=== PATIENT | male | born 1960 | race Caucasian/White ===

== ENCOUNTER 2019-12-28 15:50 | Observation (INO) | payer BC, SELFPAY ==
[2019-12-28] VITALS (17 sets, daily range): BP systolic 155–208; BP diastolic 93–132; PULSE 82–98; RESP 16–22; TEMP 36.7–37; O2SAT 92–95; BMI 47.5
--- NOTE | 2019-12-28 15:54 | ED_ITS ---
Entered by Chris Medina, acting as scribe for Earl Lima DO Documented by User: Earl Lima DO 12/28/19 18:06 HPI - General Adult General: Chief complaint: Abdominal Pain Stated complaint: BACK, ABD PAIN Time Seen by Provider: 12/28/19 16:09 History of Present Illness: HPI narrative: 59 yo male presents with abd and back pain. Pt states that he feels like he may have a kidney stone or something. Pt states that this all started about 2 hours ago. He has had stones remotely. He has pain radiating down from the right flank into the groin he is not noticed any hematuria denies fever sweats chills MD complaint: abd and back pain. Onset (ago): hour(s) (2) Location: back and abdomen Radiation: back Severity: severe Severity scale (1-10): >10 Quality: sharp Pain Consistency: constant Relieving factors: none Exacerbating factors: movement Associated symptoms: Reports nausea and vomiting; Deny chest pain, dyspnea, malaise or rash Treatments prior to arrival: none Review of Systems Const: Denies: fever, chills, body aches, change in appetite, fatigue or malaise ENMT: Denies: throat pain, ear pain, nasal discharge or nasal congestion Card: Denies: chest pain, edema, shortness of breath on exertion or shortness of breath when lying down Resp: Denies: shortness of breath, productive cough or non-productive cough GI: Reports: abdominal pain, nausea and vomiting : Reports: flank pain; Denies: painful urination, urinary frequency or urinary urgency Skin/Breast: Denies: rash or itching PFSH ED PFSH: Medical History Acute post-thoracotomy pain Essential (primary) hypertension Hernia Sacroiliitis Thoracic neuralgia 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 Physical Exam Const: COMMON NORMALS: no apparent distress GENERAL APPEARANCE: cooperative, in distress and diaphoretic ORIENTATION/CONSCIOUSNESS: Yes awake, Yes oriented to person, Yes oriented to place and Yes oriented to time HENMT: COMMON NORMALS: normocephalic, head/scalp atraumatic, hearing grossly normal bilaterally, external ears normal, EAC's normal, TM's normal bilaterally, nasal mucous membranes and turbinates normal, moist oral mucous membranes and oropharynx normal HEAD & SCALP: normocephalic and atraumatic NOSE: nasal mucous membranes and turbinates normal EXTERNAL EAR: Yes external ears normal EXTERNAL AUDITORY CANAL: EAC's normal TYMPANIC MEMBRANE: TM's normal bilaterally Eye: COMMON NORMALS: PERRL, EOMs intact bilaterally, conjunctivae normal and no scleral icterus CONJUNCTIVA: Yes conjunctivae normal PUPIL: Yes PERRL Neck/C-Spine: COMMON NORMALS: full ROM, no lymphadenopathy, supple and no JVD Lymph: LYMPHATIC: no lymphadenopathy noted and no lymphedema noted Resp: COMMON NORMALS: normal respiratory effort, no retractions, no use of accessory muscles and clear to auscultation bilaterally AUSCULTATION: clear to auscultation bilaterally Cardio: COMMON NORMALS: no JVD, regular rate, regular rhythm and no murmurs RATE: regular rate RHYTHM: regular rhythm GI: COMMON NORMALS: soft to palpation AUSCULTATION: Yes normoactive bowel sounds PALPATION: Yes soft and Yes tender : BLADDER/KIDNEY EXAM: Yes CVA tenderness Back/Pelvis: GENERAL BACK: Yes CVA tenderness Extremity: COMMON NORMALS: normal to inspection, normal capillary refill, no clubbing, cyanosis or edema, no calf tenderness and no pedal edema Neuro: SENSORIUM/ORIENTATION: Yes oriented to person, Yes oriented to place and Yes oriented to time Skin: COMMON NORMALS: no rashes or lesions noted GENERAL SKIN EXAM: no rashes or lesions noted Course Vital Signs: Vital signs: Vital Signs Temperature 98.1 F 12/28/19 15:55 Pulse Rate 85 12/28/19 18:00 Respiratory Rate 18 12/28/19 18:08 Blood Pressure 208/126 12/28/19 18:00 Pulse Oximetry 95 12/28/19 18:00 MDM - General Adult MDM Narrative: Medical decision making narrative: Despite large doses of pain medications he still having some difficulty with pain. Working to try to still get him to be discharged if possible. Patient CARE handed off to Dr. Ferraro reviewed the case with him. He is still getting fluids continue to attempt to titrate medications if that is not successful we will have to come in to the hospital. Dr. Garcia has agreed to take him on admission if we are unable to adequately control his pain. Lab Data: Labs: Lab Results 12/28/19 12/28/19 12/28/19 Range/Units 16:02 16:02 16:24 WBC 12.4 H (4.0-10.0) 10^3/ uL RBC 5.44 H (4.1-5.3) 10^6/u L Hgb 16.1 (11.7-16.6) g/dL Hct 50.8 (42.0-52.0) % MCV 93.4 (80-94) fL MCH 29.6 (28.0-34.0) pg MCHC 31.7 (30.0-36.0) g/dL RDW 13.8 (12.1-15.1) % Plt Count 287 (130-400) 10^3/c mm MPV 11.0 H (7.4-10.4) fL Neut % (Auto) 80.3 % Lymph % (Auto) 12.4 % [place] % (Auto) 5.5 % Eos % (Auto) 1.2 % Baso % (Auto) 0.2 % Neut # (Auto) 9.9 H (1.8-7.7) 10^3/u L Lymph # (Auto) 1.5 (0.8-4.8) 10^3/u L [place] # (Auto) 0.7 (0.2-0.9) 10^3/u L Eos # (Auto) 0.2 (0.0-0.8) 10^3/u L Baso # (Auto) 0.0 (0.0-0.1) 10^3/u L Nucleated RBC % (a uto) 0 % Nucleated RBCs # 0.0 /100WBC Sodium 136 (136-145) mmol/L Potassium 4.7 (3.5-5.1) mmol/L Chloride 98 (98-107) mmol/L Carbon Dioxide 20 L (22-29) mmol/L Anion Gap 22.7 H (5-19) BUN 25 H (8-23) mg/dL Creatinine 1.4 H (0.7-1.2) mg/dL GFR Calculation 51.7 L (90-130) mL/min Glucose 174 H (65-115) mg/dL Calculated Osmolal ity 283 L (285-295) mOsm/k g Calcium 10.7 H (8.5-10.5) mg/dL Urine Color Yellow (Yellow) Urine Appearance Hazy A (CLEAR) Urine pH 5 (5-7) Ur Specific Gravit y 1.020 (1.005-1.030) Urine Protein 1+ H (Negative) Urine Glucose (UA) Norm (Normal) Urine Ketones 1+ H (Negative) Urine Blood 3+ H (Negative) Urine Nitrate Negative (Negative) Urine Bilirubin Neg (NEGATIVE) Urine Urobilinogen Norm (Negative) mg/dL Ur Leukocyte Merline ase Negative (Negative) Urine RBC 50-80 H (0-2) /hpf Urine WBC 5-10 H (0-5) /hpf Ur Squamous Epith Cells 0-4 H (0-5) Urine Bacteria 1+ H (NONE) Discharge Plan Discharge Prescriptions: No Action albuterol sulfate [ProAir HFA] 90 mcg/actuation HFA aerosol inhaler 2 puff INHALATION Q6H PRNRF: 0 amlodipine 10 mg tablet 10 mg PO ONCE Qty: 90 RF: 3 spironolactone 50 mg tablet 50 mg PO QAM Qty: 90 RF: 3 benzonatate [Tessalon Perles] 100 mg capsule 100 mg PO TID PRN (Reason: cough) Qty: 90 RF: 1 prednisone 10 mg tablets,dose pack See Rx Instructions PO PER PKG DIR Qty: 21 RF: 0 azithromycin 250 mg tablet See Rx Instructions PO .COMPLEX Qty: 6 RF: 0 Coding Level of Care Code ED Senior Program Planner for Chg Fwd Exam Comprehensive Documented by User: Lawson Ferraro DO 12/28/19 19:06 HPI - General Adult General: Chief complaint: Abdominal Pain Stated complaint: BACK, ABD PAIN Time Seen by Provider: 12/28/19 16:09 PFSH ED PFSH: Medical History Acute post-thoracotomy pain Essential (primary) hypertension Hernia Sacroiliitis Thoracic neuralgia Surgical History History of esophagogastroduodenoscopy (EGD) 02/22/2013- NORMAL S/P carpal tunnel release S/P colonoscopy 06/13/2012- POLYPS S/P thoracotomy Family History Other Cancer Heart disease Social History Smoking and tobacco status: never smoked Alcohol intake: current Alcohol intake frequency: holidays/special occasions only Lives independently: Yes Housing: House Current occupational status: disabled Current occupation: [employer] Vital Signs: Vital signs: Vital Signs Temperature 98.1 F 12/28/19 15:55 Pulse Rate 85 12/28/19 18:00 Respiratory Rate 18 12/28/19 18:08 Blood Pressure 208/126 12/28/19 18:00 Pulse Oximetry 95 12/28/19 18:00 MDM - General Adult MDM Narrative: Medical decision making narrative: 59-year-old male checked out to me by Dr. Abdul. He presents with a ureterolithiasis that is quite large. His pain is been difficult to control. He is also hypertensive. He has had enough pain medication, he is requiring a bit of oxygen now. Because of this, h e will be admitted. Dr. Fontenotay aware. Lab Data: Labs: Lab Results 12/28/19 12/28/19 12/28/19 Range/Units 16:02 16:02 16:24 WBC 12.4 H (4.0-10.0) 10^3/ uL RBC 5.44 H (4.1-5.3) 10^6/u L Hgb 16.1 (11.7-16.6) g/dL Hct 50.8 (42.0-52.0) % MCV 93.4 (80-94) fL MCH 29.6 (28.0-34.0) pg MCHC 31.7 (30.0-36.0) g/dL RDW 13.8 (12.1-15.1) % Plt Count 287 (130-400) 10^3/c mm MPV 11.0 H (7.4-10.4) fL Neut % (Auto) 80.3 % Lymph % (Auto) 12.4 % [place] % (Auto) 5.5 % Eos % (Auto) 1.2 % Baso % (Auto) 0.2 % Neut # (Auto) 9.9 H (1.8-7.7) 10^3/u L Lymph # (Auto) 1.5 (0.8-4.8) 10^3/u L [place] # (Auto) 0.7 (0.2-0.9) 10^3/u L Eos # (Auto) 0.2 (0.0-0.8) 10^3/u L Baso # (Auto) 0.0 (0.0-0.1) 10^3/u L Nucleated RBC % (a uto) 0 % Nucleated RBCs # 0.0 /100WBC Sodium 136 (136-145) mmol/L Potassium 4.7 (3.5-5.1) mmol/L Chloride 98 (98-107) mmol/L Carbon Dioxide 20 L (22-29) mmol/L Anion Gap 22.7 H (5-19) BUN 25 H (8-23) mg/dL Creatinine 1.4 H (0.7-1.2) mg/dL GFR Calculation 51.7 L (90-130) mL/min Glucose 174 H (65-115) mg/dL Calculated Osmolal ity 283 L (285-295) mOsm/k g Calcium 10.7 H (8.5-10.5) mg/dL Urine Color Yellow (Yellow) Urine Appearance Hazy A (CLEAR) Urine pH 5 (5-7) Ur Specific Gravit y 1.020 (1.005-1.030) Urine Protein 1+ H (Negative) Urine Glucose (UA) Norm (Normal) Urine Ketones 1+ H (Negative) Urine Blood 3+ H (Negative) Urine Nitrate Negative (Negative) Urine Bilirubin Neg (NEGATIVE) Urine Urobilinogen Norm (Negative) mg/dL Ur Leukocyte Merline ase Negative (Negative) Urine RBC 50-80 H (0-2) /hpf Urine WBC 5-10 H (0-5) /hpf Ur Squamous Epith Cells 0-4 H (0-5) Urine Bacteria 1+ H (NONE) Discharge Plan Discharge Prescriptions: No Action albuterol sulfate [ProAir HFA] 90 mcg/actuation HFA aerosol inhaler 2 puff INHALATION Q6H PRNRF: 0 amlodipine 10 mg tablet 10 mg PO ONCE Qty: 90 RF: 3 spironolactone 50 mg tablet 50 mg PO QAM Qty: 90 RF: 3 benzonatate [Tessalon Perles] 100 mg capsule 100 mg PO TID PRN (Reason: cough) Qty: 90 RF: 1 prednisone 10 mg tablets,dose pack See Rx Instructions PO PER PKG DIR Qty: 21 RF: 0 azithromycin 250 mg tablet See Rx Instructions PO .COMPLEX Qty: 6 RF: 0 Coding Level of Care Code ED Senior Program Planner for Chg Fwd Exam Comprehensive The documentation recorded by the Adam arthur Kialy, accurately reflects the service I personally performed and the decisions made by Janie mendoza Curtis L, DO Dec 28, 2019 15:50
--- NOTE | 2019-12-28 16:12 | CTR_ITS ---
PROCEDURE INFORMATION: Exam: CT Abdomen And Pelvis Without Contrast Exam date and time: 12/28/2019 4:13 PM Age: 59 years old Clinical indication: Abdominal pain; Right; Prior surgery; Surgery date: 6+ months; Surgery type: Thoracotomy, hernia; Patient HX: C/O R flank pain w n/v, HX of stones; Additional info: Nephrolithisis TECHNIQUE: Imaging protocol: Computed tomography of the abdomen and pelvis without contrast. Total DLP: 2118.62 mGy-cm Radiation optimization: All CT scans at this facility use at least one of these dose optimization techniques: automated exposure control; mA and/or kV adjustment per patient size (includes targeted exams where dose is matched to clinical indication); or iterative reconstruction. COMPARISON: No relevant prior studies available. FINDINGS: Liver: Normal. No mass. Gallbladder and bile ducts: Cholelithiasis. The bile ducts are normal. Pancreas: Normal. No ductal dilation. Spleen: Normal. No splenomegaly. Adrenals: Normal. No mass. Kidneys and ureters: 7 mm calculus in the proximal right ureter with mild right hydronephrosis. 1.8 cm The left kidney is normal. Stomach and bowel: Diverticulosis of the distal colon. The stomach and small bowel are unremarkable. Appendix: The appendix is normal. Intraperitoneal space: Unremarkable. No free air. No significant fluid collection. Vasculature: Unremarkable. No abdominal aortic aneurysm. Lymph nodes: Unremarkable. No enlarged lymph nodes. Bladder: Unremarkable as visualized. Reproductive: Unremarkable as visualized. Bones/joints: Left thoracotomy changes with multiple wires in the left ribs. Lungs: Left lower lobe atelectasis or scarring. Soft tissues: Bilateral fat containing inguinal hernias. 5.9 cm fat containing periumbilical hernia. CT/CT kidney stone [id number] IMPRESSION: 1. 7 mm calculus in the proximal right ureter with mild right hydronephrosis. 2. Cholelithiasis. 3. Benign fluid density right renal cyst. No follow-up imaging is recommended. Radiation Dose CTDIVOL = (mGy): DLP = 2118.62 (mGy-cm)
[2019-12-28] MEDS: ondansetron 2 mg/ML SDV 2 mL 4 MG IVP ×3 (16:20→21:11)
[2019-12-28] MEDS: morphine 4 mg/mL SDV 1 mL 8 MG IVP (16:20)
[2019-12-28 16:32] LABS: Basophils % 0.2 %; Eosinophils # 0.2 10^3/uL (0.0-0.8); Eosinophils % 1.2 %; Hematocrit 50.8 % (42.0-52.0); Hemoglobin 16.1 g/dL (11.7-16.6); Lymphocytes # 1.5 10^3/uL (0.8-4.8); Lymphocytes % 12.4 %; Mean Corpuscular HGB Conc 31.7 g/dL (30.0-36.0); Mean Corpuscular Hemoglobin 29.6 pg (28.0-34.0); Mean Corpuscular Volume 93.4 fL (80-94); Monocytes # 0.7 10^3/uL (0.2-0.9); Monocytes % 5.5 %; Neutrophils # 9.9 10^3/uL (1.8-7.7); Neutrophils % 80.3 %; Nucleated Red Blood Cells % 0 %; Platelet Count 287 10^3/cmm (130-400); Red Blood Count 5.44 10^6/uL (4.1-5.3); Red Cell Distribution Width 13.8 % (12.1-15.1); White Blood Count 12.4 10^3/uL (4.0-10.0)
[2019-12-28 16:36] LABS: Anion Gap 22.7 (5-19); Blood Urea Nitrogen 25 mg/dL (8-23); Calcium 10.7 mg/dL (8.5-10.5); Carbon Dioxide 20 mmol/L (22-29); Chloride 98 mmol/L (98-107); Glomerular Filtration Rate 51.7 mL/min (90-130); Glucose 174 mg/dL (65-115); Osmolality Calculated 283 mOsm/kg (285-295); Potassium 4.7 mmol/L (3.5-5.1); Sodium 136 mmol/L (136-145)
[2019-12-28] MEDS: HYDROmorphone 1 mg/mL INJ 1 mL IVP ×6 (16:48→22:31)
[2019-12-28 17:05] LABS: Add Urine Microscopic? YES; Bilirubin Urine Neg (NEGATIVE); Blood Urine 3+ (Negative); Glucose Urine UA Norm (Normal); Ketones Urine 1+ (Negative); Leukocyte Esterase Urine Negative (Negative); Nitrate Urine Negative (Negative); Protein Urine 1+ (Negative); Urine Appearance Hazy (CLEAR); Urine Color Yellow (Yellow); Urobilinogen Urine Norm (Negative); pH Urine 5 (5-7)
[2019-12-28] MEDS: sodium chloride 0.9% 1,000 ML 999 ML IV ×2 (17:21→18:33)
[2019-12-28 17:22] LABS: Add Urine Culture? Yes; Bacteria Urine 1+; RBC Urine 50-80 /hpf (0-2); Squamous Epithelial Cell Urine 0-4 (0-5)
--- NOTE | 2019-12-28 17:29 | PC.NURSE ---
Pt's o2 dropped down to 88% on room air after second dose of dilaudid. 2L NC applied to pt. Pt's o2 at 94%
[2019-12-28] MEDS: tamsulosin 0.4 mg Capsule PO ×2 (17:45→21:09)
[2019-12-28] MEDS: amlodipine 10 mg Tablet PO (19:16)
[2019-12-28] MEDS: hyDRALAzine 20 mg/mL INJ 1 mL IVP (19:16)
--- NOTE | 2019-12-28 19:24 | PC.NURSE ---
report received from BUTCH Payne and care transferred to BUTCH Whittaker
--- NOTE | 2019-12-28 20:33 | PM.HP ---
Documented by User: Boaz Garcia MD 12/29/19 07:24 Providers/Chief Complaint Admitting Physician: Boaz Garcia MD Primary Care Provider: Jono Arrington MD Chief Complaint: BACK, ABD PAIN History of Present Illness Yuriy Moncada is a 59 year old male admitted from the ED for evaluation and treatment of severe, abrupt RIGHT renal colic related to a 7mm RIGHT proximal ureteral stone with obtruction but no infection. Pain began tonight and similar to remote episodes of renal colic associated with stone.. Aggressive management of pain in ED was unsuccessful in control adequate for outpatient management. Patient has a history of previous stones with spontaneous passage probably 9 years ago. He is also to a woman that experienced prior obstructive pyelonephritis with sepsis requiring emergency intervention. Additional medical issues: Hypertension, morbid obesity, chronic left thoracic chest pain due to prior rib fractures, chronic bronchitis followed by Dr. Arrington Plan: Admit, focus on pain control, review options Review of Systems Const: Reports: chills; Denies: fever, malaise or night sweats Eyes: Denies: change in vision ENMT: Reports: nasal congestion; Denies: throat pain or change in hearing Card: Reports: chest pain (Chronic thoracic pain from fractured ribs remotely); Denies: leg pain with exertion or bluish discoloration of hands/feet Resp: Reports: shortness of breath (Chronic), non-productive cough and chest congestion GI: Reports: abdominal pain, nausea and vomiting; Denies: difficulty swallowing : Reports: flank pain; Denies: difficulty urinating, urinary frequency, blood in urine or testicular pain Musc: Denies: neck pain or decrease in muscle mass Skin/Breast: Denies: rash or itching Neuro: Denies: headache, lack of coordination or difficulty walking Psych: Denies: anxiety or depression Endo: Denies: excessive urination or excessive thirst [place]/Lymph: Denies: easy bruising or easy bleeding All/Imm: Denies: hives or throat swelling Medications/Allergies Allergies Allergy/AdvReac Type Severity Reaction Status Date / Time No Known Allergies Allergy Verified 10/30/19 14:37 Additional Medication Information Additional Medication Information: Albuterol sulfate 90 mcg per actuation HFA aerosol inhaler: 2 puffs every 6 hours as needed AMLODIPINE 10 mg tablet daily Spironolactone 50 mg tablet every morning Tessalon Perles 100 mg capsule 3 times a day as needed Prednisone 10 mg tablets Azithromycin 250 mg PFSH Acute PFSH: Medical History Acute post-thoracotomy pain Essential (primary) hypertension Hernia Intervertebral disc disorders with radiculopathy, lumbosacral region Morbid obesity Renal colic on right side Sacroiliitis Thoracic neuralgia Ureteral stone with hydronephrosis 7+ millimeters right proximal ureteral stone with high-grade obstruction and severe refractory renal colic. Required inpatient admission December 2019 and treated with endoscopy with laser lithotripsy and stent. 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 Vitals/I&O/Wt Last Vital Signs Temp 98.1 F 12/28/19 15:55 Pulse 98 12/28/19 20:22 Resp 16 12/28/19 20:22 BP 155/109 12/28/19 20:22 Pulse Ox 92 12/28/19 20:22 12/28/19 12/28/19 12/28/19 06:59 14:59 22:59 Intake Total 1000 / 1000 Balance 1000 / 1000 Weight last 48 hrs Weight 380 lb Physical Exam Const: COMMON NORMALS: alert and well nourished GENERAL APPEARANCE: in distress ORIENTATION/CONSCIOUSNESS: not confused HENMT: HEAD & SCALP: normocephalic and atraumatic Eye: COMMON NORMALS: conjunctivae normal and no scleral icterus CONJUNCTIVA: Yes conjunctivae normal Neck/C-Spine: COMMON NORMALS: full ROM GENERAL: Yes normal visual inspection Chest: OTHER: Tender left chest Chronic musculoskeletal tenderness following remote rib fractures Resp: COMMON NORMALS: normal respiratory effort EFFORT & INSPECTION: No labored and No actively coughing OTHER: Coarse breath sounds throughout. Cardio: COMMON NORMALS: regular rate and regular rhythm GI: COMMON NORMALS: normal to inspection, nondistended, normoactive bowel sounds OTHER: Right CVA tenderness and right upper quadrant tenderness Back/Pelvis: GENERAL BACK: Yes CVA tenderness CVA tenderness: right Extremity: COMMON NORMALS: no clubbing, cyanosis or edema Neuro: COMMON NORMALS: no focal motor deficits SENSORIUM/ORIENTATION: Yes alert Psych: COMMON NORMALS: mental status grossly normal APPEARANCE: Yes grossly normal and Yes well kempt ATTITUDE: Yes calm and Yes engaged Skin: COMMON NORMALS: no rashes or lesions noted GENERAL SKIN EXAM: no rashes or lesions noted Data : 12/29/19 05:00 12/30/19 04:55 CT Abd/Pel: I personally reviewed and interpreted this imaging study as follows: My impression: Agree with findings of obstructing 7mm right proximal ureteral stone. A&P Assessment and plan (1) Ureteral stone with hydronephrosis: 7mm RIGHT proximal ureteral stone with refractory pain Admitted for symptomatic control and consideration of therapeutic options. Status: Acute Code(s): N13.2 - Hydronephrosis with renal and ureteral calculous obstruction (2) Essential (primary) hypertension: Status: Acute Code(s): I10 - Essential (primary) hypertension (3) Renal colic on right side: Status: Acute Code(s): N23 - Unspecified renal colic (4) Morbid obesity: Status: Acute Code(s): E66.01 - Morbid (severe) obesity due to excess calories (5) Bronchitis with acute wheezing: Status: Acute Code(s): J40 - Bronchitis, not specified as acute or chronic Attestations Medical Necessity Statement*: Refractory pain, large stone, could not be managed as an outpatient due to failure of pain control with aggressive IV narcotics in the emergency department. Coding Level of Care Code Acute Integrated Pest Management Technician for [facility] Fwd Exam Comprehensive Diagnoses Ureteral stone with hydronephrosis N13.2 Essential (primary) hypertension I10 Renal colic on right side N23 Morbid obesity E66.01 Bronchitis with acute wheezing J40 Documented by User: Fouzia Reynolds MD 12/31/19 10:56 Providers/Chief Complaint Chief Complaint: BACK, ABD PAIN Medications/Allergies Allergies Allergy/AdvReac Type Severity Reaction Status Date / Time No Known Allergies Allergy Verified 10/30/19 14:37 PFSH Acute PFSH: Medical History Acute post-thoracotomy pain Essential (primary) hypertension Hernia Intervertebral disc disorders with radiculopathy, lumbosacral region Morbid obesity Renal colic on right side Sacroiliitis Thoracic neuralgia Ureteral stone with hydronephrosis 7+ millimeters right proximal ureteral stone with high-grade obstruction and severe refractory renal colic. Required inpatient admission December 2019 and treated with endoscopy with laser lithotripsy and stent. Surgical History History of esophagogastroduodenoscopy (EGD) 02/22/2013- NORMAL S/P carpal tunnel release S/P colonoscopy 06/13/2012- POLYPS S/P thoracotomy Family History Other Cancer Heart disease Social History Smoking and tobacco status: never smoked Alcohol intake: current Alcohol intake frequency: holidays/special occasions only Lives independently: Yes Housing: House Current occupational status: disabled Current occupation: [employer] Data : 12/29/19 05:00 12/30/19 04:55 Attestations Other Attestations: i was inadvertently added as a signer of this note during review of chart after patient called me for orders. Determined Dr Garcia the attending and instructed nurse to contact him. I did not participate in care of this patient otherwise Coding Level of Care Code Acute Integrated Pest Management Technician for [facility] Fwd Exam Comprehensive Diagnoses Ureteral stone with hydronephrosis N13.2 Essential (primary) hypertension I10 Renal colic on right side N23 Morbid obesity E66.01 Bronchitis with acute wheezing J40
[2019-12-28] MEDS: sodium chloride 0.9% 1,000 ML 100 ML IV (21:10)
[2019-12-29] VITALS (29 sets, daily range): BP systolic 138–199; BP diastolic 68–116; PULSE 78–96; RESP 14–30; TEMP 36.2–37.3; O2SAT 91–98
[2019-12-29] MEDS: HYDROmorphone 1 mg/mL INJ 1 mL IVP ×4 (00:54→08:12)
[2019-12-29] MEDS: ondansetron 2 mg/ML SDV 2 mL 4 MG IVP ×2 (04:02→08:12)
[2019-12-29 05:40] LABS: Basophils % 0.1 %; Hematocrit 49.3 % (42.0-52.0); Lymphocytes % 6.8 %; Mean Corpuscular HGB Conc 30.4 g/dL (30.0-36.0); Mean Corpuscular Hemoglobin 29.5 pg (28.0-34.0); Mean Platelet Volume 10.7 fL (7.4-10.4); Monocytes # 0.8 10^3/uL (0.2-0.9); Monocytes % 5.7 %; Neutrophils # 12.5 10^3/uL (1.8-7.7); Neutrophils % 86.8 %; Nucleated Red Blood Cells % 0 %; Platelet Count 248 10^3/cmm (130-400); Red Blood Count 5.08 10^6/uL (4.1-5.3); Red Cell Distribution Width 14.2 % (12.1-15.1); White Blood Count 14.4 10^3/uL (4.0-10.0)
[2019-12-29 05:58] LABS: Alanine Aminotransferase 87 U/L (0-41); Albumin Level 4.1 g/dL (3.5-5.2); Alkaline Phosphatase 68 IU/L (40-130); Anion Gap 18.9 (5-19); Aspartate Amino Transferase 53 U/L (0-40); Blood Urea Nitrogen 25 mg/dL (8-23); Calcium 9.8 mg/dL (8.5-10.5); Carbon Dioxide 23 mmol/L (22-29); Chloride 98 mmol/L (98-107); Globulin 3.6 g/dL (1.3-4.6); Glomerular Filtration Rate 36.3 mL/min (90-130); Glucose 163 mg/dL (65-115); Osmolality Calculated 280 mOsm/kg (285-295); Potassium 4.9 mmol/L (3.5-5.1); Sodium 135 mmol/L (136-145); Total Bilirubin 0.4 mg/dL (0.15-1.2); Total Protein 7.7 g/dL (6.6-8.7)
--- NOTE | 2019-12-29 06:00 | XRR_ITS ---
PROCEDURE INFORMATION: Exam: XR Abdomen, 1 View Exam date and time: 12/28/2019 11:59 PM Age: 59 years old Clinical indication: Condition or disease; Kidney or ureter condition; Calculus (stone) in ureter; Additional info: F/u right proximal ureteral stone TECHNIQUE: Imaging protocol: XR of the abdomen. Views: Frontal supine view of the abdomen. 1 View. COMPARISON: CT kidney stone [id number] 12/28/2019 4:43 PM FINDINGS: Gastrointestinal tract: No interval bowel dilatation. Organs: Cluster of faint gallstones still present positioned to the right of T12 on the right upper quadrant image. Approximately 9 x 8 mm calcification to the right of L3 on the left lower quadrant image conceivably corresponding to the smaller stone in the proximal right ureter when allowing for significant magnification related to the patient's large body habitus. Still no hepatosplenomegaly. Bones/joints: Old right rib fractures again evident. Metallic sutures in the area of old left rib fractures still present. Continued spurring at multiple disc levels. XR/XR KUB [id number] IMPRESSION: 1. Small calcification to the right of L3 suspected to represent the proximal right ureteral stone seen on the recent CT scan. 2. Cholelithiasis again evident. Other findings detailed above.
--- NOTE | 2019-12-29 07:24 | P.PN_ITS ---
Subjective Subjective: Interval history: Difficult night with poor control of pain despite aggressive use of opioids. No cardiac type chest pain. Does have his baseline chronic shortness of breath. Also has a chronic cough that he has had for months related to his chronic bronchitis. No fever or chills. No difficulty voiding but describes decreased urine output. I expect that he is dry Vitals/I&O/Wt Last Vital Signs Temp 98.8 F 12/29/19 07:13 Pulse 79 12/29/19 07:13 Resp 20 H 12/29/19 07:13 BP 148/78 12/29/19 07:13 Pulse Ox 91 12/29/19 07:13 12/28/19 12/29/19 12/29/19 22:59 06:59 14:59 Intake Total 1000 / 1000 Output Total 150 / 150 550 / 700 Balance 850 / 850 -550 / 300 Weight last 48 hrs Weight 380 lb Physical Exam Const: COMMON NORMALS: no apparent distress, alert and well nourished GENERAL APPEARANCE: well kempt and well developed ORIENTATION/CONSCIOUSNESS: not confused HENMT: COMMON NORMALS: normocephalic and head/scalp atraumatic HEAD & SCALP: normocephalic and atraumatic Eye: COMMON NORMALS: conjunctivae normal and no scleral icterus CONJUNCTIVA: Yes conjunctivae normal Neck/C-Spine: COMMON NORMALS: full ROM GENERAL: Yes normal visual inspection Resp: COMMON NORMALS: normal respiratory effort EFFORT & INSPECTION: No labored and No actively coughing : COMMON NORMALS: No no CVA tenderness BLADDER/KIDNEY EXAM: No no CVA tenderness OTHER: No bladder distention Back/Pelvis: COMMON NORMALS: negative for no CVA tenderness Extremity: COMMON NORMALS: no clubbing, cyanosis or edema Neuro: COMMON NORMALS: no focal motor deficits SENSORIUM/ORIENTATION: Yes alert Psych: COMMON NORMALS: mental status grossly normal APPEARANCE: Yes grossly normal and Yes well kempt ATTITUDE: Yes calm and Yes engaged Skin: COMMON NORMALS: no rashes or lesions noted and no jaundice GENERAL SKIN EXAM: no rashes or lesions noted Data : 12/29/19 05:00 12/29/19 05:00 A&P Assessment and plan (1) Ureteral stone with hydronephrosis: 7mm RIGHT proximal ureteral stone with refractory pain Admitted for symptomatic control and consideration of therapeutic options. Refractory pain all night even with significant dosing of narcotics. Stone unlikely to pass. Have reviewed his options for intervention and he chose to proceed today when time available for ureteroscopic treatment of RIGHT ureteral stone Status: Acute Code(s): N13.2 - Hydronephrosis with renal and ureteral calculous obstruction (2) Essential (primary) hypertension: Status: Acute Code(s): I10 - Essential (primary) hypertension (3) Renal colic on right side: Status: Acute Code(s): N23 - Unspecified renal colic (4) Morbid obesity: Status: Acute Code(s): E66.01 - Morbid (severe) obesity due to excess calories (5) Bronchitis with acute wheezing: Status: Acute Code(s): J40 - Bronchitis, not specified as acute or chronic (6) JESUS (acute kidney injury): Status: Acute Code(s): N17.9 - Acute kidney failure, unspecified Attestations Medical Necessity Statement*: Uncontrolled pain. Increasing creatinine. Stone unlikely to pass based on its size and location. All of these make this patient an urgent surgical candidate. 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
--- NOTE | 2019-12-29 07:27 | XRR_ITS ---
PROCEDURE INFORMATION: Exam: XR Chest, 2 Views Exam date and time: 12/29/2019 7:31 AM Age: 59 years old Clinical indication: Shortness of breath; Prior surgery; Surgery date: 6+ months; Additional info: Preop ureteroscopy, has chronic cough and SOB TECHNIQUE: Imaging protocol: XR of the chest Views: 2 views. COMPARISON: CR Chest 2 views* [id number] 01/13/2017 10:49 AM FINDINGS: Lungs: No pneumonia or pulmonary edema. Pleural space: Left pleural thickening. No pleural effusion or pneumothorax. Heart/Mediastinum: The cardiac silhouette is not enlarged. The mediastinal contours are normal. Bones/joints: Prior bilateral rib fractures. Cerclage wires in the lower lateral left rib cage. One of the wires is fractured, present before. There is diffuse idiopathic skeletal hyperostosis. Soft tissues: There are bilateral epicardial fat pads. Calcification in the superficial soft tissue of the lower lateral left chest, likely dystrophic, present before. XR/XR chest 2V* [id number] IMPRESSION: No acute abnormality.
[2019-12-29] MEDS: sodium chloride 0.9% 1,000 ML 100 ML IV (08:11)
--- NOTE | 2019-12-29 08:48 | SC_ITS ---
WS: [id number] INTRAOPERATIVE TECHNIQUE: 3 Spot fluoroscopic images for intraoperative purposes. FLUOROSCOPY TIME: 102.6 seconds CLINICAL INFORMATION: STENT COMPARISON: None. FINDINGS: Partially visualized deployment of ureteral stent. Images obtained for intraoperative purposes. SC/C-arm FL for Urology IMPRESSION: Images obtained for intraoperative purposes.
--- NOTE | 2019-12-29 09:25 | ANES.PREANE2 ---
Pre-Anesthetic Assessment Pre-Anesthetic Assessment: Height/Weight: Height 1.91 m Weight 172.365 kg Temp Pulse Resp BP Pulse Ox 98.8 F 79 16 148/78 91 12/29/19 07:13 12/29/19 07:13 12/29/19 08:12 12/29/19 07:13 12/29/19 07:13 Preop Diagnosis: Kidney stone Proposed Procedure: Operation Date: 12/29/19 13:00 Proposed Procedures p Cystoscopy(Not Applicable) - Boaz Garcia MD s Retrograde Pyelogram(Not Applicable) - Boaz Garcia MD s Ureteral Stent Placement(Not Applicable) - Boaz Garcia MD s Laser Lithotripsy(Not Applicable) - Boaz Garcia MD Familial anesthetic complications: I had to be bagged afterwards, because i had trouble breathing Was Beta Carley taken within 24 hours: N/A Social: Social History: No alcohol and No tobacco Exam: Pre-Anes Outpt Exam: alert, oriented x 3, clear to auscultation bilaterally and regular rate & rhythm Additional Exam Findings (including area of procedure): coarse breath sounds b/l Airway: Cervical ROM: WNL MP: 4 Dentition: Full Additional comments: large neck Pulmonary: Pulmonary: Cough and Sleep apnea (Does not wear CPAP) Comments: ligia has been coughing a lot recently, diagnsoed with bronchitis, states he's unable to cough anything up, states he was satting 89% on room air. Placed on nasasl canula CV/HEM: CV/HEM: HTN : : None reported Hepatic: Hepatic: None reported GI: GI: None reported Metabolic: Metabolic: Morbid obesity Musc/skel: Musc/skel: OA/DJD Neuropsych: Neuropsych: None reported Anesthetic Plan: ASA status: 3 Anesthesia: General Risk of > 500 ml blood loss (7ml/kg in children): No Meds/Allergies Current Medications: Current Medications Generic Name Dose Route Start Last Admin Trade Name Freq PRN Reason Stop Dose Admin Hydromorphone HCl 4 mg 12/28/19 21:52 12/29/19 04:02 Dilaudid Tab PO 4 mg Q6H PRN Administration PAIN Hydromorphone HCl 1 mg 12/28/19 21:55 12/29/19 08:12 Dilaudid Inj IVP 1 mg Q2H PRN Administration PAIN Sodium Chloride 1,000 mls @ 150 m ls/hr 12/28/19 20:39 12/29/19 08:11 Sodium Chloride 0.9% IV 100 mls/hr .Q6H40M CUCA Administration Ondansetron HCl 4 mg 12/28/19 20:39 12/29/19 08:12 Zofran IVP 4 mg Q6H PRN Administration NAUSEA AND VOMITI NG Tamsulosin HCl 0.4 mg 12/28/19 20:39 12/28/19 21:09 Flomax PO 0.4 mg Q24H CUCA Administration Additional Medication Information: Albuterol sulfate 90 mcg per actuation HFA aerosol inhaler: 2 puffs every 6 hours as needed AMLODIPINE 10 mg tablet daily Spironolactone 50 mg tablet every morning Tessalon Perles 100 mg capsule 3 times a day as needed Prednisone 10 mg tablets Azithromycin 250 mg PFSH Anesthesia PFSH: Medical History Acute post-thoracotomy pain Essential (primary) hypertension Hernia Intervertebral disc disorders with radiculopathy, lumbosacral region Morbid obesity Renal colic on right side Sacroiliitis Thoracic neuralgia Ureteral stone with hydronephrosis Surgical History History of esophagogastroduodenoscopy (EGD) 02/22/2013- NORMAL S/P carpal tunnel release S/P colonoscopy 06/13/2012- POLYPS S/P thoracotomy Family History Other Cancer Heart disease Social History Smoking and tobacco status: never smoked Alcohol intake: current Alcohol intake frequency: holidays/special occasions only Lives independently: Yes Housing: House Current occupational status: disabled Current occupation: [employer] Data Anesthesia CBC & Chem 7: 12/29/19 05:00 12/29/19 05:00 Other Labs: Laboratory Results - last 48 hr 12/28/19 12/28/19 12/28/19 16:02 16:02 16:24 WBC 12.4 H RBC 5.44 H Hgb 16.1 Hct 50.8 MCV 93.4 MCH 29.6 MCHC 31.7 RDW 13.8 Plt Count 287 MPV 11.0 H Neut % (Auto) 80.3 Lymph % (Auto) 12.4 Levy % (Auto) 5.5 Eos % (Auto) 1.2 Baso % (Auto) 0.2 Neut # (Auto) 9.9 H Lymph # (Auto) 1.5 Levy # (Auto) 0.7 Eos # (Auto) 0.2 Baso # (Auto) 0.0 Nucleated RBC % (auto) 0 Nucleated RBCs # 0.0 Sodium 136 Potassium 4.7 Chloride 98 Carbon Dioxide 20 L Anion Gap 22.7 H BUN 25 H Creatinine 1.4 H GFR Calculation 51.7 L Glucose 174 H Calculated Osmolality 283 L Calcium 10.7 H Total Bilirubin AST ALT Alkaline Phosphatase Total Protein Albumin Globulin Urine Color Yellow Urine Appearance Hazy A Urine pH 5 Ur Specific [place] 1.020 Urine Protein 1+ H Urine Glucose (UA) Norm Urine Ketones 1+ H Urine Blood 3+ H Urine Nitrate Negative Urine Bilirubin Neg Urine Urobilinogen Norm Ur Leukocyte Esterase Negative Urine RBC 50-80 H Urine WBC 5-10 H Ur Squamous Epith Cells 0-4 H Urine Bacteria 1+ H 12/29/19 12/29/19 05:00 05:00 WBC 14.4 H RBC 5.08 Hgb 15.0 Hct 49.3 MCV 97.0 H MCH 29.5 MCHC 30.4 RDW 14.2 Plt Count 248 MPV 10.7 H Neut % (Auto) 86.8 Lymph % (Auto) 6.8 Levy % (Auto) 5.7 Eos % (Auto) 0.0 Baso % (Auto) 0.1 Neut # (Auto) 12.5 H Lymph # (Auto) 1.0 Levy # (Auto) 0.8 Eos # (Auto) 0.0 Baso # (Auto) 0.0 Nucleated RBC % (auto) 0 Nucleated RBCs # 0.0 Sodium 135 L Potassium 4.9 Chloride 98 Carbon Dioxide 23 Anion Gap 18.9 BUN 25 H Creatinine 1.9 H GFR Calculation 36.3 L Glucose 163 H Calculated Osmolality 280 L Calcium 9.8 Total Bilirubin 0.4 AST 53 H ALT 87 H Alkaline Phosphatase 68 Total Protein 7.7 Albumin 4.1 Globulin 3.6 Urine Color Urine Appearance Urine pH Ur Specific [place] Urine Protein Urine Glucose (UA) Urine Ketones Urine Blood Urine Nitrate Urine Bilirubin Urine Urobilinogen Ur Leukocyte Esterase Urine RBC Urine WBC Ur Squamous Epith Cells Urine Bacteria Cardiac Studies: No Data to Display
--- NOTE | 2019-12-29 11:47 | SUR.PREOP ---
1144 PATIENT TO OPS AT THIS TIME FROM OR. RR EVEN AND UNLABORED. NO DISTRESS.
--- NOTE | 2019-12-29 12:09 | PC.CHAP ---
Pastoral Care Encounter/Spiritual Assessment Type of Contact [] Declined litigation secretary visit [] Patient/Family/Request visit [] Outpatient visit [] Follow-up visit [] Physician referral [] Code/Alert [X] Routine visit [] Staff referral [] Actively dying [] Patient sleeping [] Family support [] [] Out of room [] Palliative care [] [] Receiving care in room [] Pre-surgical visit [] Trauma [] Long length of stay [] ICU visit [] Other: Relational/Emotional Strength [] Patient feels connected with others/family/visitors/staff [] Distress [] Loneliness/isolation [] Abandonment Spirituality of Patient [] Person of Saranya [] Attends Gnosticist of their Saranya [] Believes in Prayer [] Reads Bible or Taoism materials [] There are Spiritual issues to be addressed Machine Engineer Interventions [] Prayer [] Active listening [] Non-anxious presence [] Spiritual/emotional support [] Crisis/trauma care [] Spiritual counseling [] Bereavement support [] Provided bereavement packet [] Provided Bible/devotional materials [] Provided toy/stuffed animal, coloring book to patient or family member [] Provided Communion [] Anointing/[place] [] Salvation [] Completed spiritual assessment [] Other: Impact on Illness or Injury [] Angry [] Fearful [] Anxious [] Often cries [] Exhaustion [] Unable to work [] Unable to attend gnosticist [] Unable to walk/stand [] Unable to read [] Unable to drive [] Unable to eat/drink [] Unable to sleep [] Unable to be with family [] Patient intubated [] Other: Summary GOING TO LITHOTRIPSY Time spent with patient
--- NOTE | 2019-12-29 12:39 | PM.OP ---
Operative Report Date of procedure: December 29, 2019 Pre-op Diagnosis: Right proximal ureteral stone Post-op diagnosis: same Procedure Done: Cystoscopy right, ureteroscopy, laser, stent (7 [place] by 30 cm without string) Right retrograde ureteropyelogram Surgeon: Radha Anesthesia: General (MANISH Toney) Estimated blood loss: Minimal Urine output: Not measured Complications: none Findings: Stone in expected position Condition: stable Disposition: PACU Brief History: Refractory right renal colic secondary to 7mm obstructing stone. No uti but increasing creatinine. Pain poorly controlled with aggressive parenteral narcotic use. Ultimately chose to proceed with surgical intervention due to the inability to adequately control symptoms. Procedure: After urgent evaluation examination and obtaining of informed consent he was taken to the operating suite on 12/29/2019 where general anesthesia was administered without difficulty after appropriate timeout was performed, SCDs confirmed to be functioning, preoperative antibiotics administered, beta-radhika protocol confirmed. Prepped and draped in usual sterile fashion in dorsolithotomy position pain careful attention to avoiding pressure points. 21 [place] cystoscope with 30 degree lens was introduced into the urethral meatus and advanced to the bladder under videoscopy. Bladder was systematically examined and found to be within normal limits. No stone. Fluoroscopy revealed the stone to be in the expected position. An 8 [place] cone-tipped catheter was intubated into the right ureteral orifice for right retrograde ureteropyelogram demonstrating the followin. Normal course and caliber of the ureter distal to the stone 2. Stone in the expected position with ureter proximal to that point demonstrating dilation as expected based on prior CT scan. No other filling defects identified. Flexible tip guidewire was advanced up the right ureter bypassing the stone. The distal ureter was then dilated with a 15 [place] 4 cm balloon and a second guidewire was passed up into the right kidney as well. A 38 cm ureteral access sheath was advanced over the working wire and the other wire was secured to the drapes as a safety wire. The ureteral access sheath not easily advanced up the ureter and was backed down onto the hub of the scope. The flexible ureteroscope was advanced to the proximal ureter where the stone was encountered in its expected position. A 365 ?m holmium laser fiber was then utilized to fragment the stone. This pushed the stone into the renal pelvis and the stone fragments were manipulated into a upper pole calyx which allowed fixation into a position and then good fragmentation. On final inspection there was no identifiable fragments on endoscopic or radiographic imaging. Upon withdrawal of the scope the ureter was carefully inspected and there were no stone fragments remaining. The ureter did show some dilation trauma but not severe. It was decided to leave the stent indwelling. A 7 [place] by 30 cm double-pigtail stent was then advanced over the guidewire through the cystoscope into appropriate position as confirmed via fluoroscopy and cystoscopy. The bladder was drained and the procedure completed. He tolerated the procedure well without complications and was awakened in the operating room and returned to the recovery in stable condition. PLANS: 1. Recover on the floor 2. Discharge later today to home and follow-up in roughly 1 week with a KUB and likely stent removal. 3. Can convert to inpatient status if his pain is not well controlled and therefore unable to be managed at home with oral narcotics.
[2019-12-29] MEDS: iohexol 300 mg/mL 50 mL Btl (OR ONLY) XX (13:30)
--- NOTE | 2019-12-29 14:26 | SUR.PHASEI ---
1422 PATIENT TO PACU AT THIS TIME FROM OR. PATIENT NOTED TO BE COUGHING, RED TINGED SPUTUM NOTED. PATIENT NOTED TO BE RESTING WITH EYES CLOSED, NO DISTRESS, PROTECTING AIRWAY.
--- NOTE | 2019-12-29 14:27 | PM.DCS ---
Discharge Providers Date of Admission: 12/28/19 19:02 Date of Discharge: December 29, 2019 Attending Provider at Admission: Boaz Garcia MD Attending Provider at Discharge: Boaz Garcia MD Primary Care Provider: Jono Arrington MD Diagnoses at Discharge Discharge Diagnosis (1) Ureteral stone with hydronephrosis: Status: Acute Problem details: 7+ millimeters right proximal ureteral stone with high-grade obstruction and severe refractory renal colic. Required inpatient admission December 2019 and treated with endoscopy with laser lithotripsy and stent. (2) Essential (primary) hypertension: Status: Acute (3) Renal colic on right side: Status: Acute (4) Morbid obesity: Status: Acute (5) Bronchitis with acute wheezing: Status: Acute (6) JESUS (acute kidney injury): Status: Acute Reason for Visit Reason for Visit: Reason For Visit: BACK, ABD PAIN Hospital Course Hospital Course: Admitted through the emergency department for refractory pain not well controlled in the emergency department with aggressive opioid use. Was not a candidate for discharge home. On follow-up KUB the next morning stone was still in the same position. He was still having severe pain. Creatinine was increasing. Because of the low chance of spontaneous passage, refractory symptoms not allowing him to be discharged, and increasing creatinine it was decided to proceed with intervention via endoscopy. Taken to the operating suite on 12/29/2019 for ureteroscopic laser lithotripsy and stent placement. The stone was well fragmented. 7 x 30 cm double-pigtail stent without string was left indwelling. Physical Exam Const: COMMON NORMALS: no apparent distress, alert and well nourished GENERAL APPEARANCE: well kempt and well developed ORIENTATION/CONSCIOUSNESS: not confused Resp: COMMON NORMALS: normal respiratory effort EFFORT & INSPECTION: No labored and No actively coughing Neuro: SENSORIUM/ORIENTATION: Yes alert Psych: COMMON NORMALS: mental status grossly normal APPEARANCE: Yes grossly normal and Yes well kempt ATTITUDE: Yes calm and Yes engaged Discharge Data Data Completed and Pending: Completed Studies During Hospitalization Category Date Time Status CT kidney stone 7 4176 Stat Cat Scan 12/28/19 16:12 Completed XR KUB 16653 Rout ine Exams 12/29/19 06:00 Completed XR chest 2V* [id number] 6 Urgent Exams 12/29/19 07:27 Completed Pending at discharge Category Date Time Status C-arm FL for Urol ogy Routine Exams 12/29/19 08:48 Taken Urine Culture Sta t Lab 12/28/19 16:24 Received Labs from last 24 hours 12/29/19 12/29/19 12/28/19 05:00 05:00 16:24 WBC 14.4 H RBC 5.08 Hgb 15.0 Hct 49.3 MCV 97.0 H MCH 29.5 MCHC 30.4 RDW 14.2 Plt Count 248 MPV 10.7 H Neut % (Auto) 86.8 Lymph % (Auto) 6.8 [place] % (Auto) 5.7 Eos % (Auto) 0.0 Baso % (Auto) 0.1 Neut # (Auto) 12.5 H Lymph # (Auto) 1.0 [place] # (Auto) 0.8 Eos # (Auto) 0.0 Baso # (Auto) 0.0 Nucleated RBC % (a uto) 0 Nucleated RBCs # 0.0 Sodium 135 L Potassium 4.9 Chloride 98 Carbon Dioxide 23 Anion Gap 18.9 BUN 25 H Creatinine 1.9 H GFR Calculation 36.3 L Glucose 163 H Calculated Osmolal ity 280 L Calcium 9.8 Total Bilirubin 0.4 AST 53 H ALT 87 H Alkaline Phosphata se 68 Total Protein 7.7 Albumin 4.1 Globulin 3.6 Urine Color Yellow Urine Appearance Hazy A Urine pH 5 Ur Specific [place] y 1.020 Urine Protein 1+ H Urine Glucose (UA) Norm Urine Ketones 1+ H Urine Blood 3+ H Urine Nitrate Negative Urine Bilirubin Neg Urine Urobilinogen Norm Ur Leukocyte [place] ase Negative Urine RBC 50-80 H Urine WBC 5-10 H Ur Squamous Epith Cells 0-4 H Urine Bacteria 1+ H 12/28/19 12/28/19 16:02 16:02 WBC 12.4 H RBC 5.44 H Hgb 16.1 Hct 50.8 MCV 93.4 MCH 29.6 MCHC 31.7 RDW 13.8 Plt Count 287 MPV 11.0 H Neut % (Auto) 80.3 Lymph % (Auto) 12.4 [place] % (Auto) 5.5 Eos % (Auto) 1.2 Baso % (Auto) 0.2 Neut # (Auto) 9.9 H Lymph # (Auto) 1.5 [place] # (Auto) 0.7 Eos # (Auto) 0.2 Baso # (Auto) 0.0 Nucleated RBC % (a uto) 0 Nucleated RBCs # 0.0 Sodium 136 Potassium 4.7 Chloride 98 Carbon Dioxide 20 L Anion Gap 22.7 H BUN 25 H Creatinine 1.4 H GFR Calculation 51.7 L Glucose 174 H Calculated Osmolal ity 283 L Calcium 10.7 H Total Bilirubin AST ALT Alkaline Phosphata se Total Protein Albumin Globulin Urine Color Urine Appearance Urine pH Ur Specific Gravit y Urine Protein Urine Glucose (UA) Urine Ketones Urine Blood Urine Nitrate Urine Bilirubin Urine Urobilinogen Ur Leukocyte [place] ase Urine RBC Urine WBC Ur Squamous Epith Cells Urine Bacteria Vitals: Last Vital Signs Temp 97.7 F 12/29/19 11:47 Pulse 82 12/29/19 12:37 Resp 24 H 12/29/19 12:37 BP 151/90 12/29/19 12:37 Pulse Ox 94 12/29/19 12:37 Discharge Plan Discharge Patient Disposition: Home, Self-Care Condition: Stable Prescriptions: New Pyridium 200 mg tablet 200 mg PO Q8H PRN (Reason: pain) Qty: 30 RF: 1 Percocet 7.5-325 mg tablet 1 tab PO Q8H PRN (Reason: pain) Qty: 10 RF: 0 Continued albuterol sulfate [ProAir HFA] 90 mcg/actuation HFA aerosol inhaler 2 puff INHALATION Q6H PRNRF: 0 amlodipine 10 mg tablet 10 mg PO ONCE Qty: 90 RF: 3 spironolactone 50 mg tablet 50 mg PO QAM Qty: 90 RF: 3 benzonatate [Tessalon Perles] 100 mg capsule 100 mg PO TID PRN (Reason: cough) Qty: 90 RF: 1 prednisone 10 mg tablets,dose pack See Rx Instructions PO PER PKG DIR Qty: 21 RF: 0 azithromycin 250 mg tablet See Rx Instructions PO .COMPLEX Qty: 6 RF: 0 Discharge Orders: Discharge Order (Routine); Ordered 12/29/19 Ordered By: Boaz Garcia Discharge Diet: Usual diet Discharge Activity: Resume usual activity Activity Restrictions/Additional Instructions: 1. The procedure went well. Stone was fragmented with laser. A ureteral stent was left indwelling. 2. The stent will cause typical symptoms of urgency, frequency, blood in the urine, right flank pain with urination. These are all normal and not to be concerned about. 3. The stent absolutely needs to be removed. We will schedule a follow-up late next week for a plain x-ray first and then follow-up in my office for stent removal with cystoscopy. 4. You can obtain [id number] Azo-Standard if you have much urinary burning. 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
--- NOTE | 2019-12-29 15:03 | SUR.PHASEI ---
1502 DR. ZHOU AWARE OF PATIENTS BLOOD PRESSURE. 199/116. PATIENT COUGHING. NO NEW ORDERS RECEIVED.
--- NOTE | 2019-12-29 15:19 | SUR.PHASEI ---
1503 PATIENT TO MED SURG AT THIS TIME. NO DISTRESS. RR EVEN AND UNLABORED. COUGH NOTED. PATIENT DENIES PAIN. AMBULATORY FROM GURNEY TO BED, GAIT STEADY.
--- NOTE | 2019-12-29 15:29 | PM.CONSULT ---
Providers/Reason For Consult Consulting Physican/Specialty*: Cyndy Woo MD, Hospitalist Reason for Consult*: Change in respiratory status post-op Requesting Physcian: Dr. Ana Goncalves Attending Physician: Boaz Garcia MD Primary Care Provider: Jono Arrington MD History of Present Illness History of Present Illness Yuriy Moncada is a 59 year old male with PMHx of Morbid obesity, HTN, CKD stage 2, Severe LASHONDA; initially presented on 12/27 with complaints of severe right flank pain had analgesic requirement and was found to have mild right hydronephrosis with 7 mm calculus in the proximal right ureter. Patient was admitted by Dr. Garcia and taken to the OR earlier this afternoon for a right cystoscopy, right ureteroscopy and stent placement. Procedure was relatively uneventful but patient was noted to be short of breath, have productive cough and hypoxic with requirement for supplemental oxygen immediately post-op. Patient continued to have a persistent cough, initially productive with some blood-tinged sputum likely secondary to intubation process and due to this hospitalist consult was requested. I evaluated patient in the recovery room, he was requiring about 2 to 3 L nasal cannula, able to speak in complete sentences but having bouts of non-productive cough and intermittently short of breath. Patient attributes his symptoms to having laid on his back for several hours as he is typically quite short of breath and coughs quite a bit on awakening or whenever he spends prolonged periods of time in a supine position. At baseline he is not able to lay completely recumbent to shortness of breath likely secondary to LASHONDA. He does not use CPAP as he had a staph infection which she correlates with using the machine. Review of medical record shows that he has had upper respiratory symptoms since late October and has been treated with multiple rounds of antibiotics and steroids with persistent cough. He denies any correlation of the cough with food intake and does not have a known history of reflux. 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 He is on Aldactone 50 mg once daily per his medication list. While evaluated in the recovery room he seems comfortable from a pain standpoint. I would recommend continued monitoring of his respiratory status given the aforementioned events so patient will be changed to inpatient status at this time. I have discussed this findings with Dr. Garcia. Review of Systems Const: Denies: fever or chills Eyes: Denies: change in vision ENMT: Reports: dry mouth (post-op); Denies: painful swallowing Card: Reports: swelling of feet/ankles; Denies: chest pain or lightheadedness Resp: Reports: shortness of breath and productive cough (green sputum) GI: Denies: abdominal pain, nausea, vomiting, vomiting blood or blood in stool Musc: Denies: back pain Skin/Breast: Denies: rash Psych: Denies: anxiety Meds/Allergies Home Medications and Allergies Home Medications Medication Instructions Recorded Confirmed Type albuterol sulfate 90 mcg/actuation 2 puff INHALATION Q6H PRN 09/28/19 10/30/19 History aerosol inhaler amlodipine 10 mg tablet 10 mg PO ONCE #90 tab 10/30/19 10/30/19 Rx spironolactone 50 mg tablet 50 mg PO QAM #90 tab 10/30/19 10/30/19 Rx azithromycin 250 mg tablet See Rx Instructions PO .COMPLEX #6 12/19/19 12/19/19 Rx tab benzonatate 100 mg capsule 100 mg PO TID PRN #90 cap 12/19/19 12/19/19 Rx prednisone 10 mg tablets in a dose See Rx Instructions PO PER PKG DIR 12/19/19 12/19/19 Rx pack #21 each oxycodone-acetaminophen [Percocet] 1 tab PO Q8H PRN #10 tab 12/29/19 Rx phenazopyridine [Pyridium] 200 mg PO Q8H PRN #30 tab 12/29/19 Rx Allergies Allergy/AdvReac Type Severity Reaction Status Date / Time No Known Allergies Allergy Verified 10/30/19 14:37 Current Medications Current Medications Generic Name Dose Route Start Last Admin Trade Name Freq PRN Reason Stop Dose Admin Hydromorphone HCl 4 mg 12/28/19 21:52 12/29/19 10:10 Dilaudid Tab PO 4 mg Q6H PRN Administration PAIN Hydromorphone HCl 1 mg 12/28/19 21:55 12/29/19 08:12 Dilaudid Inj IVP 1 mg Q2H PRN Administration PAIN Sodium Chloride 1,000 mls @ 150 mls/hr 12/28/19 20:39 12/29/19 08:11 Sodium Chloride 0.9% IV 100 mls/hr .Q6H40M CUCA Administration Ondansetron HCl 4 mg 12/28/19 20:39 12/29/19 08:12 Zofran IVP 4 mg Q6H PRN Administration NAUSEA AND VOMITING Tamsulosin HCl 0.4 mg 12/28/19 20:39 12/28/19 21:09 Flomax PO 0.4 mg Q24H CUCA Administration PFSH Acute PFSH: Medical History Acute post-thoracotomy pain Essential (primary) hypertension Hernia Intervertebral disc disorders with radiculopathy, lumbosacral region Morbid obesity Renal colic on right side Sacroiliitis Thoracic neuralgia Ureteral stone with hydronephrosis 7+ millimeters right proximal ureteral stone with high-grade obstruction and severe refractory renal colic. Required inpatient admission December 2019 and treated with endoscopy with laser lithotripsy and stent. 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 Vitals/I&O/Wt Last Vital Signs Temp 97.1 F L 12/29/19 14:22 Pulse 81 12/29/19 15:00 Resp 14 12/29/19 15:00 BP 199/116 12/29/19 15:00 Pulse Ox 97 12/29/19 15:00 12/29/19 12/29/19 12/29/19 06:59 14:59 22:59 Intake Total 1050 / 1050 Output Total 550 / 700 225 / 225 Balance -550 / 300 825 / 825 Weight last 48 hrs Weight 172.365 kg Physical Exam Const: COMMON NORMALS: no apparent distress and oriented x3 GENERAL APPEARANCE: cooperative and comfortable NUTRITIONAL APPEARANCE: obese morbidly obese ORIENTATION/CONSCIOUSNESS: Yes awake OTHER: -patient seen in PACU HENMT: COMMON NORMALS: normocephalic, head/scalp atraumatic and hearing grossly normal bilaterally HEAD & SCALP: normocephalic and atraumatic Eye: COMMON NORMALS: PERRL, EOMs intact bilaterally and conjunctivae normal CONJUNCTIVA: Yes conjunctivae normal PUPIL: Yes PERRL Neck/C-Spine: COMMON NORMALS: full ROM GENERAL: Yes normal visual inspection and Yes trachea midline Resp: COMMON NORMALS: normal respiratory effort, no retractions and no use of accessory muscles EFFORT & INSPECTION: Yes able to speak in complete sentences, Yes symmetric chest movement, No tachypneic and Yes actively coughing non-productive OTHER: -on 3 L NC Cardio: COMMON NORMALS: regular rate, regular rhythm, S1 normal heart sound, S2 normal heart sound and no murmurs RATE: regular rate RHYTHM: regular rhythm HEART SOUNDS: S1 normal and S2 normal GI: COMMON NORMALS: normal to inspection, nondistended, normoactive bowel sounds, soft to palpation and non-tender INSPECTION: Yes central obesity and Yes visible herniation (umbilical) PALPATION: Yes soft : BLADDER/KIDNEY EXAM: No catheter in place Extremity: COMMON NORMALS: normal to inspection and full ROM OTHER: -noted bilateral pedal edema Neuro: COMMON NORMALS: oriented x3, moves all extremities, no focal motor deficits and no sensory deficits noted Psych: COMMON NORMALS: mental status grossly normal, thought process normal, cooperative, affect normal and speech normal SPEECH: Yes normal speech THOUGHT PROCESS: normal thought process Skin: COMMON NORMALS: no rashes or lesions noted, no jaundice, no petechiae and no mottling GENERAL SKIN EXAM: no rashes or lesions noted A&P Assessment and plan (1) Cough: -Has had ongoing cough since October and been treated for bronchitis with several rounds of antibiotics and steroids with persistent cough; suspicious for viral process -noted to have sats of 88-90% post op as well as productive persistent cough. Per anesthesia, noted to have quite a bit of mucus during intubation process -initial CXR unremarkable, will repeat in light of change in respiratory status post-op -currently requiring supplemental oxygen, not oxygen dependent at baseline -closely monitor respiratory status -continuous pulse oximetry, incentive spirometry -would avoid further antibiotics or steroids at this time -Neb treatments as needed -has known severe LASHONDA (does not use CPAP), likely OHS, -has had GI workup in the past including EGD (2013) and colonoscopy (2014) both of which were unremarkable and denies relation of cough with food intake. Cannot rule out component of reflux given multiple prior rounds of antibiotics so will add PPI -has had Echo (2010) with reported normal EF though is on Aldactone per med rec Status: Acute Code(s): R05 - Cough (2) Renal colic on right side: -patient presented with R flank pain, with high analgesic requirement -now s/p cystoscopy, ureteroscopy laser and R stent placement by Dr. Garcia -monitor urine output -pain control as needed Status: Acute Code(s): N23 - Unspecified renal colic (3) JESUS (acute kidney injury): -noted to have JESUS on CKD stage 2 -baseline Cr wnl -gentle IVF hydration -repeat labs in AM -will give dose of Bumex x 1 due to noted LE edema -otherwise hold diuretics, avoid nephrotoxins Status: Acute Code(s): N17.9 - Acute kidney failure, unspecified (4) Morbid obesity: -BMI-48 kg/m2 Status: Acute Code(s): E66.01 - Morbid (severe) obesity due to excess calories Additional A&P Information -known severe LASHONDA, does not use CPAP -HTN; hypertensive urgency post-op; hydralazine PRN, resume Amlodipine 10 mg daily, continue to monitor vital signs -low salt diet as tolerated -GI ppx with PPI -DVT ppx with heparin -Dispo: home -Code status: FULL code -inpatient status due to need for close monitoring of respiratory status post-op. Consult Attestations Medical Necessity Statement: Patient requires hospitalization for continued monitoring of respiratory status given need for supplemental oxygen and persistent cough post-op. Time Spent in Patient Care: Greater than 35 minutes (>than 50% of time spent in counselling and/or direct pt care on unit). 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
--- NOTE | 2019-12-29 15:37 | XRR_ITS ---
PROCEDURE INFORMATION: Exam: XR Chest, 1 View Exam date and time: 12/29/2019 3:59 PM Age: 59 years old Clinical indication: Cough; Prior surgery; Surgery date: 6+ months; Surgery type: Lung; Additional info: Hypoxia, cough, post-op TECHNIQUE: Imaging protocol: XR of the chest Views: 1 view. COMPARISON: CR (CHEST, ) 12/29/2019 7:46 AM FINDINGS: Lungs: Unremarkable. No consolidation. Pleural space: Chronic blunting left lateral costophrenic angle. Heart/Mediastinum: Unremarkable. No cardiomegaly. Bones/joints: Lower left lateral rib sutures in place. XR/XR chest 1V portable [id number] IMPRESSION: No acute findings.
[2019-12-29] MEDS: bumetanide 0.25 mg/mL SDV 10 mL 1 MG IV (16:50)
[2019-12-29] MEDS: sodium chloride 0.9% 1,000 ML 50 ML IV (16:51)
[2019-12-29] MEDS: amlodipine 10 mg Tablet PO (16:55)
[2019-12-29] MEDS: heparin 5,000 unit/mL INJ 1 mL 5000 UNIT SUBCUT (16:56)
[2019-12-29] MEDS: guaiFENesin 600 mg Tablet PO (17:03)
[2019-12-29] MEDS: pantoprazole DR 40 mg Tablet PO (17:03)
[2019-12-29] MEDS: tamsulosin 0.4 mg Capsule PO (19:31)
[2019-12-30] VITALS (8 sets, daily range): BP systolic 144–167; BP diastolic 76–93; PULSE 65–86; RESP 18–20; TEMP 36.7; O2SAT 86–95
[2019-12-30] MEDS: heparin 5,000 unit/mL INJ 1 mL 5000 UNIT SUBCUT ×2 (00:01→08:37)
[2019-12-30 05:54] LABS: Anion Gap 14.9 (5-19); Blood Urea Nitrogen 22 mg/dL (8-23); Calcium 9.7 mg/dL (8.5-10.5); Carbon Dioxide 25 mmol/L (22-29); Chloride 101 mmol/L (98-107); Glomerular Filtration Rate 56.3 mL/min (90-130); Glucose 164 mg/dL (65-115); Osmolality Calculated 282 mOsm/kg (285-295); Potassium 4.9 mmol/L (3.5-5.1); Sodium 136 mmol/L (136-145)
--- NOTE | 2019-12-30 07:59 | PM.PN ---
Subjective Subjective: Interval history: AM labs noted, improved renal function with gentle IVF hydration, had 2000 mL urine overnight, got dose of Bumex 1 mg IV. On RA, BP better controlled. POD # 1 s/p cystoscopy and R ureteral stent placement. Pain controlled. Cough persists with no expectoration, weaning off supplemental oxygen. LE edema much improved. Urine with bloody-tinge to it. Medications: Reviewed: Yes Medication Review Details: Active Medications Generic Name Dose Route Start Last Admin Trade Name Freq PRN Reason Stop Dose Admin Albuterol/Ipratrop ium 3 ml 12/29/19 15:41 Duoneb INHALATION Q4H PRN SHORTNESS OF ALONDRA TH Amlodipine Besylat e 10 mg 12/29/19 16:05 12/29/19 16:55 Norvasc PO 10 mg DAILY CUCA Administration Benzonatate 100 mg 12/29/19 16:08 Tessalon Pearls PO TID PRN COUGH Guaifenesin 600 mg 12/29/19 18:00 12/29/19 17:03 Mucinex PO 600 mg BID UCCA Administration Heparin Sodium (Be ef Lung) 5,000 unit 12/29/19 16:15 12/30/19 00:01 Heparin SUBCUT 5,000 unit Q8H CUCA Administration Hydralazine HCl 10 mg 12/28/19 20:39 Apresoline IVP Q2H PRN SBP>180 Hydromorphone HCl 4 mg 12/28/19 21:52 12/30/19 07:38 Dilaudid Tab PO 4 mg Q6H PRN Administration PAIN Hydromorphone HCl 1 mg 12/28/19 21:55 12/29/19 08:12 Dilaudid Inj IVP 1 mg Q2H PRN Administration PAIN Sodium Chloride 1,000 mls @ 50 ml s/hr 12/28/19 20:39 12/29/19 16:51 Sodium Chloride 0.9% IV 50 mls/hr .Q20H CUCA Administration Ondansetron HCl 4 mg 12/28/19 20:39 12/29/19 08:12 Zofran IVP 4 mg Q6H PRN Administration NAUSEA AND VOMITI NG Pantoprazole Sodiu m 40 mg 12/29/19 18:00 12/29/19 17:03 Protonix PO 40 mg BID CUCA Administration Tamsulosin HCl 0.4 mg 12/28/19 20:39 12/29/19 19:31 Flomax PO 0.4 mg Q24H CUCA Administration No Known Allergies Allergy (Verified 10/30/19 14:37) Vitals/I&O/Wt Last Vital Signs Temp 98.1 F 12/30/19 07:28 Pulse 65 12/30/19 07:28 Resp 18 12/30/19 07:38 BP 144/76 12/30/19 07:28 Pulse Ox 94 12/30/19 07:28 12/29/19 12/30/19 12/30/19 22:59 06:59 14:59 Intake Total 1186.667 / 2236.667 0 / 2236.667 Output Total 1700 / 1925 0 / 1925 900 / 900 Balance -513.333 / 311.667 0 / 311.667 -900 / -900 Weight last 48 hrs Weight 172.365 kg Physical Exam Const: COMMON NORMALS: no apparent distress and oriented x3 GENERAL APPEARANCE: cooperative and comfortable NUTRITIONAL APPEARANCE: obese morbidly obese ORIENTATION/CONSCIOUSNESS: Yes awake HENMT: COMMON NORMALS: normocephalic, head/scalp atraumatic and hearing grossly normal bilaterally HEAD & SCALP: normocephalic and atraumatic Eye: COMMON NORMALS: PERRL, EOMs intact bilaterally and conjunctivae normal CONJUNCTIVA: Yes conjunctivae normal PUPIL: Yes PERRL Neck/C-Spine: COMMON NORMALS: full ROM GENERAL: Yes normal visual inspection and Yes trachea midline Resp: COMMON NORMALS: normal respiratory effort, no retractions and no use of accessory muscles EFFORT & INSPECTION: Yes able to speak in complete sentences, Yes symmetric chest movement, No tachypneic and Yes actively coughing non-productive AUSCULTATION: wheezes expiratory wheezes OTHER: -on 1 L NC, saturation at 96% -coarse upper airway breath sounds Cardio: COMMON NORMALS: regular rate, regular rhythm, S1 normal heart sound, S2 normal heart sound and no murmurs RATE: regular rate RHYTHM: regular rhythm HEART SOUNDS: S1 normal and S2 normal GI: COMMON NORMALS: normal to inspection, nondistended, normoactive bowel sounds, soft to palpation and non-tender INSPECTION: Yes central obesity and Yes visible herniation (umbilical) PALPATION: Yes soft : BLADDER/KIDNEY EXAM: No catheter in place Extremity: COMMON NORMALS: normal to inspection and full ROM OTHER: -noted bilateral pedal edema (resolving) Neuro: COMMON NORMALS: oriented x3, moves all extremities, no focal motor deficits and no sensory deficits noted Psych: COMMON NORMALS: mental status grossly normal, thought process normal, cooperative, affect normal and speech normal SPEECH: Yes normal speech THOUGHT PROCESS: normal thought process Skin: COMMON NORMALS: no rashes or lesions noted, no jaundice, no petechiae and no mottling GENERAL SKIN EXAM: no rashes or lesions noted Data : 12/29/19 05:00 12/30/19 04:55 A&P Assessment and plan (1) Cough: -Has had ongoing cough since October and been treated for bronchitis with several rounds of antibiotics and steroids with persistent cough; suspicious for viral process -noted to have sats of 88-90% post op as well as productive persistent cough. Per anesthesia, noted to have quite a bit of mucus during intubation process -initial CXR unremarkable, repeat also unremarkable -weaned off supplemental oxygen, not oxygen dependent at baseline -closely monitor respiratory status; stable today -continuous pulse oximetry, incentive spirometry -would avoid further antibiotics or steroids at this time -Neb treatments as needed -has known severe LASHONDA (does not use CPAP), likely OHS, -has had GI workup in the past including EGD (2013) and colonoscopy (2014) both of which were unremarkable and denies relation of cough with food intake. Cannot rule out component of reflux given multiple prior rounds of antibiotics so will add PPI -has had Echo (2010) with reported normal EF though is on Aldactone per med rec Status: Acute Code(s): R05 - Cough (2) Renal colic on right side: -patient presented with R flank pain, with high analgesic requirement -now s/p cystoscopy, ureteroscopy, laser and R stent placement by Dr. Garcia: POD # 1 -has had good urine output -pain control as needed Status: Acute Code(s): N23 - Unspecified renal colic (3) JESUS (acute kidney injury): -noted to have JESUS on CKD stage 2 -baseline Cr wnl -kianna d/c gentle IVF hydration as renal function improved -given dose of Bumex x 1 due to noted LE edema -otherwise hold diuretics, avoid nephrotoxins Status: Acute Code(s): N17.9 - Acute kidney failure, unspecified (4) Morbid obesity: -BMI-48 kg/m2 Status: Acute Code(s): E66.01 - Morbid (severe) obesity due to excess calories Additional A&P Information -known severe LASHONDA, does not use CPAP -HTN; hypertensive urgency post-op; hydralazine PRN, resumed Amlodipine 10 mg daily and BP better controlled today, continue to monitor vital signs -low salt diet as tolerated -GI ppx with PPI -DVT ppx with heparin -Dispo: home -Code status: FULL code Attestations Medical Necessity Statement*: Discharge home today. Time Spent in Patient Care: 16 - 35 minutes (>than 50% of time spent in counselling and/or direct pt care on unit). 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
[2019-12-30] MEDS: amlodipine 10 mg Tablet PO (08:37)
[2019-12-30] MEDS: pantoprazole DR 40 mg Tablet PO (08:37)
[2019-12-30] MEDS: guaiFENesin 600 mg Tablet PO (08:37)
[2019-12-30] MEDS: ipratropium-albuterol 3 mL Neb INHALATION (08:49)
[2019-12-30] MEDS: bumetanide 0.25 mg/mL SDV 10 mL 1 MG IV (10:44)
== END 2019-12-30 13:51 | disposition home or self-care (01) ==
LOC: ER 19:08 → MEDSURG 12-29 08:01
PROVIDERS: Family Medicine; Admitting Provider Urology; Emergency Provider Emergency Medicine; Family Provider Internal Medicine; PCP Internal Medicine; Visit Provider Urology
PROC: 0TJB8ZZ Inspection of Bladder, Via Natural or Artificial Opening Endoscopic (ICD-10-PCS; CPT 52000; principal; 2019-12-29 12:40)
PROC: (CPT 74420; 2019-12-29 12:40)
PROC: (CPT 50605; 2019-12-29 12:40)
PROC: (CPT 52356; 2019-12-29 12:40)
DX: N13.2 Hydronephrosis with renal and ureteral calculous obstruction (principal); E66.01 Morbid (severe) obesity due to excess calories; Z68.42 Body mass index [BMI] 45.0-49.9, adult; J40 Bronchitis, not specified as acute or chronic; N23 Unspecified renal colic; Z82.49 Family history of ischemic heart disease and other diseases of the circulatory system; G47.33 Obstructive sleep apnea (adult) (pediatric); I12.9 Hypertensive chronic kidney disease with stage 1 through stage 4 chronic kidney disease, or unspecified chronic kidney disease; N18.2 Chronic kidney disease, stage 2 (mild); Z79.52 Long term (current) use of systemic steroids; Z79.891 Long term (current) use of opiate analgesic; M19.90 Unspecified osteoarthritis, unspecified site
CPT/HCPCS: 52356; 12345; 36415; 71045; 71046; 74018; 74176; 76000; 80048; 80053; 81001; 85025; 87086; 94640; 94762; 96360; 96361; 96372; 96374; 96375; 96376; 99283; 99285; C1725; C2625; G0378; J0330; J0360; J0690; J1100; J1170; J1644; J2001; J2270; J2405; J2704; J2710; J3010; J3490; J7030

== ENCOUNTER 2020-01-07 08:29 | Outpatient (CLI) | payer BC, SELFPAY ==
--- NOTE | 2020-01-07 08:15 | XR_ITS ---
WS: [id number] ABDOMEN 1 VIEW(S) HISTORY: URETERAL STONE COMPARISON: 12/29/2019 Normal bowel gas pattern. RIGHT ureteral stent remains in good position. No calcification along the course of the stent. Large clawlike osteophytes throughout the lower thoracic and lumbar spine. Enthesopathy of the iliac crest. Cholelithiasis. XR/XR KUB [id number] IMPRESSION: 1. RIGHT ureteral stent in good position with no calcifications identified. 2. Cholelithiasis.
== END 2020-01-07 08:30 | disposition home or self-care (01) ==
LOC: RADWPI 08:32
PROVIDERS: Family Provider Internal Medicine; PCP Internal Medicine; Visit Provider Urology
DX: N13.2 Hydronephrosis with renal and ureteral calculous obstruction (principal); Z96.0 Presence of urogenital implants; K80.20 Calculus of gallbladder without cholecystitis without obstruction
CPT/HCPCS: 74018; 81001

== ENCOUNTER 2020-09-05 13:29 | Inpatient (IN) | payer BC, SELFPAY ==
[2020-09-05] VITALS (11 sets, daily range): BP systolic 96–204; BP diastolic 60–112; PULSE 60–84; RESP 11–26; TEMP 36.7–36.8; O2SAT 90–97; BMI 42.5
--- NOTE | 2020-09-05 13:45 | XR_ITS ---
WS: [id number] Portable AP upright chest, 09/05/2020 Clinical Data: dyspnea/cough Comparison: Portable chest, 12/29/2019. Findings: No nodules, masses or effusions are seen. The heart is normal. The pulmonary vascularity is not increased. No pneumonia or pneumothorax is seen. The patient has had repair of left lower latera l rib fractures. Monitor leads are on the chest wall. XR/XR chest 1V portable [id number] Impression: Negative chest.
--- NOTE | 2020-09-05 13:45 | ECG_ITS ---
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 Measurements Intervals [place] Rate: 73 P: 34 MT: 193 QRS: -68 QRSD: 114 T: 76 QT: 403 QTc: 446 Interpretive Statements SINUS RHYTHM LEFT ANTERIOR FASCICULAR BLOCK [QRS AXIS <= -45, QR IN I, RS IN II] Compared to ECG 05/01/2016 19:07:27 Left anterior fascicular block now present Electronically Signed On 09-05-2020 19:15:34 [employer] by Betty Turner M.D. [email or web address]/store/[id number]
[2020-09-05 14:12] LABS: Basophils % 0.5 %; Eosinophils # 0.2 10^3/uL (0.0-0.8); Eosinophils % 2.2 %; Hematocrit 47.9 % (42.0-52.0); Hemoglobin 15.4 g/dL (11.7-16.6); Lymphocytes # 1.8 10^3/uL (0.8-4.8); Lymphocytes % 21.3 %; Mean Corpuscular HGB Conc 32.2 g/dL (30.0-36.0); Mean Corpuscular Hemoglobin 29.8 pg (28.0-34.0); Mean Corpuscular Volume 92.6 fL (80-94); Mean Platelet Volume 10.6 fL (7.4-10.4); Monocytes # 0.5 10^3/uL (0.2-0.9); Monocytes % 6.1 %; Neutrophils # 5.75 10^3/uL (1.8-7.7); Neutrophils % 69.5 %; Nucleated Red Blood Cells % 0 %; Platelet Count 241 10^3/cmm (130-400); Red Blood Count 5.17 10^6/uL (4.1-5.3); Red Cell Distribution Width 13.7 % (12.1-15.1); White Blood Count 8.3 10^3/uL (4.0-10.0)
[2020-09-05 14:13] LABS: ABG PCO2 41.5 mmHg (35-45); ABG PH Result 7.41 (7.35-7.45); Arterial Blood Gas Hematocrit 48.7 % (42-52); Base Excess ABG 1.3 mmol/L (-2.0-2.0); Blood Gas Allen Test Pos; Blood Gas Operator Identificat CAK; Blood Gas Sample Site Radial, left; Blood Gas Sample Type Arterial; HCO3 ABG 26.2 mmol/L (22-26); HGB O2 Sat 92.4 % (95-100); Ionized Calcium Level - ABG 1.2 mmol/L (1.1-1.4); Methemoglobin 0.7 % (0.4-1.5); Oxygen Device NC; Oxygen Saturation ABG 93.1; PO2 ABG 67.9 mmHg (80.0-100.0); Potassium Level - ABG 4.6 mmol/L (3.5-5.0); Total Hemoglobin 15.9 g/dL (14-18)
[2020-09-05 14:29] LABS: Alanine Aminotransferase 97 U/L (0-41); Albumin Level 4.5 g/dL (3.5-5.2); Alkaline Phosphatase 68 IU/L (40-130); Anion Gap 15.7 (5-19); Aspartate Amino Transferase 63 U/L (0-40); Blood Urea Nitrogen 16 mg/dL (8-23); Calcium 9.9 mg/dL (8.5-10.5); Carbon Dioxide 25 mmol/L (22-29); Chloride 102 mmol/L (98-107); Globulin 2.8 g/dL (1.3-4.6); Glomerular Filtration Rate 68.3 mL/min (90-130); Glucose 121 mg/dL (65-115); Osmolality Calculated 288 mOsm/kg (285-295); Potassium 4.7 mmol/L (3.5-5.1); Sodium 138 mmol/L (136-145); Total Bilirubin 0.5 mg/dL (0.15-1.2); Total Protein 7.3 g/dL (6.6-8.7)
[2020-09-05 14:30] LABS: Troponin(5th) Baseline 16 ng/L (0-15)
--- NOTE | 2020-09-05 14:51 | W.ED.SOB ---
HPI - SOB/Dyspnea General: Chief Complaint: Shortness of Breath/Dyspnea Stated Complaint: SOB Time Seen by Provider: 09/05/20 13:37 History of Present Illness: HPI Narrative: 59-year-old male comes in complaining of cough. Last couple days has been worse he really he has COPD and the cough is always been present for months but his got markedly worse in the last couple of days additionally he had one loose stool this morning his has an oxygen sat monitor at home he notes his sats dropping into the 80s with any kind of exertion at all even just walking around the house it recovers with rest he denies any chest pain. He is not had any hemoptysis. He has had a lot of myalgias particular in his back and proximal extremities. MD elicited complaint: shortness of breath and cough Pertinent past history: COPD Onset (ago): day(s) (2) Context: occurred during exertion Timing: intermittent Severity: moderate Exacerbating factors: exertion, movement and coughing Relieving factors: oxygen and rest Associated symptoms: Reports chest congestion, cough and nausea; Deny abdominal pain, chest pain, diaphoresis, dizziness, extremity pain, fever(s), hemoptysis, lightheadedness, myalgias, orthopnea, palpitations, paresthesias, polydipsia, polyuria, rash, sense of impending doom, syncope or vomiting Treatment prior to arrival: none Review of Systems Const: Denies: fever(s) or diaphoresis ENMT: Denies: throat pain, ear or mastoid pain, nasal discharge or nasal congestion Card: Denies: chest pain, palpitations, lightheadedness, syncope or orthopnea Resp: Reports: chest congestion; Denies: hemoptysis GI: Reports: nausea; Denies: abdominal pain or vomiting : Denies: flank pain, dysuria, urinary frequency or urinary urgency Musc: Denies: extremity pain Skin/Breast: Denies: rash or pruritus Neuro: Denies: dizziness Endo: Denies: polyuria or polydipsia PFS ED PFSH: Medical History (Updated 09/06/20 @ 09:07 by Earl Lima DO) Acute post-thoracotomy pain Essential (primary) hypertension Hernia Intervertebral disc disorders with radiculopathy, lumbosacral region Morbid obesity Renal colic on right side Retained ureteral stent Sacroiliitis Thoracic neuralgia Ureteral stone with hydronephrosis 7+ millimeters right proximal ureteral stone with high-grade obstruction and severe refractory renal colic. Required inpatient admission December 2019 and treated with endoscopy with laser lithotripsy and stent. 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 History of recent travel: No Current gender identity: Male Physical Exam Const: COMMON NORMALS: no acute distress GENERAL APPEARANCE: cooperative and comfortable HENMT: COMMON NORMALS: normocephalic, atraumatic and hearing grossly normal bilaterally HEAD & SCALP: normocephalic and atraumatic Neck/C-Spine: COMMON NORMALS: no JVD Resp: COMMON NORMALS: normal respiratory effort, No retractions, No use of accessory muscles and clear to auscultation bilaterally AUSCULTATION: clear to auscultation bilaterally Cardio: COMMON NORMALS: no JVD, regular rate, regular rhythm and No murmurs present (Cardio) RATE: regular rate RHYTHM: regular rhythm GI: COMMON NORMALS: Soft to palpation and No hepatosplenomegaly present AUSCULTATION: Yes normoactive bowel sounds PALPATION: Yes Soft to palpation, No Tenderness to palpation present (GI), No Guarding due to palpation present (GI) and Yes No hepatosplenomegaly present Extremity: COMMON NORMALS: normal to inspection, capillary refill normal, no clubbing, cyanosis or edema, no calf tenderness and no pedal edema Skin: COMMON NORMALS: no rashes or lesions noted GENERAL SKIN EXAM: no rashes or lesions noted Course Vital Signs: Vital signs: Vital Signs Temperature 98.6 F 09/06/20 08:00 Pulse Rate 79 09/06/20 08:00 Respiratory Rate 20 H 09/06/20 08:00 Blood Pressure 157/91 09/06/20 08:00 Pulse Oximetry 91 09/06/20 08:00 MDM - SOB/Dyspnea MDM Narrative: Medical decision making narrative: Labs reviewed patient appears to have exacerbation of COPD with pneumonia. His rapid is negative for Covid.PTC for Covid has been sent. Will admit maintain personal investigation status with isolation precautions start IV antibiotics Dr. Quan will see the patient. Lab Data: Labs: Lab Results 09/05/20 09/05/20 09/05/20 Range/Units 14:00 14:00 14:00 WBC 8.3 (4.0-10.0) 10^3/ uL RBC 5.17 (4.1-5.3) 10^6/u L Hgb 15.4 (11.7-16.6) g/dL Hct 47.9 (42.0-52.0) % MCV 92.6 (80-94) fL MCH 29.8 (28.0-34.0) pg MCHC 32.2 (30.0-36.0) g/dL RDW 13.7 (12.1-15.1) % Plt Count 241 (130-400) 10^3/c mm MPV 10.6 H (7.4-10.4) fL Neut % (Auto) 69.5 % Lymph % (Auto) 21.3 % Karnes % (Auto) 6.1 % Eos % (Auto) 2.2 % Baso % (Auto) 0.5 % Neut # (Auto) 5.75 (1.8-7.7) 10^3/u L Lymph # (Auto) 1.8 (0.8-4.8) 10^3/u L Karnes # (Auto) 0.5 (0.2-0.9) 10^3/u L Eos # (Auto) 0.2 (0.0-0.8) 10^3/u L Baso # (Auto) 0.0 (0.0-0.1) 10^3/u L Nucleated RBC % (a uto) 0 % Nucleated RBCs # 0.0 /100WBC Specimen Type Sample Site ABG pH (7.35-7.45) ABG pCO2 (35-45) mmHg ABG pO2 (80.0-100.0) mmH g ABG HCO3 (22-26) mmol/L ABG O2 Saturation ABG Base Excess (-2.0-2.0) mmol/ L Ron Test A-a O2 Gradient (5-10) mmHg Hematocrit (42-52) % Hgb O2 Saturation (95-100) % Carboxyhemoglobin (0.4-20.1) %THgb Methemoglobin (0.4-1.5) % Total Hemoglobin (14-18) g/dL Ionized Calcium (1.1-1.4) mmol/L O2 Delivery Device O2 Liters/Min % Building Insulation Installer ID Sodium 138 (136-145) mmol/L Potassium 4.7 (3.5-5.1) mmol/L Chloride 102 (98-107) mmol/L Carbon Dioxide 25 (22-29) mmol/L Anion Gap 15.7 (5-19) BUN 16 (8-23) mg/dL Creatinine 1.1 (0.7-1.2) mg/dL GFR Calculation 68.3 L (90-130) mL/min Glucose 121 H (65-115) mg/dL Calculated Osmolal ity 288 (285-295) mOsm/k g Calcium 9.9 (8.5-10.5) mg/dL Total Bilirubin 0.5 (0.15-1.2) mg/dL AST 63 H (0-40) U/L ALT 97 H (0-41) U/L Alkaline Phosphata se 68 (40-130) IU/L Troponin T Baselin e 16 H (0-15) ng/L Troponin T 120 Min lito Delta Troponin T Total Protein 7.3 (6.6-8.7) g/dL Albumin 4.5 (3.5-5.2) g/dL Globulin 2.8 (1.3-4.6) g/dL Urine Color (Yellow) Urine Appearance (CLEAR) Urine pH (5-7) Ur Specific Gravit y (1.005-1.030) Urine Protein (Negative) Urine Glucose (UA) (Normal) Urine Ketones (Negative) Urine Blood (Negative) Urine Nitrate (Negative) Urine Bilirubin (Negative) Urine Urobilinogen (Negative) mg/dL Ur Leukocyte Merline ase (Negative) SARS-CoV-2 Ag (Rap id) (Negative) 12/04/20 12/04/20 12/04/20 Range/Units 14:02 14:25 16:30 WBC (4.0-10.0) 10^3/ uL RBC (4.1-5.3) 10^6/u L Hgb (11.7-16.6) g/dL Hct (42.0-52.0) % MCV (80-94) fL MCH (28.0-34.0) pg MCHC (30.0-36.0) g/dL RDW (12.1-15.1) % Plt Count (130-400) 10^3/c mm MPV (7.4-10.4) fL Neut % (Auto) % Lymph % (Auto) % Karnes % (Auto) % Eos % (Auto) % Baso % (Auto) % Neut # (Auto) (1.8-7.7) 10^3/u L Lymph # (Auto) (0.8-4.8) 10^3/u L Karnes # (Auto) (0.2-0.9) 10^3/u L Eos # (Auto) (0.0-0.8) 10^3/u L Baso # (Auto) (0.0-0.1) 10^3/u L Nucleated RBC % (a uto) % Nucleated RBCs # /100WBC Specimen Type Arterial Sample Site Radial, left ABG pH 7.41 (7.35-7.45) ABG pCO2 41.5 (35-45) mmHg ABG pO2 67.9 L (80.0-100.0) mmH g ABG HCO3 26.2 H (22-26) mmol/L ABG O2 Saturation 93.1 ABG Base Excess 1.3 (-2.0-2.0) mmol/ L Ron Test Pos A-a O2 Gradient 4.0 L (5-10) mmHg Hematocrit 48.7 (42-52) % Hgb O2 Saturation 92.4 L (95-100) % Carboxyhemoglobin 0.0 L (0.4-20.1) %THgb Methemoglobin 0.7 (0.4-1.5) % Total Hemoglobin 15.9 (14-18) g/dL Ionized Calcium 1.2 (1.1-1.4) mmol/L O2 Delivery Device Nc O2 Liters/Min 5.0 % Building Insulation Installer ID Cak Sodium 139.0 (136-145) mmol/L Potassium 4.6 (3.5-5.1) mmol/L Chloride (98-107) mmol/L Carbon Dioxide (22-29) mmol/L Anion Gap (5-19) BUN (8-23) mg/dL Creatinine (0.7-1.2) mg/dL GFR Calculation (90-130) mL/min Glucose 114.0 (65-115) mg/dL Calculated Osmolal ity (285-295) mOsm/k g Calcium (8.5-10.5) mg/dL Total Bilirubin (0.15-1.2) mg/dL AST (0-40) U/L ALT (0-41) U/L Alkaline Phosphata se (40-130) IU/L Troponin T Baselin e (0-15) ng/L Troponin T 120 Min lito Cancelled Delta Troponin T Cancelled Total Protein (6.6-8.7) g/dL Albumin (3.5-5.2) g/dL Globulin (1.3-4.6) g/dL Urine Color (Yellow) Urine Appearance (CLEAR) Urine pH (5-7) Ur Specific Gravit y (1.005-1.030) Urine Protein (Negative) Urine Glucose (UA) (Normal) Urine Ketones (Negative) Urine Blood (Negative) Urine Nitrate (Negative) Urine Bilirubin (Negative) Urine Urobilinogen (Negative) mg/dL Ur Leukocyte Mer[place] ase (Negative) SARS-CoV-2 Ag (Rap id) Negative (Negative) 09/05/20 09/05/20 Range/Units 17:20 17:50 WBC (4.0-10.0) 10^3/ uL RBC (4.1-5.3) 10^6/u L Hgb (11.7-16.6) g/dL Hct (42.0-52.0) % MCV (80-94) fL MCH (28.0-34.0) pg MCHC (30.0-36.0) g/dL RDW (12.1-15.1) % Plt Count (130-400) 10^3/c mm MPV (7.4-10.4) fL Neut % (Auto) % Lymph % (Auto) % Karnes % (Auto) % Eos % (Auto) % Baso % (Auto) % Neut # (Auto) (1.8-7.7) 10^3/u L Lymph # (Auto) (0.8-4.8) 10^3/u L Karnes # (Auto) (0.2-0.9) 10^3/u L Eos # (Auto) (0.0-0.8) 10^3/u L Baso # (Auto) (0.0-0.1) 10^3/u L Nucleated RBC % (a uto) % Nucleated RBCs # /100WBC Specimen Type Sample Site ABG pH (7.35-7.45) ABG pCO2 (35-45) mmHg ABG pO2 (80.0-100.0) mmH g ABG HCO3 (22-26) mmol/L ABG O2 Saturation ABG Base Excess (-2.0-2.0) mmol/ L Ron Test A-a O2 Gradient (5-10) mmHg Hematocrit (42-52) % Hgb O2 Saturation (95-100) % Carboxyhemoglobin (0.4-20.1) %THgb Methemoglobin (0.4-1.5) % Total Hemoglobin (14-18) g/dL Ionized Calcium (1.1-1.4) mmol/L O2 Delivery Device O2 Liters/Min % Building Insulation Installer ID Sodium (136-145) mmol/L Potassium (3.5-5.1) mmol/L Chloride (98-107) mmol/L Carbon Dioxide (22-29) mmol/L Anion Gap (5-19) BUN (8-23) mg/dL Creatinine (0.7-1.2) mg/dL GFR Calculation (90-130) mL/min Glucose (65-115) mg/dL Calculated Osmolal ity (285-295) mOsm/k g Calcium (8.5-10.5) mg/dL Total Bilirubin (0.15-1.2) mg/dL AST (0-40) U/L ALT (0-41) U/L Alkaline Phosphata se (40-130) IU/L Troponin T Baselin e (0-15) ng/L Troponin T 120 Min lito 13.96 Delta Troponin T -2.04 L Total Protein (6.6-8.7) g/dL Albumin (3.5-5.2) g/dL Globulin (1.3-4.6) g/dL Urine Color Yellow (Yellow) Urine Appearance Clear (CLEAR) Urine pH 6 (5-7) Ur Specific Gravit y 1.010 (1.005-1.030) Urine Protein Neg (Negative) Urine Glucose (UA) Norm (Normal) Urine Ketones Negative (Negative) Urine Blood Neg (Negative) Urine Nitrate Negative (Negative) Urine Bilirubin Neg (Negative) Urine Urobilinogen Norm (Negative) mg/dL Ur Leukocyte Merline ase Negative (Negative) SARS-CoV-2 Ag (Rap id) (Negative) Discharge Plan Discharge Patient Disposition: Admitted As Inpatient Admit Provider: Sudhir Quan Clinical Impression: Community acquired pneumonia, Essential (primary) hypertension, Morbid obesity, Back pain, Transaminitis, Acute exacerbation of chronic obstructive airways disease Condition: Stable Coding Level of Care Code ED Entertainment Manager for Chg Fwd Exam Comprehensive
--- NOTE | 2020-09-05 14:58 | CTR_ITS ---
PROCEDURE INFORMATION: Exam: CT Angiography Chest With Contrast Exam date and time: 09/05/2020 3:04 PM Age: 59 years old Clinical indication: Cough and shortness of breath; Prior surgery; Surgery date: 6+ months; Surgery type: L chest wall hernia; Patient HX: SOB w cough; Additional info: Dyspnea TECHNIQUE: Imaging protocol: Computed tomographic angiography of the chest with intravenous contrast. 3D rendering (Not supervised by radiologist): MIP and/or 3D reconstructed images were created by the technologist. Radiation optimization: All CT scans at this facility use at least one of these dose optimization techniques: automated exposure control; mA and/or kV adjustment per patient size (includes targeted exams where dose is matched to clinical indication); or iterative reconstruction. Contrast material: OMNI 350; Contrast volume: 78 ml; Contrast route: INTRAVENOUS (IV); COMPARISON: CR XR chest 1V portable [id number] 09/05/2020 2:03 PM RADIATION DOSE METRICS: Total DLP (mGy-cm): 587.97 FINDINGS: Pulmonary arteries: Pulmonary arteries are well opacified. Pulmonary arteries are normal in caliber. No filling defects are demonstrated. No evidence of pulmonary embolism. Aorta: Minimal atherosclerosis of the thoracic aorta. No aortic dissection or aneurysm. Lungs: Right lower lobe airspace disease. Right upper lobe is clear. Minimal fibrosis right middle lobe. Fibrosis and volume loss throughout the left lung. No consolidative infiltrates, left lung. Pleural space: No pleural effusion or pneumothorax noted. Heart: No cardiomegaly. No pericardial effusion. Lymph nodes: Unremarkable. No enlarged lymph nodes. Gallbladder and bile ducts: Calcified gallstones in the gallbladder. Bones/joints: Degenerative spine changes are noted. No acute osseous abnormality. Postop changes of the left lateral ribs. Soft tissues: Bilateral gynecomastia. No acute soft tissue abnormality. CT/CT angio chest PE protcl [id number] IMPRESSION: 1. No evidence of pulmonary embolism. 2. No evidence of aortic dissection. 3. Right lower lobe airspace disease. This is concerning for right lower lobe pneumonia. This infiltrate is not well demonstrated on the accompanying chest radiograph of 09/05/2020. 4. Postop changes of the left lateral ribs. Mild volume loss and fibrosis in the left lung. Radiation Dose CTDIVOL = (mGy): DLP = 587.97 (mGy-cm)
--- NOTE | 2020-09-05 15:45 | ECG_ITS ---
[facility] Test Date: 2020-09-05 Pat Name: Yuriy Moncada Department: Room: Gender: Male Pull Up Hand: : 1960 Requested By: Earl Mcclure Order Number: [id number] Dago MD: Betty Turner M.D. Measurements Intervals [place] Rate: 70 P: 24 OH: 196 QRS: -67 QRSD: 109 T: 69 QT: 406 QTc: 441 Interpretive Statements SINUS RHYTHM PATTERN CONSISTENT WITH PULMONARY DISEASE LEFT ANTERIOR FASCICULAR BLOCK [QRS AXIS <= -45, QR IN I, RS IN II] Compared to ECG 09/05/2020 13:41:45 No significant changes Electronically Signed On 09-05-2020 19:24:02 TRAFFIC SIGN SUPERVISOR by Betty Turner M.D. [id number]
[2020-09-05] MEDS: iohexol 350 mg/mL 100 mL Btl IV (15:49)
[2020-09-05 16:01] LABS: SARS Covid-2 Antigen Negative (Negative)
[2020-09-05 17:50] LABS: Troponin 5 2HR 13.96 ng/L (0-15)
[2020-09-05 18:01] LABS: Troponin 5 2HR Delta -2.04 ABS# (0-10)
[2020-09-05 18:33] LABS: Add Urine Microscopic? NO
--- NOTE | 2020-09-05 18:37 | P.HP_ITS ---
Providers/Chief Complaint Primary Care Provider: Jono Arrington MD Chief Complaint: SOB History of Present Illness Yuriy Moncada is a 59 year old male with a past medical history of hypertension, morbid obesity, sleep apnea who presents to [facility] due to complaints of cough, shortness of breath, wheezing. Patient tells me that his tested positive for Covid over 4 months ago, she is doing well, he thought he might of had Covid but never got tested. He has been doing well, but over the last month he has been feeling a bit more short of breath, more short of breath than usual, short of breath with exertion, no orthopnea, no paroxysmal nocturnal dyspnea, no chest pain, no history of smoking, no history of COPD, no history of CHF, no history of CAD. Patient tells me that over the last week his shortness of breath has significantly worsened, such that he gets short of breath less than a few feet, has been having a productive cough, no fevers, chills, no malaise, but is actively wheezing which is unusual for him. No known travel, no known exposure to COVID-19, he is also complaining of back pain,, esha n is a mid part of his back, no dysuria, no hematuria, no flank pain, he has a history of nephrolithiasis in the past. Patient also tells me that he thinks he is having a gouty attack, his left ankle is hurting him feels warm, swollen Review of Systems Const: Denies: fever(s), chills, fatigue or malaise Eyes: Denies: change in vision or blurry vision ENMT: Denies: nasal congestion Card: Denies: chest pain or palpitations Resp: Reports: dyspnea and non-productive cough; Denies: productive cough or wheezing GI: Denies: abdominal pain, nausea, vomiting, hematemesis, diarrhea, constipation, hematochezia or melena : Denies: flank pain, difficulty urinating, dysuria or urinary frequency Musc: Reports: back pain; Denies: neck pain Skin/Breast: Denies: rash Neuro: Denies: headache(s), dizziness or vertigo Psych: Denies: anxiety or depression Endo: Denies: polyuria or polydipsia Medications/Allergies Home Medications Medication Instructions Recorded Confirmed Last Taken Type albuterol sulfate 90 mcg/actuation 2 puff INHALATION Q4H PRN 09/28/19 09/05/20 Unknown History aerosol inhaler ropinirole 0.5 mg tablet 0.5 mg PO DAILY #90 tab 05/21/20 09/05/20 09/05/20 Rx Celebrex 400 mg PO DAILY@14 09/05/20 09/05/20 09/04/20 History acetaminophen [Tylenol Extra 1,000 mg PO PRN 09/05/20 09/05/20 09/05/20 07:30 History Strength] amlodipine 10 mg PO DAILY@07 09/05/20 09/05/20 09/05/20 History spironolactone 50 mg PO DAILY@09/05/20 09/05/20 09/05/20 History Allergies Allergy/AdvReac Type Severity Reaction Status Date / Time No Known Allergies Allergy Verified 09/05/20 14:33 PFSH Acute PFSH: Medical History (Updated 09/05/20 @ 18:40 by Sudhir Quan MD) Acute post-thoracotomy pain Essential (primary) hypertension Hernia Intervertebral disc disorders with radiculopathy, lumbosacral region Morbid obesity Renal colic on right side Retained ureteral stent Sacroiliitis Thoracic neuralgia Ureteral stone with hydronephrosis 7+ millimeters right proximal ureteral stone with high-grade obstruction and severe refractory renal colic. Required inpatient admission December 2019 and treated with endoscopy with laser lithotripsy and stent. Surgical History History of esophagogastroduodenoscopy (EGD) 02/22/2013- NORMAL S/P carpal tunnel release S/P colonoscopy 06/13/2012- POLYPS S/P thoracotomy Family History Other Cancer Heart disease Social History Smoking and tobacco status: never smoked Alcohol intake: current Alcohol intake frequency: holidays/special occasions only Adopted: No Caregiver/support person: No Lives independently: No Household members: spouse Housing: House Marital status: Current occupational status: employed Current occupation: [employer] History of recent travel: No Current gender identity: Male Vitals/I&O/Wt Last Vital Signs Temp 98.2 F 09/05/20 13:31 Pulse 77 09/05/20 17:25 Resp 23 H 09/05/20 17:25 BP 191/107 09/05/20 17:25 Pulse Ox 96 09/05/20 18:23 Weight last 48 hrs Weight 154.221 kg Physical Exam Const: COMMON NORMALS: no acute distress and patient oriented x3 GENERAL APPEARANCE: cooperative and comfortable HENMT: COMMON NORMALS: normocephalic HEAD & SCALP: normocephalic Eye: COMMON NORMALS: Equal, round and reactive pupils present and EOMs intact bilaterally GENERAL EYE: appearance normal, both eyes and all related structu res PUPIL: Yes Equal, round and reactive pupils present Neck/C-Spine: COMMON NORMALS: full ROM, no lymphadenopathy, no JVD and Thyroid normal THYROID: Thyroid normal Lymph: LYMPHATIC: no lymphadenopathy noted Resp: COMMON NORMALS: normal respiratory effort, No retractions, No use of accessory muscles and clear to auscultation bilaterally AUSCULTATION: rhonchi and wheezes Cardio: COMMON NORMALS: no JVD, regular rate, regular rhythm, S1 normal heart sound present, S2 normal heart sound present, No gallops present (Cardio), No clicks present (Cardio) and No murmurs present (Cardio) RATE: regular rate RHYTHM: regular rhythm HEART SOUNDS: S1 normal heart sound present and S2 normal heart sound present GI: COMMON NORMALS: Normal to inspection, nondistended, normoactive bowel sounds present, Soft to palpation, non-tender and No hepatosplenomegaly present PALPATION: Yes Soft to palpation and Yes No hepatosplenomegaly present Extremity: COMMON NORMALS: normal to inspection, full ROM and no pedal edema Neuro: COMMON NORMALS: patient oriented x3, CN's II-XII intact bilaterally, moves all extremities and no focal motor deficits Psych: COMMON NORMALS: mental status grossly normal, Normal thought process present and cooperative THOUGHT PROCESS: Normal thought process present Data : 09/05/20 14:00 09/05/20 14:00 A&P Assessment and plan (1) Community acquired pneumonia: -Rocephin azithromycin -Incentive spirometer Solu-Medrol -Some component of COPD exacerbation, continue steroids -Sputum cultures, blood cultures, urine bacterial antigens Covid PCR, isolation precautions, until Covid comes back negative, rapid so far negative Status: Acute (2) Back pain: [place] for pain Status: Acute (3) Gout attack: Solu-Medrol as above Status: Acute (4) Hypertensive urgency: Thalitone, continue home meds, labetalol as needed Status: Acute (5) Transaminitis: Status: Acute (6) Essential (primary) hypertension: Status: Acute Attestations Medical Necessity Statement*: Patient cards hospitalization, inpatient, greater than 2 minutes, for community-acquired pneumonia, hypertensive urgency Coding Level of Care Code Acute Supervisor Electronics Testing for [facility] Fwd Exam Comprehensive Diagnoses Community acquired pneumonia J18.9 Back pain M54.9 Gout attack M10.9 Hypertensive urgency I16.0 Transaminitis R74.01 Essential (primary) hypertension I10
[2020-09-05 18:39] LABS: Bilirubin Urine Neg (Negative); Blood Urine Neg (Negative); Glucose Urine UA Norm (Normal); Ketones Urine Negative (Negative); Leukocyte Esterase Urine Negative (Negative); Nitrate Urine Negative (Negative); Protein Urine Neg (Negative); Urine Appearance Clear (CLEAR); Urine Color Yellow (Yellow); Urobilinogen Urine Norm (Negative); pH Urine 6 (5-7)
[2020-09-05] MEDS: labetalol 5 mg/mL SDV 20mL 20 MG IVP (18:51)
--- NOTE | 2020-09-05 19:45 | ECG_ITS ---
[facility] Test Date: 2020-09-05 Pat Name: Yuriy Moncada Department: Room: 273 Gender: Male Remediation Technician: : 1960 Requested By: Earl Mcclure Order Number: [id number] Reading MD: SHARLENE FONTAINE Measurements Intervals [place] Rate: 68 P: 21 NM: 176 QRS: -66 QRSD: 109 T: 62 QT: 432 QTc: 461 Interpretive Statements SINUS RHYTHM PATTERN CONSISTENT WITH PULMONARY DISEASE LEFT ANTERIOR FASCICULAR BLOCK [QRS AXIS <= -45, QR IN I, RS IN II] Compared to ECG 09/05/2020 17:28:52 No significant changes Electronically Signed On 09-06-2020 17:28:19 RADAR TESTER by SHARLENE FONTAINE [id number]
[2020-09-05] MEDS: chlorthalidone 25 mg Tablet PO (21:38)
[2020-09-05] MEDS: HYDROcodone-acetaminophen 5-325 mg Tablet 1 TAB PO (21:38)
[2020-09-05] MEDS: enoxaparin 40 mg/0.4 mL Syringe SUBCUT (21:39)
[2020-09-05 22:31] LABS: Influenza A by IFA Negative (Negative); Influenza B by IFA Negative (Negative)
[2020-09-05] MEDS: cefTRIAXone 1,000 MG in sodium chloride 0.9% (plus) 50 ML 100 MG IV (23:05)
[2020-09-05 23:21] LABS: Troponin 5 6HR 13.21 ng/L (0-15)
[2020-09-05] MEDS: azithromycin 500 MG in sodium chloride 0.9% 250 ML 250 MG IV (23:39)
[2020-09-06] VITALS (10 sets, daily range): BP systolic 130–179; BP diastolic 75–91; PULSE 68–88; RESP 16–22; TEMP 36.6–37.1; O2SAT 90–96
[2020-09-06 01:05] LABS: Troponin 5 6HR Delta -2.79 ng/L (0-12)
[2020-09-06] MEDS: HYDROcodone-acetaminophen 5-325 mg Tablet 1 TAB PO ×5 (01:31→21:00)
[2020-09-06 05:41] LABS: Eosinophils % 0.1 %; Hemoglobin 14.7 g/dL (11.7-16.6); Lymphocytes # 0.8 10^3/uL (0.8-4.8); Lymphocytes % 10.9 %; Mean Corpuscular Hemoglobin 29.9 pg (28.0-34.0); Mean Corpuscular Volume 93.5 fL (80-94); Mean Platelet Volume 11.2 fL (7.4-10.4); Monocytes # 0.1 10^3/uL (0.2-0.9); Monocytes % 0.7 %; Neutrophils % 87.8 %; Nucleated Red Blood Cells % 0 %; Platelet Count 226 10^3/cmm (130-400); Red Blood Count 4.92 10^6/uL (4.1-5.3); Red Cell Distribution Width 13.7 % (12.1-15.1); White Blood Count 7.4 10^3/uL (4.0-10.0)
[2020-09-06] MEDS: amlodipine 10 mg Tablet PO (06:25)
[2020-09-06] MEDS: spironolactone 25 mg Tablet 50 MG PO (06:25)
[2020-09-06 06:47] LABS: NT Pro B Type Natriuretic Pept 170 pg/mL (0-125); Procalcitonin 0.14 ng/mL (0-0.5)
[2020-09-06 06:49] LABS: Alanine Aminotransferase 91 U/L (0-41); Albumin Level 3.9 g/dL (3.5-5.2); Alkaline Phosphatase 62 IU/L (40-130); Anion Gap 16.5 (5-19); Aspartate Amino Transferase 48 U/L (0-40); Blood Urea Nitrogen 16 mg/dL (8-23); C Reactive Protein 3.1 mg/L (0.0-4.9); Calcium 9.7 mg/dL (8.5-10.5); Carbon Dioxide 23 mmol/L (22-29); Chloride 100 mmol/L (98-107); Globulin 3.4 g/dL (1.3-4.6); Glomerular Filtration Rate 68.3 mL/min (90-130); Glucose 197 mg/dL (65-115); Magnesium 2.1 mg/dL (1.7-2.3); Osmolality Calculated 287 mOsm/kg (285-295); Potassium 4.5 mmol/L (3.5-5.1); Sodium 135 mmol/L (136-145); Total Bilirubin 0.4 mg/dL (0.15-1.2); Total Protein 7.3 g/dL (6.6-8.7)
[2020-09-06 07:37] LABS: Chol HDL Ratio 4.51 mg/dL (1.0-5.00); Cholesterol 212 mg/dL (0-200); HDL Cholesterol 47 mg/dL (60-100); LDL Cholesterol Calculated 147 mg/dL (50-129); LDL HDL Ratio 3.13 RATIO (0.00-3.22); Triglycerides 90 mg/dL (0-150)
[2020-09-06] MEDS: chlorthalidone 25 mg Tablet PO (08:16)
[2020-09-06] MEDS: pantoprazole DR 40 mg Tablet PO (08:16)
[2020-09-06] MEDS: ropinirole 0.25 mg Tablet 0.5 MG PO (08:16)
[2020-09-06 08:45] LABS: Estmated Average Glucose 126
[2020-09-06] MEDS: albuterol 8 gm MDI 2 PUFF INHALATION ×2 (09:45→20:28)
[2020-09-06] MEDS: FUROsemide 10 mg/mL SDV 4mL 40 MG IVP (10:12)
[2020-09-06 10:51] LABS: Glucose Point of Care 163 mg/dL (70-110)
--- NOTE | 2020-09-06 10:59 | USCV_ITS ---
Yuriy Moncada Age: 59 Gender: M : 1960 Exam Date: 09/06/2020 11:14 Ordering Phys: Sudhir Quan MD Technologist: Kavita Bey Exam Location: [facility] [place] Indication: SOB BP: 157 / 91 HR: 79 Rhythm: Sinus Technical Quality: Very technically difficult study MEASUREMENTS (Male / Female) Normal Values 2D ECHO LV Diastolic Diameter PLAX 5.5 cm 4.2 - 5.9 / 3.9 - 5.3 cm LV Systolic Diameter PLAX 3.3 cm LV Chamber Size 5.4 cm IVS Diastolic Thickness 2.1 cm 0.6 - 1.0 / 0.6 - 0.9 cm IVS Systolic Thickness 2.9 cm LVPW Diastolic Thickness 1.5 cm 0.6 - 1.0 / 0.6 - 0.9 cm LVPW Systolic Thickness 2.2 cm RV Chamber Size 3.4 cm LVOT Diameter 2.4 cm LV Ejection Fraction 2D Teich 70.5 % LA Diameter 2.9 cm LA Width 5.2 cm LA Height 4.8 cm RA Width 3.9 cm RA Height 5.0 cm Aorta at Sinotubular Diameter 3.4 cm M-MODE Aortic Annulus Diameter 3.9 cm LA Ao Ratio MM 0.9 MV E Point Septal Separation 0.9 cm DOPPLER AV Peak Velocity 106.3 cm/s LVOT Peak Velocity 86.0 cm/s AV Area Cont Eq vti 5.4 cm squared AV Area Cont Eq pk 3.5 cm squared MV Area PHT 4.3 cm squared Mitral E to A Ratio 0.8 MV E' Velocity 37.0 cm/s Mitral E to MV E' Ratio 5.9 Mitral E to LV E' Lateral Ratio 7.4 Mitral E to LV E' Septal Ratio 4.9 TV Peak E Velocity 78.0 cm/s Right Atrial Pressure 3.0 mmHg PV Peak Velocity 101.0 cm/s RV Acceleration Time 0.1 s RV Ejection Time 0.3 s RV AcT/ET 0.4 FINDINGS Left Ventricle Normal left ventricular cavity size. Normal left ventricular systolic function. No regional wall motion abnormalities. Left ventricular ejection fraction is estimated at 60 %. Right Ventricle The right ventricle is normal in size and function. Right Atrium The right atrium is normal in size. Left Atrium The left atrium is normal in size. Mitral Valve Moderately thickened mitral valve. Moderate mitral annular calcification. No mitral valve stenosis. Mild mitral valve regurgitation. Aortic Valve Moderate aortic valve calcification. No aortic valve stenosis. Trace aortic valve regurgitation. Tricuspid Valve Trace tricuspid valve regurgitation. Pulmonic Valve Trace pulmonary valve regurgitation. Pericardium Normal pericardium without effusion. Aorta Normal ascending aorta dimension. CONCLUSIONS 1-Normal left ventricular cavity size. Normal left ventricular systolic function. No regional wall motion abnormalities. Left ventricular ejection fraction is estimated at 60 %. 2-No significant valve abnormalities. 3-There is no pericardial effusion. 4-Pulmonary artery systolic pressure is within normal limits. 5-Right atrial pressure is around 5 mm of mercury. 6-There are no prior echocardiogram studies to compare. Sixto Blum MD (Electronically Signed) Final Date: 06 September 2020 14:14 S
--- NOTE | 2020-09-06 11:00 | PM.PN ---
Subjective Subjective: Interval history: This morning patient was examined, he is on 4 L, states that he still feels short of breath with exertion, no fevers, chills, no chest pain Vitals/I&O/Wt Last Vital Signs Temp 98.6 F 09/06/20 08:00 Pulse 72 09/06/20 09:45 Resp 20 H 09/06/20 09:45 BP 157/91 09/06/20 08:00 Pulse Ox 92 09/06/20 09:45 09/05/20 09/06/20 09/06/20 22:59 06:59 14:59 Intake Total 120 / 120 300 / 420 240 / 240 Output Total 200 / 200 580 / 780 Balance -80 / -80 -280 / -360 240 / 240 Weight last 48 hrs Weight 154.221 kg Physical Exam Const: COMMON NORMALS: no acute distress and patient oriented x3 HENMT: COMMON NORMALS: normocephalic HEAD & SCALP: normocephalic Neck/C-Spine: COMMON NORMALS: no JVD Resp: COMMON NORMALS: normal respiratory effort, No retractions and No use of accessory muscles AUSCULTATION: wheezes Cardio: COMMON NORMALS: no JVD, regular rate, regular rhythm, S1 normal heart sound present and S2 normal heart sound present RATE: regular rate RHYTHM: regular rhythm HEART SOUNDS: S1 normal heart sound present and S2 normal heart sound present GI: COMMON NORMALS: Normal to inspection, nondistended, normoactive bowel sounds present, Soft to palpation, non-tender, No hepatosplenomegaly present, no masses and no bruits PALPATION: Yes Soft to palpation and Yes No hepatosplenomegaly present Extremity: COMMON NORMALS: capillary refill normal, no clubbing, cyanosis or edema, no calf tenderness and no pedal edema Neuro: COMMON NORMALS: patient oriented x3 Psych: COMMON NORMALS: mental status grossly normal Data : 09/06/20 05:20 09/06/20 05:20 Micro: Microbiology 09/06/20 08:20 Gram Stain - Final Sputum - Expectorated Sputum 09/05/20 21:00 Bacterial Antigens - Final Urine,Clean Catch 09/05/20 22:49 Blood Culture - Preliminary Blood SPECIMEN COLLECTED 09/05/20 22:43 Blood Culture - Preliminary Blood SPECIMEN COLLECTED A&P Assessment and plan (1) Community acquired pneumonia: -Continue Rocephin and azithromycin -Incentive spirometer, flutter valve -Continue Solu-Medrol -Sputum cultures, blood cultures, urine bacterial antigens -Lasix 40 mg IV push once, order echocardiogram Covid PCR, isolation precautions, until Covid comes back negative, rapid so far negative Status: Acute (2) Back pain: [place] for pain Status: Acute (3) Gout attack: Solu-Medrol as above Status: Acute (4) Hypertensive urgency: Thalitone, continue home meds, labetalol as needed Status: Acute (5) Transaminitis: Status: Acute (6) Essential (primary) hypertension: Status: Acute (7) Prediabetes: -Hemoglobin A1c 6, morbidly obese -Monitor blood sugars 3 times daily, if blood sugar greater than 250 will start insulin Status: Acute Attestations Medical Necessity Statement*: Patient requires hospitalization for right lower lobe pneumonia, acute respiratory failure Coding Level of Care Code 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
[2020-09-06 16:47] LABS: Glucose Point of Care 142 mg/dL (70-110)
[2020-09-06 19:54] LABS: Glucose Point of Care 158 mg/dL (70-110)
[2020-09-06] MEDS: enoxaparin 40 mg/0.4 mL Syringe SUBCUT (21:00)
[2020-09-06] MEDS: cefTRIAXone 1,000 MG in sodium chloride 0.9% (plus) 50 ML 100 MG IV (22:34)
[2020-09-06] MEDS: azithromycin 500 MG in sodium chloride 0.9% 250 ML 250 MG IV (23:11)
[2020-09-07] VITALS (11 sets, daily range): BP systolic 147–184; BP diastolic 68–91; PULSE 57–96; RESP 18–20; TEMP 36.6–37.1; O2SAT 92–97
[2020-09-07] MEDS: HYDROcodone-acetaminophen 5-325 mg Tablet 1 TAB PO ×4 (01:01→22:38)
[2020-09-07 05:40] LABS: Basophils % 0.1 %; Hemoglobin 14.6 g/dL (11.7-16.6); Lymphocytes # 0.9 10^3/uL (0.8-4.8); Lymphocytes % 7.7 %; Mean Corpuscular HGB Conc 31.7 g/dL (30.0-36.0); Mean Corpuscular Hemoglobin 29.8 pg (28.0-34.0); Mean Corpuscular Volume 93.9 fL (80-94); Monocytes # 0.5 10^3/uL (0.2-0.9); Monocytes % 3.8 %; Neutrophils # 10.72 10^3/uL (1.8-7.7); Neutrophils % 87.7 %; Nucleated Red Blood Cells % 0 %; Platelet Count 244 10^3/cmm (130-400); Red Cell Distribution Width 13.7 % (12.1-15.1); White Blood Count 12.2 10^3/uL (4.0-10.0)
[2020-09-07] MEDS: amlodipine 10 mg Tablet PO (06:00)
[2020-09-07] MEDS: spironolactone 25 mg Tablet 50 MG PO ×2 (06:00→17:02)
[2020-09-07 06:49] LABS: Glucose Point of Care 142 mg/dL (70-110)
[2020-09-07 06:49] LABS: Alanine Aminotransferase 71 U/L (0-41); Albumin Level 3.9 g/dL (3.5-5.2); Alkaline Phosphatase 66 IU/L (40-130); Aspartate Amino Transferase 37 U/L (0-40); Blood Urea Nitrogen 22 mg/dL (8-23); Calcium 9.5 mg/dL (8.5-10.5); Carbon Dioxide 25 mmol/L (22-29); Chloride 97 mmol/L (98-107); Globulin 3.7 g/dL (1.3-4.6); Glomerular Filtration Rate 61.8 mL/min (90-130); Glucose 185 mg/dL (65-115); Osmolality Calculated 282 mOsm/kg (285-295); Sodium 132 mmol/L (136-145); Total Bilirubin 0.4 mg/dL (0.15-1.2); Total Protein 7.6 g/dL (6.6-8.7)
[2020-09-07 06:58] LABS: NT Pro B Type Natriuretic Pept 184 pg/mL (0-125); Procalcitonin 0.09 ng/mL (0-0.5)
[2020-09-07 07:46] LABS: C Reactive Protein 1.6 mg/L (0.0-4.9); Magnesium 2.3 mg/dL (1.7-2.3); Phosphorus 3.6 mg/dL (2.5-4.5)
[2020-09-07] MEDS: chlorthalidone 25 mg Tablet PO (08:17)
[2020-09-07] MEDS: pantoprazole DR 40 mg Tablet PO (08:17)
[2020-09-07] MEDS: ropinirole 0.25 mg Tablet 0.5 MG PO (08:17)
[2020-09-07] MEDS: albuterol 8 gm MDI 2 PUFF INHALATION ×2 (09:05→20:30)
[2020-09-07] MEDS: cloNIDine 0.1 mg Tablet PO ×2 (09:34→22:38)
[2020-09-07] MEDS: guaiFENesin 600 mg Tablet 1200 MG PO ×2 (10:01→17:01)
--- NOTE | 2020-09-07 10:36 | P.PN_ITS ---
Subjective Subjective: Interval history: This morning patient was examined, he tells me that he is doing much better, is down to 2 L, still feeling short of breath with exertion, he did pee a lot yesterday with Lasix, no fevers overnight Vitals/I&O/Wt Last Vital Signs Temp 98.0 F 09/07/20 08:00 Pulse 82 09/07/20 09:27 Resp 18 09/07/20 09:25 BP 147/85 09/07/20 09:34 Pulse Ox 95 09/07/20 09:25 09/06/20 09/07/20 09/07/20 22:59 06:59 14:59 Intake Total 1360 / 2080 300 / 2380 400 / 400 Output Total 1700 / 2800 300 / 3100 600 / 600 Balance -340 / -720 0 / -720 -200 / -200 Weight last 48 hrs Weight 154.221 kg Physical Exam Const: COMMON NORMALS: no acute distress and patient oriented x3 HENMT: COMMON NORMALS: normocephalic HEAD & SCALP: normocephalic Neck/C-Spine: COMMON NORMALS: no JVD Resp: COMMON NORMALS: normal respiratory effort, No retractions and No use of accessory muscles AUSCULTATION: wheezes Cardio: COMMON NORMALS: no JVD, regular rate, regular rhythm, S1 normal heart sound present and S2 normal heart sound present RATE: regular rate RHYTHM: regular rhythm HEART SOUNDS: S1 normal heart sound present and S2 normal heart sound present GI: COMMON NORMALS: Normal to inspection, nondistended, normoactive bowel sounds present, Soft to palpation, non-tender, No hepatosplenomegaly present, no masses and no bruits PALPATION: Yes Soft to palpation and Yes No hepatosplen omegaly present Extremity: COMMON NORMALS: capillary refill normal, no clubbing, cyanosis or edema, no calf tenderness and no pedal edema Neuro: COMMON NORMALS: patient oriented x3 Psych: COMMON NORMALS: mental status grossly normal Data : 09/07/20 05:00 09/07/20 05:00 Micro: Microbiology 09/06/20 08:20 Gram Stain - Final Sputum - Expectorated Sputum Sputum Culture - Preliminary 09/05/20 22:49 Blood Culture - Preliminary Blood NEGATIVE TO DATE 09/05/20 22:43 Blood Culture - Preliminary Blood NEGATIVE TO DATE 09/05/20 21:00 MRSA Culture - Final Nose 09/05/20 21:00 Bacterial Antigens - Final Urine,Clean Catch A&P Assessment and plan (1) Community acquired pneumonia: -Continue Rocephin and azithromycin -Incentive spirometer, flutter valve -Mucinex -Continue Solu-Medrol -Sputum cultures, blood cultures, urine bacterial antigens -Echocardiogram showed EF of 60%, no regional wall motion abnormalities -Covid PCR, isolation precautions, until Covid comes back negative, rapid so far negative Status: Acute (2) Back pain: [place] for pain Status: Acute (3) Gout attack: Solu-Medrol as above Status: Acute (4) Hypertensive urgency: Spironolactone 50 twice daily Chlorthalidone 25 mg daily Clonidine 0.1 mg daily Monitor creatinine closely Status: Acute (5) Transaminitis: Improving Status: Acute (6) Essential (primary) hypertension: Status: Acute (7) Prediabetes: -Hemoglobin A1c 6, morbidly obese -Monitor blood sugars 3 times daily, if blood sugar greater than 250 will start insulin -Will require Metformin discharge Status: Acute Additional A&P Information Plan for today, get up out of bed, aggressive pulmonary toilet, Mucinex therapy, continue antibiotics, monitor blood sugars Attestations Medical Necessity Statement*: Patient cards hospitalization, for pneumonia, hypertensive urgency Time Spent in Patient Care: Greater than 35 minutes (>than 50% of time spent in counselling and/or direct pt care on unit) . 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 Diagnoses Community acquired pneumonia J18.9 Back pain M54.9 Gout attack M10.9 Hypertensive urgency I16.0 Transaminitis R74.01 Essential (primary) hypertension I10 Prediabetes R73.03
[2020-09-07 11:30] LABS: Glucose Point of Care 125 mg/dL (70-110)
[2020-09-07 17:18] LABS: Glucose Point of Care 155 mg/dL (70-110)
[2020-09-07 20:22] LABS: Glucose Point of Care 165 mg/dL (70-110)
[2020-09-07] MEDS: enoxaparin 40 mg/0.4 mL Syringe SUBCUT (22:38)
[2020-09-07] MEDS: cefTRIAXone 1,000 MG in sodium chloride 0.9% (plus) 50 ML 100 MG IV (22:39)
[2020-09-08] VITALS (11 sets, daily range): BP systolic 147–194; BP diastolic 63–95; PULSE 55–71; RESP 16–20; TEMP 36.5–37.3; O2SAT 94–96
[2020-09-08] MEDS: azithromycin 500 MG in sodium chloride 0.9% 250 ML 250 MG IV (00:14)
[2020-09-08 05:49] LABS: Basophils % 0.1 %; Hematocrit 46.1 % (42.0-52.0); Hemoglobin 14.8 g/dL (11.7-16.6); Lymphocytes % 8.8 %; Mean Corpuscular HGB Conc 32.1 g/dL (30.0-36.0); Mean Corpuscular Hemoglobin 29.8 pg (28.0-34.0); Mean Corpuscular Volume 92.8 fL (80-94); Mean Platelet Volume 12.6 fL (7.4-10.4); Monocytes # 0.3 10^3/uL (0.2-0.9); Monocytes % 2.8 %; Neutrophils # 9.72 10^3/uL (1.8-7.7); Neutrophils % 87.8 %; Nucleated Red Blood Cells % 0 %; Platelet Count 209 10^3/cmm (130-400); Red Blood Count 4.97 10^6/uL (4.1-5.3); Red Cell Distribution Width 13.6 % (12.1-15.1); White Blood Count 11.1 10^3/uL (4.0-10.0)
[2020-09-08] MEDS: spironolactone 25 mg Tablet 50 MG PO ×2 (06:30→17:22)
[2020-09-08] MEDS: amlodipine 10 mg Tablet PO (06:30)
[2020-09-08 06:34] LABS: Glucose Point of Care 147 mg/dL (70-110)
--- NOTE | 2020-09-08 07:00 | XR_ITS ---
WS: [id number] XR chest 1V portable [id number] REASON FOR EXAM: sob FINDINGS: The chest is unchanged compared to 09/05/2020. Extensive pleural scarring with elevation laterally of the left hemidiaphragm. This is associated wit h multiple screws and rib abnormality. No acute pulmonary parenchymal or pleural abnormality. Moderate degenerative changes in the mid and lower thoracic spine. XR/XR chest 1V portable [id number] IMPRESSION: Stable abnormal chest.
[2020-09-08 07:02] LABS: Alanine Aminotransferase 64 U/L (0-41); Albumin Level 3.9 g/dL (3.5-5.2); Alkaline Phosphatase 61 IU/L (40-130); Anion Gap 17.9 (5-19); Aspartate Amino Transferase 37 U/L (0-40); Blood Urea Nitrogen 25 mg/dL (8-23); Calcium 9.5 mg/dL (8.5-10.5); Carbon Dioxide 24 mmol/L (22-29); Chloride 98 mmol/L (98-107); Globulin 3.3 g/dL (1.3-4.6); Glomerular Filtration Rate 61.8 mL/min (90-130); Glucose 146 mg/dL (65-115); Osmolality Calculated 287 mOsm/kg (285-295); Potassium 4.9 mmol/L (3.5-5.1); Sodium 135 mmol/L (136-145); Total Bilirubin 0.4 mg/dL (0.15-1.2); Total Protein 7.2 g/dL (6.6-8.7)
[2020-09-08 07:04] LABS: C Reactive Protein 0.7 mg/L (0.0-4.9); Magnesium 2.6 mg/dL (1.7-2.3); Phosphorus 4.3 mg/dL (2.5-4.5)
[2020-09-08 07:05] LABS: NT Pro B Type Natriuretic Pept 228 pg/mL (0-125)
[2020-09-08] MEDS: albuterol 8 gm MDI 2 PUFF INHALATION ×2 (07:50→20:52)
[2020-09-08 08:02] LABS: Procalcitonin 0.08 ng/mL (0-0.5)
[2020-09-08] MEDS: chlorthalidone 25 mg Tablet PO (08:27)
[2020-09-08] MEDS: ropinirole 0.25 mg Tablet 0.5 MG PO (08:27)
[2020-09-08] MEDS: guaiFENesin 600 mg Tablet 1200 MG PO ×2 (08:28→17:22)
[2020-09-08] MEDS: pantoprazole DR 40 mg Tablet PO (08:28)
[2020-09-08] MEDS: cloNIDine 0.1 mg Tablet PO ×2 (08:28→20:58)
--- NOTE | 2020-09-08 09:00 | PC.RESP ---
Pulmonary Rehab information sent to patient.
[2020-09-08 11:18] LABS: Glucose Point of Care 134 mg/dL (70-110)
[2020-09-08] MEDS: HYDROcodone-acetaminophen 5-325 mg Tablet 1 TAB PO (16:17)
[2020-09-08] MEDS: labetalol 5 mg/mL SDV 20mL 10 MG IVP (16:17)
[2020-09-08 16:52] LABS: Glucose Point of Care 173 mg/dL (70-110)
--- NOTE | 2020-09-08 17:19 | P.PN_ITS ---
Subjective Subjective: Interval history: tmax 99.2, c/o not feeling well , dyspnea better but feels as if he is congeste din the middle of his chest. No chest pain . Covid PCR remains pending Medications: Reviewed: Yes Vitals/I&O/Wt Last Vital Signs Temp 99.2 F 09/08/20 15:59 Pulse 71 09/08/20 15:59 Resp 17 09/08/20 15:59 BP 165/80 09/08/20 16:39 Pulse Ox 95 09/08/20 15:59 09/08/20 09/08/20 09/08/20 06:59 14:59 22:59 Intake Total 300 / 2550 960 / 960 Output Total 1850 / 5450 1100 / 1100 900 / 2000 Balance -1550 / -2900 -140 / -140 -900 / -1040 Physical Exam Narrative: EXAM NARRATIVE: GEN: Awake, alert and oriented, no acute distress CVS: S1S2 N RS: CTA B/L except crackles over RUL Abd: Soft, nt/nd , bs+ FISH HATCHERY SUPERINTENDENT: no focal neuro deficits Data : 09/08/20 04:00 09/08/20 04:00 Micro: Microbiology 09/06/20 08:20 Gram Stain - Final Sputum - Expectorated Sputum Sputum Culture - Final A&P Assessment and plan (1) Community acquired pneumonia: -Continue Rocephin and azithromycin -Incentive spirometer, flutter valve -reports bothersome dry cough today- start codeine -Continue Solu-Medrol -Check urine legionella Ag -Sputum cultures, blood cultures, urine bacterial antigens negative -Echocardiogram showed EF of 60%, no regional wall motion abnormalities -Covid PCR, isolation precautions, until Covid comes back negative, rapid so far negative Status: Acute (2) Back pain: [place] for pain Status: Acute (3) Gout attack: Solu-Medrol as above Status: Acute (4) Hypertensive urgency: Spironolactone 50 twice daily Chlorthalidone 25 mg daily Clonidine 0.1 mg daily Monitor creatinine closely Status: Acute (5) Transaminitis: Improving Status: Acute (6) Essential (primary) hypertension: Status: Acute (7) Prediabetes: -Hemoglobin A1c 6, morbidly obese -Monitor blood sugars 3 times daily, if blood sugar greater than 250 will start insulin -Will require Metformin discharge Status: Acute Additional A&P Information Plan for today, get up out of bed, aggressive pulmonary toilet, Mucinex therapy, continue antibiotics, monitor blood sugars Attestations Medical Necessity Statement*: scattered wheezing on exam, reports increased cough today, need for iv abx, monitor resp status closely while pending covid PCR Coding Level of Care Code Acute 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
[2020-09-08 20:44] LABS: Glucose Point of Care 153 mg/dL (70-110)
[2020-09-08] MEDS: enoxaparin 40 mg/0.4 mL Syringe SUBCUT (21:00)
[2020-09-08] MEDS: guaiFENesin-codeine UDC 10 mL 5 ML PO (23:32)
[2020-09-08] MEDS: cefTRIAXone 1,000 MG in sodium chloride 0.9% (plus) 50 ML 100 MG IV (23:32)
[2020-09-09] VITALS (7 sets, daily range): BP systolic 135–165; BP diastolic 76–86; PULSE 54–63; RESP 16–20; TEMP 36.4–37; O2SAT 93–96
[2020-09-09] MEDS: azithromycin 500 MG in sodium chloride 0.9% 250 ML 250 MG IV (00:08)
--- NOTE | 2020-09-09 04:00 | XR_ITS ---
WS: [id number] PORTABLE CHEST HISTORY: follow up on consolidation COMPARISON: 09/08/2020 Moderate pulmonary hyperexpansion. RIGHT lung is clear. Pleural thickening throughout the LEFT thorax . Pleural thickening and obscuration of the LEFT costophrenic angle is new since 09/05/2020 therefore likely a small pleural effusion. No pneumothorax. Cardiac size: Moderately enlarged cardiac silhouette. Mediastinum/Aorta: Mild atherosclerosis aorta. No osseous abnormality seen. XR/XR chest 1V portable [id number] IMPRESSION: 1. New small LEFT pleural effusion. 2. Emphysema with no pneumonia.
[2020-09-09] MEDS: amlodipine 10 mg Tablet PO (06:38)
[2020-09-09] MEDS: spironolactone 25 mg Tablet 50 MG PO (06:38)
[2020-09-09 06:53] LABS: Glucose Point of Care 123 mg/dL (70-110)
[2020-09-09] MEDS: chlorthalidone 25 mg Tablet PO (08:17)
[2020-09-09] MEDS: ropinirole 0.25 mg Tablet 0.5 MG PO (08:17)
[2020-09-09] MEDS: cloNIDine 0.1 mg Tablet PO (08:17)
[2020-09-09] MEDS: pantoprazole DR 40 mg Tablet PO (08:18)
[2020-09-09] MEDS: HYDROcodone-acetaminophen 5-325 mg Tablet 1 TAB PO (08:30)
[2020-09-09] MEDS: albuterol 8 gm MDI 2 PUFF INHALATION (08:38)
[2020-09-09 09:45] LABS: Coronavirus Lab Test PTC Inconclusive
[2020-09-09 09:53] LABS: Alanine Aminotransferase 79 U/L (0-41); Albumin Level 4.3 g/dL (3.5-5.2); Alkaline Phosphatase 64 IU/L (40-130); Aspartate Amino Transferase 42 U/L (0-40); Blood Urea Nitrogen 30 mg/dL (8-23); Calcium 9.6 mg/dL (8.5-10.5); Carbon Dioxide 23 mmol/L (22-29); Chloride 96 mmol/L (98-107); Globulin 2.8 g/dL (1.3-4.6); Glomerular Filtration Rate 56.3 mL/min (90-130); Glucose 199 mg/dL (65-115); Osmolality Calculated 288 mOsm/kg (285-295); Sodium 133 mmol/L (136-145); Total Bilirubin 0.4 mg/dL (0.15-1.2); Total Protein 7.1 g/dL (6.6-8.7)
[2020-09-09 09:55] LABS: C Reactive Protein 0.6 mg/L (0.0-4.9)
[2020-09-09 10:02] LABS: NT Pro B Type Natriuretic Pept 124 pg/mL (0-125)
[2020-09-09] MEDS: levoFLOXacin 750 mg Tablet PO (10:18)
[2020-09-09 10:41] LABS: SARS Covid-2 Antigen Negative (Negative)
[2020-09-09 11:00] LABS: Glucose Point of Care 157 mg/dL (70-110)
--- NOTE | 2020-09-09 13:07 | PM.DCS ---
Discharge Providers Date of Admission: 09/05/20 18:14 Date of Discharge: September 09, 2020 Attending Provider at Admission: Sudhir Quan MD Attending Provider at Discharge: Elif Babin MD Primary Care Provider: Jono Arrington MD Diagnoses at Discharge Discharge Diagnosis (1) Community acquired pneumonia: Status: Acute (2) Back pain: Status: Acute (3) Gout attack: Status: Acute (4) Hypertensive urgency: Status: Acute (5) Transaminitis: Status: Acute (6) Essential (primary) hypertension: Status: Acute (7) Prediabetes: Status: Acute Reason for Visit Reason for Visit: SOB Hospital Course Hospital Course Yuriy Moncada is a 59 year old male with a past medical history of hypertension, morbid obesity, sleep apnea who presents to [facility] due to complaints of cough, shortness of breath, wheezing. He uses 2lpm at night time at a baseline. He stated getting short of breath less than a few feet, has been having a productive cough, no fevers, chills, no malaise. CTA of the chest was negative for PE but showed RLL pneumonia for which he received inpatient treatmenet with iv Ceftriaxone/azithromycin, transitioned to levaquin on discharge. Bactreial antigens were negative. Rapid COVID ag on 09/05 and then again on 09/09 were negative, as was influenza Ag. Covid 19 PCR from 09/05 returned negative additionally for unclear reasons and repeat test has been sent out today, remains pending at discharge. Other w/up included echocardiogram which showed EF 60%, no RWMA, troponin series negative for acute AL, no acute ST-T wave changes. He felt improved at time of discharge, saturating well on RA. On day of discharge CXR noted to have left costophrenic angle blunting in a region of past surgery and pleueral scarring per patient history and recent CTA, which may be a result of atelcatasis vs small pleural effusion. Since patient is otherwise clinically improving, now on RA, afebrile,ambulating in dion room without difficulty, he is being discharged with recommendations to continue antibiotics over the next 5 days and follow up with PCP in the next week. His HTN medications were also adjusted, now to include chlorthalidone and clonidine. A CMP has been ordered in 3 days to monitor electrolytes and kidney function Physical Exam Narrative: EXAM NARRATIVE: GEN: Awake, alert and oriented, no acute distress CVS: S1S2 N RS: CTA B/L Abd: Soft, nt/nd , bs+ OBGYN HOSPITALIST PHYSICIAN: no focal neuro deficits Discharge Data Data Completed and Pending: Completed Studies During Hospitalization Category Date Time Status CT angio chest PE protcl [id number] Stat Cat Scan 09/05/20 14:58 Completed XR chest 1V pierre ble [id number] AM LABS Exams 09/09/20 04:00 Completed XR chest 1V pierre ble [id number] Routine Exams 09/08/20 07:00 Completed XR chest 1V pierre ble [id number] Stat Exams 09/05/20 13:45 Completed CV echo complete* [id number] Routine Ultrasound 09/06/20 10:59 Completed Pending at discharge Category Date Time Status Blood Culture Sta t Lab 09/05/20 22:49 Results Coronavirus Lab T est PTC Routine Lab 09/09/20 10:05 Received Labs from last 24 hours 09/09/20 09/09/20 09/09/20 10:57 10:05 10:05 WBC Corrected WBC RBC Hgb Hct MCV MCH MCHC RDW Plt Count MPV Gran % Neut % (Auto) Lymph % (Auto) [place] % (Auto) Eos % (Auto) Baso % (Auto) Neut # (Auto) Lymph # (Auto) [place] # (Auto) Eos # (Auto) Baso # (Auto) Absolute Gran (aut o) Nucleated RBC % (a uto) Nucleated RBCs # Sodium Potassium Chloride Carbon Dioxide Anion Gap BUN Creatinine GFR Calculation Glucose POC Glucose 157 Calculated Osmolal ity Calcium Total Bilirubin AST ALT Alkaline Phosphata se C-Reactive Protein NT-Pro-B Natriuret Pep Total Protein Albumin Globulin Nasal/Oral COVID-1 9 PCR Pending SARS-CoV-2 Ag (Rap id) Negative 09/09/20 09/09/20 09/09/20 09:22 09:22 09:22 WBC Cancelled Corrected WBC Cancelled RBC Cancelled Hgb Cancelled Hct Cancelled MCV Cancelled MCH Cancelled MCHC Cancelled RDW Cancelled Plt Count Cancelled MPV Cancelled Gran % Cancelled Neut % (Auto) Cancelled Lymph % (Auto) Cancelled [place] % (Auto) Cancelled Eos % (Auto) Cancelled Baso % (Auto) Cancelled Neut # (Auto) Cancelled Lymph # (Auto) Cancelled [place] # (Auto) Cancelled Eos # (Auto) Cancelled Baso # (Auto) Cancelled Absolute Gran (aut o) Cancelled Nucleated RBC % (a uto) Cancelled Nucleated RBCs # Cancelled Sodium 133 L Potassium 5.0 Chloride 96 L Carbon Dioxide 23 Anion Gap 19.0 BUN 30 H Creatinine 1.3 H GFR Calculation 56.3 L Glucose 199 H POC Glucose Calculated Osmolal ity 288 Calcium 9.6 Total Bilirubin 0.4 AST 42 H ALT 79 H Alkaline Phosphata se 64 C-Reactive Protein NT-Pro-B Natriuret Pep 124 Total Protein 7.1 Albumin 4.3 Globulin 2.8 Nasal/Oral COVID-1 9 PCR SARS-CoV-2 Ag (Rap id) 09/09/20 09/09/20 09/08/20 09:22 06:16 19:50 WBC Corrected WBC RBC Hgb Hct MCV MCH MCHC RDW Plt Count MPV Gran % Neut % (Auto) Lymph % (Auto) [place] % (Auto) Eos % (Auto) Baso % (Auto) Neut # (Auto) Lymph # (Auto) [place] # (Auto) Eos # (Auto) Baso # (Auto) Absolute Gran (aut o) Nucleated RBC % (a uto) Nucleated RBCs # Sodium Potassium Chloride Carbon Dioxide Anion Gap BUN Creatinine GFR Calculation Glucose POC Glucose 123 153 Calculated Osmolal ity Calcium Total Bilirubin AST ALT Alkaline Phosphata se C-Reactive Protein 0.6 NT-Pro-B Natriuret Pep Total Protein Albumin Globulin Nasal/Oral COVID-1 9 PCR SARS-CoV-2 Ag (Rap id) 09/08/20 09/05/20 16:50 21:00 WBC Corrected WBC RBC Hgb Hct MCV MCH MCHC RDW Plt Count MPV Gran % Neut % (Auto) Lymph % (Auto) [place] % (Auto) Eos % (Auto) Baso % (Auto) Neut # (Auto) Lymph # (Auto) [place] # (Auto) Eos # (Auto) Baso # (Auto) Absolute Gran (aut o) Nucleated RBC % (a uto) Nucleated RBCs # Sodium Potassium Chloride Carbon Dioxide Anion Gap BUN Creatinine GFR Calculation Glucose POC Glucose 173 Calculated Osmolal ity Calcium Total Bilirubin AST ALT Alkaline Phosphata se C-Reactive Protein NT-Pro-B Natriuret Pep Total Protein Albumin Globulin Nasal/Oral COVID-1 9 PCR Inconclusive SARS-CoV-2 Ag (Rap id) Vitals: Last Vital Signs Temp 97.6 F 09/09/20 12:00 Pulse 60 09/09/20 12:00 Resp 16 09/09/20 12:00 BP 135/81 09/09/20 12:00 Pulse Ox 93 09/09/20 12:00 Discharge Plan Discharge Patient Disposition: Home Condition: Stable Prescriptions: New acetaminophen 325 mg Tablet 650 mg PO Q6H PRN (Reason: Mild/Mod Pain Or Temp >/= 101) Qty: 0 RF: 0 Advair Diskus 250-50 mcg/dose Blister With Device 1 puff inhalation BID.RESPIRATORY 15 Days Qty: 1 RF: 0 clonidine HCl 0.1 mg Tablet 0.1 mg PO Q12H 15 Days Qty: 30 RF: 0 chlorthalidone 25 mg Tablet 25 mg PO DAILY 15 Days Qty: 15 RF: 0 codeine-guaifenesin 10-100 mg/5 mL Liquid 5 ml PO Q6H PRN (Reason: Cough) 15 Days Qty: 1 RF: 0 levofloxacin 750 mg Tablet 750 mg PO DAILY@0600 5 Days Qty: 5 RF: 0 prednisone 10 mg tablets,dose pack See Rx Instructions .ROUTE .COMPLEX Qty: 21 RF: 0 pantoprazole 40 mg Tablet,Delayed Release (Dr/Ec) 40 mg PO DAILY 15 Days RF: 0 Continued ropinirole 0.5 mg tablet 0.5 mg PO DAILY Qty: 90 RF: 3 amlodipine 10 mg tablet 10 mg PO DAILY@07 RF: 0 spironolactone 50 mg tablet 50 mg PO DAILY@07 RF: 0 Discontinued albuterol sulfate [ProAir HFA] 90 mcg/actuation HFA aerosol inhaler 2 puff INHALATION Q4H PRN (Reason: Shortness Of Breath) RF: 0 acetaminophen [Tylenol Extra Strength] 500 mg Tablet 1,000 mg PO PRN RF: 0 celecoxib [Celebrex] 400 mg capsule 400 mg PO DAILY@14 RF: 0 Discharge Orders: Discharge Order (Routine); Ordered 09/09/20 Ordered By: Elif Babin Other Ambulatory Orders: Comprehensive Metabolic Panel (Routine) Timeframe: 3 Days Facility: [facility] - Location: Lab - Main Lab Ordered By: Elif Babin Referrals: Jono Arrington MD [Primary Care Provider] - 09/15/20 2:00 pm Discharge Diet: Usual diet Discharge Activity: Resume usual activity Patient Instructions: Diabetes and Diet, Clonidine (By mouth), Levofloxacin (By mouth), Prednisolone (By mouth), Pantoprazole (By mouth), Chronic Obstructive Pulmonary Disease (DC), COPD Stoplight Discharge Attestations Time Spent in Discharge Care*: greater than 30 min Quality Metrics Clinical Quality Measures During this hospital stay, did patient experience: None Coding Level of Care Code 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
--- NOTE | 2020-09-09 13:21 | PC.NURSE ---
Book Editor called [facility] pharmacy to cancel scripts. Scripts faxed to [facility] [place] pharmacy for Meds to Beds.
[2020-09-11 07:35] LABS: Coronavirus Lab Test PTC Negative
== END 2020-09-09 16:00 | disposition home or self-care (01) | DRG 193 ==
LOC: ER 14:49 → MEDSURG 18:40
PROVIDERS: Internal Medicine; Admitting Provider Family Medicine; Emergency Provider Family Medicine; PCP Internal Medicine; Visit Provider Student in an Organized Health Care Education/Training Program
DX: J18.9 Pneumonia, unspecified organism (principal); J96.01 Acute respiratory failure with hypoxia; J44.1 Chronic obstructive pulmonary disease with (acute) exacerbation; J44.0 Chronic obstructive pulmonary disease with (acute) lower respiratory infection; Z68.41 Body mass index [BMI] 40.0-44.9, adult; I10 Essential (primary) hypertension; R73.03 Prediabetes; E66.01 Morbid (severe) obesity due to excess calories; G47.33 Obstructive sleep apnea (adult) (pediatric); Z20.828 Contact with and (suspected) exposure to other viral communicable diseases; I16.0 Hypertensive urgency; M10.9 Gout, unspecified
CPT/HCPCS: 12345; 36415; 36416; 36600; 71045; 71275; 80051; 80053; 80061; 81003; 82330; 82805; 82962; 83036; 83605; 83735; 83880; 84100; 84145; 84443; 84484; 85025; 86140; 86403; 87040; 87070; 87205; 87426; 87449; 87635; 87641; 87804; 93005; 93306; 94640; 96372; 96375; 99283; J0456; J0696; J1650; J1940; J2920; J2930; J3490; J3535; J7050; Q9967

== ENCOUNTER 2021-10-19 08:53 | Emergency (ER) | payer OTHER, SELFPAY ==
[2021-10-19] VITALS (7 sets, daily range): BP systolic 177–214; BP diastolic 93–116; PULSE 72–91; RESP 14–20; TEMP 36.9; O2SAT 87–95; BMI 39.9
--- NOTE | 2021-10-19 09:08 | XR_ITS ---
WS: [id number] Exam: XR chest 1V portable [id number] Date/Time of Exam: 10/19/2021 9:22 AM Reason For Exam: dyspnea/cough Comparison 09/09/2020. The lungs are fully expanded. No infiltrates. Bilateral pleural thickening unchanged. Mild cardiac en largement unchanged. The mediastinum is not widened. Old bilateral rib fractures. Wire sutures in the lower left rib cage. XR/XR chest 1V portable [id number] IMPRESSION: 1. Chronic bilateral pleural thickening and mild cardiac enlargement. 2. No acute process noted.
--- NOTE | 2021-10-19 09:08 | ECG_ITS ---
[facility] Test Date: 2021-10-19 Pat Name: Yuriy Moncada Department: Room: Gender: Male Goring Cutter: : 1960 Requested By: Earl Mcclure Order Number: [id number] Reading MD: SHARLENE FONTAINE Measurements Intervals [place] Rate: 78 P: 7 MA: 183 QRS: -58 QRSD: 119 T: -10 QT: 410 QTc: 468 Interpretive Statements SINUS RHYTHM PATTERN CONSISTENT WITH PULMONARY DISEASE LEFT ANTERIOR FASCICULAR BLOCK [QRS AXIS <= -45, QR IN I, RS IN II] Compared to ECG 09/05/2020 19:34:53 No significant changes Electronically Signed On 10-19-2021 20:53:40 GLASS CUT OFF SUPERVISOR by SHARLENE FONTAINE [email or web address]
--- NOTE | 2021-10-19 09:08 | W.ED.COVID ---
HPI - COVID General: Chief Complaint: Shortness of Breath/Dyspnea Stated Complaint: Difficulty Breathing, SOB Time Seen by Provider: 10/19/21 09:07 Triage information: Has fever, cough or shortness of breath. Exposure to COVID + person last 14 days History of Present Illness: HPI Narrative: 60-year-old male presents emergency room with complaints of shortness of breath and cough. He has not been feeling well for the last few days increasing shortness of breath. His has a pulse oximeter at home and has been measuring his oxygen sat remained in the low 90s with rest but when he gets up and ambulates even minimally he drops his sats into the upper 80s. He gets extremely short of breath and is not able to continue with activity. He has had some loose stools as well and a low-grade subjective fever. He has tried nebulizers Tylenol and ibuprofen with only moderate relief of symptoms he does have some myalgias as well and some nausea. Patient denies being diabetic he has no known history of coronary artery disease he is hypertensive. He is morbidly obese as well. He has been vaccinated for COVID he has not previously been known to have COVID. Patient was seen this morning by telehealth visit reporting exposure to COVID and was to be tested came in because his oxygen sats were reading low at home. COVID 19 common symptoms: positive fever(s), chills, cough, non-productive cough, dyspnea, fatigue, body aches, nasal congestion and diarrhea COVID 19 other sytmptoms: negative chest pain or requiring oxygen Onset (ago): day(s) (3) Severity: mild Pertinent comorbid conditions: obesity Treatment prior to arrival: breathing treatments COVID Results: SARS-CoV-2 Antigen (Rapid) Negative (Negative) 09/09/20 10:05 09/09/20 SARS-CoV-2 RNA (RT-PCR) Not detected (NOT DETECTED) 10/19/21 09:31 10/19/21 Nasal/Oral Coronavirus 2019 PCR Negative 09/09/20 10:05 09/09/20 SARS-CoV-2 (PCR) Not detected (NOT DETECT) 10/20/21 03:45 10/20/21 Coronavirus Type 229E (PCR) Not detected (NOT DETECT) 10/20/21 03:45 10/20/21 Review of Systems Const: Reports: fever(s), chills, body aches and fatigue ENMT: Reports: nasal congestion Card: Denies: chest pain, edema, dyspnea on exertion or orthopnea Resp: Reports: dyspnea and non-productive cough GI: Reports: diarrhea : Denies: flank pain, dysuria, urinary frequency or urinary urgency Skin/Breast: Denies: rash or pruritus PFSH ED PFSH: Medical History (Updated 10/27/21 @ 17:01 by Earl Lima DO) Acute post-thoracotomy pain Essential (primary) hypertension Hernia Intervertebral disc disorders with radiculopathy, lumbosacral region Morbid obesity Renal colic on right side Retained ureteral stent Sacroiliitis Thoracic neuralgia Ureteral stone with hydronephrosis 7+ millimeters right proximal ureteral stone with high-grade obstruction and severe refractory renal colic. Required inpatient admission December 2019 and treated with endoscopy with laser lithotripsy and stent. 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 History of recent travel: No Current gender identity: Male Physical Exam Const: GENERAL APPEARANCE: cooperative and comfortable ORIENTATION/CONSCIOUSNESS: Yes awake, Yes oriented to person, Yes oriented to place and Yes oriented to time HENMT: COMMON NORMALS: normocephalic, atraumatic and hearing grossly normal bilaterally HEAD & SCALP: normocephalic and atraumatic Resp: COMMON NORMALS: No use of accessory muscles AUSCULTATION: crackles and wheezes (mild) Cardio: COMMON NORMALS: regular rate, regular rhythm and No murmurs present (Cardio) RATE: regular rate RHYTHM: regular rhythm GI: COMMON NORMALS: Soft to palpation and No hepatosplenomegaly present AUSCULTATION: Yes normoactive bowel sounds PALPATION: Yes Soft to palpation, No Tenderness to palpation present (GI), No Guarding due to palpation present (GI) and Yes No hepatosplenomegaly present Extremity: COMMON NORMALS: normal to inspection, capillary refill normal, no clubbing, cyanosis or edema, no calf tenderness and no pedal edema Neuro: SENSORIUM/ORIENTATION: Yes oriented to person, Yes oriented to place and Yes oriented to time Skin: COMMON NORMALS: no rashes or lesions noted GENERAL SKIN EXAM: no rashes or lesions noted Course Vital Signs: Vital signs: Vital Signs Temperature 98.5 F 10/19/21 08:59 Pulse Rate 87 10/19/21 19:09 Respiratory Rate 16 10/19/21 11:27 Blood Pressure 177/112 10/19/21 19:09 Pulse Oximetry 95 10/19/21 19:09 MDM - COVID MDM Narrative Medical decision making narrative: Mild hypoxia with Covid pneumonia. Discussed with hospitalist orders written will admit Medical Records Attestation: I reviewed the patient's medical records. Lab Data Attestation: I reviewed the patient's lab results. Result diagrams: 10/19/21 09:31 10/19/21 09:31 Labs: Lab Results 10/19/21 10/19/21 10/19/21 09:22 09:31 09:31 WBC 6.9 10^3/uL 10^3/uL (4.0-10.0) RBC 5.28 10^6/uL 10^6/uL (4.1-5.3) Hgb 16.0 g/dL g/dL (11.7-16.6) Hct 49.9 % % (42.0-52.0) MCV 94.5 fl H fl (80-94) MCH 30.3 pg pg (28.0-34.0) MCHC 32.1 g/dL g/dL (30.0-36.0) RDW 13.2 % % (12.1-15.1) Plt Count 235 10^3/cmm 10^3/cmm (130-400) MPV 10.8 fL H fL (7.4-10.4) Neut % (Auto) 60.9 % % Lymph % (Auto) 24.2 % % [place] % (Auto) 6.9 % % Eos % (Auto) 6.8 % % Baso % (Auto) 0.9 % % Neut # (Auto) 4.22 10^3/uL 10^3/uL (1.8-7.7) Lymph # (Auto) 1.7 10^3/uL 10^3/uL (0.8-4.8) [place] # (Auto) 0.5 10^3/uL 10^3/uL (0.2-0.9) Eos # (Auto) 0.5 10^3/uL 10^3/uL (0.0-0.8) Baso # (Auto) 0.1 10^3/uL 10^3/uL (0.0-0.1) Nucleated RBC % (auto) 0 % % Nucleated RBCs # 0.0 /100WBC /100WBC Specimen Type Arterial Sample Site Radial, right ABG pH 7.44 (7.35-7.45) ABG pCO2 38.0 mmHg mmHg (35-45) ABG pO2 58.7 mmHg L mmHg (80.0-100.0) ABG HCO3 25.8 mmol/L mmol/L (22-26) ABG O2 Saturation 90.1 ABG Base Excess 1.8 mmol/L mmol/L (-2.0-2.0) Ron Test Pos A-a O2 Gradient 5.7 mmHg mmHg (5-10) Hematocrit 50.3 % % (42-52) Hgb O2 Saturation 89.6 % L % (95-100) Carboxyhemoglobin < 0.0 %THgb L %THgb (0.4-20.1) Methemoglobin 0.8 % % (0.4-1.5) Total Hemoglobin 16.4 g/dL g/dL (14-18) Sodium 139.0 mmol/L mmol/L 137 mmol/L mmol/L (131-143) (136-145) Potassium 3.7 mmol/L mmol/L 3.9 mmol/L mmol/L (3.5-5.0) (3.5-5.1) Glucose 132.0 mg/dL H mg/dL 123 mg/dL H mg/dL (70-115) (65-115) Ionized Calcium 1.2 mmol/L mmol/L (1.1-1.4) O2 Delivery Device Room air FiO2 21.0 % % Licensed Nursing Assistant ID Ed Chloride 98 mmol/L mmol/L (98-107) Carbon Dioxide 23 mmol/L mmol/L (22-29) Anion Gap 19.9 H (5-19) BUN 17 mg/dL mg/dL (8-23) Creatinine 1.3 mg/dL H mg/dL (0.7-1.2) GFR Calculation 56.1 mL/min L mL/min (90-130) Calculated Osmolality 287 mOsm/kg mOsm/kg (285-295) Calcium 9.4 mg/dL mg/dL (8.5-10.5) Total Bilirubin 0.5 mg/dL mg/dL (0.15-1.2) AST 60 U/L H U/L (0-40) ALT 72 U/L H U/L (0-41) Alkaline Phosphatase 73 IU/L IU/L (40-130) Creatine Kinase 384 U/L H* U/L (39-308) Total Protein 7.6 g/dL g/dL (6.6-8.7) Albumin 4.2 g/dL g/dL (3.5-5.2) Globulin 3.4 g/dL g/dL (1.3-4.6) SARS-CoV-2 RNA (RT-PCR) 10/19/21 09:31 WBC RBC Hgb Hct MCV MCH MCHC RDW Plt Count MPV Neut % (Auto) Lymph % (Auto) [place] % (Auto) Eos % (Auto) Baso % (Auto) Neut # (Auto) Lymph # (Auto) [place] # (Auto) Eos # (Auto) Baso # (Auto) Nucleated RBC % (auto) Nucleated RBCs # Specimen Type Sample Site ABG pH ABG pCO2 ABG pO2 ABG HCO3 ABG O2 Saturation ABG Base Excess Ron Test A-a O2 Gradient Hematocrit Hgb O2 Saturation Carboxyhemoglobin Methemoglobin Total Hemoglobin Sodium Potassium Glucose Ionized Calcium O2 Delivery Device FiO2 Licensed Nursing Assistant ID Chloride Carbon Dioxide Anion Gap BUN Creatinine GFR Calculation Calculated Osmolality Calcium Total Bilirubin AST ALT Alkaline Phosphatase Creatine Kinase Total Protein Albumin Globulin SARS-CoV-2 RNA (RT-PCR) Not detected (NOT DETECTED) COVID Results: SARS-CoV-2 Antigen (Rapid) Negative (Negative) 09/09/20 10:05 09/09/20 SARS-CoV-2 RNA (RT-PCR) Not detected (NOT DETECTED) 10/19/21 09:31 10/19/21 Nasal/Oral Coronavirus 2019 PCR Negative 09/09/20 10:05 09/09/20 SARS-CoV-2 (PCR) Not detected (NOT DETECT) 10/20/21 03:45 10/20/21 Coronavirus Type 229E (PCR) Not detected (NOT DETECT) 10/20/21 03:45 10/20/21 Discharge Plan Discharge Patient Disposition: Admitted As Inpatient Clinical Impression: COVID-19, Hypoxia, Morbid obesity Condition: Stable Discharge Diet: Usual diet Discharge Activity: Limit activity as instructed Coding Level of Care Code ED Blackjack Dealer for Chg Fwd Exam Detailed
[2021-10-19 09:32] LABS: ABG PH Result 7.44 (7.35-7.45); Alveolar-Arterial Oxygen Gradi 5.7 mmHg (5-10); Arterial Blood Gas Hematocrit 50.3 % (42-52); Base Excess ABG 1.8 mmol/L (-2.0-2.0); Blood Gas Allen Test Pos; Blood Gas Sample Type Arterial; Carboxyhemoglobin < 0.0 %THgb (0.4-20.1); HCO3 ABG 25.8 mmol/L (22-26); HGB O2 Sat 89.6 % (95-100); Ionized Calcium Level - ABG 1.2 mmol/L (1.1-1.4); Methemoglobin 0.8 % (0.4-1.5); Oxygen Saturation ABG 90.1; PO2 ABG 58.7 mmHg (80.0-100.0); Potassium Level - ABG 3.7 mmol/L (3.5-5.0); Total Hemoglobin 16.4 g/dL (14-18)
[2021-10-19 09:33] LABS: Blood Gas Operator Identificat ED; Blood Gas Sample Site Radial, right; Oxygen Device ROOM AIR
[2021-10-19 09:59] LABS: Basophils # 0.1 10^3/uL (0.0-0.1); Basophils % 0.9 %; Eosinophils # 0.5 10^3/uL (0.0-0.8); Eosinophils % 6.8 %; Hematocrit 49.9 % (42.0-52.0); Lymphocytes # 1.7 10^3/uL (0.8-4.8); Lymphocytes % 24.2 %; Mean Corpuscular HGB Conc 32.1 g/dL (30.0-36.0); Mean Corpuscular Hemoglobin 30.3 pg (28.0-34.0); Mean Corpuscular Volume 94.5 fl (80-94); Mean Platelet Volume 10.8 fL (7.4-10.4); Monocytes # 0.5 10^3/uL (0.2-0.9); Monocytes % 6.9 %; Neutrophils # 4.22 10^3/uL (1.8-7.7); Neutrophils % 60.9 %; Nucleated Red Blood Cells % 0 %; Platelet Count 235 10^3/cmm (130-400); Red Blood Count 5.28 10^6/uL (4.1-5.3); Red Cell Distribution Width 13.2 % (12.1-15.1); White Blood Count 6.9 10^3/uL (4.0-10.0)
[2021-10-19 10:20] LABS: Alanine Aminotransferase 72 U/L (0-41); Albumin Level 4.2 g/dL (3.5-5.2); Alkaline Phosphatase 73 IU/L (40-130); Anion Gap 19.9 (5-19); Aspartate Amino Transferase 60 U/L (0-40); Blood Urea Nitrogen 17 mg/dL (8-23); Calcium 9.4 mg/dL (8.5-10.5); Carbon Dioxide 23 mmol/L (22-29); Chloride 98 mmol/L (98-107); Globulin 3.4 g/dL (1.3-4.6); Glomerular Filtration Rate 56.1 mL/min (90-130); Glucose 123 mg/dL (65-115); Osmolality Calculated 287 mOsm/kg (285-295); Potassium 3.9 mmol/L (3.5-5.1); Sodium 137 mmol/L (136-145); Total Bilirubin 0.5 mg/dL (0.15-1.2); Total Protein 7.6 g/dL (6.6-8.7)
[2021-10-19 10:32] LABS: Creatine Phosphokinase 384 U/L (39-308)
--- NOTE | 2021-10-19 10:56 | CT_ITS ---
WS: [id number] CT CHEST ANGIOGRAPHY WITH REFORMATS HISTORY: hypoxia TECHNIQUE: Contiguous axial images are obtained through the chest during arterial injection of intrav enous contrast. Images are reconstructed to evaluate the pulmonary arteries. MIP imaging also reviewe d. All CT scans at [facility] use at least one of these dose optimization techniques: automat ed exposure control; mA and/or kV adjustment per patient size (includes targeted exams where dose is matched to clinical indication); or iterative reconstruction. CONTRAST: Omnipaque 350; 69 mL IV. DLP: 676.36 mGy.cm COMPARISON: 09/05/2020 Suboptimal opacification of the pulmonary artery. Centrally there is no pulmonary embolism. Beyond th e lobar branches the opacification is limited. This is predominantly due to patient's body habitus. P ulmonary artery size is normal. Thoracic aorta is normal. Mild volume loss in the LEFT thorax. There is shift of the mediastinal structures to the LEFT. Mild p leural thickening bilaterally. There are a few areas of groundglass attenuation periphery of both randa gs. This may be due to motion or pneumonitis. No adenopathy appreciated. Mild thickening of the LEFT adrenal limbs. Similar to the prior study. Gallbladder is present and contains several small stones. Thoracic spondylosis. No destructive bone lesions. Cerclage wires in the RIGHT inferolateral chest wa ll probably from rib fractures and stabilization. Cerclage wires are present, 3 wires are present wit h the superior most wire being fractured. CT/CT angio chest PE protcl [id number] IMPRESSION: 1. Very limited evaluation of pulmonary arteries. Centrally no pulmonary embol ism. Distal to the lobar branches the opacification is limited and emboli not e xcluded. 2. Volume loss and postsurgical changes in the LEFT thorax. 3. Very mild groundglass attenuation bilaterally but greatest at the lung base s. Early pneumonitis likely. 4. Cholelithiasis without acute cholecystitis.
[2021-10-19] MEDS: iohexol 350 mg/mL 100 mL Btl IV (11:21)
[2021-10-19] MEDS: hyDRALAzine 20 mg/mL INJ 1 mL IVP (11:43)
[2021-10-19] MEDS: metoprolol tartrate 25 mg Tablet PO (11:44)
[2021-10-21 03:22] LABS: Quest SARS-CoV-2 RNA NOT DETECTED (NOT DETECTED)
== END 2021-10-19 14:40 | disposition admitted as inpatient to this hospital (09) ==
PROVIDERS: Emergency Provider Family Medicine; PCP Internal Medicine
DX: U07.1 COVID-19 (principal); R09.02 Hypoxemia; E66.01 Morbid (severe) obesity due to excess calories; Z68.41 Body mass index [BMI] 40.0-44.9, adult; I10 Essential (primary) hypertension
CPT/HCPCS: 36600; 71045; 71275; 80051; 80053; 82330; 82550; 82805; 85025; 87635; 93005; 96374; 99284; J0360; Q9967

== ENCOUNTER 2021-10-20 03:08 | Inpatient (IN) | payer MEDICARE, SELFPAY ==
[2021-10-20] VITALS (17 sets, daily range): BP systolic 123–188; BP diastolic 69–95; PULSE 63–105; RESP 16–24; TEMP 36.4–36.7; O2SAT 89–98; BMI 39.9
--- NOTE | 2021-10-20 03:15 | XRR_ITS ---
PROCEDURE INFORMATION: Exam: XR Chest Exam date and time: 10/20/2021 3:15 AM Age: 61 years old Clinical indication: Dyspnea; Prior surgery; Surgery date: 6+ months; Surgery type: Thorocotomy; Additional info: Cp TECHNIQUE: Imaging protocol: XR of the chest. Views: 1 view. COMPARISON: CR XR chest 1V portable [id number] 10/19/2021 9:19 AM FINDINGS: Tubes, catheters and devices: Cerclage wires overlie the lower left chest wall with disruption of the upper wire. Lungs: Accentuated epicardial fat pads versus summation of atelectasis or scarring lower lungs. Pleural spaces: Pleural thickening lower left chest laterally. Heart/Mediastinum: Stable cardiomediastinal silhouette. Bones/joints: Degenerative change of thoracic spine. Chronic posttraumatic distortion of right lateral lower ribs of similar contour. XR/XR chest 1V portable [id number] IMPRESSION: 1. Opacities at the lower cardiac margin and lower lungs bilaterally probably on the basis partial external soft tissue density and or underlying pleural thickening or pleuroparenchymal scarring and epicardial fat pads. 2. Stable cardiomediastinal silhouette.
--- NOTE | 2021-10-20 03:15 | ECG_ITS ---
[facility] Test Date: 2021-10-20 Pat Name: Yuriy Moncada Department: Room: Gender: Male Precision Assembly Inspector: : 1960 Requested By: Sara Gabriel Order Number: [id number] Dago MD: Betty Turner M.D. Measurements Intervals [place] Rate: 84 P: 44 DE: 190 QRS: -62 QRSD: 117 T: 60 QT: 390 QTc: 464 Interpretive Statements SINUS RHYTHM PATTERN CONSISTENT WITH PULMONARY DISEASE LEFT ANTERIOR FASCICULAR BLOCK [QRS AXIS <= -45, QR IN I, RS IN II] Compared to ECG 10/19/2021 09:39:04 No significant changes Electronically Signed On 10-21-2021 13:54:17 VISUAL COMMUNICATIONS INSTRUCTOR by Betty Turner M.D. [id number]
--- NOTE | 2021-10-20 03:17 | ED_ITS ---
HPI - SOB/Dyspnea General: Chief Complaint: COVID symptoms Stated Complaint: o2 Levels Low Time Seen by Provider: 10/20/21 03:11 Source: patient Mode of arrival: ambulatory Limitations: no limitations History of Present Illness: HPI Narrative: 61-year-old male states that over the last 3 to 4 days has been having increasing shortness of breath cough congestion he seen here earlier today concerned about a possible COVID he was hypoxic earlier today as well. Patient sent home on 2 L of oxygen. Patient had a send out COVID that is still pending he had a CT angio that was normal. Patient states that since being home on his home oxygen he has had to turn it up to 5 L and still has desaturations into the 80s here on 4 L he is 88%. He states that he has felt more short of breath tonight as well. Associated symptoms: Deny abdominal pain, chest pain, nausea or vomiting Review of Systems Const: Reports: chills Eyes: Denies: blurry vision or eye discomfort ENMT: Denies: throat pain or dental pain Card: Denies: chest pain Resp: Reports: dyspnea and non-productive cough GI: Denies: abdominal pain, nausea, vomiting or diarrhea : Denies: dysuria Musc: Denies: neck pain or back pain Skin/Breast: Denies: rash Neuro: Denies: headache(s) Psych: Denies: depression [place]/Lymph: Denies: easy bruising All/Imm: Denies: urticaria PFS ED PFSH: Medical History (Updated 10/20/21 @ 05:11 by Sara Gabriel MD) Acute post-thoracotomy pain Essential (primary) hypertension Hernia Intervertebral disc disorders with radiculopathy, lumbosacral region Morbid obesity Renal colic on right side Retained ureteral stent Sacroiliitis Thoracic neuralgia Ureteral stone with hydronephrosis 7+ millimeters right proximal ureteral stone with high-grade obstruction and severe refractory renal colic. Required inpatient admission December 2019 and treated with endoscopy with laser lithotripsy and stent. 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 History of recent travel: No Current gender identity: Male Physical Exam Const: COMMON NORMALS: patient oriented x3 GENERAL APPEARANCE: in distress HENMT: COMMON NORMALS: normocephalic and atraumatic HEAD & SCALP: normocephalic and atraumatic Eye: COMMON NORMALS: Equal, round and reactive pupils present and EOMs intact bilaterally PUPIL: Yes Equal, round and reactive pupils present Neck/C-Spine: COMMON NORMALS: full ROM and supple Chest: COMMONS NORMALS: normal inspection of the chest and normal palpation of entire chest wall Resp: COMMON NORMALS: No use of accessory muscles EFFORT & INSPECTION: Yes tachypneic and Yes labored AUSCULTATION: rales Cardio: COMMON NORMALS: regular rate, regular rhythm and No murmurs present (Cardio) RATE: regular rate RHYTHM: regular rhythm GI: COMMON NORMALS: Normal to inspection, nondistended, normoactive bowel sounds present, Soft to palpation, non-tender and no masses PALPATION: Yes Soft to palpation Extremity: COMMON NORMALS: normal to inspection and full ROM Neuro: COMMON NORMALS: patient oriented x3, moves all extremities and no focal motor deficits Psych: COMMON NORMALS: mental status grossly normal, Normal thought process present and cooperative THOUGHT PROCESS: Normal thought process present Skin: COMMON NORMALS: no rashes or lesions noted and no wounds GENERAL SKIN EXAM: no rashes or lesions noted Course Vital Signs: Vital signs: Vital Signs Temperature 98.1 F 10/20/21 03:13 Pulse Rate 88 10/20/21 03:59 Respiratory Rate 16 10/20/21 03:59 Blood Pressure 136/95 10/20/21 03:21 Pulse Oximetry 98 10/20/21 03:59 MDM - SOB/Dyspnea MDM Narrative: Medical decision making narrative: Patient presents here with increasing shortness of breath cough patient seen here earlier today was on 2 L discharged on the 2 L at home he is now requiring 5 L. Patient has a pending COVID PCR patient given breathing treatment here along with steroid and antibiotics and spoke to hospitalist and will admit at this time Lab Data: Labs: Lab Results 10/20/21 10/20/21 10/20/21 03:30 03:30 03:40 WBC 7.9 10^3/uL 10^3/ uL (4.0-10.0) RBC 5.24 10^6/uL 10^6 /uL (4.1-5.3) Hgb 16.0 g/dL g/dL (11.7-16.6) Hct 49.9 % % (42.0-52.0) MCV 95.2 fl H fl (80-94) MCH 30.5 pg pg (28.0-34.0) MCHC 32.1 g/dL g/dL (30.0-36.0) RDW 13.3 % % (12.1-15.1) Plt Count 235 10^3/cmm 10^3 /cmm (130-400) MPV 10.5 fL H fL (7.4-10.4) Neut % (Auto) 87.0 % % Lymph % (Auto) 10.9 % % [place] % (Auto) 1.3 % % Eos % (Auto) 0.1 % % Baso % (Auto) 0.3 % % Neut # (Auto) 6.85 10^3/uL 10^3 /uL (1.8-7.7) Lymph # (Auto) 0.9 10^3/uL 10^3/ uL (0.8-4.8) [place] # (Auto) 0.1 10^3/uL L 10^ 3/uL (0.2-0.9) Eos # (Auto) 0.0 10^3/uL 10^3/ uL (0.0-0.8) Baso # (Auto) 0.0 10^3/uL 10^3/ uL (0.0-0.1) Nucleated RBC % (a uto) 0 % % Nucleated RBCs # 0.0 /100WBC /100W BC Specimen Type Arterial Sample Site Radial, left ABG pH 7.43 (7.35-7.45) ABG pCO2 35.8 mmHg mmHg (35-45) ABG pO2 90.0 mmHg mmHg (80.0-100.0) ABG HCO3 23.5 mmol/L mmol/ L (22-26) ABG Base Excess -0.4 mmol/L mmol/ L (-2.0-2.0) Ron Test Pos Hematocrit 51.4 % % (42-52) O2 Delivery Device Nc O2 Liters/Min 4.0 % % Associate Director Regulatory Affairs ID Buttr Sodium Potassium Chloride Carbon Dioxide Anion Gap BUN Creatinine GFR Calculation Glucose Calculated Osmolal ity Lactic Acid 1.9 mmol/L mmol/L (0.5-2.2) Calcium Total Bilirubin AST ALT Alkaline Phosphata se C-Reactive Protein NT-Pro-B Natriuret Pep Total Protein Albumin Globulin Procalcitonin 10/20/21 04:00 WBC RBC Hgb Hct MCV MCH MCHC RDW Plt Count MPV Neut % (Auto) Lymph % (Auto) [place] % (Auto) Eos % (Auto) Baso % (Auto) Neut # (Auto) Lymph # (Auto) [place] # (Auto) Eos # (Auto) Baso # (Auto) Nucleated RBC % (a uto) Nucleated RBCs # Specimen Type Sample Site ABG pH ABG pCO2 ABG pO2 ABG HCO3 ABG Base Excess Ron Test Hematocrit O2 Delivery Device O2 Liters/Min Associate Director Regulatory Affairs ID Sodium 134 mmol/L L mmol /L (136-145) Potassium 4.5 mmol/L mmol/L (3.5-5.1) Chloride 97 mmol/L L mmol/ L (98-107) Carbon Dioxide 21 mmol/L L mmol/ L (22-29) Anion Gap 20.5 H (5-19) BUN 18 mg/dL mg/dL (8-23) Creatinine 1.2 mg/dL mg/dL (0.7-1.2) GFR Calculation 61.3 mL/min L mL/ min (90-130) Glucose 161 mg/dL H mg/dL (65-115) Calculated Osmolal ity 283 mOsm/kg L mOs m/kg (285-295) Lactic Acid Calcium 9.7 mg/dL mg/dL (8.5-10.5) Total Bilirubin 0.6 mg/dL mg/dL (0.15-1.2) AST 58 U/L H U/L (0-40) ALT 76 U/L H U/L (0-41) Alkaline Phosphata se 67 IU/L IU/L (40-130) C-Reactive Protein 3.9 mg/L mg/L (0.0-4.9) NT-Pro-B Natriuret Pep 103 pg/mL pg/mL (0-125) Total Protein 7.6 g/dL g/dL (6.6-8.7) Albumin 4.1 g/dL g/dL (3.5-5.2) Globulin 3.5 g/dL g/dL (1.3-4.6) Procalcitonin 0.15 ng/mL ng/mL (0-0.5) Imaging Data^: CXR: Attestation: I personally reviewed and interpreted this imaging study as follows: Radiologist's impression: 1. Opacities at the lower cardiac margin and lower lungs bilaterally probably on the basis partial external soft tissue density and or underlying pleural thickening or pleuroparenchymal scarring and epicardial fat pads. 2. Stable cardiomediastinal silhouette. EKG Data^: EKG 1: Attestation: I personally reviewed and interpreted this EKG as follows: EKG Interpretation Date: 10/20/21 EKG interpretation time: 03:22 Interpretation: nsr hr [address] or t wave abnormalities qrs 117 qtc 432 Discharge Plan Discharge Patient Disposition: Admitted As Inpatient Clinical Impression: Suspected severe acute respiratory syndrome coronavirus 2 (SARS-CoV-2) infection, Acute respiratory failure with hypoxia Condition: Stable Coding Level of Care Code ED Jack Strip Assembler for Chg Fwd Exam Comprehensive
[2021-10-20] MEDS: dexamethasone 4 mg/mL INJ 6 MG IVP (03:50)
[2021-10-20 03:52] LABS: ABG PCO2 35.8 mmHg (35-45); ABG PH Result 7.43 (7.35-7.45); Arterial Blood Gas Hematocrit 51.4 % (42-52); Base Excess ABG -0.4 mmol/L (-2.0-2.0); Blood Gas Allen Test Pos; Blood Gas Sample Site Radial, left; Blood Gas Sample Type Arterial; HCO3 ABG 23.5 mmol/L (22-26); Oxygen Device NC
[2021-10-20] MEDS: ipratropium-albuterol 3 mL Neb INHALATION ×3 (03:59→22:17)
[2021-10-20 04:07] LABS: Lactic Sepsis W/Reflex 1.9 mmol/L (0.5-2.2)
[2021-10-20 04:15] LABS: Basophils % 0.3 %; Eosinophils % 0.1 %; Hematocrit 49.9 % (42.0-52.0); Lymphocytes # 0.9 10^3/uL (0.8-4.8); Lymphocytes % 10.9 %; Mean Corpuscular HGB Conc 32.1 g/dL (30.0-36.0); Mean Corpuscular Hemoglobin 30.5 pg (28.0-34.0); Mean Corpuscular Volume 95.2 fl (80-94); Mean Platelet Volume 10.5 fL (7.4-10.4); Monocytes # 0.1 10^3/uL (0.2-0.9); Monocytes % 1.3 %; Neutrophils # 6.85 10^3/uL (1.8-7.7); Nucleated Red Blood Cells % 0 %; Platelet Count 235 10^3/cmm (130-400); Red Blood Count 5.24 10^6/uL (4.1-5.3); Red Cell Distribution Width 13.3 % (12.1-15.1); White Blood Count 7.9 10^3/uL (4.0-10.0)
[2021-10-20 04:39] LABS: NT Pro B Type Natriuretic Pept 103 pg/mL (0-125); Procalcitonin 0.15 ng/mL (0-0.5)
[2021-10-20 04:50] LABS: Alanine Aminotransferase 76 U/L (0-41); Albumin Level 4.1 g/dL (3.5-5.2); Alkaline Phosphatase 67 IU/L (40-130); Aspartate Amino Transferase 58 U/L (0-40); Blood Urea Nitrogen 18 mg/dL (8-23); C Reactive Protein 3.9 mg/L (0.0-4.9); Calcium 9.7 mg/dL (8.5-10.5); Carbon Dioxide 21 mmol/L (22-29); Chloride 97 mmol/L (98-107); Globulin 3.5 g/dL (1.3-4.6); Glomerular Filtration Rate 61.3 mL/min (90-130); Glucose 161 mg/dL (65-115); Osmolality Calculated 283 mOsm/kg (285-295); Sodium 134 mmol/L (136-145); Total Bilirubin 0.6 mg/dL (0.15-1.2); Total Protein 7.6 g/dL (6.6-8.7)
[2021-10-20 04:51] LABS: Anion Gap 20.5 (5-19); Potassium 4.5 mmol/L (3.5-5.1)
[2021-10-20] MEDS: cefTRIAXone 1,000 MG in sodium chloride 0.9% (plus) 50 ML 100 MG IV (05:15)
[2021-10-20] MEDS: azithromycin 500 MG in sodium chloride 0.9% 250 ML 250 MG IV (05:15)
[2021-10-20 05:31] LABS: Adenovirus Not Detected (NOT DETECT); Chlamydia Pneumoniae Not Detected (NOT DETECT); Coronavirus 229E,HKU1,NL63,OC4 Not Detected (NOT DETECT); Human Metapneumovirus Not Detected (NOT DETECT); Human Rhinovirus/Enterovirus Detected (NOT DETECT); Influenza A Not Detected (NOT DETECT); Influenza A H1 Not Detected (NOT DETECT); Influenza A H1-2009 Not Detected (NOT DETECT); Influenza A H3 Not Detected (NOT DETECT); Influenza B Not Detected (NOT DETECT); Mycoplasma Pneumoniae Not Detected (NOT DETECT); Parainfluenza Virus Type 1 Not Detected (NOT DETECT); Parainfluenza Virus Type 2 Not Detected (NOT DETECT); Parainfluenza Virus Type 3 Not Detected (NOT DETECT); Parainfluenza Virus Type 4 Not Detected (NOT DETECT); Respiratory Syncytial Virus A Not Detected (NOT DETECT); Respiratory Syncytial Virus B Not Detected (NOT DETECT); SARS-COV-2 Not Detected (NOT DETECT)
[2021-10-20 05:46] LABS: Human Metapneumovirus Not Detected (NOT DETECT); Human Rhinovirus/Enterovirus Detected (NOT DETECT); Results from Genmark
--- NOTE | 2021-10-20 05:47 | P.HP_ITS ---
Providers/Chief Complaint Primary Care Provider: Jono Arrington MD Chief Complaint: o2 Levels Low History of Present Illness Yuriy Moncada is a 61 year old male past medical history of hypertension, sleep apnea, morbid obesity, Came in with chief complaint of worsening shortness of breath , and nonproductive cough chills runny nose going on for the last 4 days.He is complaining of SOB with minimal exertion,deny any chest pain, pal pitation,nausea,vomiting. He was discharged from the ER yesterday when he presented with similar com plaint, at that time, he was discharged on 2 LS home oxygen, patient states that after going home his shortness of breath has continued to worsen, and he was requiring close to 5 Ls oxygen.He is not on home oxygen. Initial earlier work-up done yesterday in the ER, included CTA chest: No PE, Very mild groundglass attenuation bilaterally but greatest at the lung bases. Suggestive of early pneumonitis. Rapid and COVID PCR: Negative ABG: pH: 7.43, PCO2 35 PO2 90, on 4 L oxygen Pertinent labs: WBC 7.9 H&H 16/ 49 PLT : 235 , serum sodium: 134 serum potassium 4.5, BUN and serum creatinine:18/1.2 , Procalcitonin 0.15 Review of Systems Const: Denies: fever(s), change in appetite or diaphoresis Card: Denies: palpitations, edema, swelling of feet/ankles, orthopnea or leg pain with exertion Resp: Denies: pain on inspiration GI: Denies: abdominal pain, nausea, vomiting, diarrhea or constipation : Denies: flank pain or difficulty urinating Musc: Denies: back pain, extremity pain or extremity swelling Neuro: Denies: headache(s), difficulty walking or confusion Medications/Allergies Home Medications Medication Instructions Recorded Confirmed Last Taken Type ropinirole 0.5 mg tablet 0.5 mg PO DAILY #90 tab 05/21/20 10/19/21 09/05/20 Rx acetaminophen 650 mg PO Q6H PRN #0 tab 09/09/20 10/19/21 Unknown Rx albuterol sulfate 90 mcg/actuation 1 inh INHALATION QID PRN #18 g 09/17/20 10/19/21 Unknown Rx aerosol inhaler pantoprazole 40 mg tablet,delayed 40 mg PO DAILY 90 Days #90 tab 09/17/20 10/19/21 Unknown Rx release amlodipine 10 mg tablet See Rx Instructions .ROUTE 10/20/20 10/19/21 Unknown Rx .COMPLEX #90 tablet chlorthalidone 25 mg tablet 25 mg PO DAILY 90 Days #90 tab 12/11/20 10/19/21 Unknown Rx sulfamethoxazole 800 1 tab PO BID 10 Days #20 tab 01/27/21 10/19/21 Unknown Rx mg-trimethoprim 160 mg tablet spironolactone 50 mg tablet See Rx Instructions .ROUTE 06/17/21 10/19/21 Unknown Rx .COMPLEX #90 tab celecoxib 400 mg capsule 400 mg PO DAILY #90 cap 08/31/21 10/19/21 Unknown Rx hydrochlorothiazide 50 mg tablet 50 mg PO DAILY #30 tab 09/28/21 10/19/21 Unknown Rx albuterol sulfate 2 inh INHALATION Q4H PRN #18 gm 10/19/21 Unknown Rx dexamethasone 6 mg PO DAILY #7 tab 10/19/21 Unknown Rx Allergies Allergy/AdvReac Type Severity Reaction Status Date / Time No Known Allergies Allergy Verified 10/20/21 03:22 PFSH Acute PFSH: Medical History (Updated 10/20/21 @ 05:51 by Hussein Brito MD) Acute post-thoracotomy pain Essential (primary) hypertension Hernia Intervertebral disc disorders with radiculopathy, lumbosacral region Morbid obesity Renal colic on right side Retained ureteral stent Sacroiliitis Thoracic neuralgia Ureteral stone with hydronephrosis 7+ millimeters right proximal ureteral stone with high-grade obstruction and severe refractory renal colic. Required inpatient admission December 2019 and treated with endoscopy with laser lithotripsy and stent. Surgical History History of esophagogastroduodenoscopy (EGD) 02/22/2013- NORMAL S/P carpal tunnel release S/P colonoscopy 06/13/2012- POLYPS S/P thoracotomy Family History Other Cancer Heart disease Social History Smoking and tobacco status: never smoked Alcohol intake: current Alcohol intake frequency: holidays/special occasions only Adopted: No Caregiver/support person: No Lives independently: No Household members: spouse Housing: House Marital status: Current occupational status: employed Current occupation: [employer] History of recent travel: No Current gender identity: Male Vitals/I&O/Wt Last Vital Signs Temp 98.1 F 10/20/21 03:13 Pulse 88 10/20/21 03:59 Resp 24 H 10/20/21 05:28 BP 170/69 10/20/21 05:28 Pulse Ox 95 10/20/21 05:28 Weight last 48 hrs Weight 145.15 kg Physical Exam Const: COMMON NORMALS: patient oriented x3 HENMT: COMMON NORMALS: normocephalic and atraumatic HEAD & SCALP: no rmocephalic and atraumatic Resp: OTHER: Dimisshed air entry B/L Cardio: COMMON NORMALS: regular rate, regular rhythm, S1 normal heart sound present, S2 normal heart sound present, No gallops present (Cardio), No murmurs present (Cardio), No rub (Cardio) and Peripheral pulses 2+ throughout RATE: regular rate RHYTHM: regular rhythm HEART SOUNDS: S1 normal heart sound present and S2 normal heart sound present PERIPHERAL PULSES: Peripheral pulses 2+ throughout GI: COMMON NORMALS: Normal to inspection, nondistended, normoactive bowel sounds present, Soft to palpation, non-tender, No hepatosplenomegaly present and no masses AUSCULTATION: Yes normoactive bowel sounds PALPATION: Yes Soft to palpation and Yes No hepatosplenomegaly present RECTAL EXAM: Yes deferred Extremity: COMMON NORMALS: no clubbing, cyanosis or edema and no pedal edema Neuro: COMMON NORMALS: patient oriented x3 Data : 10/20/21 03:30 10/20/21 04:00 Micro: Microbiology 10/20/21 03:30 Blood Culture - Preliminary Blood SPECIMEN COLLECTED 10/20/21 03:30 Blood Culture - Preliminary Blood SPECIMEN COLLECTED A&P Assessment and plan (1) Hypoxia: Status: Acute (2) Pneumonia: Status: Acute (3) Hypertension: Status: Acute (4) Morbid obesity: Status: Acute (5) Sleep apnea: Status: Acute Additional A&P Information 61 year old male past medical history of hypertension, sleep apnea, morbid obesity, Came in with chief complaint of worsening shortness of breath , and nonproductive cough. #Acute hypoxia secondary to pneumonia: Patient came in with worsening shortness of breath, cough, increasing supplemental oxygen requirement, not on home oxygen. Follow blood cultures, sputum culture, urine Legionella antigen, bacterial antigen panel Continue ceftriaxone and azithromycin DuoNebs Supplemental oxygen as needed #Hypertension: Continue home medications Code Status :Full code DVT PPX : Lovenox Attestations Medical Necessity Statement*: Patient needs to be in hospital for management of acute hypoxia and pneumonia. Coding Level of Care Code Acute Certified Real Estate Appraiser for [facility] Fwd Exam Detailed Diagnoses Hypoxia R09.02 Pneumonia J18.9 Hypertension I10 Morbid obesity E66.01 Sleep apnea G47.30
[2021-10-20] MEDS: enoxaparin 40 mg/0.4 mL Syringe SUBCUT (06:00)
[2021-10-20] MEDS: benzonatate 100 mg Capsule PO ×2 (06:05→20:15)
[2021-10-20] MEDS: pantoprazole DR 40 mg Tablet PO (08:40)
[2021-10-20] MEDS: amlodipine 10 mg Tablet PO (08:40)
[2021-10-20] MEDS: hydroCHLOROthiazide 25 mg Tablet 50 MG PO (08:40)
--- NOTE | 2021-10-20 11:18 | PC.NURSE ---
Patient on continuous bedside cardiac, BP and O2 monitor
--- NOTE | 2021-10-20 20:08 | PC.NURSE ---
Shift report received from Ly RAE. Patient in bed/ awake/watching TV. Rates chest pain from coughing at a 8/10. O2 4L NC. IV patent/SL. Requests pain /sleep medication. Will check PRNs available.
[2021-10-20] MEDS: acetaminophen 325 mg Tablet 650 MG PO (20:15)
[2021-10-21] VITALS (12 sets, daily range): BP systolic 136–189; BP diastolic 64–100; PULSE 68–92; RESP 16–18; TEMP 36.3–36.9; O2SAT 91–97
[2021-10-21] MEDS: zolpidem 5 mg Tablet PO ×2 (00:37→22:11)
--- NOTE | 2021-10-21 03:09 | PC.NURSE ---
per tele monitor pulse rate at 154 / patient has continuos pulse ox on/ pulse 76 when entering room. Patient stated that he was brushing his teeth just prior to this nurse entering. No needs voiced at this time.
[2021-10-21] MEDS: enoxaparin 40 mg/0.4 mL Syringe SUBCUT (05:38)
[2021-10-21] MEDS: cefTRIAXone 1,000 MG in sodium chloride 0.9% (plus) 50 ML 100 MG IV (05:38)
[2021-10-21] MEDS: azithromycin 500 MG in sodium chloride 0.9% 250 ML 250 MG IV (06:15)
[2021-10-21 06:19] LABS: Basophils % 0.2 %; Hematocrit 47.1 % (42.0-52.0); Lymphocytes # 1.4 10^3/uL (0.8-4.8); Lymphocytes % 11.6 %; Mean Corpuscular HGB Conc 31.8 g/dL (30.0-36.0); Mean Corpuscular Hemoglobin 30.5 pg (28.0-34.0); Mean Corpuscular Volume 95.9 fl (80-94); Monocytes # 0.8 10^3/uL (0.2-0.9); Monocytes % 6.9 %; Neutrophils # 9.37 10^3/uL (1.8-7.7); Neutrophils % 80.8 %; Nucleated Red Blood Cells % 0 %; Platelet Count 247 10^3/cmm (130-400); Red Blood Count 4.91 10^6/uL (4.1-5.3); Red Cell Distribution Width 13.4 % (12.1-15.1); White Blood Count 11.6 10^3/uL (4.0-10.0)
[2021-10-21 06:36] LABS: Blood Urea Nitrogen 21 mg/dL (8-23); Calcium 9.2 mg/dL (8.5-10.5); Carbon Dioxide 20 mmol/L (22-29); Chloride 97 mmol/L (98-107); Glomerular Filtration Rate 67.8 mL/min (90-130); Glucose 118 mg/dL (65-115); Osmolality Calculated 280 mOsm/kg (285-295); Sodium 133 mmol/L (136-145)
[2021-10-21 06:41] LABS: Anion Gap 20.3 (5-19); Potassium 4.3 mmol/L (3.5-5.1)
[2021-10-21] MEDS: amlodipine 10 mg Tablet PO (08:01)
[2021-10-21] MEDS: hydroCHLOROthiazide 25 mg Tablet 50 MG PO (08:01)
[2021-10-21] MEDS: pantoprazole DR 40 mg Tablet PO (08:02)
[2021-10-21] MEDS: acetaminophen-codeine 300-30mg Tablet 1 TAB PO ×3 (08:26→22:11)
[2021-10-21] MEDS: lidocaine 5% Patch 1 PATCH TOPICAL ×2 (08:27→22:01)
--- NOTE | 2021-10-21 08:36 | P.PN_ITS ---
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 This morning I have started aggressive antitussive regimen, will give him Tylenol 3, Mucomyst, Leukocytosis trending down, afebrile COVID PCR negative Requested sputum culture Added IV steroids Vitals/I&O/Wt Last Vital Signs Temp 97.8 F 10/21/21 08:00 Pulse 84 10/21/21 08:00 Resp 18 10/21/21 08:00 BP 167/100 10/21/21 08:00 Pulse Ox 94 10/21/21 08:00 10/20/21 10/21/21 10/21/21 22:59 06:59 14:59 Intake Total 480 / 480 530 / 1010 250 / 250 Output Total 300 / 300 1300 / 1600 Balance 180 / 180 -770 / -590 250 / 250 Weight last 48 hrs Weight 180.212 kg Weight 145.15 kg Physical Exam Narrative: EXAM NARRATIVE: Patient is experiencing multiple bouts of cough, he is not able to bring up sputum Chest is congested Poor airflow bilaterally No active wheezing Distended abdomen, chest wall hernia on left side Trace edema of legs EOMI, PERRLA Nonfocal neuro exam Data : 10/21/21 05:35 10/21/21 05:35 Micro: Microbiology 10/21/21 03:50 Legionella Urinary Antigen - Final Urine,Clean Catch 10/20/21 03:30 Blood Culture - Preliminary Blood NEGATIVE TO DATE 10/20/21 03:30 Blood Culture - Preliminary Blood NEGATIVE TO DATE A&P Assessment and plan (1) Pneumonia: Status: Acute (2) Sleep apnea: Status: Acute (3) Morbid obesity: Status: Acute (4) Hypoxia: Status: Acute Additional A&P Information Acute hypoxia related to community-acquired pneumonia Will request urine culture, Add IV steroids Cultures negative date Leukocytosi noted today Afebrile CTA rule out PE Added Mucomyst along DuoNeb 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
[2021-10-21] MEDS: ipratropium-albuterol 3 mL Neb INHALATION ×3 (08:38→21:14)
[2021-10-21] MEDS: budesonide 0.5 mg/2 mL Neb INHALATION ×2 (08:38→21:14)
--- NOTE | 2021-10-21 08:43 | CT_ITS ---
WS: [id number] CT CHEST WITHOUT INTRAVENOUS CONTRAST HISTORY: HYPOXIA TECHNIQUE: Contiguous 5 mm axial imaging performed on the thorax. Coronal and sagittal reformats are submitted. All CT scans at [facility] use at least one of these dose optimization techniques: automated exposure control; mA and/or kV adjustment per patient size (includes targeted exams where dose is matched to clinical indication); or iterative reconstruction. CONTRAST: None DLP: 1209.18 mGy.cm COMPARISON: 10/19/2021 Lungs and central airway: Mild volume loss in the LEFT thorax with shift of the mediastinal structure s to the LEFT. There is diffuse mild pleural thickening throughout the LEFT thorax. The pleural thick ening is predominantly due to fat replacement. Overall there is improved aeration since the prior exa mination with only minimal areas of groundglass attenuation at the lung bases. No pleural effusion. Pleura: Normal. No pleural effusion. Heart and pericardium: Mildly enlarged heart. Mediastinum and marga: No mediastinal adenopathy. No hilar adenopathy. Vessels: Pulmonary artery is slightly enlarged. Mild atherosclerosis aorta. There are a few scattered coronary artery calcifications. Chest wall and lower neck: Mild gynecomastia. Postsurgical changes with cerclage wires in the LEFT la teral thorax. Upper abdomen: Hepatic steatosis. Cholelithiasis without acute cholecystitis. Very slight nodularity LEFT adrenal gland is stable. Osseous structures: Mild thoracic spondylosis. Prior bilateral healed rib fractures. CT/CT chest wo con [id number] IMPRESSION: 1. Overall improvement in aeration of both lungs with minimal residual groundg lass attenuation at the lung bases. 2. Mild volume loss in the LEFT thorax is stable. 3. Cholelithiasis without acute cholecystitis. 4. Hepatic steatosis.
--- NOTE | 2021-10-21 10:13 | PC.CHAP ---
Pastoral Care Encounter/Spiritual Assessment Type of Contact [] Declined manager sales and marketing visit [] Patient/Family/Request visit [] Outpatient visit [] Follow-up visit [] Physician referral [] Code/Alert [x] Routine visit [] Staff referral [] Actively dying [] Patient sleeping [] Family support [] [] Out of room [] Palliative care [] [] Receiving care in room [] Pre-surgical visit [] Trauma [] Long length of stay [] ICU visit [] Other: Relational/Emotional Strength [x] Patient feels connected with others/family/visitors/staff [] Distress [] Loneliness/isolation [] Abandonment Spirituality of Patient [x] Person of Saranya [] Attends Mu-Ism of their Saranya [x] Believes in Prayer [] Reads Bible or Muslim materials [] There are Spiritual issues to be addressed Carton Making Machinist Interventions [x] Prayer [x] Active listening [x ] Non-anxious presence [x] Spiritual/emotional support [] Crisis/trauma care [] Spiritual counseling [] Bereavement support [] Provided bereavement packet [] Provided Bible/devotional materials [] Provided toy/stuffed animal, coloring book to patient or family member [] Provided Communion [] Anointing/Eleva [] Salvation [x] Completed spiritual assessment [] Other: Impact on Illness or Injury [] Angry [] Fearful [] Anxious [] Often cries [] Exhaustion [] Unable to work [] Unable to attend congregation [] Unable to walk/stand [] Unable to read [] Unable to drive [] Unable to eat/drink [] Unable to sleep [] Unable to be with family [] Patient intubated [] Other: Summary Time spent with patient
[2021-10-21] MEDS: acetylcysteine 200 mg/mL SDV 4 mL INHALATION ×2 (14:44→21:14)
--- NOTE | 2021-10-21 20:09 | PC.NURSE ---
Shift report received from Kelsea RAE. Patient in bed/awake. IV patent/SL. O2 4L NC. Denies pain. Snack provided per request. No other needs voiced at this time.
[2021-10-22] VITALS (12 sets, daily range): BP systolic 135–169; BP diastolic 56–91; PULSE 67–87; RESP 18–20; TEMP 36.4–36.9; O2SAT 92–95
[2021-10-22 05:07] LABS: Eosinophils % 0.1 %; Hematocrit 45.8 % (42.0-52.0); Hemoglobin 14.7 g/dL (11.7-16.6); Lymphocytes # 0.6 10^3/uL (0.8-4.8); Lymphocytes % 6.7 %; Mean Corpuscular HGB Conc 32.1 g/dL (30.0-36.0); Mean Corpuscular Hemoglobin 30.1 pg (28.0-34.0); Mean Corpuscular Volume 93.9 fl (80-94); Monocytes # 0.1 10^3/uL (0.2-0.9); Monocytes % 1.1 %; Neutrophils # 8.19 10^3/uL (1.8-7.7); Neutrophils % 91.4 %; Nucleated Red Blood Cells % 0 %; Platelet Count 231 10^3/cmm (130-400); Red Blood Count 4.88 10^6/uL (4.1-5.3); Red Cell Distribution Width 13.2 % (12.1-15.1)
[2021-10-22 05:31] LABS: Blood Urea Nitrogen 21 mg/dL (8-23); Calcium 9.1 mg/dL (8.5-10.5); Carbon Dioxide 22 mmol/L (22-29); Chloride 97 mmol/L (98-107); Glomerular Filtration Rate 75.7 mL/min (90-130); Glucose 152 mg/dL (65-115); Osmolality Calculated 284 mOsm/kg (285-295); Sodium 134 mmol/L (136-145)
[2021-10-22 05:32] LABS: Anion Gap 19.5 (5-19); Potassium 4.5 mmol/L (3.5-5.1)
[2021-10-22] MEDS: cefTRIAXone 1,000 MG in sodium chloride 0.9% (plus) 50 ML 100 MG IV (05:44)
[2021-10-22] MEDS: enoxaparin 40 mg/0.4 mL Syringe SUBCUT (05:44)
[2021-10-22] MEDS: acetaminophen-codeine 300-30mg Tablet 1 TAB PO ×3 (05:48→21:13)
[2021-10-22] MEDS: pantoprazole DR 40 mg Tablet PO (08:16)
[2021-10-22] MEDS: hydroCHLOROthiazide 25 mg Tablet 50 MG PO (08:17)
[2021-10-22] MEDS: amlodipine 10 mg Tablet PO (08:17)
[2021-10-22] MEDS: lidocaine 5% Patch 1 PATCH TOPICAL ×2 (08:17→21:13)
[2021-10-22] MEDS: azithromycin 500 MG in sodium chloride 0.9% 250 ML 250 MG IV (08:17)
--- NOTE | 2021-10-22 08:36 | P.PN_ITS ---
Subjective Subjective: Interval history: Patient today is is endorsing feeling better, requiring 3 L nasal cannula Still experiencing multiple bouts of cough however intensity has decreased Chest wall hernia not hurting anymore He is noticing provement in his energy today Patient stating that he thinks he will be able to return home by tomorrow Vitals/I&O/Wt Last Vital Signs Temp 98.5 F 10/22/21 08:00 Pulse 74 10/22/21 08:00 Resp 18 10/22/21 08:00 BP 166/89 10/22/21 08:00 Pulse Ox 94 10/22/21 08:00 10/21/21 10/22/21 10/22/21 22:59 06:59 14:59 Intake Total 580 / 1670 490 / 490 Output Total 500 / 500 525 / 1025 Balance 80 / 1170 -525 / 645 490 / 490 Weight last 48 hrs Weight 180.212 kg Physical Exam Narrative: EXAM NARRATIVE: Patient left lateral position 2 L nasal cannula Mild rhonchi at the base of the lungs Still experiencing dry cough Distended abdomen with obesity No signs of edema S1, S2 Awake and alert nonfocal neuro exam Data : 10/22/21 04:36 10/22/21 04:36 Micro: Microbiology 10/21/21 03:50 Bacterial Antigens - Final Urine,Clean Catch 10/21/21 03:50 Legionella Urinary Antigen - Final Urine,Clean Catch 10/20/21 03:30 Blood Culture - Preliminary Blood NEGATIVE TO DATE 10/20/21 03:30 Blood Culture - Preliminary Blood NEGATIVE TO DATE A&P Assessment and plan (1) Pneumonia: Status: Acute (2) Sleep apnea: Status: Acute (3) Morbid obesity: Status: Acute (4) Hypertension: Status: Acute (5) Hypoxia: Status: Acute Additional A&P Information Acute hypoxia Related to current acquired pneumonia Continue IV ceftriaxone and change IV azithromycin to p.o. regimen Continue IV steroids Cough getting better COVID-[address] chest did show overall improvement in radiation of both lungs Plan to discharge him tomorrow Low-sodium diet DVT prophylaxis Lovenox Hypertension: Add lisinopril Attestations Medical Necessity Statement*: Plan to discharge him tomorrow Time Spent in Patient Care: less than 15 minutes Coding Level of Care Code Acute Performance Test Architect for [facility] Diagnoses Pneumonia J18.9 Sleep apnea G47.30 Morbid obesity E66.01 Hypertension I10 Hypoxia R09.02
[2021-10-22] MEDS: budesonide 0.5 mg/2 mL Neb INHALATION ×2 (09:42→21:22)
[2021-10-22] MEDS: ipratropium-albuterol 3 mL Neb INHALATION ×3 (09:42→21:22)
[2021-10-22] MEDS: lisinopril 10 mg Tablet PO (10:01)
--- NOTE | 2021-10-22 20:32 | PC.NURSE ---
Shift report received from Kelsea RAE. Patient in bed /watching TV. Rates pain at a 8/10. PRN will be administered. Patient c/o of hoarseness. O2 2L NC. Snack requested and provided. No other needs voiced at this time.
[2021-10-22] MEDS: zolpidem 5 mg Tablet PO (21:12)
[2021-10-22] MEDS: acetylcysteine 200 mg/mL SDV 4 mL INHALATION (21:22)
[2021-10-22 22:00] LABS: Glucose Point of Care 155 mg/dL (70-110)
[2021-10-23] VITALS (10 sets, daily range): BP systolic 107–167; BP diastolic 68–84; PULSE 61–79; RESP 18–20; TEMP 36.5–36.9; O2SAT 91–96
[2021-10-23] MEDS: acetaminophen-codeine 300-30mg Tablet 1 TAB PO ×4 (04:43→21:59)
[2021-10-23] MEDS: enoxaparin 40 mg/0.4 mL Syringe SUBCUT (05:40)
[2021-10-23] MEDS: cefTRIAXone 1,000 MG in sodium chloride 0.9% (plus) 50 ML 100 MG IV (05:41)
[2021-10-23 06:48] LABS: Glucose Point of Care 149 mg/dL (70-110)
[2021-10-23 07:03] LABS: Basophils % 0.1 %; Eosinophils % 0.1 %; Hematocrit 46.7 % (42.0-52.0); Hemoglobin 14.9 g/dL (11.7-16.6); Lymphocytes # 0.6 10^3/uL (0.8-4.8); Lymphocytes % 6.1 %; Mean Corpuscular HGB Conc 31.9 g/dL (30.0-36.0); Mean Corpuscular Hemoglobin 30.7 pg (28.0-34.0); Mean Corpuscular Volume 96.3 fl (80-94); Monocytes # 0.4 10^3/uL (0.2-0.9); Monocytes % 3.7 %; Neutrophils # 9.31 10^3/uL (1.8-7.7); Neutrophils % 89.3 %; Nucleated Red Blood Cells % 0 %; Platelet Count 244 10^3/cmm (130-400); Red Blood Count 4.85 10^6/uL (4.1-5.3); Red Cell Distribution Width 13.2 % (12.1-15.1); White Blood Count 10.4 10^3/uL (4.0-10.0)
[2021-10-23] MEDS: budesonide 0.5 mg/2 mL Neb INHALATION ×2 (07:45→20:22)
[2021-10-23] MEDS: ipratropium-albuterol 3 mL Neb INHALATION ×4 (07:45→20:22)
[2021-10-23] MEDS: amlodipine 10 mg Tablet PO (07:56)
[2021-10-23] MEDS: lisinopril 10 mg Tablet PO ×2 (07:56→10:22)
[2021-10-23] MEDS: hydroCHLOROthiazide 25 mg Tablet 50 MG PO (07:58)
[2021-10-23] MEDS: azithromycin 250 mg Tablet 500 MG PO (07:58)
[2021-10-23] MEDS: pantoprazole DR 40 mg Tablet PO (07:58)
[2021-10-23] MEDS: lidocaine 5% Patch 1 PATCH TOPICAL (08:00)
[2021-10-23 08:23] LABS: Blood Urea Nitrogen 25 mg/dL (8-23); Calcium 8.7 mg/dL (8.5-10.5); Carbon Dioxide 23 mmol/L (22-29); Chloride 93 mmol/L (98-107); Glomerular Filtration Rate 67.8 mL/min (90-130); Glucose 139 mg/dL (65-115); Osmolality Calculated 275 mOsm/kg (285-295); Sodium 129 mmol/L (136-145)
[2021-10-23 08:27] LABS: Anion Gap 17.5 (5-19); C Reactive Protein < 0.3 mg/L (0.0-4.9); Potassium 4.5 mmol/L (3.5-5.1)
--- NOTE | 2021-10-23 08:57 | P.PN_ITS ---
Subjective Subjective: Interval history: Currently patient is on 2 L nasal cannula saturating 96%, asked RT to wean him off to room air This morning patient is stating that he became very dizzy, lightheaded when she was try to go to the bathroom, he did not fall or hit his head, he is attributing his weakness to bad knees nonfocal neuro exam I requested nurse to do orthostatics this morning His cough has improved however still present Vitals/I&O/Wt Last Vital Signs Temp 98.4 F 10/23/21 07:55 Pulse 74 10/23/21 07:55 Resp 18 10/23/21 07:55 BP 158/80 10/23/21 07:55 Pulse Ox 96 10/23/21 07:55 10/22/21 10/23/21 10/23/21 22:59 06:59 14:59 Intake Total 480 / 1460 930 / 2390 Output Total 300 / 800 825 / 1625 Balance 180 / 660 105 / 765 Weight last 48 hrs Weight 178.988 kg Physical Exam Narrative: EXAM NARRATIVE: Patient was getting breathing treatment when I entered the room 2 L nasal cannula saturating 96% Distended abdomen No active wheezing No signs of new neurological focal deficit EOMI, PERRLA S1, S2 Left chest wall hernia without acute exacerbation Data : 10/23/21 05:44 10/23/21 07:52 A&P Assessment and plan (1) Pneumonia: Status: Acute (2) Sleep apnea: Status: Acute (3) Morbid obesity: Status: Acute (4) Hypertension: Status: Acute (5) COVID-19: Status: Acute (6) Hypoxia: Status: Acute Additional A&P Information Currently current pneumonia Acute hypoxia Wean him off to room air Cough is getting better Continue ceftriaxone and azithromycin For coughs multiple antitussive has been recommended Cough improving COVID-negative CTA ruled out PE, repeat CT chest showing improvement Patient experienced lightheadedness this morning, he thinks he is not ready to go home, no new focal deficit, he has good strength of his extremities Home O2 eval before discharge Hyponatremia on the lab could be an error, will repeat labs Orthostatic vitals this morning Plan to discharge him tomorrow Urine cultures negative Hypertension: He is on hydrochlorothiazide, lisinopril, I will escalate the dose of lisinopril to 20 mg, continue amlodipine 10 mg Attestations Medical Necessity Statement*: Anticipating discharge tomorrow Time Spent in Patient Care: 16 - 35 minutes Coding Level of Care Code Acute Environmental Studies Program Director for g Fwd Diagnoses Pneumonia J18.9 Sleep apnea G47.30 Morbid obesity E66.01 Hypertension I10 COVID-19 U07.1 Hypoxia R09.02
--- NOTE | 2021-10-23 14:47 | PC.CHAP ---
Pastoral Care Encounter/Spiritual Assessment Type of Contact [] Declined fixed wing aircraft flight engineer visit [] Patient/Family/Request visit [] Outpatient visit [] Follow-up visit [] Physician referral [] Code/Alert [] Routine visit [] Staff referral [] Actively dying [] Patient sleeping [] Family support [] [] Out of room [] Palliative care [] [] Receiving care in room [] Pre-surgical visit [] Trauma [] Long length of stay [] ICU visit [xx] Other: Now isolated Relational/Emotional Strength [] Patient feels connected with others/family/visitors/staff [] Distress [] Loneliness/isolation [] Abandonment Spirituality of Patient [] Person of Saranya [] Attends Protestant of their Saranya [] Believes in Prayer [] Reads Bible or Bahai materials [] There are Spiritual issues to be addressed News Technical Director Interventions [] Prayer [] Active listening [] Non-anxious presence [] Spiritual/emotional support [] Crisis/trauma care [] Spiritual counseling [] Bereavement support [] Provided bereavement packet [] Provided Bible/devotional materials [] Provided toy/stuffed animal, coloring book to patient or family member [] Provided Communion [] Anointing/Cadet [] Salvation [] Completed spiritual assessment [] Other: Impact on Illness or Injury [] Angry [] Fearful [] Anxious [] Often cries [] Exhaustion [] Unable to work [] Unable to attend taoist [] Unable to walk/stand [] Unable to read [] Unable to drive [] Unable to eat/drink [] Unable to sleep [] Unable to be with family [] Patient intubated [] Other: Summary Time spent with patient
[2021-10-23] MEDS: acetylcysteine 200 mg/mL SDV 4 mL INHALATION (20:22)
[2021-10-23] MEDS: zolpidem 5 mg Tablet PO (23:36)
[2021-10-24] VITALS (9 sets, daily range): BP systolic 128–161; BP diastolic 73–92; PULSE 64–77; RESP 16–17; TEMP 36.4–36.7; O2SAT 16–94
[2021-10-24] MEDS: enoxaparin 40 mg/0.4 mL Syringe SUBCUT (05:36)
[2021-10-24] MEDS: benzonatate 100 mg Capsule PO (05:36)
[2021-10-24] MEDS: acetaminophen-codeine 300-30mg Tablet 1 TAB PO (05:36)
[2021-10-24 05:39] LABS: Basophils % 0.1 %; Hematocrit 49.5 % (42.0-52.0); Hemoglobin 15.8 g/dL (11.7-16.6); Lymphocytes # 0.8 10^3/uL (0.8-4.8); Lymphocytes % 6.4 %; Mean Corpuscular HGB Conc 31.9 g/dL (30.0-36.0); Mean Corpuscular Hemoglobin 30.1 pg (28.0-34.0); Mean Corpuscular Volume 94.3 fl (80-94); Mean Platelet Volume 10.8 fL (7.4-10.4); Monocytes # 0.4 10^3/uL (0.2-0.9); Monocytes % 3.4 %; Neutrophils # 10.47 10^3/uL (1.8-7.7); Neutrophils % 89.5 %; Nucleated Red Blood Cells % 0 %; Platelet Count 270 10^3/cmm (130-400); Red Blood Count 5.25 10^6/uL (4.1-5.3); White Blood Count 11.7 10^3/uL (4.0-10.0)
[2021-10-24 05:50] LABS: Procalcitonin 0.11 ng/mL (0-0.5)
[2021-10-24 06:03] LABS: Anion Gap 21.5 (5-19); Blood Urea Nitrogen 30 mg/dL (8-23); Calcium 9.7 mg/dL (8.5-10.5); Carbon Dioxide 19 mmol/L (22-29); Chloride 93 mmol/L (98-107); Glomerular Filtration Rate 67.8 mL/min (90-130); Glucose 157 mg/dL (65-115); Osmolality Calculated 277 mOsm/kg (285-295); Potassium 4.5 mmol/L (3.5-5.1); Sodium 129 mmol/L (136-145)
[2021-10-24] MEDS: cefTRIAXone 1,000 MG in sodium chloride 0.9% (plus) 50 ML 100 MG IV (06:20)
[2021-10-24] MEDS: ipratropium-albuterol 3 mL Neb INHALATION (08:42)
--- NOTE | 2021-10-24 09:42 | PM.DCS ---
Discharge Providers Date of Admission: 10/20/21 09:44 Date of Discharge: October 24, 2021 Attending Provider at Admission: Hussein Brito MD Attending Provider at Discharge: Sixto Bethea MD Primary Care Provider: Jono Arrington MD Diagnoses at Discharge Discharge Diagnosis (1) Pneumonia: Status: Acute (2) Sleep apnea: Status: Acute (3) Morbid obesity: Status: Acute (4) Hypertension: Status: Acute (5) COVID-19: Status: Acute (6) Hypoxia: Status: Acute Reason for Visit Reason for Visit: o2 Levels Low Hospital Course Hospital Course 61-year-old morbidly obese male who was admitted to the hospital for new onset of hypoxia related to community-acquired pneumonia, CTA rule out pulmonary embolism, COVID-negative. Patient has been experiencing multiple bouts of cough during his hospitalization for which he required inhaled budesonide, dextromethorphan, codeine, Tessalon Perles, it was making his chest wall hernia worse as well, he did not notice any nausea OR recurrent vomiting. After above-mentioned treatment his symptoms resolved. He was kept on ceftriaxone and azithromycin for community-acquired pneumonia. For his hypertension lisinopril 20 mg along with hydrochlorothiazide and amlodipine added to keep his blood pressure below 140/90 mmHg Considering his BMI and excessive snoring at home he will likely need sleep study outpatient He also needs pulmonary follow-up to rule out COPD I am discharging him on moxifloxacin 10-day regimen, cultures negative to date Physical Exam Narrative: EXAM NARRATIVE: Patient was getting breathing treatment when I entered the room 2 L nasal cannula saturating 96% Distended abdomen No active wheezing No signs of new neurological focal deficit EOMI, PERRLA S1, S2 Left chest wall hernia without acute exacerbation Discharge Data Data Completed and Pending: Completed Studies During Hospitalization Category Date Time Status CT chest wo con 7 1250 Routine Cat Scan 10/21/21 08:43 Completed XR chest 1V pierre ble [id number] Stat Exams 10/20/21 03:15 Completed Pending at discharge Category Date Time Status Blood Culture Sta t Lab 10/20/21 03:30 Results Labs from last 24 hours 10/24/21 10/24/21 05:05 05:05 WBC 11.7 H RBC 5.25 Hgb 15.8 Hct 49.5 MCV 94.3 H MCH 30.1 MCHC 31.9 RDW 13.0 Plt Count 270 MPV 10.8 H Neut % (Auto) 89.5 Lymph % (Auto) 6.4 [place] % (Auto) 3.4 Eos % (Auto) 0.0 Baso % (Auto) 0.1 Neut # (Auto) 10.47 H Lymph # (Auto) 0.8 [place] # (Auto) 0.4 Eos # (Auto) 0.0 Baso # (Auto) 0.0 Nucleated RBC % (a uto) 0 Nucleated RBCs # 0.0 Sodium 129 L Potassium 4.5 Chloride 93 L Carbon Dioxide 19 L Anion Gap 21.5 H BUN 30 H Creatinine 1.1 GFR Calculation 67.8 L Glucose 157 H Calculated Osmolal ity 277 L Calcium 9.7 Procalcitonin 0.11 Vitals: Last Vital Signs Temp 97.6 F 10/24/21 08:00 Pulse 77 10/24/21 08:47 Resp 16 10/24/21 08:47 BP 150/75 10/24/21 08:00 Pulse Ox 94 10/24/21 08:47 Discharge Plan Discharge Patient Disposition: Home Condition: Stable Prescriptions: New lisinopril 20 mg Tablet 20 mg PO DAILY Qty: 60 RF: 0 benzonatate 100 mg Capsule 100 mg PO TID PRN (Reason: cough) Qty: 60 RF: 0 omeprazole 20 mg capsule,delayed release(DR/EC) 20 mg PO DAILY Qty: 60 RF: 0 albuterol sulfate 90 mcg/actuation HFA aerosol inhaler 2 inh inhalation Q8H PRN (Reason: shortness of breath or wheezing) Qty: 8.5 RF: 2 dextromethorphan-guaifenesin 10-200 mg capsule 1 tab-cap PO Q8H PRN (Reason: cough) Qty: 20 RF: 0 moxifloxacin 400 mg tablet 400 mg PO DAILY Qty: 10 RF: 0 Continued albuterol sulfate 90 mcg/actuation HFA aerosol inhaler 2 inh INHALATION Q4H PRN (Reason: shortness of breath or wheezing) Qty: 18 RF: 0 pantoprazole 40 mg tablet,delayed release (DR/EC) 40 mg PO DAILY PRN (Reason: Acid Reflux) RF: 0 ropinirole 0.5 mg tablet 0.5 mg PO DAILY PRN (Reason: Restless Leg(S)) RF: 0 hydrochlorothiazide 50 mg tablet See Rx Instructions .ROUTE .COMPLEX Qty: 30 RF: 3 amlodipine 10 mg tablet 10 mg PO QAM Qty: 60 RF: 3 Discontinued dexamethasone 6 mg tablet 6 mg PO DAILY Qty: 7 RF: 0 chlorthalidone 25 mg tablet 25 mg PO QAM RF: 0 spironolactone 50 mg tablet 50 mg PO QAM RF: 0 celecoxib [Celebrex] 400 mg capsule 400 mg PO QPM RF: 0 Discharge Orders: Discharge Order (Routine); Ordered 10/24/21 Ordered By: Sixto Bethea Other Ambulatory Orders: Basic Metabolic Panel (Routine) Timeframe: 3 Days Facility: [facility] - Location: Lab - Main Lab Ordered By: Sixto Bethea XR chest 2V insp/exp [id number] (Routine) Timeframe: 6 Weeks Facility: [facility] - Location: Radiology [facility] Ordered By: Sixto Bethea Referrals: Jono Arrington MD [Primary Care Provider] - 2 weeks Datar,Ronald Albert MD [Physician] - 2 weeks Discharge Diet: Cardiac Discharge Activity: Increase activity as tolerated Patient Instructions: Benzonatate (By mouth), Lisinopril (By mouth), Albuterol (By breathing), Moxifloxacin (By mouth), Using Oxygen at Home (GEN), Hypoxia (GEN), Pneumonia (GEN), Opioid Safety Discharge Attestations Time Spent in Discharge Care*: less than 30 min Quality Metrics Clinical Quality Measures During this hospital stay, did patient experience: None Coding Level of Care Code Acute Chg FW DC note Diagnoses Pneumonia J18.9 Sleep apnea G47.30 Morbid obesity E66.01 Hypertension I10 COVID-19 U07.1 Hypoxia R09.02
[2021-10-24] MEDS: pantoprazole DR 40 mg Tablet PO (09:43)
[2021-10-24] MEDS: amlodipine 10 mg Tablet PO (09:44)
[2021-10-24] MEDS: hydroCHLOROthiazide 25 mg Tablet 50 MG PO (09:44)
[2021-10-24] MEDS: lisinopril 20 mg Tablet PO (09:44)
[2021-10-24] MEDS: azithromycin 250 mg Tablet 500 MG PO (09:54)
--- NOTE | 2021-10-24 13:56 | PC.NURSE ---
PT HAS DONE WELL FOR ME TODAY. PT WILL DISCHARGE. DISCHARGE PAPERWORK GONE OVER WITH PT. ALL QUESTIONS ANSWERED. IV REMOVED. CATHETER TIP INTACT. PT TOLERATED WELL. MEDICATIONS DELIVERED TO PTS BEDSIDE. PT SAFELY WHEELED OUT BY THIS NURSE.
== END 2021-10-24 13:59 | disposition home or self-care (01) | DRG 194 ==
LOC: ER 07:53 → MEDSURG 12:29
PROVIDERS: Admitting Provider Internal Medicine; Emergency Provider Emergency Medicine; PCP Internal Medicine; Visit Provider Internal Medicine
DX: J18.9 Pneumonia, unspecified organism (principal); Z68.42 Body mass index [BMI] 45.0-49.9, adult; I10 Essential (primary) hypertension; M54.17 Radiculopathy, lumbosacral region; E66.01 Morbid (severe) obesity due to excess calories; Z87.442 Personal history of urinary calculi; G47.30 Sleep apnea, unspecified
CPT/HCPCS: 36415; 36416; 36600; 71045; 71250; 80048; 80053; 82803; 82962; 83605; 83880; 84145; 85025; 86140; 86403; 87040; 87449; 87635; 87801; 93005; 94640; 94664; 96365; 96367; 96372; 96375; 99285; J0456; J0696; J1100; J1650; J2930; J7050; J7608; J7626; Q0144

== ENCOUNTER 2022-04-17 20:18 | Observation (INO) | payer OTHER, SELFPAY ==
[2022-04-17 20:23] VITALS: BP 178/91; PULSE 88; RESP 28; TEMP 37.1; O2SAT 87; BMI 45.0
--- NOTE | 2022-04-17 20:52 | ED_ITS ---
HPI - SOB/Dyspnea General: Chief Complaint: Shortness of Breath/Dyspnea Stated Complaint: sob, Low o2 Time Seen by Provider: 04/17/22 20:52 History of Present Illness: HPI Narrative: Mr. Moncada is a 61-year-old gentleman with hypertension, hyperlipidemia, h istory of COVID October requiring hospitalization who presents to the emergency department with respiratory symptoms. Onset of symptoms was approximately 4 days ago and gradual. He endorses cough associated now with generalized malaise and muscle aches including back pain. He has had progressive symptoms which are worse with exertion and are now moderate to severe. He does not have a baseline oxygen requirement but was hypoxemic on room air and now requiring oxygen. Additionally has noticed bilateral leg swelling which she has never had before. No other specific changes in health, exacerbating, or alleviating factors identified. Onset (ago): day(s) Timing: progressively worsening Severity: severe Exacerbating factors: exertion Review of Systems General: Reports: 10 or more systems reviewed and unremarkable except in HPI and below PFSH ED PFSH: Medical History COVID-19 Essential (primary) hypertension Gout Hernia Intervertebral disc disorders with radiculopathy, lumbosacral region Morbid obesity Retained ureteral stent RLS (restless legs syndrome) Sacroiliitis Sleep apnea Intolerant of noninvasive positive pressure ventilation Thoracic neuralgia Ureteral stone with hydronephrosis 7+ millimeters right proximal ureteral stone with high-grade obstruction and severe refractory renal colic. Required inpatient admission December 2019 and treated with endoscopy with laser lithotripsy and stent. 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 History of recent travel: No Current gender identity: Male Physical Exam Const: COMMON NORMALS: alert GENERAL APPEARANCE: cooperative and well developed HENMT: COMMON NORMALS: normocephalic and atraumatic HEAD & SCALP: normocephalic and atraumatic THROAT: posterior oropharynx normal Eye: COMMON NORMALS: conjunctivae normal CONJUNCTIVA: Yes conjunctivae normal SCLERA: sclerae normal Neck/C-Spine: COMMON NORMALS: supple GENERAL: Yes trachea midline Resp: EFFORT & INSPECTION: Yes able to speak in complete sentences AUSCULTATION: diminished lung sounds Cardio: COMMON NORMALS: regular rate and regular rhythm RATE: regular rate RHYTHM: regular rhythm GI: COMMON NORMALS: Soft to palpation PALPATION: Yes Soft to palpation and No Tenderness to palpation present (GI) Extremity: GENERAL: Yes normal exam except as noted and Yes edema Neuro: COMMON NORMALS: moves all extremities SENSORIUM/ORIENTATION: Yes alert and No Orientation impaired Psych: COMMON NORMALS: mental status grossly normal and Normal thought process present THOUGHT PROCESS: Normal thought process present Course ED course: - Patient was seen and evaluated by me at bedside - Patient placed on cardiac monitors, IV access obtained - Initial evaluation notable for exam as above - Labs and xrays personally interpreted by me. EKG with sinus rhythm, occasional PVCs. Nonspecific interventricular conduction delay. No STEMI. - RT treatment, fluids, analgesia, antibiotics ordered - Labs notable for mild leukocytosis, normal hemoglobin. ABG with hypoxemia. Metabolic panel with evidence of dehydration. Lactic elevated with repeat pending. Mild elevation in transaminases. RVP pending. - Imaging notable for no acute lobar consolidation or pneumothorax on chest x- ray. - Upon serial reexamination after treatment the patient was similar without significant improvement - Based on patient history, evaluation, and testing as interpreted the most likely cause of the patient's condition is clinically pneumonia. - The results of ED evaluation were discussed with the patient including plan for admission due to requirement for level of care not available if discharged to prevent significant worsening/deterioration. - Admitting service was contacted and Dr Babin with the hospitalist service agreed to admit the patient - Patient was admitted without further deterioration or significant events. Note: Click bubbles or prepopulated hoff in note writing are used for assistance with data collection and billing and are inherently more limited than narrative and other text portions of this note. Please use narrative for additional clinical history and defer to narrative/free test for any case of contradictory information. If information appears in only free text or click bubble it should be considered present or absent as reported. Please contact note technical document writer for clarifications of clinical information or contradictory information. MDM is a brief summary, contradictory or erroneous seeming information should be clarified and full note should be reviewed. Vital Signs: Vital signs: Vital Signs Temperature 97.7 F 04/20/22 12:00 Pulse Rate 73 04/20/22 12:00 Respiratory Rate 18 04/20/22 12:00 Blood Pressure 155/80 04/20/22 12:00 Pulse Oximetry 94 04/20/22 12:00 Oxygen Delivery Me thod 04/20/22 11:22 Oxygen Flow Rate 2 04/20/22 07:53 MDM - SOB/Dyspnea Medical Decision Making 61-year-old gentleman presenting with respiratory symptoms for 4 days and new oxygen requirement. Clinically patient has pneumonia and was noted to be hypoxemic in the 80s on room air with increased respiratory effort. Admitted for pneumonia and new oxygen requirement. Medical Records I reviewed the patient's medical records. Lab Data I reviewed the patient's lab results. : 04/20/22 04:42 04/20/22 04:42 Labs/Radiology: Radiology Impressions Chest X-Ray 04/17/22 20:56 IMPRESSION: No acute finding. Chest CT 04/19/22 12:37 IMPRESSION: 1. No acute pulmonary infiltrates. No focal pneumonia or pleural fluid 2. Slight bibasilar atelectasis. 3. No mediastinal or hilar lymphadenopathy. 4. Partially visualized cholelithiasis. 5. Coronary calcification. 6. Prior wire fixation LEFT rib fractures. Laboratory Results WBC 11.5 10^3/uL (4.0-10.0) H 04/17/22 21:15 RBC 5.13 10^6/uL (4.1-5.3) 04/17/22 21:15 Hgb 15.4 g/dL (11.7-16.6) 04/17/22 21:15 Hct 46.2 % (42.0-52.0) 04/17/22 21:15 MCV 90.1 fl (80-94) 04/17/22 21:15 MCH 30.0 pg (28.0-34.0) 04/17/22 21:15 MCHC 33.3 g/dL (30.0-36.0) 04/17/22 21:15 RDW 13.2 % (12.1-15.1) 04/17/22 21:15 Plt Count 234 10^3/cmm (130-400) 04/17/22 21:15 MPV 10.9 fL (7.4-10.4) H 04/17/22 21:15 Neut % (Auto) 67.4 % 04/17/22 21:15 Lymph % (Auto) 19.5 % 04/17/22 21:15 [place] % (Auto) 8.0 % 04/17/22 21:15 Eos % (Auto) 4.1 % 04/17/22 21:15 Baso % (Auto) 0.5 % 04/17/22 21:15 Neut # (Auto) 7.71 10^3/uL (1.8-7.7) H 04/17/22 21:15 Lymph # (Auto) 2.2 10^3/uL (0.8-4.8) 04/17/22 21:15 [place] # (Auto) 0.9 10^3/uL (0.2-0.9) 04/17/22 21:15 Eos # (Auto) 0.5 10^3/uL (0.0-0.8) 04/17/22 21:15 Baso # (Auto) 0.1 10^3/uL (0.0-0.1) 04/17/22 21:15 Nucleated RBC % (auto) 0 % 04/17/22 21:15 Nucleated RBCs # 0.0 /100WBC 04/17/22 21:15 D-Dimer 0.53 ug/mIFEU (0-0.59) 04/18/22 01:00 Specimen Type Arterial 04/17/22 21:00 Sample Site Radial, right 04/17/22 21:00 ABG pH 7.40 (7.35-7.45) 04/17/22 21:00 ABG pCO2 39.1 mmHg (35-45) 04/17/22 21:00 ABG pO2 67.3 mmHg (80.0-100.0) L 04/17/22 21:00 ABG HCO3 24.1 mmol/L (22-26) 04/17/22 21:00 ABG Base Excess -0.6 mmol/L (-2.0-2.0) 04/17/22 21:00 Ron Test Pos 04/17/22 21:00 Hematocrit 49.2 % (42-52) 04/17/22 21:00 O2 Delivery Device Nc 04/17/22 21:00 O2 Liters/Min 3.0 % 04/17/22 21:00 Escrow Assistant ID Everardo 04/17/22 21:00 Sodium 136 mmol/L (136-145) 04/17/22 21:15 Potassium 3.7 mmol/L (3.5-5.1) 04/17/22 21:15 Chloride 95 mmol/L (98-107) L 04/17/22 21:15 Carbon Dioxide 22 mmol/L (22-29) 04/17/22 21:15 Anion Gap 22.7 (5-19) H 04/17/22 21:15 BUN 26 mg/dL (8-23) H 04/17/22 21:15 Creatinine 1.3 mg/dL (0.7-1.2) H 04/17/22 21:15 GFR Calculation 55.9 mL/min (90-130) L 04/17/22 21:15 Glucose 133 mg/dL (65-115) H 04/17/22 21:15 Calculated Osmolality 289 mOsm/kg (285-295) 04/17/22 21:15 Lactate 2.9 mmol/L (0.5-2.2) H 04/17/22 21:15 Calcium 10.8 mg/dL (8.5-10.5) H 04/17/22 21:15 Total Bilirubin 0.3 mg/dL (0.15-1.2) 04/17/22 21:15 AST 52 U/L (0-40) H 04/17/22 21:15 ALT 72 U/L (0-41) H 04/17/22 21:15 Alkaline Phosphatase 84 IU/L (40-130) 04/17/22 21:15 Troponin T Baseline 22 ng/L (0-15) H 04/18/22 01:00 Troponin T 120 Minute 20.97 ng/L (0-15) H 04/18/22 01:49 Delta Troponin T -1.03 ABS# (0-10) L 04/18/22 01:49 C-Reactive Protein 8.7 mg/L (0.0-4.9) H 04/17/22 21:15 NT-Pro-B Natriuret Pep 55 pg/mL (0-125) 04/18/22 01:00 Total Protein 7.6 g/dL (6.6-8.7) 04/17/22 21:15 Albumin 4.5 g/dL (3.5-5.2) 04/17/22 21:15 Globulin 3.1 g/dL (1.3-4.6) 04/17/22 21:15 Procalcitonin 0.17 ng/mL (0-0.5) 04/17/22 21:15 Urine Color Yellow (Yellow) 04/17/22 21:40 Urine Appearance Clear (CLEAR) 04/17/22 21:40 Urine pH 5 (5-7) 04/17/22 21:40 Ur Specific [place] 1.020 (1.005-1.030) 04/17/22 21:40 Urine Protein Trace (Negative) 04/17/22 21:40 Urine Glucose (UA) Norm (Normal) 04/17/22 21:40 Urine Ketones 1+ (Negative) H 04/17/22 21:40 Urine Blood Neg (Negative) 04/17/22 21:40 Urine Nitrate Negative (Negative) 04/17/22 21:40 Urine Bilirubin Neg (Negative) 04/17/22 21:40 Urine Urobilinogen Norm mg/dL (Negative) 04/17/22 21:40 Ur Leukocyte Esterase Negative (Negative) 04/17/22 21:40 Urine RBC 0-4 /hpf (0-2) H 04/17/22 21:40 Urine WBC 0-4 /hpf (0-5) H 04/17/22 21:40 Ur Squamous Epith Cells 0-4 /hpf (0-5) H 04/17/22 21:40 Amorphous Sediment Trace /hpf 04/17/22 21:40 Urine Bacteria Trace /hpf (NONE) 04/17/22 21:40 Urine Mucus 1+ /hpf 04/17/22 21:40 Nasal Influ A H1 2008 PCR Not detected (NOT DETECT) 04/17/22 21:15 Adenovirus (PCR) Not detected (NOT DETECT) 04/17/22 21:15 C. pneumoniae DNA (PCR) Not detected (NOT DETECT) 04/17/22 21:15 Coronavirus 229E (PCR) Not detected (NOT DETECT) 04/17/22 21:15 Human Metapneumovir PCR Not detected (NOT DETECT) 04/17/22 21:15 Influenza A (H1) PCR Not detected (NOT DETECT) 04/17/22 21:15 Influenza A (H3) PCR Not detected (NOT DETECT) 04/17/22 21:15 Influenza Type A (PCR) Not detected (NOT DETECT) 04/17/22 21:15 Influenza Type B (PCR) Not detected (NOT DETECT) 04/17/22 21:15 M. pneumoniae (PCR) Not detected (NOT DETECT) 04/17/22 21:15 Parainfluenza 1 (PCR) Not detected (NOT DETECT) 04/17/22 21:15 Parainfluenza 2 (PCR) Not detected (NOT DETECT) 04/17/22 21:15 Parainfluenza 3 (PCR) Not detected (NOT DETECT) 04/17/22 21:15 Parainfluenza 4 (PCR) Not detected (NOT DETECT) 04/17/22 21:15 RSV Type A (PCR) Not detected (NOT DETECT) 04/17/22 21:15 RSV Type B (PCR) Not detected (NOT DETECT) 04/17/22 21:15 Entero/Rhino (PCR) Not detected (NOT DETECT) 04/17/22 21:15 SARS-CoV-2 (PCR) Not detected (NOT DETECT) 04/17/22 21:15 Discharge Plan Discharge Patient Disposition: Admitted As Inpatient Admit Provider: Elif Babin Clinical Impression: Pneumonia, Acute respiratory failure with hypoxia Condition: Stable Discharge Diet: Low Salt Discharge Activity: Increase activity as tolerated and Oxygen as instructed Coding Level of Care Code ED Avp for Delano Delarosa
--- NOTE | 2022-04-17 20:56 | XRR_ITS ---
PROCEDURE INFORMATION: Exam: XR Chest Exam date and time: 04/17/2022 9:04 PM Age: 61 years old Clinical indication: Shortness of breath; Additional info: SOB TECHNIQUE: Imaging protocol: Radiologic exam of the chest. Views: 1 view. COMPARISON: CT chest [facility] [id number] 10/21/2021 9:18 AM FINDINGS: Lungs: Left partial pneumonectomy changes. Mild atelectasis in the lung bases. Pleural spaces: Unremarkable. No pleural effusion. No pneumothorax. Heart/Mediastinum: Unremarkable. No cardiomegaly. Bones/joints: Left thoracotomy changes. XR/XR chest 1V portable [id number] IMPRESSION: No acute finding.
[2022-04-17 21:12] LABS: ABG PCO2 39.1 mmHg (35-45); Arterial Blood Gas Hematocrit 49.2 % (42-52); Base Excess ABG -0.6 mmol/L (-2.0-2.0); Blood Gas Allen Test Pos; Blood Gas Operator Identificat WALCI; Blood Gas Sample Site Radial, right; Blood Gas Sample Type Arterial; HCO3 ABG 24.1 mmol/L (22-26); Oxygen Device NC; PO2 ABG 67.3 mmHg (80.0-100.0)
[2022-04-17] MEDS: ipratropium-albuterol 3 mL Neb INHALATION (21:21)
[2022-04-17 21:22] VITALS: PULSE 80; RESP 18; O2SAT 94
[2022-04-17 21:25] VITALS: PULSE 79
[2022-04-17 21:25] LABS: Basophils # 0.1 10^3/uL (0.0-0.1); Basophils % 0.5 %; Eosinophils # 0.5 10^3/uL (0.0-0.8); Eosinophils % 4.1 %; Hematocrit 46.2 % (42.0-52.0); Hemoglobin 15.4 g/dL (11.7-16.6); Lymphocytes # 2.2 10^3/uL (0.8-4.8); Lymphocytes % 19.5 %; Mean Corpuscular HGB Conc 33.3 g/dL (30.0-36.0); Mean Corpuscular Volume 90.1 fl (80-94); Mean Platelet Volume 10.9 fL (7.4-10.4); Monocytes # 0.9 10^3/uL (0.2-0.9); Neutrophils # 7.71 10^3/uL (1.8-7.7); Neutrophils % 67.4 %; Nucleated Red Blood Cells % 0 %; Platelet Count 234 10^3/cmm (130-400); Red Blood Count 5.13 10^6/uL (4.1-5.3); Red Cell Distribution Width 13.2 % (12.1-15.1); White Blood Count 11.5 10^3/uL (4.0-10.0)
[2022-04-17 21:41] LABS: Lactate (Lactic Acid level) 2.9 mmol/L (0.5-2.2)
[2022-04-17 21:54] LABS: Urine Appearance Clear (CLEAR); Urine Color Yellow (Yellow)
[2022-04-17 21:55] LABS: Add Urine Culture? No; Add Urine Microscopic? YES; Amorphous Sediment Urine TRACE /hpf; Bacteria Urine TRACE /hpf; Bilirubin Urine Neg (Negative); Blood Urine Neg (Negative); Glucose Urine UA Norm (Normal); Ketones Urine 1+ (Negative); Leukocyte Esterase Urine Negative (Negative); Mucus Urine 1+ /hpf; Nitrate Urine Negative (Negative); Protein Urine Trace (Negative); RBC Urine 0-4 /hpf (0-2); Squamous Epithelial Cell Urine 0-4 /hpf (0-5); Urobilinogen Urine Norm (Negative); WBC Urine 0-4 /hpf (0-5); pH Urine 5 (5-7)
[2022-04-17 21:56] VITALS: BP 163/80; PULSE 80; RESP 17; O2SAT 92
[2022-04-17 21:58] LABS: NT Pro B Type Natriuretic Pept 60 pg/mL (0-125); Procalcitonin 0.17 ng/mL (0-0.5)
[2022-04-17 22:09] LABS: Alanine Aminotransferase 72 U/L (0-41); Albumin Level 4.5 g/dL (3.5-5.2); Alkaline Phosphatase 84 IU/L (40-130); Aspartate Amino Transferase 52 U/L (0-40); Blood Urea Nitrogen 26 mg/dL (8-23); C Reactive Protein 8.7 mg/L (0.0-4.9); Calcium 10.8 mg/dL (8.5-10.5); Carbon Dioxide 22 mmol/L (22-29); Chloride 95 mmol/L (98-107); Globulin 3.1 g/dL (1.3-4.6); Glomerular Filtration Rate 55.9 mL/min (90-130); Glucose 133 mg/dL (65-115); Osmolality Calculated 289 mOsm/kg (285-295); Sodium 136 mmol/L (136-145); Total Bilirubin 0.3 mg/dL (0.15-1.2); Total Protein 7.6 g/dL (6.6-8.7)
[2022-04-17 22:16] LABS: Anion Gap 22.7 (5-19); Potassium 3.7 mmol/L (3.5-5.1)
[2022-04-17] MEDS: sodium chloride 0.9% 1,000 ML 999 ML IV (23:00)
[2022-04-17 23:07] LABS: Adenovirus Not Detected (NOT DETECT); Chlamydia Pneumoniae Not Detected (NOT DETECT); Coronavirus 229E,HKU1,NL63,OC4 Not Detected (NOT DETECT); Human Metapneumovirus Not Detected (NOT DETECT); Human Rhinovirus/Enterovirus Not Detected (NOT DETECT); Influenza A Not Detected (NOT DETECT); Influenza A H1 Not Detected (NOT DETECT); Influenza A H1-2009 Not Detected (NOT DETECT); Influenza A H3 Not Detected (NOT DETECT); Influenza B Not Detected (NOT DETECT); Mycoplasma Pneumoniae Not Detected (NOT DETECT); Parainfluenza Virus Type 1 Not Detected (NOT DETECT); Parainfluenza Virus Type 2 Not Detected (NOT DETECT); Parainfluenza Virus Type 3 Not Detected (NOT DETECT); Parainfluenza Virus Type 4 Not Detected (NOT DETECT); Respiratory Syncytial Virus A Not Detected (NOT DETECT); Respiratory Syncytial Virus B Not Detected (NOT DETECT); SARS-COV-2 Not Detected (NOT DETECT)
--- NOTE | 2022-04-17 23:54 | ECG_ITS ---
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 Measurements Intervals [place] Rate: 69 P: 10 MS: 185 QRS: -57 QRSD: 137 T: 65 QT: 437 QTc: 470 Interpretive Statements SINUS RHYTHM WITH OCCASIONAL VENTRICULAR PREMATURE COMPLEXES INTRAVENTRICULAR CONDUCTION DELAY [130+ ms QRS DURATION] Compared to ECG 10/20/2021 03:22:03 Ventricular premature complex(es) now present Intraventricular conduction delay now present Left anterior fascicular block no longer present Electronically Signed On 04-19-2022 8:09:40 CDT by Jovanny Ozuna M.D. [id number]
[2022-04-18] VITALS (16 sets, daily range): BP systolic 108–172; BP diastolic 68–92; PULSE 62–91; RESP 16–21; TEMP 36.1–36.9; O2SAT 90–97; BMI 50.9
[2022-04-18] MEDS: cefTRIAXone 1,000 MG in sodium chloride 0.9% (plus) 50 ML 100 MG IV (00:25)
[2022-04-18] MEDS: morphine 4 mg/mL SDV 1 mL IVP (00:25)
[2022-04-18] MEDS: doxycycline 100 MG in sodium chloride 0.9% (plus) 100 ML IV (00:40)
[2022-04-18 01:23] LABS: D Dimer 0.53 ug/mIFEU (0-0.59)
[2022-04-18 01:31] LABS: Troponin(5th) Baseline 22 ng/L (0-15)
[2022-04-18 01:44] LABS: NT Pro B Type Natriuretic Pept 55 pg/mL (0-125)
--- NOTE | 2022-04-18 01:54 | ECG_ITS ---
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 Measurements Intervals [place] Rate: 61 P: 4 [place]: 185 QRS: -56 QRSD: 124 T: 64 QT: 453 QTc: 459 Interpretive Statements SINUS RHYTHM LEFT ANTERIOR FASCICULAR BLOCK [QRS AXIS <= -45, QR IN I, RS IN II] Compared to ECG 04/18/2022 00:06:14 Left anterior fascicular block now present Ventricular premature complex(es) no longer present Intraventricular conduction delay no longer present Electronically Signed On 04-19-2022 18:15:31 CDT by Jovanny Ozuna M.D. [id number]
[2022-04-18 02:24] LABS: Troponin 5 2HR 20.97 ng/L (0-15)
[2022-04-18 02:45] LABS: Troponin 5 2HR Delta -1.03 ABS# (0-10)
[2022-04-18] MEDS: ipratropium-albuterol 3 mL Neb INHALATION ×4 (03:42→19:45)
[2022-04-18] MEDS: acetaminophen 325 mg Tablet 650 MG PO ×2 (04:31→18:05)
[2022-04-18] MEDS: amlodipine 10 mg Tablet PO (05:32)
--- NOTE | 2022-04-18 05:54 | ECG_ITS ---
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 Measurements Intervals [place] Rate: 70 P: 78 [place]: 187 QRS: -46 QRSD: 117 T: 68 QT: 409 QTc: 444 Interpretive Statements SINUS RHYTHM WITH OCCASIONAL VENTRICULAR PREMATURE COMPLEXES LEFT ANTERIOR FASCICULAR BLOCK [QRS AXIS <= -45, QR IN I, RS IN II] NONSPECIFIC T-WAVE ABNORMALITY Compared to ECG 04/18/2022 01:48:18 Ventricular premature complex(es) now present T-wave abnormality now present Electronically Signed On 04-19-2022 18:15:25 CDT by Jovanny Ozuna M.D. [id number]
--- NOTE | 2022-04-18 07:23 | P.HP_ITS ---
Providers/Chief Complaint Admitting Physician: Elif Babin MD Primary Care Provider: Jono Arrington MD Chief Complaint: sob, Low o2 History of Present Illness Yuriy Moncada is a 61 year old male past medical history of hypertension, sleep apnea, morbid obesity, possible COPD presenting to the emergency room today with chief complaints of dyspnea. States that he has been having increased cough and dyspnea over the past 3 to 4 days to the point where he can hardly walk from bed to his bathroom without being short of breath. Normally his oxygen saturation runs at 95%, however he is noted this to be in the mid 80s ever since his symptoms started. He denies any chest pain. Denies any lower extremity edema. States that he felt similar when he last had a pneumonia in [facility] of this year, at that time he was diagnosed with community-acquired pneumonia, treated with antibiotics, RVP was positive for enterovirus. Concern was also for possibly undiagnosed COPD and he was recommended to follow-up with primary care provider for evaluation, however has not been able to complete the same. He has a new oxygen requirement of 3 L/min today. He has previously needed [facility] oxygen intermittently at 2 L/min. Review of Systems General: Reports: 10 or more systems reviewed and unremarkable except in HPI and below Const: Denies: fever(s), chills or body aches Eyes: Denies: change in vision, blurry vision or photophobia ENMT: Reports: hoarseness; Denies: throat pain, enlarged tonsils, odynophagia or nasal congestion Card: Denies: chest pain, palpitations, irregular heart rhythm, edema, swelling of feet/ankles, lightheadedness, pre-syncope, dyspnea on exertion or orthopnea Resp: Denies: dyspnea, productive cough, non-productive cough, wheezing, stridor, pain on inspiration, change in phlegm color, hemoptysis or chest congestion GI: Denies: abdominal pain, nausea, vomiting, hematemesis, coffee ground emesis, dysphagia, heartburn, diarrhea, constipation, GI cramping, change in stool character, hematochezia or melena : Denies: flank pain, dysuria, urinary frequency, urinary urgency, urinary hesitancy or hematuria Musc: Denies: neck pain, back pain, extremity pain, joint swelling, joint warmth or deformity Neuro: Denies: headache(s), numbness in extremities, weakness in extremities, sensory changes, difficulty walking, frequent falls, dizziness, vertigo, behavioral changes, Slurred speech present or seizure-like activity Psych: Denies: anxiety, depression, suicidal ideation or homicidal ideation Endo: Denies: polyuria, polydipsia, tired all the time, cold intolerance or hot flashes Jessee/Lymph: Denies: easy bruising or easy bleeding Medications/Allergies Home Medications Medication Instructions Recorded Confirmed Last Taken Type albuterol sulfate 90 mcg/actuation 2 inh INHALATION Q4H PRN #18 gm 10/19/21 10/28/21 10/19/21 Rx aerosol inhaler pantoprazole 40 mg tablet,delayed 40 mg PO DAILY PRN 10/20/21 10/28/21 Unknown History release albuterol sulfate 90 mcg/actuation 2 inh INHALATION Q8H PRN #8.5 g 10/24/21 10/28/21 Unknown Rx aerosol inhaler benzonatate 100 mg capsule 100 mg PO TID PRN #60 cap 10/24/21 10/28/21 Unknown Rx dextromethorphan-guaifenesin 10 1 tab-cap PO Q8H PRN #20 cap 10/24/21 10/28/21 Unknown Rx mg-200 mg capsule moxifloxacin 400 mg tablet 400 mg PO DAILY #10 tab 10/24/21 10/28/21 Unknown Rx omeprazole 20 mg capsule,delayed 20 mg PO DAILY #60 cap 10/24/21 10/28/21 Unknown Rx release codeine 10 mg-guaifenesin 100 mg/5 5 ml PO Q6H PRN #118 ml 10/28/21 10/28/21 Unk nown Rx mL oral liquid doxycycline hyclate 100 mg capsule 100 mg PO BID #10 cap 10/28/21 10/28/21 Unknown Rx prednisone 10 mg tablet See Rx Instructions .ROUTE 10/28/21 10/28/21 Unknown Rx .COMPLEX #1 tab chlorthalidone 25 mg tablet See Rx Instructions .ROUTE 11/26/21 Unknown Rx .COMPLEX #90 tab amlodipine 10 mg tablet 10 mg PO QAM #60 tab 11/30/21 Unknown Rx spironolactone 50 mg tablet See Rx Instructions .ROUTE 11/30/21 Unknown Rx .COMPLEX #90 tab ropinirole 0.5 mg tablet 0.5 mg PO DAILY PRN #30 tab 01/11/22 Unknown Rx lisinopril 20 mg tablet 20 mg PO DAILY #90 tab 01/26/22 Unknown Rx hydrochlorothiazide 50 mg tablet See Rx Instructions .ROUTE 03/02/22 Unknown Rx .COMPLEX #30 tablet Allergies Allergy/AdvReac Type Severity Reaction Status Date / Time No Known Allergies Allergy Verified 10/28/21 10:22 PFSH Acute PFSH: Medical History Acute post-thoracotomy pain Essential (primary) hypertension Hernia Intervertebral disc disorders with radiculopathy, lumbosacral region Morbid obesity Renal colic on right side Retained ureteral stent Sacroiliitis Thoracic neuralgia Ureteral stone with hydronephrosis 7+ millimeters right proximal ureteral stone with high-grade obstruction and severe refractory renal colic. Required inpatient admission December 2019 and treated with endoscopy with laser lithotripsy and stent. Surgical History History of esophagogastroduodenoscopy (EGD) 02/22/2013- NORMAL S/P carpal tunnel release S/P colonoscopy 06/13/2012- POLYPS S/P thoracotomy Family History Other Cancer Heart disease Social History Smoking and tobacco status: never smoked Alcohol intake: current Alcohol intake frequency: holidays/special occasions only Adopted: No Caregiver/support person: No Lives independently: No Household members: spouse Housing: House Marital status: Current occupational status: employed Current occupation: [employer] History of recent travel: No Current gender identity: Male Vitals/I&O/Wt Last Vital Signs Temp 98.5 F 04/18/22 04:00 Pulse 62 04/18/22 04:00 Resp 18 04/18/22 04:00 BP 108/68 04/18/22 04:00 Pulse Ox 96 04/18/22 04:00 04/17/22 04/18/22 04/18/22 22:59 06:59 14:59 Intake Total 1290 / 1290 Balance 1290 / 1290 Weight last 48 hrs Weight 184.754 kg Weight 163.293 kg Physical Exam Narrative: General: No acute distress, AO x3, coughing , no respiratory distress HEENT: PERRLA, pupils bilaterally equal and reactive, pallors not present Chest: Wheezing on auscultation B/L CVS: S1-S2 regular, no murmurs, no tachycardia, no gallops, no rubs Abdomen: Soft, obese, ventral hernia noted, no signs of incarceration Neuro: No focal deficits, no facial deformity, AO x3, power 5/5 in all limbs Extremities: Healthy surgical dressing present on the right hip, mild tendernes s, soft no erythema. Data : 04/17/22 21:15 04/17/22 21:15 Other Labs: Radiology Impressions Chest X-Ray 04/17/22 20:56 IMPRESSION: No acute finding. Laboratory Results WBC 11.5 10^3/uL (4.0-10.0) H 04/17/22 21:15 RBC 5.13 10^6/uL (4.1-5.3) 04/17/22 21:15 Hgb 15.4 g/dL (11.7-16.6) 04/17/22 21:15 Hct 46.2 % (42.0-52.0) 04/17/22 21:15 MCV 90.1 fl (80-94) 04/17/22 21:15 MCH 30.0 pg (28.0-34.0) 04/17/22 21:15 MCHC 33.3 g/dL (30.0-36.0) 04/17/22 21:15 RDW 13.2 % (12.1-15.1) 04/17/22 21:15 Plt Count 234 10^3/cmm (130-400) 04/17/22 21:15 MPV 10.9 fL (7.4-10.4) H 04/17/22 21:15 Neut % (Auto) 67.4 % 04/17/22 21:15 Lymph % (Auto) 19.5 % 04/17/22 21:15 Mccreary % (Auto) 8.0 % 04/17/22 21:15 Eos % (Auto) 4.1 % 04/17/22 21:15 Baso % (Auto) 0.5 % 04/17/22 21:15 Neut # (Auto) 7.71 10^3/uL (1.8-7.7) H 04/17/22 21:15 Lymph # (Auto) 2.2 10^3/uL (0.8-4.8) 04/17/22 21:15 Mccreary # (Auto) 0.9 10^3/uL (0.2-0.9) 04/17/22 21:15 Eos # (Auto) 0.5 10^3/uL (0.0-0.8) 04/17/22 21:15 Baso # (Auto) 0.1 10^3/uL (0.0-0.1) 04/17/22 21:15 Nucleated RBC % (auto) 0 % 04/17/22 21:15 Nucleated RBCs # 0.0 /100WBC 04/17/22 21:15 D-Dimer 0.53 ug/mIFEU (0-0.59) 04/18/22 01:00 Specimen Type Arterial 04/17/22 21:00 Sample Site Radial, right 04/17/22 21:00 ABG pH 7.40 (7.35-7.45) 04/17/22 21:00 ABG pCO2 39.1 mmHg (35-45) 04/17/22 21:00 ABG pO2 67.3 mmHg (80.0-100.0) L 04/17/22 21:00 ABG HCO3 24.1 mmol/L (22-26) 04/17/22 21:00 ABG Base Excess -0.6 mmol/L (-2.0-2.0) 04/17/22 21:00 Ron Test Pos 04/17/22 21:00 Hematocrit 49.2 % (42-52) 04/17/22 21:00 O2 Delivery Device Nc 04/17/22 21:00 O2 Liters/Min 3.0 % 04/17/22 21:00 Flight Manager ID Everardo 04/17/22 21:00 Sodium 136 mmol/L (136-145) 04/17/22 21:15 Potassium 3.7 mmol/L (3.5-5.1) 04/17/22 21:15 Chloride 95 mmol/L (98-107) L 04/17/22 21:15 Carbon Dioxide 22 mmol/L (22-29) 04/17/22 21:15 Anion Gap 22.7 (5-19) H 04/17/22 21:15 BUN 26 mg/dL (8-23) H 04/17/22 21:15 Creatinine 1.3 mg/dL (0.7-1.2) H 04/17/22 21:15 GFR Calculation 55.9 mL/min (90-130) L 04/17/22 21:15 Glucose 133 mg/dL (65-115) H 04/17/22 21:15 Calculated Osmolality 289 mOsm/kg (285-295) 04/17/22 21:15 Lactate 2.9 mmol/L (0.5-2.2) H 04/17/22 21:15 Calcium 10.8 mg/dL (8.5-10.5) H 04/17/22 21:15 Total Bilirubin 0.3 mg/dL (0.15-1.2) 04/17/22 21:15 AST 52 U/L (0-40) H 04/17/22 21:15 ALT 72 U/L (0-41) H 04/17/22 21:15 Alkaline Phosphatase 84 IU/L (40-130) 04/17/22 21:15 Troponin T Baseline 22 ng/L (0-15) H 04/18/22 01:00 Troponin T 120 Minute 20.97 ng/L (0-15) H 04/18/22 01:49 Delta Troponin T -1.03 ABS# (0-10) L 04/18/22 01:49 C-Reactive Protein 8.7 mg/L (0.0-4.9) H 04/17/22 21:15 NT-Pro-B Natriuret Pep 55 pg/mL (0-125) 04/18/22 01:00 Total Protein 7.6 g/dL (6.6-8.7) 04/17/22 21:15 Albumin 4.5 g/dL (3.5-5.2) 04/17/22 21:15 Globulin 3.1 g/dL (1.3-4.6) 04/17/22 21:15 Procalcitonin 0.17 ng/mL (0-0.5) 04/17/22 21:15 Urine Color Yellow (Yellow) 04/17/22 21:40 Urine Appearance Clear (CLEAR) 04/17/22 21:40 Urine pH 5 (5-7) 04/17/22 21:40 Ur Specific [place] 1.020 (1.005-1.030) 04/17/22 21:40 Urine Protein Trace (Negative) 04/17/22 21:40 Urine Glucose (UA) Norm (Normal) 04/17/22 21:40 Urine Ketones 1+ (Negative) H 04/17/22 21:40 Urine Blood Neg (Negative) 04/17/22 21:40 Urine Nitrate Negative (Negative) 04/17/22 21:40 Urine Bilirubin Neg (Negative) 04/17/22 21:40 Urine Urobilinogen Norm mg/dL (Negative) 04/17/22 21:40 Ur Leukocyte Esterase Negative (Negative) 04/17/22 21:40 Urine RBC 0-4 /hpf (0-2) H 04/17/22 21:40 Urine WBC 0-4 /hpf (0-5) H 04/17/22 21:40 Ur Squamous Epith Cells 0-4 /hpf (0-5) H 04/17/22 21:40 Amorphous Sediment Trace /hpf 04/17/22 21:40 Urine Bacteria Trace /hpf (NONE) 04/17/22 21:40 Urine Mucus 1+ /hpf 04/17/22 21:40 Nasal Influ A H1 2009 PCR Not detected (NOT DETECT) 04/17/22 21:15 Adenovirus (PCR) Not detected (NOT DETECT) 04/17/22 21:15 C. pneumoniae DNA (PCR) Not detected (NOT DETECT) 04/17/22 21:15 Coronavirus 229E (PCR) Not detected (NOT DETECT) 04/17/22 21:15 Human Metapneumovir PCR Not detected (NOT DETECT) 04/17/22 21:15 Influenza A (H1) PCR Not detected (NOT DETECT) 04/17/22 21:15 Influenza A (H3) PCR Not detected (NOT DETECT) 04/17/22 21:15 Influenza Type A (PCR) Not detected (NOT DETECT) 04/17/22 21:15 Influenza Type B (PCR) Not detected (NOT DETECT) 04/17/22 21:15 M. pneumoniae (PCR) Not detected (NOT DETECT) 04/17/22 21:15 Parainfluenza 1 (PCR) Not detected (NOT DETECT) 04/17/22 21:15 Parainfluenza 2 (PCR) Not detected (NOT DETECT) 04/17/22 21:15 Parainfluenza 3 (PCR) Not detected (NOT DETECT) 04/17/22 21:15 Parainfluenza 4 (PCR) Not detected (NOT DETECT) 04/17/22 21:15 RSV Type A (PCR) Not detected (NOT DETECT) 04/17/22 21:15 RSV Type B (PCR) Not detected (NOT DETECT) 04/17/22 21:15 Entero/Rhino (PCR) Not detected (NOT DETECT) 04/17/22 21:15 SARS-CoV-2 (PCR) Not detected (NOT DETECT) 04/17/22 21:15 Micro: Microbiology 04/17/22 22:37 Blood Culture - Preliminary Blood SPECIMEN COLLECTED 04/17/22 22:32 Blood Culture - Preliminary Blood SPECIMEN COLLECTED ABG Interpretation 1: 04/17/22 21:00 ABG pH 7.40 ABG pCO2 39.1 ABG pO2 67.3 L ABG HCO3 24.1 ABG Base Excess -0.6 A&P Assessment and plan (1) Acute bronchitis: Presenting today with complaints of cough dyspnea worsening over the past 3 to 4 days. He has remained afebrile. Chest x-ray without any consolidation. Patient signs and symptoms appear most consistent with acute bronchitis, may be viral in etiology. Respiratory viral panel negative including for COVID-19. He has significant wheezing and hypoxia with oxygen requirement of 3 L/min onexam today therefore will likely benefit from a course of IV steroids and scheduled nebulization over the next 24 to 48 hours. Scheduled DuoNeb every 6 hours, budesonide 0.5 mg inhalation every 12 hours. Methylprednisolone 40 mg IV every 8 hours Suspect that patient may have underlying COPD, encouraged to get PFTs as outpatient for diagnostic purposes. Additionally will likely require combination of LABA and LAMA inhalers. Currently he has just been using albuterol with increased frequency however has not seen any significant benefit. Negative D-dimer, less likely PE. Status: Acute (2) Hypoxia: Likely as a result of acute bronchitis. Status: Acute Plan #Complaints of abdominal pain, which started with bouts of excessive coughing. He does have a ventral hernia on exam, however no signs of incarceration or obstruction at this time. Attestations Medical Necessity Statement*: Anticipate less than 2 midnight admission for management of acute bronchitis. 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
[2022-04-18 08:13] LABS: Troponin 5 6HR 21.56 ng/L (0-15)
[2022-04-18 08:22] LABS: Troponin 5 6HR Delta -0.44 ng/L (0-12)
[2022-04-18] MEDS: budesonide 0.5 mg/2 mL Neb INHALATION ×2 (08:37→19:45)
[2022-04-18] MEDS: lisinopril 20 mg Tablet PO (08:48)
[2022-04-18] MEDS: pantoprazole DR 40 mg Tablet PO (08:48)
[2022-04-18] MEDS: hydroCHLOROthiazide 25 mg Tablet 50 MG PO (08:48)
[2022-04-18] MEDS: levoFLOXacin 750 mg Tablet PO (08:49)
[2022-04-18] MEDS: guaiFENesin-dextromethorphan UDC 10 mL 5 ML PO ×2 (08:51→18:01)
--- NOTE | 2022-04-18 18:18 | PM.PN ---
Subjective Subjective: Patient seen and examined. History reviewed. Reports that he gets pneumonia a couple of times a year every year. He has known sleep apnea but is not able to tolerate noninvasive positive pressure ventilation. He has never required oxygen before. He is currently requiring 2 L by nasal cannula. He has a seal barking like cough. Respiratory viral panel was unremarkable though including for parainfluenza. COVID rapid pcr testing was negative. D-dimer was normal. Imaging without evidence of infiltrate. Clinically with acute bronchitis. Also describes sinus symptoms and currently with nasal passage dryness from oxygen. Originally received Rocephin and doxycycline. Currently on oral Levaquin and breathing medicines. His cough has been quite persistent. Tolerating oral intake. He has requested a sleeping pill. He thinks prednisone works better for him than the Solu-Medrol. He is able to talk in sentences taking breaks. I suspect that there is a component of obesity hypoventilation given BMI of 50.9. Vitals/I&O/Wt Last Vital Signs Temp 98.1 F 04/18/22 15:24 Pulse 83 04/18/22 15:24 Resp 16 04/18/22 15:24 BP 148/86 04/18/22 15:24 Pulse Ox 92 04/18/22 15:24 04/18/22 04/18/22 04/18/22 06:59 14:59 22:59 Intake Total 1290 / 1290 600 / 600 960 / 1560 Output Total 450 / 450 650 / 1100 Balance 1290 / 1290 150 / 150 310 / 460 Weight last 48 hrs Weight 184.754 kg Weight 163.293 kg Data : 04/17/22 21:15 04/17/22 21:15 Micro: Microbiology 04/17/22 22:37 Blood Culture - Preliminary Blood SPECIMEN COLLECTED 04/17/22 22:32 Blood Culture - Preliminary Blood SPECIMEN COLLECTED Other data: Laboratory Tests 04/17/22 04/17/22 04/17/22 21:00 21:15 21:15 ABG pH 7.40 ABG pCO2 39.1 ABG pO2 67.3 L ABG HCO3 24.1 Lactate 2.9 H Calcium 10.8 H Total Bilirubin 0.3 AST 52 H ALT 72 H Alkaline Phosphatase 84 C-Reactive Protein 8.7 H NT-Pro-B Natriuret Pep 60 Albumin 4.5 Procalcitonin 0.17 04/18/22 04/18/22 04/18/22 01:00 01:00 01:49 D-Dimer 0.53 Troponin T Baseline 22 H Troponin T 120 Minute 20.97 H 04/18/22 07:24 Troponin T Hi Sens 6Hr 21.56 H Troponin T Hi Sens 6Hr Delta -0.44 L A&P Assessment and plan (1) Acute bronchitis: Specific organism/etiology unknown, respiratory viral panel was negative as was COVID PCR rapid testing. Sinus and allergy symptoms, reflux, environmental stimuli all considerations. Status: Acute (2) Creatinine elevation: From baseline prior values, minimal increase but of note patient is on 3 different diuretic formulations, DONNELL inhibitor and NSAID therapy in outpatient setting Status: Acute (3) Essential (primary) hypertension: Status: Chronic (4) Sleep apnea: Intolerant of noninvasive positive pressure ventilation Status: Chronic Qualifiers: Sleep apnea type: obstructive Qualified Code(s): G47.33 - Obstructive sleep apnea (adult) (pediatric) (5) Morbid obesity: Status: Chronic Plan Chronic transaminitis, suspect fatty liver Elevated lactic acid CO2 level was 39 on ABG, will see how he responds to Ambien Changed to oral prednisone Humidify oxygen Flonase and nasal saline were added Fluids overnight and recheck labs in the morning Patient has chlorthalidone, hydrochlorothiazide and spironolactone on his home medication list, will need to clarify outpatient regimen prior to discharge Attestations Medical Necessity Statement*: As per H&P Coding Level of Care Code 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
[2022-04-18] MEDS: fluticasone nasal spray 16gm Btl 1 SPRAY NASAL (18:29)
[2022-04-18] MEDS: sodium chloride 0.9% 1,000 ML 75 ML IV (19:31)
[2022-04-18] MEDS: zolpidem 5 mg Tablet PO (21:48)
[2022-04-19] VITALS (14 sets, daily range): BP systolic 134–178; BP diastolic 63–83; PULSE 73–102; RESP 16–20; TEMP 36.1–36.7; O2SAT 91–95
[2022-04-19] MEDS: ipratropium-albuterol 3 mL Neb INHALATION ×3 (02:58→19:47)
[2022-04-19 04:14] LABS: ABG PCO2 45.4 mmHg (35-45); ABG PH Result 7.35 (7.35-7.45); Arterial Blood Gas Hematocrit 44.9 % (42-52); Blood Gas Allen Test Pos; Blood Gas Operator Identificat WALCI; Blood Gas Sample Site Radial, right; Blood Gas Sample Type Arterial; Oxygen Device NC; PO2 ABG 77.2 mmHg (80.0-100.0)
[2022-04-19 04:41] LABS: Basophils % 0.1 %; Hematocrit 41.8 % (42.0-52.0); Hemoglobin 13.9 g/dL (11.7-16.6); Lymphocytes # 0.8 10^3/uL (0.8-4.8); Lymphocytes % 5.8 %; Mean Corpuscular HGB Conc 33.3 g/dL (30.0-36.0); Mean Corpuscular Hemoglobin 30.3 pg (28.0-34.0); Mean Corpuscular Volume 91.3 fl (80-94); Monocytes # 0.3 10^3/uL (0.2-0.9); Monocytes % 1.8 %; Neutrophils # 12.47 10^3/uL (1.8-7.7); Neutrophils % 91.4 %; Nucleated Red Blood Cells % 0 %; Platelet Count 222 10^3/cmm (130-400); Red Blood Count 4.58 10^6/uL (4.1-5.3); Red Cell Distribution Width 13.3 % (12.1-15.1); White Blood Count 13.7 10^3/uL (4.0-10.0)
[2022-04-19 05:02] LABS: Lactate (Lactic Acid level) 2.9 mmol/L (0.5-2.2)
[2022-04-19 05:03] LABS: Alanine Aminotransferase 52 U/L (0-41); Alkaline Phosphatase 59 IU/L (40-130); Anion Gap 15.4 (5-19); Aspartate Amino Transferase 34 U/L (0-40); Blood Urea Nitrogen 32 mg/dL (8-23); C Reactive Protein 4.8 mg/L (0.0-4.9); Calcium 10.2 mg/dL (8.5-10.5); Carbon Dioxide 25 mmol/L (22-29); Chloride 98 mmol/L (98-107); Globulin 3.1 g/dL (1.3-4.6); Glomerular Filtration Rate 61.3 mL/min (90-130); Glucose 220 mg/dL (65-115); Magnesium 1.7 mg/dL (1.7-2.3); Osmolality Calculated 292 mOsm/kg (285-295); Potassium 4.4 mmol/L (3.5-5.1); Sodium 134 mmol/L (136-145); Total Bilirubin 0.4 mg/dL (0.15-1.2); Total Protein 7.1 g/dL (6.6-8.7)
[2022-04-19] MEDS: amlodipine 10 mg Tablet PO (06:21)
[2022-04-19] MEDS: lisinopril 20 mg Tablet PO (09:08)
[2022-04-19] MEDS: levoFLOXacin 750 mg Tablet PO (09:08)
[2022-04-19] MEDS: pantoprazole DR 40 mg Tablet PO (09:08)
[2022-04-19] MEDS: fluticasone nasal spray 16gm Btl 1 SPRAY NASAL ×2 (09:08→18:32)
[2022-04-19] MEDS: loratadine 10 mg Tablet PO (09:08)
[2022-04-19] MEDS: hydroCHLOROthiazide 25 mg Tablet 50 MG PO (09:09)
[2022-04-19] MEDS: predniSONE 20 mg Tablet 40 MG PO (09:09)
[2022-04-19] MEDS: acetaminophen 325 mg Tablet 650 MG PO (09:10)
--- NOTE | 2022-04-19 10:44 | PC.CHAP ---
Pastoral Care Encounter/Spiritual Assessment Type of Contact [] Declined senior java web application developer visit [] Patient/Family/Request visit [] Outpatient visit [] Follow-up visit [] Physician referral [] Code/Alert [x] Routine visit [] Staff referral [] Actively dying [] Patient sleeping [] Family support [] [] Out of room [] Palliative care [] [] Receiving care in room [] Pre-surgical visit [] Trauma [] Long length of stay [] ICU visit [] Other: Relational/Emotional Strength [] Patient feels connected with others/family/visitors/staff [] Distress [] Loneliness/isolation [] Abandonment Spirituality of Patient [x] Person of Saranya [] Attends Anabaptist of their Saranya [x] Believes in Prayer [] Reads Bible or Buddhist materials [] There are Spiritual issues to be addressed Pilot Plant Technician Interventions [x] Prayer [] Active listening [] Non-anxious presence [] Spiritual/emotional support [] Crisis/trauma care [] Spiritual counseling [] Bereavement support [] Provided bereavement packet [] Provided Bible/devotional materials [] Provided toy/stuffed animal, coloring book to patient or family member [] Provided Communion [] Anointing/[place] [] Salvation [x] Completed spiritual assessment [] Other: Impact on Illness or Injury [] Angry [] Fearful [] Anxious [] Often cries [] Exhaustion [] Unable to work [] Unable to attend moravian [] Unable to walk/stand [] Unable to read [] Unable to drive [] Unable to eat/drink [] Unable to sleep [] Unable to be with family [] Patient intubated [] Other: Summary Time spent with patient 10 nmin
--- NOTE | 2022-04-19 12:37 | CT_ITS ---
WS: [id number] CT CHEST TECHNIQUE: Noncontrast CT of the chest with coronal and sagittal reformatted images. CLINICAL INFORMATION: r/o pnuemonia COMPARISON: CT chest October 21, 2021 DLP: 1184.[address] scans at [facility] use at least one of these dose optimization techniques: automated e xposure control; mA and/or kV adjustment per patient size (includes targeted exams where dose is matc hed to clinical indication); or iterative reconstruction. FINDINGS: Slight bibasilar atelectasis. No acute pulmonary infiltrates. No focal pneumonia or pleural fluid. No rmal caliber thoracic aorta. Coronary calcification. No mediastinal or hilar lymphadenopathy. No axil zoe lymphadenopathy. Normal GE junction. Partially visualized Cholelithiasis. Splenic artery calcification. Partially visu alized fatty atrophy of the pancreas. Hypertrophic changes thoracic spine. Prior wire fixation LEFT r ib fractures. CT/CT chest con [id number] IMPRESSION: 1. No acute pulmonary infiltrates. No focal pneumonia or pleural fluid 2. Slight bibasilar atelectasis. 3. No mediastinal or hilar lymphadenopathy. 4. Partially visualized cholelithiasis. 5. Coronary calcification. 6. Prior wire fixation LEFT rib fractures.
--- NOTE | 2022-04-19 12:40 | PM.PN ---
Subjective Subjective: Seen this morning. Patient states he has quite a bit of pain every time he coughs. He has a history of thoracotomy in the past and has had recurrent pneumonia last few hospital stays. He states his thoracotomy was done in 2003. He states that he does not feel like 100% and would not like to go home today. He is coughing quite a bit but unable to bring up any sputum. Lactic acid 2.9 today. He has never seen a microfilm machine operator in the past. Vitals/I&O/Wt Last Vital Signs Temp 98.1 F 04/19/22 11:36 Pulse 83 04/19/22 11:36 Resp 16 04/19/22 11:36 BP 138/83 04/19/22 11:36 Pulse Ox 94 04/19/22 11:36 04/18/22 04/19/22 04/19/22 22:59 06:59 14:59 Intake Total 960 / 1560 120 / 1680 1000 / 1000 Output Total 850 / 1300 425 / 1725 800 / 800 Balance 110 / 260 -305 / -45 200 / 200 Weight last 48 hrs Weight 184.754 kg Weight 163.293 kg Physical Exam Narrative: General: Alert oriented x3, patient seen sitting up in bed coughing uncontrollably. Desaturates down to mid 80s during coughing spells. Takes a while for saturation to come back up. HEENT: Normocephalic, atraumatic, EOMI, breathing normally on 3 L NC Cardio: Regular rate rhythm, normal S1-S2, Respiratory: Gross rhonchi bilateral lung hoff, decreased air entry GI: Abdomen soft, nontender, nondistended, bowel sounds + Behavior: Appropriate and cooperative Extremities: no edema, no cyanosis Data : 04/19/22 04:15 04/19/22 04:15 Micro: Microbiology 04/17/22 22:37 Blood Culture - Preliminary Blood NEGATIVE TO DATE 04/17/22 22:32 Blood Culture - Preliminary Blood NEGATIVE TO DATE A&P Assessment and plan (1) Acute bronchitis: Status: Acute (2) Essential (primary) hypertension: Status: Chronic (3) Morbid obesity: Status: Chronic (4) Prediabetes: Status: Acute (5) Sleep apnea: Status: Chronic Qualifiers: Sleep apnea type: obstructive Qualified Code(s): G47.33 - Obstructive sleep apnea (adult) (pediatric) (6) Creatinine elevation: Status: Acute Plan #Acute bronchitis #History of thoracotomy #COPD #Morbid obesity #Obstructive sleep apnea, undiagnosed #Hypertension - Presenting today with complaints of cough dyspnea worsening over the past 3 to 4 days.? He has remained afebrile. - Chest x-ray without any consolidation. Has been afebrile. - Respiratory viral panel negative including for COVID-19. - Scheduled DuoNeb every 6 hours, budesonide 0.5 mg inhalation every 12 hours. - Methylprednisolone 40 mg IV every 12H - Suspect that patient may have underlying COPD, encouraged to get PFTs as outpatient for diagnostic purposes.? Additionally will likely require combination of LABA and LAMA inhalers.? Currently he has just been using albuterol with increased frequency however has not seen any significant benefit. Negative D-dimer, less likely PE. -Check chest CT - Continue levofloxacin - ORder flutter valve, chest vest percussion therapy - Check sputum culture and gram stain Full Code DVT PPX: heparin Attestations Medical Necessity Statement*: Coughing a lot, Still requiring oxygen, will need IV steroids. 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
[2022-04-19] MEDS: heparin 5,000 unit/mL INJ 1 mL 5000 UNIT SUBCUT ×2 (18:35→21:04)
[2022-04-19] MEDS: budesonide 0.5 mg/2 mL Neb INHALATION (19:47)
[2022-04-19] MEDS: HYDROcodone-acetaminophen 5-325 mg Tablet 1 TAB PO (20:52)
[2022-04-20] VITALS (8 sets, daily range): BP systolic 115–170; BP diastolic 70–80; PULSE 71–77; RESP 18–20; TEMP 36.2–36.8; O2SAT 91–95
[2022-04-20] MEDS: HYDROcodone-acetaminophen 5-325 mg Tablet 1 TAB PO ×2 (01:28→08:14)
[2022-04-20] MEDS: morphine 4 mg/mL SDV 1 mL 2 MG IVP (01:30)
[2022-04-20] MEDS: ipratropium-albuterol 3 mL Neb INHALATION ×2 (03:26→07:59)
[2022-04-20 05:12] LABS: Basophils % 0.1 %; Hematocrit 42.4 % (42.0-52.0); Hemoglobin 14.1 g/dL (11.7-16.6); Lymphocytes # 0.8 10^3/uL (0.8-4.8); Lymphocytes % 5.2 %; Mean Corpuscular HGB Conc 33.3 g/dL (30.0-36.0); Mean Corpuscular Hemoglobin 30.1 pg (28.0-34.0); Mean Corpuscular Volume 90.6 fl (80-94); Mean Platelet Volume 11.3 fL (7.4-10.4); Monocytes # 0.5 10^3/uL (0.2-0.9); Monocytes % 3.2 %; Neutrophils # 13.03 10^3/uL (1.8-7.7); Neutrophils % 90.9 %; Nucleated Red Blood Cells % 0 %; Platelet Count 236 10^3/cmm (130-400); Red Blood Count 4.68 10^6/uL (4.1-5.3); Red Cell Distribution Width 13.7 % (12.1-15.1); White Blood Count 14.4 10^3/uL (4.0-10.0)
[2022-04-20] MEDS: heparin 5,000 unit/mL INJ 1 mL 5000 UNIT SUBCUT (05:28)
[2022-04-20] MEDS: amlodipine 10 mg Tablet PO (05:28)
[2022-04-20] MEDS: guaiFENesin-dextromethorphan UDC 10 mL 5 ML PO (05:31)
[2022-04-20 05:34] LABS: Blood Urea Nitrogen 39 mg/dL (8-23); Calcium 9.9 mg/dL (8.5-10.5); Carbon Dioxide 25 mmol/L (22-29); Chloride 98 mmol/L (98-107); Glomerular Filtration Rate 61.3 mL/min (90-130); Glucose 185 mg/dL (65-115); Osmolality Calculated 294 mOsm/kg (285-295); Sodium 135 mmol/L (136-145)
[2022-04-20] MEDS: budesonide 0.5 mg/2 mL Neb INHALATION (07:59)
[2022-04-20] MEDS: fluticasone nasal spray 16gm Btl 1 SPRAY NASAL (10:05)
[2022-04-20] MEDS: pantoprazole DR 40 mg Tablet PO (10:06)
[2022-04-20] MEDS: levoFLOXacin 750 mg Tablet PO (10:06)
[2022-04-20] MEDS: hydroCHLOROthiazide 25 mg Tablet 50 MG PO (10:06)
[2022-04-20] MEDS: lisinopril 20 mg Tablet PO (10:07)
[2022-04-20] MEDS: loratadine 10 mg Tablet PO (10:07)
--- NOTE | 2022-04-20 12:39 | PM.DCS ---
Discharge Providers Date of Admission: 04/18/22 03:00 Date of Discharge: April 20, 2022 Attending Provider at Admission: Elif Babin MD Attending Provider at Discharge: Chen Stevens MD Primary Care Provider: Jono Arrington MD Diagnoses at Discharge Discharge Diagnosis (1) Acute bronchitis: Status: Acute (2) Essential (primary) hypertension: Status: Chronic (3) Morbid obesity: Status: Chronic (4) Prediabetes: Status: Acute (5) Sleep apnea: Status: Chronic Qualifiers: Sleep apnea type: obstructive Qualified Code(s): G47.33 - Obstructive sleep apnea (adult) (pediatric) Permanent problem details: Intolerant of noninvasive positive pressure ventilation (6) Creatinine elevation: Status: Acute Reason for Visit Reason for Visit: sob, Low o2 Brief History: As per HPI Yuriy Moncada is a 61 year old male past medical history of hypertension, sleep apnea, morbid obesity, possible COPD presenting to the emergency room today with chief complaints of dyspnea.? States that he has been having increased cough and dyspnea over the past 3 to 4 days to the point where he can hardly walk from bed to his bathroom without being short of breath.? Normally his oxygen saturation runs at 95%, however he is noted this to be in the mid 80s ever since his symptoms started.? He denies any chest pain.? Denies any lower extremity edema.? States that he felt similar when he last had a pneumonia in October of this year, at that time he was diagnosed with community-acquired pneumonia, treated with antibiotics, RVP was positive for enterovirus.? Concern was also for possibly undiagnosed COPD and he was recommended to follow-up with primary care provider for evaluation, however has not been able to complete the same. He has a new oxygen requirement of 3 L/min today.? He has previously needed nighttime oxygen intermittently at 2 L/min. Hospital Course Hospital Course Patient was admitted for complaints of dyspnea. He was started on antibiotics empirically. He also had a new oxygen requirement of 3 L/day he also complained of pain every time he coughs. He did have a thoracotomy in the past and had recurrent pneumonias last few hospital stays according to him. Thoracotomy was done in 2003. He was coughing and unable to bring up white sputum. Chest vest therapy was initiated. Incentive spirometer and flutter valve was given to him. Patient did feel better on the day of discharge. Saturating well on 2 L nasal cannula. He qualified for 2 L of oxygen at home. That was set up for him. His pain was well controlled. He was given prednisone taper along with albuterol, Symbicort, Spiriva inhalers. He was asked to follow-up with pulmonology after discharge. D-dimer was negative. CT chest showed no evidence of pneumonia. He remained afebrile. He was discharged home in stable condition. Also for his cough he was given Robitussin with codeine and hydrocodone for pain for 5 days. Additionally I gave him DuoNeb inhaled nebulization for 7-day. To use as needed. Radha this plan with the patient in detail and he was in agreement. Physical Exam Narrative: General: Alert oriented x3, patient seen sitting up in bed coughing uncontrollably.? Saturating 2 L on nasal cannula. HEENT: Normocephalic, atraumatic, EOMI, breathing normally on 3 L NC Cardio: Regular rate rhythm, normal S1-S2, Respiratory: Gross rhonchi bilateral lung hoff, decreased air entry GI: Abdomen soft, nontender, nondistended, bowel sounds + Behavior: Appropriate and cooperative Extremities: no edema, no cyanosis ? Discharge Data Studies Completed and Pending Completed Studies During Hospitalization Category Date Time Status CT chest wo con [id number] Urgent Cat Scan 04/19/22 12:37 Completed XR chest 1V portable [id number] Urgent Exams 04/17/22 20:56 Completed Pending at discharge Category Date Time Status Blood Culture Stat Lab 04/17/22 22:37 Results Radiology Impressions Chest X-Ray 04/17/22 20:56 IMPRESSION: No acute finding. Chest CT 04/19/22 12:37 IMPRESSION: 1. No acute pulmonary infiltrates. No focal pneumonia or pleural fluid 2. Slight bibasilar atelectasis. 3. No mediastinal or hilar lymphadenopathy. 4. Partially visualized cholelithiasis. 5. Coronary calcification. 6. Prior wire fixation LEFT rib fractures. Laboratory Results WBC 14.4 10^3/uL (4.0-10.0) H 04/20/22 04:42 RBC 4.68 10^6/uL (4.1-5.3) 04/20/22 04:42 Hgb 14.1 g/dL (11.7-16.6) 04/20/22 04:42 Hct 42.4 % (42.0-52.0) 04/20/22 04:42 MCV 90.6 fl (80-94) 04/20/22 04:42 MCH 30.1 pg (28.0-34.0) 04/20/22 04:42 MCHC 33.3 g/dL (30.0-36.0) 04/20/22 04:42 RDW 13.7 % (12.1-15.1) 04/20/22 04:42 Plt Count 236 10^3/cmm (130-400) 04/20/22 04:42 MPV 11.3 fL (7.4-10.4) H 04/20/22 04:42 Neut % (Auto) 90.9 % 04/20/22 04:42 Lymph % (Auto) 5.2 % 04/20/22 04:42 [place] % (Auto) 3.2 % 04/20/22 04:42 Eos % (Auto) 0.0 % 04/20/22 04:42 Baso % (Auto) 0.1 % 04/20/22 04:42 Neut # (Auto) 13.03 10^3/uL (1.8-7.7) H 04/20/22 04:42 Lymph # (Auto) 0.8 10^3/uL (0.8-4.8) 04/20/22 04:42 [place] # (Auto) 0.5 10^3/uL (0.2-0.9) 04/20/22 04:42 Eos # (Auto) 0.0 10^3/uL (0.0-0.8) 04/20/22 04:42 Baso # (Auto) 0.0 10^3/uL (0.0-0.1) 04/20/22 04:42 Nucleated RBC % (auto) 0 % 04/20/22 04:42 Nucleated RBCs # 0.0 /100WBC 04/20/22 04:42 D-Dimer 0.53 ug/mIFEU (0-0.59) 04/18/22 01:00 Specimen Type Arterial 04/19/22 04:03 Sample Site Radial, right 04/19/22 04:03 ABG pH 7.35 (7.35-7.45) 04/19/22 04:03 ABG pCO2 45.4 mmHg (35-45) H 04/19/22 04:03 ABG pO2 77.2 mmHg (80.0-100.0) L 04/19/22 04:03 ABG HCO3 25.0 mmol/L (22-26) 04/19/22 04:03 ABG Base Excess -1.0 mmol/L (-2.0-2.0) 04/19/22 04:03 Ron Test Pos 04/19/22 04:03 Hematocrit 44.9 % (42-52) 04/19/22 04:03 O2 Delivery Device Nc 04/19/22 04:03 O2 Liters/Min 2.0 % 04/19/22 04:03 Rn Intern ID Walxochitl 04/19/22 04:03 Sodium 135 mmol/L (136-145) L 04/20/22 04:42 Potassium 5.0 mmol/L (3.5-5.1) 04/20/22 04:42 Chloride 98 mmol/L (98-107) 04/20/22 04:42 Carbon Dioxide 25 mmol/L (22-29) 04/20/22 04:42 Anion Gap 17.0 (5-19) 04/20/22 04:42 BUN 39 mg/dL (8-23) H 04/20/22 04:42 Creatinine 1.2 mg/dL (0.7-1.2) 04/20/22 04:42 GFR Calculation 61.3 mL/min (90-130) L 04/20/22 04:42 Glucose 185 mg/dL (65-115) H 04/20/22 04:42 Calculated Osmolality 294 mOsm/kg (285-295) 04/20/22 04:42 Lactate 2.9 mmol/L (0.5-2.2) H 04/19/22 04:15 Calcium 9.9 mg/dL (8.5-10.5) 04/20/22 04:42 Magnesium 2.0 mg/dL (1.7-2.3) 04/20/22 04:42 Total Bilirubin 0.4 mg/dL (0.15-1.2) 04/19/22 04:15 AST 34 U/L (0-40) 04/19/22 04:15 ALT 52 U/L (0-41) H 04/19/22 04:15 Alkaline Phosphatase 59 IU/L (40-130) 04/19/22 04:15 Troponin T Baseline 22 ng/L (0-15) H 04/18/22 01:00 Troponin T 120 Minute 20.97 ng/L (0-15) H 04/18/22 01:49 Delta Troponin T -1.03 ABS# (0-10) L 04/18/22 01:49 Troponin T Hi Sens 6Hr 21.56 ng/L (0-15) H 04/18/22 07:24 Troponin T Hi Sens 6Hr Delta -0.44 ng/L (0-12) L 04/18/22 07:24 C-Reactive Protein 4.8 mg/L (0.0-4.9) 04/19/22 04:15 NT-Pro-B Natriuret Pep 55 pg/mL (0-125) 04/18/22 01:00 Total Protein 7.1 g/dL (6.6-8.7) 04/19/22 04:15 Albumin 4.0 g/dL (3.5-5.2) 04/19/22 04:15 Globulin 3.1 g/dL (1.3-4.6) 04/19/22 04:15 Procalcitonin 0.17 ng/mL (0-0.5) 04/17/22 21:15 Urine Color Yellow (Yellow) 04/17/22 21:40 Urine Appearance Clear (CLEAR) 04/17/22 21:40 Urine pH 5 (5-7) 04/17/22 21:40 Ur Specific [place] 1.020 (1.005-1.030) 04/17/22 21:40 Urine Protein Trace (Negative) 04/17/22 21:40 Urine Glucose (UA) Norm (Normal) 04/17/22 21:40 Urine Ketones 1+ (Negative) H 04/17/22 21:40 Urine Blood Neg (Negative) 04/17/22 21:40 Urine Nitrate Negative (Negative) 04/17/22 21:40 Urine Bilirubin Neg (Negative) 04/17/22 21:40 Urine Urobilinogen Norm mg/dL (Negative) 04/17/22 21:40 Ur Leukocyte Esterase Negative (Negative) 04/17/22 21:40 Urine RBC 0-4 /hpf (0-2) H 04/17/22 21:40 Urine WBC 0-4 /hpf (0-5) H 04/17/22 21:40 Ur Squamous Epith Cells 0-4 /hpf (0-5) H 04/17/22 21:40 Amorphous Sediment Trace /hpf 04/17/22 21:40 Urine Bacteria Trace /hpf (NONE) 04/17/22 21:40 Urine Mucus 1+ /hpf 04/17/22 21:40 Nasal Influ A H1 2009 PCR Not detected (NOT DETECT) 04/17/22 21:15 Adenovirus (PCR) Not detected (NOT DETECT) 04/17/22 21:15 C. pneumoniae DNA (PCR) Not detected (NOT DETECT) 04/17/22 21:15 Coronavirus 229E (PCR) Not detected (NOT DETECT) 04/17/22 21:15 Human Metapneumovir PCR Not detected (NOT DETECT) 04/17/22 21:15 Influenza A (H1) PCR Not detected (NOT DETECT) 04/17/22 21:15 Influenza A (H3) PCR Not detected (NOT DETECT) 04/17/22 21:15 Influenza Type A (PCR) Not detected (NOT DETECT) 04/17/22 21:15 Influenza Type B (PCR) Not detected (NOT DETECT) 04/17/22 21:15 M. pneumoniae (PCR) Not detected (NOT DETECT) 04/17/22 21:15 Parainfluenza 1 (PCR) Not detected (NOT DETECT) 04/17/22 21:15 Parainfluenza 2 (PCR) Not detected (NOT DETECT) 04/17/22 21:15 Parainfluenza 3 (PCR) Not detected (NOT DETECT) 04/17/22 21:15 Parainfluenza 4 (PCR) Not detected (NOT DETECT) 04/17/22 21:15 RSV Type A (PCR) Not detected (NOT DETECT) 04/17/22 21:15 RSV Type B (PCR) Not detected (NOT DETECT) 04/17/22 21:15 Entero/Rhino (PCR) Not detected (NOT DETECT) 04/17/22 21:15 SARS-CoV-2 (PCR) Not detected (NOT DETECT) 04/17/22 21:15 Vitals Last Vital Signs Temp 97.7 F 04/20/22 12:00 Pulse 73 04/20/22 12:00 Resp 18 04/20/22 12:00 BP 155/80 04/20/22 12:00 Pulse Ox 94 04/20/22 12:00 Discharge Plan Discharge Patient Disposition: Home Condition: Stable Prescriptions: New hydrocodone-acetaminophen 5-325 mg Tablet 1 tab PO Q4H PRN (Reason: Moderate Pain) 5 Days Qty: 10 0RF levofloxacin 750 mg Tablet 750 mg PO DAILY 7 Days Qty: 7 0RF prednisone 20 mg tablet See Rx Instructions .ROUTE .COMPLEX Qty: 11 0RF Rx Instructions: 40 mg x 3 days 20 mg x 3 days 10 mg x 3 days 5 mg x 3 days budesonide-formoterol [Symbicort] 160-4.5 mcg/actuation HFA aerosol inhaler 2 inh inhalation BID 30 Days Qty: 10.2 0RF Spiriva Respimat 2.5 mcg/actuation mist 2 inh inhalation DAILY 30 Days Qty: 4 0RF ipratropium-albuterol 0.5 mg-3 mg(2.5 mg base)/3 mL solution for nebulization 3 ml inhalation Q8H PRN (Reason: shortness of breath or wheezing) 7 Days Qty: 15 0RF Continued amlodipine 10 mg tablet 10 mg PO QAM Qty: 60 3RF ropinirole 0.5 mg tablet 0.5 mg PO DAILY PRN (Reason: Restless Leg(S)) Qty: 30 3RF lisinopril 20 mg tablet 20 mg PO DAILY Qty: 90 3RF albuterol sulfate 90 mcg/actuation HFA aerosol inhaler 2 inh INHALATION Q4H PRN (Reason: shortness of breath or wheezing) Qty: 18 0RF pantoprazole 40 mg tablet,delayed release (DR/EC) 40 mg PO DAILY PRN (Reason: Acid Reflux) 0RF Discontinued spironolactone 50 mg tablet 50 mg PO DAILY 0RF celecoxib 400 mg capsule 400 mg PO DAILY 0RF No Action chlorthalidone 25 mg Tablet 25 mg PO DAILY 0RF hydrochlorothiazide 50 mg tablet 50 mg PO DAILY 0RF Discharge Orders: Discharge Order (Routine); Ordered 04/20/22 Ordered By: Chen Stevens Other Ambulatory Orders: DME: Oxygen (Order) Location: None Selected Ordered By: Chen Stevens Referrals: Jono Arrington MD [Primary Care Provider] - 04/27/22 3:30 pm Datar,Ronald Albert MD [Physician] - 05/03/22 10:15 am (Patient will be seeing Dr. Aceves) Discharge Diet: Low Salt Discharge Activity: Increase activity as tolerated and Oxygen as instructed Patient Instructions: Benzonatate (By mouth), Hydrocodone/Acetaminophen (By mouth) (Vicodin, [place], Lortab), Ipratropium (By breathing), Prednisone (By mouth), Dextromethorphan (By mouth), Levofloxacin (By mouth), Budesonide (By breathing), Pneumonia (ED), Opioid Safety, Pneumonia Stoplight Activity Restrictions/Additional Instructions: Please return to ER if you develop a fever, worsening shortness of breath, lightheadedness, increased sputum production, change in color of sputum, lower extremity swelling, difficulty breathing. Please follow up with pulmonology and primary care doctor as scheduled. Discharge Attestations Time Spent in Discharge Care*: less than 30 min Quality Metrics Clinical Quality Measures [ No reported AMI, CVA or VTE this stay] Coding Level of Care Code Acute Chg [facility] note Diagnoses Acute bronchitis J20.9 Essential (primary) hypertension I10 Morbid obesity E66.01 Prediabetes R73.03 Sleep apnea G47.33 Sleep apnea type: obstructive Creatinine elevation R79.89
== END 2022-04-20 11:54 | disposition home or self-care (01) ==
LOC: ER 04-18 00:06 → MEDSURG 04-18 03:25
PROVIDERS: Hospitalist; Admitting Provider Student in an Organized Health Care Education/Training Program; Emergency Provider Emergency Medicine; PCP Internal Medicine; Visit Provider Internal Medicine
DX: J20.9 Acute bronchitis, unspecified (principal); I10 Essential (primary) hypertension; E66.01 Morbid (severe) obesity due to excess calories; Z68.43 Body mass index [BMI] 50.0-59.9, adult; R73.03 Prediabetes; G47.33 Obstructive sleep apnea (adult) (pediatric); R79.89 Other specified abnormal findings of blood chemistry; J44.9 Chronic obstructive pulmonary disease, unspecified; Z99.81 Dependence on supplemental oxygen
CPT/HCPCS: 36415; 36600; 71045; 71250; 80048; 80053; 81001; 82803; 83605; 83735; 83880; 84145; 84484; 85025; 85378; 86140; 87040; 87486; 87581; 87633; 93005; 94640; 94669; 96365; 96367; 96372; 96375; 99285; G0378; J0696; J1644; J2270; J2920; J3490; J7030; J7512; J7626

== ENCOUNTER 2022-04-22 01:36 | Inpatient (IN) | payer MEDICARE, OTHER, SELFPAY ==
[2022-04-22] VITALS (18 sets, daily range): BP systolic 120–202; BP diastolic 72–94; PULSE 58–110; RESP 15–24; TEMP 36.5–36.7; O2SAT 79–97; BMI 46.2
--- NOTE | 2022-04-22 01:53 | XRR_ITS ---
PROCEDURE INFORMATION: Exam: XR Chest Exam date and time: 04/22/2022 2:02 AM Age: 61 years old Clinical indication: Cough and shortness of breath; Prior surgery; Surgery type: Left thoracotomy; Patient HX: C/O cough with severe SOB. History of chronic rib fractures. TECHNIQUE: Imaging protocol: Radiologic exam of the chest. Views: 1 view. COMPARISON: CT chest con [id number] 04/19/2022 2:34 PM FINDINGS: Lungs: Minimal right basilar pulmonary scarring and atelectasis noted. The remainder of the lung parenchyma is clear. Pleural spaces: Blunting of the left costophrenic angle again noted likely due to scarring and postsurgical changes, similar to prior exam. Difficult to exclude small left-side pleural effusion. Heart/Mediastinum: The cardiomediastinal silhouette is within normal limits. Bones/joints: Unremarkable. Soft tissues: Postsurgical changes in the left chest again noted. XR/XR chest 1V portable [id number] IMPRESSION: 1. No dense confluent lobar opacities concerning for significant pneumonia identified. 2. Chronic changes in the lung bases. Difficult to exclude small left-side pleural effusion.
--- NOTE | 2022-04-22 01:53 | ECG_ITS ---
[facility] Test Date: 2022-04-22 Pat Name: Yuriy Moncada Department: Room: Gender: Male Isotope Technician: : 1960 Requested By: Chato Reed Order Number: [id number] Dago MD: Betty Turner M.D. Measurements Intervals [place] Rate: 73 P: 21 IA: 198 QRS: -62 QRSD: 127 T: 72 QT: 406 QTc: 448 Interpretive Statements SINUS RHYTHM LEFT ANTERIOR FASCICULAR BLOCK [QRS AXIS <= -45, QR IN I, RS IN II] Compared to ECG 04/18/2022 03:47:20 Ventricular premature complex(es) no longer present T-wave abnormality no longer present Electronically Signed On 04-22-2022 21:13:49 CDT by Betty Turner M.D. [id number]
--- NOTE | 2022-04-22 01:56 | W.ED.SOB ---
HPI - SOB/Dyspnea General: Chief Complaint: ER Hold Stated Complaint: cough, SOB Time Seen by Provider: 04/22/22 01:52 History of Present Illness: HPI Narrative: Mr. Moncada is a 61-year-old gentleman with history of hypertension, hyperlipidemia, obesity, remote history of COVID presenting to the emergency department due to shortness of breath. He was recently hospitalized for similar and felt improved and subsequently worsened over the past 24 hours. He notes marked increased work of breathing with dyspnea on exertion. He has been coughing. Overall course of symptoms has worsened. No other specific changes in health, exacerbating, or alleviating factors identified. Onset (ago): hour(s) Context: recent illness Timing: progressively worsening Severity: severe Exacerbating factors: exertion Associated symptoms: Reports cough Review of Systems General: Reports: 10 or more systems reviewed and unremarkable except in HPI and below PFSH ED PFSH: Medical History COVID-19 Essential (primary) hypertension Gout Hernia Intervertebral disc disorders with radiculopathy, lumbosacral region Morbid obesity Retained ureteral stent RLS (restless legs syndrome) Sacroiliitis Sleep apnea Intolerant of noninvasive positive pressure ventilation Thoracic neuralgia Ureteral stone with hydronephrosis 7+ millimeters right proximal ureteral stone with high-grade obstruction and severe refractory renal colic. Required inpatient admission December 2019 and treated with endoscopy with laser lithotripsy and stent. Surgical History History of esophagogastroduodenoscopy (EGD) 02/22/2013- NORMAL S/P carpal tunnel release S/P colonoscopy 06/13/2012- POLYPS S/P thoracotomy Family History Other Cancer Heart disease Social History Smoking and tobacco status: never smoked Alcohol intake: current Alcohol intake frequency: holidays/special occasions only Adopted: No Caregiver/support person: No Lives independently: No Household members: spouse Housing: House Marital status: Current occupational status: employed Current occupation: [employer] History of recent travel: No Current gender identity: Male Physical Exam Const: COMMON NORMALS: alert GENERAL APPEARANCE: cooperative, well developed, in distress and ill appearing HENMT: COMMON NORMALS: normocephalic and atraumatic HEAD & SCALP: normocephalic and atraumatic THROAT: posterior oropharynx normal Eye: COMMON NORMALS: conjunctivae normal CONJUNCTIVA: Yes conjunctivae normal SCLERA: sclerae normal Neck/C-Spine: COMMON NORMALS: supple GENERAL: Yes trachea midline Resp: EFFORT & INSPECTION: Yes tachypneic and Yes respiratory distress AUSCULTATION: rhonchi and diminished lung sounds OTHER: 88% on 8 LPM nasal cannula Cardio: COMMON NORMALS: regular rate and regular rhythm RATE: regular rate RHYTHM: regular rhythm GI: COMMON NORMALS: Soft to palpation PALPATION: Yes Soft to palpation and No Tenderness to palpation present (GI) PERCUSSION: normal to percussion Extremity: GENERAL: Yes normal exam except as noted and Yes edema Neuro: COMMON NORMALS: moves all extremities SENSORIUM/ORIENTATION: Yes alert and No Orientation impaired Psych: COMMON NORMALS: mental status grossly normal and Normal thought process present THOUGHT PROCESS: Normal thought process present Course ED course: - Patient was seen and evaluated by me at bedside - Patient placed on cardiac monitors, IV access obtained - Initial evaluation notable for ill appearance, exam as above. Hypoxemic despite supplemental oxygen. - Labs and xrays personally interpreted by me. EKG sinus rhythm with no STEMI - COPD treatment ordered. BiPAP ordered. - Labs notable for mild leukocytosis. ABG with hypoxemia despite nasal cannula. Metabolic panel with evidence of dehydration. Negative delta troponin - Imaging notable for lobar consolidation or pneumothorax. - Upon serial reexamination after treatment the patient was improved with BiPAP - Based on patient history, evaluation, and testing as interpreted the most likely cause of the patient's condition is acute hypoxic respiratory failure of somewhat unclear etiology - The results of ED evaluation were discussed with the patient including plan for admission due to requirement for level of care not available if discharged to prevent significant worsening/deterioration. - Admitting service was contacted and Dr Mcbride with the hospital service agreed to admit the patient - Patient was admitted without further deterioration or significant events. Note: Click bubbles or prepopulated hoff in note writing are used for assistance with data collection and billing and are inherently more limited than narrative and other text portions of this note. Please use narrative for additional clinical history and defer to narrative/free test for any case of contradictory information. If information appears in only free text or click bubble it should be considered present or absent as reported. Please contact note machine sign writer for clarifications of clinical information or contradictory information. MDM is a brief summary, contradictory or erroneous seeming information should be clarified and full note should be reviewed. Vital Signs: Vital signs: Vital Signs Temperature 98.3 F 04/29/22 11:16 Pulse Rate 96 04/29/22 14:55 Respiratory Rate 17 04/29/22 14:55 Blood Pressure 143/85 04/29/22 11:16 Pulse Oximetry 93 04/29/22 14:55 Oxygen Delivery Me thod 04/29/22 14:55 Oxygen Flow Rate 4 04/29/22 14:55 Fraction of Inspir ed Oxygen 40 04/29/22 02:49 MDM - SOB/Dyspnea Medical Decision Making 61-year-old gentleman presenting with respiratory distress. Patient hypoxemic on room air and required BiPAP. No clear etiology identified on the evaluation. Admitted for further management and investigation. Medical Records I reviewed the patient's medical records. Lab Data I reviewed the patient's lab results. : 04/29/22 06:15 04/29/22 06:15 Labs/Radiology: Radiology Impressions Chest X-Ray 04/22/22 01:53 IMPRESSION: 1. No dense confluent lobar opacities concerning for significant pneumonia identified. 2. Chronic changes in the lung bases. Difficult to exclude small left-side pleural effusion. Chest CTA 04/22/22 04:51 IMPRESSION: 1. No pulmonary embolism identified. 2. Bibasilar atelectasis. 3. No pleural effusions. 4. Stable cardiomegaly. 5. Cholelithiasis identified in partially visualized gallbladder. COMMENTS: Consistent with the [place] [employer]'s Incidental Findings Committee white paper (J Am Aspen Radiol 2017): Any incidental adrenal lesion less than 1 cm is likely benign. No follow-up imaging is recommended for these lesions per consensus recommendations based on imaging criteria. Further lab evaluation could be pursued if warranted based on clinical findings. Laboratory Results WBC 12.1 10^3/uL (4.0-10.0) H 04/22/22 02:13 RBC 5.30 10^6/uL (4.1-5.3) 04/22/22 02:13 Hgb 16.0 g/dL (11.7-16.6) 04/22/22 02:13 Hct 49.5 % (42.0-52.0) 04/22/22 02:13 MCV 93.4 fl (80-94) 04/22/22 02:13 MCH 30.2 pg (28.0-34.0) 04/22/22 02:13 MCHC 32.3 g/dL (30.0-36.0) 04/22/22 02:13 RDW 14.3 % (12.1-15.1) 04/22/22 02:13 Plt Count 285 10^3/cmm (130-400) 04/22/22 02:13 MPV 10.9 fL (7.4-10.4) H 04/22/22 02:13 Neut % (Auto) 75.1 % 04/22/22 02:13 Lymph % (Auto) 16.0 % 04/22/22 02:13 [place] % (Auto) 7.9 % 04/22/22 02:13 Eos % (Auto) 0.1 % 04/22/22 02:13 Baso % (Auto) 0.1 % 04/22/22 02:13 Neut # (Auto) 9.08 10^3/uL (1.8-7.7) H 04/22/22 02:13 Lymph # (Auto) 1.9 10^3/uL (0.8-4.8) 04/22/22 02:13 [place] # (Auto) 1.0 10^3/uL (0.2-0.9) H 04/22/22 02:13 Eos # (Auto) 0.0 10^3/uL (0.0-0.8) 04/22/22 02:13 Baso # (Auto) 0.0 10^3/uL (0.0-0.1) 04/22/22 02:13 Nucleated RBC % (auto) 0 % 04/22/22 02:13 Nucleated RBCs # 0.0 /100WBC 04/22/22 02:13 Specimen Type Arterial 04/22/22 01:55 Sample Site Radial, left 04/22/22 01:55 ABG pH 7.37 (7.35-7.45) 04/22/22 01:55 ABG pCO2 39.7 mmHg (35-45) 04/22/22 01:55 ABG pO2 50.4 mmHg (80.0-100.0) L 04/22/22 01:55 ABG HCO3 23.0 mmol/L (22-26) 04/22/22 01:55 ABG Base Excess -2.1 mmol/L (-2.0-2.0) L 04/22/22 01:55 Ron Test Pos 04/22/22 01:55 Hematocrit 49.5 % (42-52) 04/22/22 01:55 O2 Delivery Device Nc 04/22/22 01:55 O2 Liters/Min 6.0 % 04/22/22 01:55 [facility] ID Hensa 04/22/22 01:55 Sodium 135 mmol/L (136-145) L 04/22/22 02:38 Potassium 4.8 mmol/L (3.5-5.1) 04/22/22 02:38 Chloride 98 mmol/L (98-107) 04/22/22 02:38 Carbon Dioxide 24 mmol/L (22-29) 04/22/22 02:38 Anion Gap 17.8 (5-19) 04/22/22 02:38 BUN 35 mg/dL (8-23) H 04/22/22 02:38 Creatinine 1.3 mg/dL (0.7-1.2) H 04/22/22 02:38 GFR Calculation 55.9 mL/min (90-130) L 04/22/22 02:38 Glucose 115 mg/dL (65-115) 04/22/22 02:38 Calculated Osmolality 289 mOsm/kg (285-295) 04/22/22 02:38 Calcium 9.9 mg/dL (8.5-10.5) 04/22/22 02:38 Total Bilirubin 0.5 mg/dL (0.15-1.2) 04/22/22 02:38 AST 51 U/L (0-40) H 04/22/22 02:38 ALT 85 U/L (0-41) H 04/22/22 02:38 Alkaline Phosphatase 61 IU/L (40-130) 04/22/22 02:38 Troponin T Baseline 36 ng/L (0-15) H 04/22/22 02:38 NT-Pro-B Natriuret Pep 156 pg/mL (0-125) H 04/22/22 02:38 Total Protein 7.1 g/dL (6.6-8.7) 04/22/22 02:38 Albumin 4.4 g/dL (3.5-5.2) 04/22/22 02:38 Globulin 2.7 g/dL (1.3-4.6) 04/22/22 02:38 SARS-CoV-2 Ag (Rapid) Negative (Negative) 04/22/22 02:25 Discharge Plan Discharge Patient Disposition: Admitted As Inpatient Admit Provider: Eric Mcbride Clinical Impression: Acute respiratory failure with hypoxia Condition: Stable Discharge Diet: Cardiac and Diabetic Discharge Activity: Resume usual activity and Increase activity as tolerated Coding Level of Care Code ED Sanitary Plumber for [place] Fwd Exam Comprehensive
[2022-04-22 02:05] LABS: ABG PCO2 39.7 mmHg (35-45); ABG PH Result 7.37 (7.35-7.45); Arterial Blood Gas Hematocrit 49.5 % (42-52); Base Excess ABG -2.1 mmol/L (-2.0-2.0); Blood Gas Allen Test Pos; Blood Gas Sample Site Radial, left; Blood Gas Sample Type Arterial; Oxygen Device NC; PO2 ABG 50.4 mmHg (80.0-100.0)
[2022-04-22] MEDS: ipratropium-albuterol 3 mL Neb INHALATION ×4 (02:15→21:28)
[2022-04-22 02:16] LABS: Basophils % 0.1 %; Eosinophils % 0.1 %; Hematocrit 49.5 % (42.0-52.0); Lymphocytes # 1.9 10^3/uL (0.8-4.8); Mean Corpuscular HGB Conc 32.3 g/dL (30.0-36.0); Mean Corpuscular Hemoglobin 30.2 pg (28.0-34.0); Mean Corpuscular Volume 93.4 fl (80-94); Mean Platelet Volume 10.9 fL (7.4-10.4); Monocytes % 7.9 %; Neutrophils # 9.08 10^3/uL (1.8-7.7); Neutrophils % 75.1 %; Nucleated Red Blood Cells % 0 %; Platelet Count 285 10^3/cmm (130-400); Red Cell Distribution Width 14.3 % (12.1-15.1); White Blood Count 12.1 10^3/uL (4.0-10.0)
[2022-04-22 02:45] LABS: SARS Covid-2 Antigen Negative (Negative)
[2022-04-22 03:01] LABS: Troponin(5th) Baseline 36 ng/L (0-15)
[2022-04-22 03:09] LABS: Albumin Level 4.4 g/dL (3.5-5.2); Alkaline Phosphatase 61 IU/L (40-130); Anion Gap 17.8 (5-19); Blood Urea Nitrogen 35 mg/dL (8-23); Calcium 9.9 mg/dL (8.5-10.5); Carbon Dioxide 24 mmol/L (22-29); Chloride 98 mmol/L (98-107); Globulin 2.7 g/dL (1.3-4.6); Glomerular Filtration Rate 55.9 mL/min (90-130); Glucose 115 mg/dL (65-115); NT Pro B Type Natriuretic Pept 156 pg/mL (0-125); Osmolality Calculated 289 mOsm/kg (285-295); Potassium 4.8 mmol/L (3.5-5.1); Sodium 135 mmol/L (136-145); Total Bilirubin 0.5 mg/dL (0.15-1.2); Total Protein 7.1 g/dL (6.6-8.7)
[2022-04-22 03:20] LABS: Alanine Aminotransferase 85 U/L (0-41); Aspartate Amino Transferase 51 U/L (0-40)
--- NOTE | 2022-04-22 03:53 | ECG_ITS ---
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 Measurements Intervals [place] Rate: 58 P: 68 [place]: 193 QRS: -18 QRSD: 128 T: 48 QT: 460 QTc: 453 Interpretive Statements SINUS BRADYCARDIA MODERATE INTRAVENTRICULAR CONDUCTION DELAY [110+ ms QRS DURATION] Compared to ECG 04/22/2022 02:01:00 Intraventricular conduction delay now present Sinus rhythm no longer present Left anterior fascicular block no longer present Electronically Signed On 04-22-2022 21:19:13 CDT by Betty Turner M.D. [id number]
[2022-04-22] MEDS: morphine 4 mg/mL SDV 1 mL IVP (04:29)
--- NOTE | 2022-04-22 04:30 | USCV_ITS ---
Yuriy Moncada Age: 61 Gender: M : 1960 Exam Date: 04/22/2022 06:43 Ordering Phys: Eric Mcbride MD Technologist: VICKIE Exam Location: [facility] – [place] Indication: CHRONIC HEART FAILURE, HYPOXIA BP: 165 / 78 HR: 71 Rhythm: Sinus Technical Quality: Suboptimal MEASUREMENTS (Male / Female) Normal Values 2D ECHO LVOT Diameter 2.1 cm LV Ejection Fraction MOD 2C 67.8 % LV Ejection Fraction 2C AL 67.3 % LA Diameter 3.0 cm LA Width 3.5 cm LA Height 4.3 cm RA Width 3.4 cm RA Height 4.2 cm Aorta at Sinotubular Diameter 2.8 cm DOPPLER AV Peak Velocity 156.0 cm/s LVOT Peak Velocity 135.0 cm/s AV Area Cont Eq vti 3.1 cm squared AV Area Cont Eq pk 2.9 cm squared MV Peak Velocity 73.0 cm/s MV Area PHT 3.0 cm squared Mitral E to A Ratio 0.7 MV E' Velocity 31.0 cm/s Mitral E to MV E' Ratio 6.8 Mitral E to LV E' Lateral Ratio 7.5 Mitral E to LV E' Septal Ratio 6.3 TR Peak Velocity 186.9 cm/s TR Peak Gradient 14.0 mmHg TR Mean Velocity 143.3 cm/s TR Mean Gradient 8.7 mmHg TR Velocity Time Integral 37.6 cm TV Peak E Velocity 46.0 cm/s Right Atrial Pressure 8.0 mmHg Pulmonary Artery Systolic Pressu 22.0 mmHg PV Peak Velocity 103.0 cm/s RV Acceleration Time 0.1 s RV Ejection Time 0.3 s RV AcT/ET 0.5 FINDINGS Left Ventricle Normal left ventricular size. LV systolic function is normal with EF of 55 to 60%. No regional wall motion abnormalities seen. Grade 1 diastolic dysfunction. Right Ventricle Grossly normal in size and function. Right Atrium The right atrium is normal in size. Left Atrium The left atrium is normal in size. Mitral Valve Grossly normal without significant stenosis or prolapse. There is mild mitral regurgitation. Aortic Valve Not well-visualized. No significant stenosis or regurgitation. Tricuspid Valve Structurally normal tricuspid valve without significant stenosis. Trace tricuspid regurgitation. Insufficient TR jet to calculate RVSP Pulmonic Valve Not visualized Pericardium Normal pericardium without effusion. Aorta Normal ascending aorta dimension. IVC CONCLUSIONS Mildly limited quality echocardiogram because of poor ultrasonic windows. LV systolic function is normal with EF of 55 to 60%. Grade 1 diastolic dysfunction. Mild mitral regurgitation. Trace tricuspid regurgitation Compared to prior echocardiogram from 09/06/2020, no significant changes are noted Jovanny Ozuna MD (Electronically Signed) Final Date: 22 April 2022 11:43 S
--- NOTE | 2022-04-22 04:44 | P.HP_ITS ---
Providers/Chief Complaint Admitting Physician: Eric Mcbride Primary Care Provider: Jono Arrington MD Chief Complaint: cough, SOB History of Present Illness Pleasant 61-year-old gentleman with a number of comorbidities, reports including history of sleep apnea diagnosed in the past, but not on CPAP, and has not had a sleep study in a while, states feels he has gotten over it, with history of COVID-19 in October, with morbid obesity, other chronic comorbidities returns to the hospital after discharge on 70 after hospitalization for treatment of acute bronchitis, suspected COPD exacerbation, at that time with negative D-dimer, negative viral PCR studies including COVID-19, no acute infiltrates on chest CT, slight basilar atelectasis, coronary calcification, prior wire fixation of her left rib fractures. He states that he had had partial improvement, at discharge required 304 L nasal cannula oxygen. States that he felt all right until about yesterday when he started feeling more short of breath again. Reports he has cough, but it is dry, he feels his chest is congested, he is not bringing anything up. He is having some chest pressure. He is also reporting some orthopnea. Leg swelling reports is now worse as well. He was found to be quite hypoxic by EMS, requiring up to 8 L of oxygen, in ER he is started on BiPAP support 60% FiO2, saturation currently 96%. Chest x-ray without obvious opacities, chronic changes Basis, difficult exclude small left-sided pleural effusion. ABG 7.37/39.7/50.4 on 6 L nasal cannula. He has received breathing treatment, Solu-Medrol, morphine. He is currently tolerating BiPAP well. Reports left-sided chest wall tenderne ss/pain with palpation, inspiration which she states got worse with cough. Review of Systems Const: Denies: fever(s), chills, body aches or malaise Eyes: Denies: change in vision, eye discomfort or eye redness ENMT: Denies: throat pain, oral sores or ear or mastoid pain Card: Reports: chest pain (Chest pressure), swelling of feet/ankles, dyspnea on exertion and orthopnea; Denies: pre-syncope Resp: Reports: dyspnea, non-productive cough, pain on inspiration and chest congestion; Denies: productive cough, change in phlegm color or hemoptysis GI: Denies: abdominal pain, nausea, vomiting, diarrhea, constipation, hematochezia or melena : Denies: flank pain, difficulty urinating, urinary frequency or hematuria Musc: Denies: back pain, joint swelling or joint redness Skin/Breast: Denies: rash or new lesions Neuro: Denies: headache(s), numbness in extremities, weakness in extremities, dizziness, confusion or seizure-like activity Endo: Denies: polyuria or polydipsia [place]/Lymph: Denies: easy bleeding or tender lymph nodes All/Imm: Denies: urticaria or tongue swelling Medications/Allergies Home Medications Medication Instructions Recorded Confirmed Last Taken Type albuterol sulfate 90 mcg/actuation 2 inh INHALATION Q4H PRN #18 gm 10/19/21 04/18/22 10/19/21 Rx aerosol inhaler pantoprazole 40 mg tablet,delayed 40 mg PO DAILY PRN 10/20/21 04/18/22 Unknown History release amlodipine 10 mg tablet 10 mg PO QAM #60 tab 11/30/21 04/18/22 Unknown Rx ropinirole 0.5 mg tablet 0.5 mg PO DAILY PRN #30 tab 01/11/22 04/18/22 Unknown Rx lisinopril 20 mg tablet 20 mg PO DAILY #90 tab 01/26/22 04/18/22 Unknown Rx hydrochlorothiazide 50 mg tablet See Rx Instructions .ROUTE 03/02/22 04/18/22 Unknown Rx .COMPLEX #30 tablet benzonatate 100 mg capsule 100 mg PO TID PRN 7 Days #14 cap 04/20/22 Unknown Rx budesonide-formoterol HFA 160 2 inh INHALATION BID 30 Days #10.2 04/20/22 Unknown Rx mcg-4.5 mcg/actuation aerosol g inhaler (Symbicort) dextromethorphan-guaifenesin 10 5 ml PO Q4H PRN 7 Days #100 ml 04/20/22 Unknown Rx mg-100 mg/5 mL oral syrup hydrocodone 5 mg-acetaminophen 325 1 tab PO Q4H PRN 5 Days #10 tab 04/20/22 Unknown Rx mg tablet ipratropium 0.5 mg-albuterol 3 mg 3 ml INHALATION Q8H PRN 7 Days #15 04/20/22 Unknown Rx (2.5 mg base)/3 mL nebulization ml soln levofloxacin 750 mg tablet 750 mg PO DAILY 7 Days #7 tab 04/20/22 Unknown Rx prednisone 20 mg tablet See Rx Instructions .ROUTE 04/20/22 Unknown Rx .COMPLEX #11 tab tiotropium bromide 2.5 2 inh INHALATION DAILY 30 Days #4 g 04/20/22 Unknown Rx mcg/actuation mist for inhalation (Spiriva Respimat) Allergies Allergy/AdvReac Type Severity Reaction Status Date / Time No Known Allergies Allergy Verified 10/28/21 10:22 PFSH Acute PFSH: Medical History COVID-19 Essential (primary) hypertension Gout Hernia Intervertebral disc disorders with radiculopathy, lumbosacral region Morbid obesity Retained ureteral stent RLS (restless legs syndrome) Sacroiliitis Sleep apnea Intolerant of noninvasive positive pressure ventilation Thoracic neuralgia Ureteral stone with hydronephrosis 7+ millimeters right proximal ureteral stone with high-grade obstruction and severe refractory renal colic. Required inpatient admission December 2019 and treated with endoscopy with laser lithotripsy and stent. 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 History of recent travel: No Current gender identity: Male Vitals/I&O/Wt Last Vital Signs Temp 97.7 F 04/22/22 01:52 Pulse 58 L 04/22/22 03:22 Resp 18 04/22/22 04:29 BP 169/84 04/22/22 03:22 Pulse Ox 96 04/22/22 03:22 Weight last 48 hrs Weight 167.829 kg Physical Exam Const: COMMON NORMALS: alert GENERAL APPEARANCE: cooperative NUTRITIONAL APPEARANCE: obese morbidly obese ORIENTATION/CONSCIOUSNESS: Yes awake OTHER: BiPAP HENMT: COMMON NORMALS: normocephalic, EAC's normal, Normal external nose present and moist oral mucous membranes HEAD & SCALP: normocephalic NOSE: Normal external nose present EXTERNAL AUDITORY CANAL: EAC's normal Neck/C-Spine: COMMON NORMALS: no meningeal signs Chest: CHEST: Yes Symmetrical chest wall rise OTHER: Tender to palpation L lower chest Resp: AUSCULTATION: no rales, no rhonchi, no wheezes and diminished lung sounds Cardio: COMMON NORMALS: regular rate, regular rhythm and No murmurs present (Cardio) RATE: regular rate RHYTHM: regular rhythm GI: COMMON NORMALS: Normal to inspection, nondistended, normoactive bowel s ounds present, Soft to palpation and non-tender PALPATION: Yes Soft to pa lpation Extremity: GENERAL: Yes edema (2+) Neuro: COMMON NORMALS: moves all extremities SENSORIUM/ORIENTATION: Yes alert MENINGEAL SIGNS: Yes no meningeal signs Psych: COMMON NORMALS: mental status grossly normal Skin: COMMON NORMALS: no wounds RASHES: no rashes Data : 04/22/22 02:13 04/22/22 02:38 A&P Assessment and plan (1) Acute respiratory failure with hypoxia: With some improvement at discharge after last hospitalization, discharged on 3-4 L nasal cannula he states, however, quite hypoxic on reevaluation by EMS, required 8 L nasal cannula, in ER requiring BiPAP support. Currently tolerating BiPAP support. Breathing sounds are somewhat diminished, but overall not wheezing, no rhonchi crackles. Suspected component of COPD exacerbation/bronchial reactivity. Would benefit from formal pulmonary function test after recovers. Possible component of CHF as well as he does report orthopnea, does have worsened leg edema. BNP is not elevated, but may be falsely low due to obesity. Lasix 20 mg IV x1 TTE In addition he does report chest pressure, I do not see any recent cardiac evaluation. Complete troponin EKG series. TTE. If no evidence of acute IN, May benefit from additional risk stratification by stress testing once respiratory status more stable. Additionally discussed with him D-dimer which has been pending, and subsequent follow-up assessment for PE in case abnormal. During last admission COVID-19 and other viral PCR studies were negative. Rapid COVID-19 currently negative. Lidocaine patch for chest wall tenderness due to cough. Status: Acute (2) Chest pressure: I do not see any recent cardiac evaluation. Complete troponin EKG series. TTE. If no evidence of acute IN, May benefit from additional risk stratification by stress testing once respiratory status more stable. Will give aspirin for now. No beta-radhika for now due to possible acute CHF. Assess lipid profile. Cardiac monitoring. Status: Acute (3) Orthopnea: As above. Status: Acute (4) Leg edema: As above. Lower extremity duplex, assess for DVT. Status: Acute (5) Transaminitis: Appears to have some chronicity to transaminitis, will need additional follow-up on this. Status: Acute (6) Sleep apnea: Reports having had a sleep study but it has been a while, no recent study. He is not on CPAP. Concerned that he may be triggering a degree of pulmonary edema with untreated sleep apnea. Reported intolerant of CPAP, but is tolerating BiPAP currently. Would consider referral again for sleep study to see if can be set up with the device he can tolerate. Status: Chronic Qualifiers: Sleep apnea type: obstructive Qualified Code(s): G47.33 - Obstructive sleep apnea (adult) (pediatric) (7) JESUS (acute kidney injury): Hold lisinopril. HCTZ. UA, urine creatinine, urine urea. Follow-up renal function. Status: Acute Plan HTN RLS Morbid obesity DDD Thoracic neuralgia Other chronic conditions. Please review and reorder medications once they are confirmed. Attestations Medical Necessity Statement*: Admission of over 2 midnights is anticipated for assessment of management of acute hypoxic respiratory failure. 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
[2022-04-22 04:49] LABS: D Dimer 2.07 ug/mIFEU (0-0.59)
--- NOTE | 2022-04-22 04:51 | CTR_ITS ---
PROCEDURE INFORMATION: Exam: CTA Chest With Contrast Exam date and time: 04/22/2022 5:40 AM Age: 61 years old Clinical indication: Dyspnea and shortness of breath; Additional info: Assess for pe TECHNIQUE: Imaging protocol: Computed tomographic angiography of the chest with contrast. 3D rendering (Not supervised by radiologist): MIP and/or 3D reconstructed images were created by the technologist. Radiation optimization: All CT scans at this facility use at least one of these dose optimization techniques: automated exposure control; mA and/or kV adjustment per patient size (includes targeted exams where dose is matched to clinical indication); or iterative reconstruction. Contrast material: OMNIPAQUE 350; Contrast volume: 95 ml; Contrast route: INTRAVENOUS (IV); COMPARISON: CT angio chest PE protcl [id number] 10/19/2021 11:12 AM RADIATION DOSE METRICS: Total DLP (mGy-cm): 631.61 FINDINGS: Pulmonary arteries: No central or segmental filling pulmonary artery filling defects are identified. Aorta: The aorta is normal in course and caliber. Lungs: Linear left lower lobe atelectasis with scarring. Right basilar atelectasis. Pleural spaces: No pneumothorax. No pleural effusion. Heart: Coronary artery calcifications noted. The heart is mildly enlarged for size. Lymph nodes: The visualized supraclavicular region appears normal. No mediastinal or hilar adenopathy is identified. Liver: Questionable mild hepatic steatosis. Gallbladder and bile ducts: Gallstones identified in the partially visualized gallbladder lumen. Adrenal glands: 1.7 cm left adrenal nodule measuring 10 Hounsfield units in the medial limb. Additional 1.6 cm left adrenal nodule measuring 7 Hounsfield units in the lateral limb and body. These are overall favored to be adenomas. Bones/joints: Postsurgical changes in the anterior lower left ribs. Multilevel degenerative changes in the spine. Soft tissues: Unremarkable. CT/CT angio chest PE protcl [id number] IMPRESSION: 1. No pulmonary embolism identified. 2. Bibasilar atelectasis. 3. No pleural effusions. 4. Stable cardiomegaly. 5. Cholelithiasis identified in partially visualized gallbladder. COMMENTS: Consistent with the [place] [employer]'s Incidental Findings Committee white paper (J Am Aspen Radiol 2017): Any incidental adrenal lesion less than 1 cm is likely benign. No follow-up imaging is recommended for these lesions per consensus recommendations based on imaging criteria. Further lab evaluation could be pursued if warranted based on clinical findings.
[2022-04-22 04:54] LABS: Troponin 5 2HR 20.87 ng/L (0-15)
--- NOTE | 2022-04-22 04:59 | USCV_ITS ---
Yuriy Moncada Age: 61 Gender: M : 1960 Exam Date: 04/22/2022 06:26 Ordering Phys: Eric Mcbride MD Technologist: VICKIE Exam Location: [facility] – [place] Indication: HYPOXIA HISTORY: Lower extremity swelling. PROCEDURES: Venous duplex imaging was performed in bilateral lower extremities. The following venous structures were evaluated: common femoral vein, profunda vein, proximal portion of the greater saphenous vein, superficial femoral vein, and the popliteal vein. In addition, the posterior tibial and peroneal trunk were evaluated. Serial compression, augmentation maneuvers, and spectral Doppler flow evaluation were performed. FINDINGS: No evidence of DVT seen in any vessel visualized at this time. Examination was technically limited due to body habitus. CONCLUSIONS No evidence of right lower extremity DVT. No evidence of left lower extremity DVT. Ziyad Higgins MD (Electronically Signed) Final Date: 22 April 2022 09:11 S
[2022-04-22] MEDS: pantoprazole 40 mg SDV IVP (05:35)
[2022-04-22] MEDS: levofloxacin-dextrose 5 % 750 MG/150 ML PREMIX 100 MG IV (05:35)
[2022-04-22] MEDS: FUROsemide 10 mg/mL SDV 2mL 20 MG IVP (05:35)
[2022-04-22] MEDS: aspirin 325 mg Tablet PO (05:35)
[2022-04-22] MEDS: enoxaparin 40 mg/0.4 mL Syringe SUBCUT (05:35)
[2022-04-22 06:10] LABS: Add Urine Microscopic? NO; Charge for UA Resulting for Rev
[2022-04-22 06:15] LABS: Bilirubin Urine Neg (Negative); Blood Urine Neg (Negative); Glucose Urine UA Norm (Normal); Ketones Urine Negative (Negative); Leukocyte Esterase Urine Negative (Negative); Nitrate Urine Negative (Negative); Protein Urine Neg (Negative); Urine Appearance Clear (CLEAR); Urine Color Yellow (Yellow); Urobilinogen Urine Norm (Negative); pH Urine 5 (5-7)
[2022-04-22 06:29] LABS: Urine Creatinine 94 mg/dL (39-259)
[2022-04-22 06:31] LABS: Urea Nitrogen,Urine Random 128 mg/dL
[2022-04-22] MEDS: perflutren protein-a microsphr 0.22 mg/mL SDV 3 mL IV (07:11)
--- NOTE | 2022-04-22 07:53 | ECG_ITS ---
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 Measurements Intervals [place] Rate: 76 P: 32 [place]: 200 QRS: -48 QRSD: 133 T: 51 QT: 411 QTc: 463 Interpretive Statements SINUS RHYTHM INTRAVENTRICULAR CONDUCTION DELAY [130+ ms QRS DURATION] Compared to ECG 04/22/2022 03:44:24 Sinus bradycardia no longer present Electronically Signed On 04-22-2022 21:20:10 CDT by Betty Turner M.D. [id number]
[2022-04-22] MEDS: lidocaine 5% Patch 1 PATCH TOPICAL (08:12)
[2022-04-22 09:31] LABS: Troponin 5 6HR 17.85 ng/L (0-15)
[2022-04-22] MEDS: amlodipine 10 mg Tablet PO (09:39)
[2022-04-22] MEDS: acetaminophen 325 mg Tablet 650 MG PO (14:26)
--- NOTE | 2022-04-22 15:46 | PC.NURSE ---
Solumedrol was admin, then patient taken to the floor without scanning.
--- NOTE | 2022-04-22 15:57 | PC.NURSE ---
large left chest hernia visible , pt stated had since 2003
[2022-04-22 18:02] LABS: Glucose Point of Care 163 mg/dL (70-110)
[2022-04-23] VITALS (16 sets, daily range): BP systolic 152–180; BP diastolic 79–90; PULSE 60–100; RESP 13–22; TEMP 36.4–37.1; O2SAT 89–96; BMI 46.2
[2022-04-23] MEDS: ipratropium-albuterol 3 mL Neb INHALATION ×4 (04:48→20:17)
[2022-04-23] MEDS: pantoprazole 40 mg SDV IVP (04:57)
[2022-04-23] MEDS: enoxaparin 40 mg/0.4 mL Syringe SUBCUT (04:58)
[2022-04-23] MEDS: levofloxacin-dextrose 5 % 750 MG/150 ML PREMIX 150 MG IV (04:58)
[2022-04-23 05:58] LABS: Basophils % 0.1 %; Hematocrit 45.7 % (42.0-52.0); Hemoglobin 15.3 g/dL (11.7-16.6); Lymphocytes % 8.9 %; Mean Corpuscular HGB Conc 33.5 g/dL (30.0-36.0); Mean Corpuscular Hemoglobin 29.9 pg (28.0-34.0); Mean Corpuscular Volume 89.3 fl (80-94); Mean Platelet Volume 10.8 fL (7.4-10.4); Monocytes # 0.4 10^3/uL (0.2-0.9); Monocytes % 3.9 %; Neutrophils # 9.61 10^3/uL (1.8-7.7); Nucleated Red Blood Cells % 0 %; Platelet Count 284 10^3/cmm (130-400); Red Blood Count 5.12 10^6/uL (4.1-5.3); Red Cell Distribution Width 13.5 % (12.1-15.1); White Blood Count 11.2 10^3/uL (4.0-10.0)
[2022-04-23 06:30] LABS: Alanine Aminotransferase 69 U/L (0-41); Albumin Level 4.1 g/dL (3.5-5.2); Alkaline Phosphatase 56 IU/L (40-130); Anion Gap 17.4 (5-19); Aspartate Amino Transferase 38 U/L (0-40); Blood Urea Nitrogen 35 mg/dL (8-23); Calcium 9.3 mg/dL (8.5-10.5); Carbon Dioxide 25 mmol/L (22-29); Chloride 98 mmol/L (98-107); Globulin 2.8 g/dL (1.3-4.6); Glomerular Filtration Rate 67.8 mL/min (90-130); Glucose 178 mg/dL (65-115); Osmolality Calculated 294 mOsm/kg (285-295); Potassium 4.4 mmol/L (3.5-5.1); Sodium 136 mmol/L (136-145); Total Bilirubin 0.5 mg/dL (0.15-1.2); Total Protein 6.9 g/dL (6.6-8.7)
[2022-04-23] MEDS: aspirin 325 mg Tablet PO (09:30)
[2022-04-23] MEDS: amlodipine 10 mg Tablet PO (09:30)
[2022-04-23] MEDS: chlorthalidone 25 mg Tablet PO (11:18)
[2022-04-23] MEDS: hydroCHLOROthiazide 25 mg Tablet 50 MG PO (11:18)
--- NOTE | 2022-04-23 13:06 | PC.CHAP ---
Pastoral Care Encounter/Spiritual Assessment Type of Contact [] Declined mold inspector visit [] Patient/Family/Request visit [] Outpatient visit [] Follow-up visit [] Physician referral [] Code/Alert [x] Routine visit [] Staff referral [] Actively dying [] Patient sleeping [] Family support [] [] Out of room [] Palliative care [] [] Receiving care in room [] Pre-surgical visit [] Trauma [] Long length of stay [] ICU visit [] Other: Relational/Emotional Strength [x] Patient feels connected with others/family/visitors/staff [] Distress [] Loneliness/isolation [] Abandonment Spirituality of Patient [x] Person of Saranya [] Attends Holiness of their Saranya [x] Believes in Prayer [] Reads Bible or Jain materials [] There are Spiritual issues to be addressed Premises Technician Interventions [x] Prayer [x] Active listening [] Non-anxious presence [] Spiritual/emotional support [] Crisis/trauma care [] Spiritual counseling [] Bereavement support [] Provided bereavement packet [] Provided Bible/devotional materials [] Provided toy/stuffed animal, coloring book to patient or family member [] Provided Communion [] Anointing/[place] [] Salvation [x] Completed spiritual assessment [] Other: Impact on Illness or Injury [] Angry [] Fearful [] Anxious [] Often cries [] Exhaustion [] Unable to work [] Unable to attend restorationism [] Unable to walk/stand [] Unable to read [] Unable to drive [] Unable to eat/drink [] Unable to sleep [] Unable to be with family [] Patient intubated [] Other: Summary Time spent with patient 15 min
--- NOTE | 2022-04-23 13:45 | PM.PN ---
Subjective Subjective: Patient was seen and examined this morning, currently is complaining of shortness of breath on exertion, has remained afebrile no other acute events. Medications: Medication Review Details: Generic Name Dose Route Start Last Admin Trade Name Matt PRN Reason Stop Dose Admin Acetaminophen 650 mg 04/22/22 04:40 04/22/22 14:26 Acetaminophen 32 5 Mg Tablet PO 650 mg Q6H PRN Administration Mild/Mod Pain Or Temp >/= 101 Albuterol/Ipratrop ium 3 ml 04/22/22 09:00 04/23/22 14:31 Ipratropium-Albu terol 3 Ml Neb INHALATION 3 ml Q6H.RESPIRATORY S CH Administration Amlodipine Besylat e 10 mg 04/22/22 10:00 04/23/22 09:30 Amlodipine 10 Mg Tablet PO 10 mg DAILY [facility] Administration Aspirin 325 mg 04/22/22 04:55 04/23/22 09:30 Aspirin 325 Mg T ablet PO 325 mg DAILY [facility] Administration Chlorthalidone 25 mg 04/23/22 10:30 04/23/22 11:18 Chlorthalidone 2 5 Mg Tablet PO 25 mg DAILY [facility] Administration Enoxaparin Sodium 40 mg 04/22/22 04:45 04/23/22 04:58 Enoxaparin 40 Mg /0.4 Ml Syringe SUBCUT 40 mg Q24H [facility] Administration Hydrochlorothiazid e 50 mg 04/23/22 11:30 04/23/22 11:18 Hydrochlorothiaz gregory 25 Mg Tablet PO 50 mg DAILY [facility] Administration Levofloxacin/Dextr ose 750 mg in 150 mls @ 100 mls/hr 04/22/22 04:45 04/23/22 08:14 Levaquin-D5w IV Infused Q24H [facility] Infusion Protocol Lidocaine 1 patch 04/22/22 09:00 04/23/22 09:31 Lidocaine 5% Pat ch TOPICAL Not Given [id number] [facility] Methylprednisolone Sodium Succinate 60 mg 04/23/22 18:00 04/23/22 18:22 Methylprednisolo ne Sod Succ 125 Mg /2 Ml Inj IVP 60 mg Q12H [facility] Administration Pantoprazole Sodiu m 40 mg 04/22/22 04:45 04/23/22 04:57 Pantoprazole 40 Mg Sdv IVP 40 mg Q24H [facility] Administration Vitals/I&O/Wt Last Vital Signs Temp 98.0 F 07/22/22 11:53 Pulse 74 04/23/22 11:53 Resp 17 04/23/22 11:53 BP 154/83 04/23/22 11:53 Pulse Ox 92 04/23/22 11:53 04/22/22 04/23/22 04/23/22 22:59 06:59 14:59 Intake Total 90 / 240 270 / 270 Output Total 600 / 1500 250 / 1750 Balance -600 / -1350 -160 / -1510 270 / 270 Weight last 48 hrs Weight 167.829 kg Weight 167.829 kg Weight 167.829 kg Physical Exam Const: COMMON NORMALS: patient oriented x3 HENMT: COMMON NORMALS: normocephalic and atraumatic HEAD & SCALP: normocephalic and atraumatic Resp: COMMON NORMALS: clear to auscultation bilaterally EFFORT & INSPECTION: Yes symmetric chest movement AUSCULTATION: clear to auscultation bilaterally Cardio: COMMON NORMALS: regular rate, regular rhythm, S1 normal heart sound present, S2 normal heart sound present, No gallops present (Cardio), No murmurs present (Cardio), No rub (Cardio) and Peripheral pulses 2+ throughout RATE: regular rate RHYTHM: regular rhythm HEART SOUNDS: S1 normal heart sound present and S2 normal heart sound present PERIPHERAL PULSES: Peripheral pulses 2+ throughout GI: COMMON NORMALS: Normal to inspection, nondistended, normoactive bowel sounds present, Soft to palpation, non-tender, No hepatosplenomegaly present and no masses AUSCULTATION: Yes normoactive bowel sounds PALPATION: Yes Soft to palpation and Yes No hepatosplenomegaly present RECTAL EXAM: Yes deferred Extremity: COMMON NORMALS: no clubbing, cyanosis or edema and no pedal edema Neuro: COMMON NORMALS: patient oriented x3 Data : 04/23/22 05:00 04/23/22 05:00 Micro: Microbiology 04/22/22 06:09 MRSA Culture - Final Nose A&P Assessment and plan (1) Acute respiratory failure with hypoxia: With some improvement at discharge after last hospitalization, discharged on 3-4 L nasal cannula he states, however, quite hypoxic on reevaluation by EMS, required 8 L nasal cannula, in ER requiring BiPAP support. Currently tolerating BiPAP support. Breathing sounds are somewhat diminished, but overall not wheezing, no rhonchi crackles. Suspected component of COPD exacerbation/bronchial reactivity. Would benefit from formal pulmonary function test after recovers. Possible component of CHF as well as he does report orthopnea, does have worsened leg edema. BNP is not elevated, but may be falsely low due to obesity. Lasix 20 mg IV x1 TTE In addition he does report chest pressure, I do not see any recent cardiac evaluation. Complete troponin EKG series. TTE. If no evidence of acute CT, May benefit from additional risk stratification by stress testing once respiratory status more stable. Additionally discussed with him D-dimer which has been pending, and subsequent follow-up assessment for PE in case abnormal. During last admission COVID-19 and other viral PCR studies were negative. Rapid COVID-19 currently negative. Lidocaine patch for chest wall tenderness due to cough. Status: Acute (2) Chest pressure: I do not see any recent cardiac evaluation. Complete troponin EKG series. TTE. If no evidence of acute CT, May benefit from additional risk stratification by stress testing once respiratory status more stable. Will give aspirin for now. No beta-radhika for now due to possible acute CHF. Assess lipid profile. Cardiac monitoring. Status: Acute (3) Orthopnea: As above. Status: Acute (4) Leg edema: As above. Lower extremity duplex, assess for DVT. Status: Acute (5) Transaminitis: Appears to have some chronicity to transaminitis, will need additional follow-up on this. Status: Acute (6) Sleep apnea: Reports having had a sleep study but it has been a while, no recent study. He is not on CPAP. Concerned that he may be triggering a degree of pulmonary edema with untreated sleep apnea. Reported intolerant of CPAP, but is tolerating BiPAP currently. Would consider referral again for sleep study to see if can be set up with the device he can tolerate. Status: Chronic Qualifiers: Sleep apnea type: obstructive Qualified Code(s): G47.33 - Obstructive sleep apnea (adult) (pediatric) (7) JESUS (acute kidney injury): Hold lisinopril. HCTZ. UA, urine creatinine, urine urea. Follow-up renal function. Status: Acute Plan HTN RLS Morbid obesity DDD Thoracic neuralgia Other chronic conditions. Please review and reorder medications once they are confirmed. Attestations Medical Necessity Statement*: Patient is to the hospital for management of acute hypoxic respiratory failure likely secondary to COPD exacerbation/LASHONDA OHS. Coding Level of Care Code Acute Room Service Runner for [facility] Fwd Exam Detailed Diagnoses Acute respiratory failure with hypoxia J96.01 Chest pressure R07.89 Orthopnea R06.01 Leg edema R60.0 Transaminitis R74.01 Sleep apnea G47.33 Sleep apnea type: obstructive JESUS (acute kidney injury) N17.9
[2022-04-24] VITALS (20 sets, daily range): BP systolic 128–179; BP diastolic 67–87; PULSE 54–94; RESP 14–26; TEMP 36.4–36.9; O2SAT 83–98
[2022-04-24] MEDS: ipratropium-albuterol 3 mL Neb INHALATION ×4 (02:06→20:36)
[2022-04-24 04:16] LABS: Eosinophils % 0.2 %; Hematocrit 45.9 % (42.0-52.0); Hemoglobin 14.7 g/dL (11.7-16.6); Lymphocytes # 0.8 10^3/uL (0.8-4.8); Mean Corpuscular Hemoglobin 29.8 pg (28.0-34.0); Mean Corpuscular Volume 92.9 fl (80-94); Mean Platelet Volume 10.7 fL (7.4-10.4); Monocytes # 0.4 10^3/uL (0.2-0.9); Monocytes % 3.1 %; Neutrophils # 10.42 10^3/uL (1.8-7.7); Neutrophils % 88.3 %; Nucleated Red Blood Cells % 0 %; Platelet Count 256 10^3/cmm (130-400); Red Blood Count 4.94 10^6/uL (4.1-5.3); Red Cell Distribution Width 13.6 % (12.1-15.1); White Blood Count 11.8 10^3/uL (4.0-10.0)
[2022-04-24 04:40] LABS: Alanine Aminotransferase 90 U/L (0-41); Albumin Level 3.8 g/dL (3.5-5.2); Alkaline Phosphatase 60 IU/L (40-130); Blood Urea Nitrogen 34 mg/dL (8-23); Calcium 9.3 mg/dL (8.5-10.5); Carbon Dioxide 25 mmol/L (22-29); Chloride 98 mmol/L (98-107); Globulin 2.6 g/dL (1.3-4.6); Glomerular Filtration Rate 61.3 mL/min (90-130); Glucose 178 mg/dL (65-115); Osmolality Calculated 294 mOsm/kg (285-295); Sodium 136 mmol/L (136-145); Total Bilirubin 0.5 mg/dL (0.15-1.2); Total Protein 6.4 g/dL (6.6-8.7)
[2022-04-24 04:43] LABS: Anion Gap 17.5 (5-19); Aspartate Amino Transferase 50 U/L (0-40); Potassium 4.5 mmol/L (3.5-5.1)
[2022-04-24] MEDS: enoxaparin 40 mg/0.4 mL Syringe SUBCUT (05:06)
[2022-04-24] MEDS: pantoprazole 40 mg SDV IVP (05:08)
[2022-04-24] MEDS: levofloxacin-dextrose 5 % 750 MG/150 ML PREMIX 100 MG IV (05:13)
[2022-04-24] MEDS: amlodipine 10 mg Tablet PO (09:25)
[2022-04-24] MEDS: chlorthalidone 25 mg Tablet PO (09:25)
[2022-04-24] MEDS: hydroCHLOROthiazide 25 mg Tablet 50 MG PO (09:25)
[2022-04-24] MEDS: aspirin 325 mg Tablet PO (09:25)
[2022-04-24] MEDS: lisinopril 20 mg Tablet PO (09:27)
[2022-04-24] MEDS: FUROsemide 10 mg/mL SDV 4mL 40 MG IVP (11:15)
--- NOTE | 2022-04-24 14:02 | P.PN_ITS ---
Subjective Subjective: Patient was seen and examined this morning, continues to have shortness of breath with minimal exertion Currently requiring 10 L oxygen on exertion to maintain saturation around 90. Medications: Medication Review Details: Generic Name Dose Route Start Last Admin Trade Name Matt PRN Reason Stop Dose Admin Acetaminophen 650 mg 04/22/22 04:40 04/22/22 14:26 Acetaminophen 32 5 Mg Tablet PO 650 mg Q6H PRN Administration Mild/Mod Pain Or Temp >/= 101 Albuterol/Ipratrop ium 3 ml 04/22/22 09:00 04/24/22 13:59 Ipratropium-Albu terol 3 Ml Neb INHALATION 3 ml Q6H.RESPIRATORY S CH Administration Amlodipine Besylat e 10 mg 04/22/22 10:00 04/24/22 09:25 Amlodipine 10 Mg Tablet PO 10 mg DAILY [facility] Administration Aspirin 325 mg 04/22/22 04:55 04/24/22 09:25 Aspirin 325 Mg T ablet PO 325 mg DAILY [facility] Administration Chlorthalidone 25 mg 04/23/22 10:30 04/24/22 09:25 Chlorthalidone 2 5 Mg Tablet PO 25 mg DAILY [facility] Administration Enoxaparin Sodium 40 mg 04/22/22 04:45 04/24/22 05:06 Enoxaparin 40 Mg /0.4 Ml Syringe SUBCUT 40 mg Q24H [facility] Administration Hydrochlorothiazid e 50 mg 04/23/22 11:30 04/24/22 09:25 Hydrochlorothiaz gregory 25 Mg Tablet PO 50 mg DAILY [facility] Administration Levofloxacin/Dextr ose 750 mg in 150 mls @ 100 mls/hr 04/22/22 04:45 04/24/22 07:07 Levaquin-D5w IV Infused Q24H [facility] Infusion Protocol Lidocaine 1 patch 04/22/22 09:00 04/24/22 09:49 Lidocaine 5% Pat ch TOPICAL Not Given [id number] [facility] Lisinopril 20 mg 04/24/22 09:00 04/24/22 09:27 Lisinopril 20 Mg Tablet PO 20 mg DAILY [facility] Administration Methylprednisolone Sodium Succinate 60 mg 04/23/22 18:00 04/24/22 05:09 Methylprednisolo ne Sod Succ 125 Mg /2 Ml Inj IVP 60 mg Q12H [facility] Administration Pantoprazole Sodiu m 40 mg 04/22/22 04:45 04/24/22 05:08 Pantoprazole 40 Mg Sdv IVP 40 mg Q24H [facility] Administration Fluticasone/Salmet todd 1 puff 04/23/22 20:00 04/24/22 07:59 Fluticasone-Salm eterol 250-50 Disk us INHALATION 1 puff BID.RESPIRATORY S CH Administration Vitals/I&O/Wt Last Vital Signs Temp 98.5 F 04/24/22 12:00 Pulse 84 04/24/22 14:00 Resp 17 04/24/22 14:00 BP 145/87 04/24/22 12:00 Pulse Ox 89 L 04/24/22 14:00 04/23/22 04/24/22 04/24/22 22:59 06:59 14:59 Intake Total 480 / 986 990 / 990 Output Total 650 / 650 900 / 1550 600 / 600 Balance -170 / 336 -900 / -564 390 / 390 Weight last 48 hrs Weight 179.169 kg Weight 167.829 kg Weight 167.829 kg Physical Exam Const: COMMON NORMALS: patient oriented x3 Eye: GENERAL EYE: appearance normal, both eyes and all related structures Chest: COMMONS NORMALS: normal inspection of the chest and normal palpation of entire chest wall CHEST: Yes Symmetrical chest wall rise Resp: COMMON NORMALS: normal respiratory effort, No retractions, No use of accessory muscles and clear to auscultation bilaterally EFFORT & INSPECTION: Yes symmetric chest movement AUSCULTATION: clear to auscultation bilaterally OTHER: Diminished air entry bilaterally, minimal occasional wheezing Cardio: COMMON NORMALS: regular rate, regular rhythm, S1 normal heart sound present, S2 normal heart sound present, No gallops present (Cardio), No murmurs present (Cardio), No rub (Cardio) and Peripheral pulses 2+ throughout RATE: regular rate RHYTHM: regular rhythm HEART SOUNDS: S1 normal heart sound present and S2 normal heart sound present PERIPHERAL PULSES: Peripheral pulses 2+ throughout GI: COMMON NORMALS: Normal to inspection, nondistended, normoactive bowel sounds present, Soft to palpation, non-tender, No hepatosplenomegaly present and no masses AUSCULTATION: Yes normoactive bowel sounds PALPATION: Yes Soft to palpation and Yes No hepatosplenomegaly present RECTAL EXAM: Yes deferred Extremity: COMMON NORMALS: no clubbing, cyanosis or edema NARRATIVE EX TREMITY EXAM: 1+ bilateral lower extremity pitting edema Neuro: COMMON NORMALS: patient oriented x3 Data : 04/24/22 03:45 04/24/22 03:45 A&P Assessment and plan (1) Acute respiratory failure with hypoxia: With some improvement at discharge after last hospitalization, discharged on 3-4 L nasal cannula he states, however, quite hypoxic on reevaluation by EMS, required 8 L nasal cannula, in ER requiring BiPAP support. Currently tolerating BiPAP support. Breathing sounds are somewhat diminished, but overall not wheezing, no rhonchi crackles. Suspected component of COPD exacerbation/bronchial reactivity. Would benefit from formal pulmonary function test after recovers. Possible component of CHF as well as he does report orthopnea, does have worsened leg edema. BNP is not elevated, but may be falsely low due to obesity. Lasix 20 mg IV x1 TTE In addition he does report chest pressure, I do not see any recent cardiac evaluation. Complete troponin EKG series. TTE. If no evidence of acute CT, May benefit from additional risk stratification by stress testing once respiratory status more stable. Additionally discussed with him D-dimer which has been pending, and subsequent follow-up assessment for PE in case abnormal. During last admission COVID-19 and other viral PCR studies were negative. Rapid COVID-19 currently negative. Lidocaine patch for chest wall tenderness due to cough. Status: Acute (2) Chest pressure: I do not see any recent cardiac evaluation. Complete troponin EKG series. TTE. If no evidence of acute CT, May benefit from additional risk stratification by stress testing once respiratory status more stable. Will give aspirin for now. No beta-radhika for now due to possible acute CHF. Assess lipid profile. Cardiac monitoring. Status: Acute (3) Orthopnea: As above. Status: Acute (4) Leg edema: As above. Lower extremity duplex, assess for DVT. Status: Acute (5) Transaminitis: Appears to have some chronicity to transaminitis, will need additional follow-up on this. Status: Acute (6) Sleep apnea: Reports having had a sleep study but it has been a while, no recent study. He is not on CPAP. Concerned that he may be triggering a degree of pulmonary edema with untreated sleep apnea. Reported intolerant of CPAP, but is tolerating BiPAP currently. Would consider referral again for sleep study to see if can be set up with the device he can tolerate. Status: Chronic Qualifiers: Sleep apnea type: obstructive Qualified Code(s): G47.33 - Obstructive sleep apnea (adult) (pediatric) (7) JESUS (acute kidney injury): Hold lisinopril. HCTZ. UA, urine creatinine, urine urea. Follow-up renal function. Status: Acute Plan 61-year-old male with past medical history of hypertension, sleep apnea, morbid obesity, possible COPD Came in with chief complaint of worsening shortness of breath after being recently discharged from the hospital. Assessment: Acute respiratory failure with hypoxia likely multifactorial secondary to COPD exacerbation, diastolic heart failure, obstructive sleep apnea. OHS. COPD Hypertension Sleep apnea Morbid obesity Plan: CTA chest: No pulmonary embolism identified.Bibasilar atelectasis. No pleural effusions. 2D echo:?LV systolic function is normal with EF of 55 to 60%. ?Grade 1 diastolic dysfunction. Mild mitral regurgitation. Trace tricuspid regurgitation Lower extremity Doppler vein: Negative for DVT Negative COVID PCR Recent negative respiratory viral panel MRSA culture negative Monitor ABG Supplemental oxygen as needed. Patient will also benefit from sleep study. Patient will benefit from BiPAP/CPAP, on discharge. DuoNebs, Advair inhaler Supplemental oxygen as needed Continue steroids Lasix as needed Monitor and output k>4, mg>2 Empirically on levofloxacin Continue home medications for hypertension. Possible pulmonary follow-up CODE STATUS: Full code DVT prophylaxis on Lovenox Attestations Medical Necessity Statement*: Patient is still in hospital for management of respiratory failure with hypoxia. Coding Level of Care Code Acute Practice Management Consultant for [facility] Fwd Exam Comprehensive Diagnoses Acute respiratory failure with hypoxia J96.01 Chest pressure R07.89 Orthopnea R06.01 Leg edema R60.0 Transaminitis R74.01 Sleep apnea G47.33 Sleep apnea type: obstructive JESUS (acute kidney injury) N17.9
[2022-04-25] VITALS (15 sets, daily range): BP systolic 112–148; BP diastolic 61–75; PULSE 63–88; RESP 14–18; TEMP 36.3–36.8; O2SAT 88–92
[2022-04-25] MEDS: ipratropium-albuterol 3 mL Neb INHALATION ×3 (02:31→15:02)
[2022-04-25 04:45] LABS: Basophils % 0.1 %; Hematocrit 43.8 % (42.0-52.0); Hemoglobin 14.3 g/dL (11.7-16.6); Lymphocytes # 0.5 10^3/uL (0.8-4.8); Lymphocytes % 4.1 %; Mean Corpuscular HGB Conc 32.6 g/dL (30.0-36.0); Mean Corpuscular Volume 91.8 fl (80-94); Mean Platelet Volume 11.1 fL (7.4-10.4); Monocytes # 0.5 10^3/uL (0.2-0.9); Monocytes % 3.4 %; Neutrophils # 12.15 10^3/uL (1.8-7.7); Nucleated Red Blood Cells % 0 %; Platelet Count 239 10^3/cmm (130-400); Red Blood Count 4.77 10^6/uL (4.1-5.3); Red Cell Distribution Width 13.7 % (12.1-15.1); White Blood Count 13.3 10^3/uL (4.0-10.0)
[2022-04-25 05:06] LABS: Alanine Aminotransferase 95 U/L (0-41); Albumin Level 3.7 g/dL (3.5-5.2); Alkaline Phosphatase 59 IU/L (40-130); Blood Urea Nitrogen 43 mg/dL (8-23); Calcium 8.4 mg/dL (8.5-10.5); Carbon Dioxide 21 mmol/L (22-29); Chloride 97 mmol/L (98-107); Globulin 1.9 g/dL (1.3-4.6); Glomerular Filtration Rate 55.9 mL/min (90-130); Glucose 172 mg/dL (65-115); Osmolality Calculated 295 mOsm/kg (285-295); Sodium 135 mmol/L (136-145); Total Bilirubin 0.5 mg/dL (0.15-1.2); Total Protein 5.6 g/dL (6.6-8.7)
[2022-04-25] MEDS: enoxaparin 40 mg/0.4 mL Syringe SUBCUT (05:12)
[2022-04-25] MEDS: pantoprazole 40 mg SDV IVP (05:12)
[2022-04-25] MEDS: levofloxacin-dextrose 5 % 750 MG/150 ML PREMIX 100 MG IV (05:12)
[2022-04-25 05:16] LABS: Anion Gap 21.3 (5-19); Aspartate Amino Transferase 49 U/L (0-40); Potassium 4.3 mmol/L (3.5-5.1)
[2022-04-25] MEDS: hydroCHLOROthiazide 25 mg Tablet 50 MG PO (08:51)
[2022-04-25] MEDS: amlodipine 10 mg Tablet PO (08:51)
[2022-04-25] MEDS: chlorthalidone 25 mg Tablet PO (08:51)
[2022-04-25] MEDS: lisinopril 20 mg Tablet PO (08:51)
[2022-04-25] MEDS: aspirin 325 mg Tablet PO (08:52)
--- NOTE | 2022-04-25 09:46 | PC.SOCIAL ---
IMM update IMM updated with patient. Verbalized an understanding. Copy Pg 2 provided. Initialled, dated, timed, and placed in chart.
[2022-04-25] MEDS: guaiFENesin-dextromethorphan UDC 10 mL 5 ML PO ×3 (11:09→22:21)
[2022-04-25] MEDS: FUROsemide 40 mg Tablet PO (11:09)
--- NOTE | 2022-04-25 13:47 | PM.PN ---
Subjective Subjective: Patient was seen and examined this morning, continues to have shortness of breath with minimal exertion. Though he feels slightly better since yesterday. Good response to IV Lasix given yesterday, in view of slightly uptrending serum creatinine, will hold on lisinopril and hydrochlorothiazide, as well as chlorthalidone. Medications: Medication Review Details: Generic Name Dose Route Start Last Admin Trade Name Freq PRN Reason Stop Dose Admin Acetaminophen 650 mg 04/22/22 04:40 04/22/22 14:26 Acetaminophen 32 5 Mg Tablet PO 650 mg Q6H PRN Administration Mild/Mod Pain Or Temp >/= 101 Albuterol/Ipratrop ium 3 ml 04/22/22 09:00 04/24/22 13:59 Ipratropium-Albu terol 3 Ml Neb INHALATION 3 ml Q6H.RESPIRATORY S CH Administration Amlodipine Besylat e 10 mg 04/22/22 10:00 04/24/22 09:25 Amlodipine 10 Mg Tablet PO 10 mg DAILY [facility] Administration Aspirin 325 mg 04/22/22 04:55 04/24/22 09:25 Aspirin 325 Mg T ablet PO 325 mg DAILY [facility] Administration Chlorthalidone 25 mg 04/23/22 10:30 04/24/22 09:25 Chlorthalidone 2 5 Mg Tablet PO 25 mg DAILY [facility] Administration Enoxaparin Sodium 40 mg 04/22/22 04:45 04/24/22 05:06 Enoxaparin 40 Mg /0.4 Ml Syringe SUBCUT 40 mg Q24H [facility] Administration Hydrochlorothiazid e 50 mg 04/23/22 11:30 04/24/22 09:25 Hydrochlorothiaz gregory 25 Mg Tablet PO 50 mg DAILY [facility] Administration Levofloxacin/Dextr ose 750 mg in 150 mls @ 100 mls/hr 04/22/22 04:45 04/24/22 07:07 Levaquin-D5w IV Infused Q24H [facility] Infusion Protocol Lidocaine 1 patch 04/22/22 09:00 04/24/22 09:49 Lidocaine 5% Pat ch TOPICAL Not Given [id number] [facility] Lisinopril 20 mg 04/24/22 09:00 04/24/22 09:27 Lisinopril 20 Mg Tablet PO 20 mg DAILY [facility] Administration Methylprednisolone Sodium Succinate 60 mg 04/23/22 18:00 04/24/22 05:09 Methylprednisolo ne Sod Succ 125 Mg /2 Ml Inj IVP 60 mg Q12H [facility] Administration Pantoprazole Sodiu m 40 mg 04/22/22 04:45 04/24/22 05:08 Pantoprazole 40 Mg Sdv IVP 40 mg Q24H [facility] Administration Fluticasone/Salmet todd 1 puff 04/23/22 20:00 04/24/22 07:59 Fluticasone-Salm eterol 250-50 Disk us INHALATION 1 puff BID.RESPIRATORY S CH Administration Vitals/I&O/Wt Last Vital Signs Temp 97.9 F 04/25/22 12:00 Pulse 75 04/25/22 12:00 Resp 17 04/25/22 12:00 BP 136/72 04/25/22 12:00 Pulse Ox 92 04/25/22 12:00 04/24/22 04/25/22 04/25/22 22:59 06:59 14:59 Intake Total 720 / 1710 500 / 2210 555 / 555 Output Total 700 / 1820 300 / 2120 Balance 20 / -110 200 / 90 555 / 555 Weight last 48 hrs Weight 178.262 kg Weight 179.169 kg Physical Exam Const: COMMON NORMALS: patient oriented x3 Resp: COMMON NORMALS: clear to auscultation bilaterally AUSCULTATION: clear to auscultation bilaterally OTHER: Diminished air entry bilaterally, minimal occasional wheezing Cardio: COMMON NORMALS: regular rate, regular rhythm, S1 normal heart sound present, S2 normal heart sound present, No gallops present (Cardio), No murmurs present (Cardio), No rub (Cardio) and Peripheral pulses 2+ throughout RATE: regular rate RHYTHM: regular rhythm HEART SOUNDS: S1 normal heart sound present and S2 normal heart sound present PERIPHERAL PULSES: Peripheral pulses 2+ throughout GI: COMMON NORMALS: Normal to inspection, nondistended, normoactive bowel sounds present, Soft to palpation, non-tender, No hepatosplenomegaly present and no masses AUSCULTATION: Yes normoactive bowel sounds PALPATION: Yes Soft to palpation and Yes No hepatosplenomegaly present RECTAL EXAM: Yes deferred Extremity: COMMON NORMALS: no clubbing, cyanosis or edema NARRATIVE EXTREMITY EXAM: 1+ bilateral lower extremity pitting edema Neuro: COMMON NORMALS: patient oriented x3 Data : 04/25/22 03:52 04/25/22 03:52 A&P Assessment and plan (1) Acute respiratory failure with hypoxia: With some improvement at discharge after last hospitalization, discharged on 3-4 L nasal cannula he states, however, quite hypoxic on reevaluation by EMS, required 8 L nasal cannula, in ER requiring BiPAP support. Currently tolerating BiPAP support. Breathing sounds are somewhat diminished, but overall not wheezing, no rhonchi crackles. Suspected component of COPD exacerbation/bronchial reactivity. Would benefit from formal pulmonary function test after recovers. Possible component of CHF as well as he does report orthopnea, does have worsened leg edema. BNP is not elevated, but may be falsely low due to obesity. Lasix 20 mg IV x1 TTE In addition he does report chest pressure, I do not see any recent cardiac evaluation. Complete troponin EKG series. TTE. If no evidence of acute ME, May benefit from additional risk stratification by stress testing once respiratory status more stable. Additionally discussed with him D-dimer which has been pending, and subsequent follow-up assessment for PE in case abnormal. During last admission COVID-19 and other viral PCR studies were negative. Rapid COVID-19 currently negative. Lidocaine patch for chest wall tenderness due to cough. Status: Acute (2) Chest pressure: I do not see any recent cardiac evaluation. Complete troponin EKG series. TTE. If no evidence of acute ME, May benefit from additional risk stratification by stress testing once respiratory status more stable. Will give aspirin for now. No beta-radhika for now due to possible acute CHF. Assess lipid profile. Cardiac monitoring. Status: Acute (3) Orthopnea: As above. Status: Acute (4) Leg edema: As above. Lower extremity duplex, assess for DVT. Status: Acute (5) Transaminitis: Appears to have some chronicity to transaminitis, will need additional follow-up on this. Status: Acute (6) Sleep apnea: Reports having had a sleep study but it has been a while, no recent study. He is not on CPAP. Concerned that he may be triggering a degree of pulmonary edema with untreated sleep apnea. Reported intolerant of CPAP, but is tolerating BiPAP currently. Would consider referral again for sleep study to see if can be set up with the device he can tolerate. Status: Chronic Qualifiers: Sleep apnea type: obstructive Qualified Code(s): G47.33 - Obstructive sleep apnea (adult) (pediatric) (7) JESUS (acute kidney injury): Hold lisinopril. HCTZ. UA, urine creatinine, urine urea. Follow-up renal function. Status: Acute Plan 61-year-old male with past medical history of hypertension, sleep apnea, morbid obesity, possible COPD, recent COVID-19 , Came in with chief complaint of worsening shortness of breath after being recently discharged from the hospital. Assessment: Acute respiratory failure with hypoxia likely multifactorial secondary to COPD exacerbation, HFpEF, obstructive sleep apnea. OHS. COPD Hypertension Sleep apnea Morbid obesity Plan: CTA chest: No pulmonary embolism identified.Bibasilar atelectasis. No pleural effusions. 2D echo:?LV systolic function is normal with EF of 55 to 60%. ?Grade 1 diastolic dysfunction. Mild mitral regurgitation. Trace tricuspid regurgitation Lower extremity Doppler vein: Negative for DVT Negative COVID PCR Recent negative respiratory viral panel MRSA culture negative Monitor ABG Supplemental oxygen as needed. Patient will also benefit from sleep study. Patient will benefit from BiPAP/CPAP, on discharge. DuoNebs, Advair inhaler Supplemental oxygen as needed Continue steroids Lasix as needed Monitor and output k>4, mg>2 Empirically on levofloxacin Continue home medications for hypertension. (Except for lisinopril , chlorthalidone hydrochlorothiazide for now. Patient listed home medication contains both chlorthalidone which is a thiazide like diuretic as well as hydrochlorothiazide ) Possible pulmonary follow-up CODE STATUS: Full code DVT prophylaxis on Lovenox Attestations Medical Necessity Statement*: Patient is still in hospital for management of respiratory failure with hypoxia, need for IV steroids, antibiotics. Time Spent in Patient Care: Greater than 35 minutes (>than 50% of time spent in counselling and/or direct pt care on unit). Coding Level of Care Code Acute Retort Feeder [employer] for [facility] Diagnoses Acute respiratory failure with hypoxia J96.01 Chest pressure R07.89 Orthopnea R06.01 Leg edema R60.0 Transaminitis R74.01 Sleep apnea G47.33 Sleep apnea type: obstructive JESUS (acute kidney injury) N17.9
[2022-04-26] VITALS (14 sets, daily range): BP systolic 130–166; BP diastolic 66–80; PULSE 69–93; RESP 14–20; TEMP 36.3–36.7; O2SAT 88–96
[2022-04-26] MEDS: levofloxacin-dextrose 5 % 750 MG/150 ML PREMIX 100 MG IV (04:07)
[2022-04-26] MEDS: guaiFENesin-dextromethorphan UDC 10 mL 5 ML PO ×4 (04:12→21:33)
[2022-04-26] MEDS: enoxaparin 40 mg/0.4 mL Syringe SUBCUT (04:13)
[2022-04-26] MEDS: pantoprazole 40 mg SDV IVP (04:13)
[2022-04-26] MEDS: ipratropium-albuterol 3 mL Neb INHALATION ×3 (08:07→20:28)
[2022-04-26] MEDS: amlodipine 10 mg Tablet PO (09:09)
[2022-04-26] MEDS: aspirin 325 mg Tablet PO (09:09)
[2022-04-26] MEDS: cefTRIAXone 1,000 MG in sodium chloride 0.9% (plus) 50 ML 100 MG IV (13:19)
[2022-04-26 15:53] LABS: Procalcitonin 0.07 ng/mL (0-0.5); Thyroid Stimulating Hormone 0.99 uIU/mL (0.27-4.20)
--- NOTE | 2022-04-26 16:27 | PM.PN ---
Subjective Subjective: Hospital course, labs appreciated. On examination patient lying comfortably in bed on 5 L oxygen supplementation saturating 91%. States he is discouraged that his oxygen requirements went up from 4 to 5 L today. States he is feeling out of breath patiently on exertion. Otherwise has remained hemodynamically stable and afebrile. Overnight has remained on BiPAP. Documented urine output in last 24 hours off around 3 L. Vitals/I&O/Wt Last Vital Signs Temp 97.7 F 04/26/22 15:42 Pulse 88 04/26/22 15:42 Resp 20 H 04/26/22 15:42 BP 153/74 04/26/22 15:42 Pulse Ox 91 04/26/22 15:42 04/26/22 04/26/22 04/26/22 06:59 14:59 22:59 Intake Total 150 / 1485 180 / 180 Output Total 1100 / 3025 850 / 850 Balance -950 / -1540 -670 / -670 Weight last 48 hrs Weight 175.45 kg Weight 178.262 kg Physical Exam Narrative: General: No acute distress, AO x3, morbidly obese, currently on 5 L HEENT: PERRLA, pupils bilaterally equal and reactive Chest: Bilateral bronchial breath sounds, bilaterally decreased air entry most likely secondary to body habitus, CVS: S1-S2 regular, no murmurs, no tachycardia, no gallops, no rubs Abdomen: Soft, nontender, no organomegaly, bowel sounds present Neuro: No focal deficits, no facial deformity, AO x3, power 5/5 in all limbs Data : 04/25/22 03:52 04/25/22 03:52 A&P Assessment and plan (1) Acute respiratory failure with hypoxia: Most likely secondary to combination of COPD exacerbation in a patient with obstructive sleep apnea. Patient tested positive for COVID-19 recently around 3 weeks ago at home COVID testing. Cannot rule out post viral bacterial pneumonia. CT head on admission consistent with possible bilateral basilar atelectasis. MRSA negative. Patient has been on IV ceftriaxone since admission. Oxygen supplementation keeping saturation over 90%. DuoNebs every 6 hour, desonide twice daily. Solu-Medrol 40 mg every 8 hourly. Will wean off as per clinical picture within next few days. For possible bacterial pneumonia: Check sputum culture. MRSA negative. Start on IV ceftriaxone 1 g daily for next 5 days. BiPAP overnight or when resting. Echocardiogram done shows an EF of 55 to 60%, grade 1 diastolic dysfunction, mild MR, trace TR. Strict input output charting, daily weights. Fluid restriction up to 2 L. Hold off on any further Lasix or fluid today. Creatinine slightly trending up. Overall patient is 4.5 L negative since admission. Rapid COVID-19 negative on admission. No isolation required. Status: Acute (2) Chest pressure: No previous history of cardiac evaluation. Echocardiogram negative for regional wall motion abnormality. Most likely patient will benefit from outpatient cardiac stress test once stable respiratory status. Status: Acute (3) Orthopnea: As above. Status: Acute (4) Leg edema: As above. Lower extremity duplex, assess for DVT. Status: Acute (5) Transaminitis: Appears to have some chronicity to transaminitis, will need additional follow-up on this. Status: Acute (6) Sleep apnea: Reports having had a sleep study but it has been a while, no recent study. He is not on CPAP. Concerned that he may be triggering a degree of pulmonary edema with untreated sleep apnea. Reported intolerant of CPAP, but is tolerating BiPAP currently. Would consider referral again for sleep study to see if can be set up with the device he can tolerate. Status: Chronic Qualifiers: Sleep apnea type: obstructive Qualified Code(s): G47.33 - Obstructive sleep apnea (adult) (pediatric) (7) JESUS (acute kidney injury): Baseline creatinine 1.1. On admission 1.3. 1.3 again today. Continue to hold lisinopril, chlorthalidone, hydrochlorothiazide Check urinalysis, urine creatinine, urine electrolytes. Renal ultrasound. Status: Acute Plan Analgesia: Tylenol as needed Glycemic control: Blood sugars trending up since admission. Start on insulin sliding scale low-dose protocol. Check A1c. Nutrition: Regular diet. Will start on carb consistent diet as per A1c. CODE STATUS: Full code PUD prophylaxis: Protonix DVT prophylaxis: Lovenox Discharge planning: Home with caregiver once medically cleared. Most likely patient will need a fresh sleep study on discharge. Continue with care at [facility]. Attestations Medical Necessity Statement*: Requires further hospitalization for management of hypoxic respiratory failure secondary to COPD exacerbation, obstructive sleep apnea in a patient with recent COVID-19 viral postviral bacterial pneumonia ruled out Time Spent in Patient Care: Greater than 35 minutes Coding Level of Care Code Acute Pharmacy Resource Tech for Chg Fwd Diagnoses Acute respiratory failure with hypoxia J96.01 Chest pressure R07.89 Orthopnea R06.01 Leg edema R60.0 Transaminitis R74.01 Sleep apnea G47.33 Sleep apnea type: obstructive JESUS (acute kidney injury) N17.9
[2022-04-26 17:09] LABS: Glucose Point of Care 180 mg/dL (70-110)
[2022-04-26] MEDS: insulin lispro 100 unit/1 mL SUBCUT ×2 (17:11→21:33)
[2022-04-26 20:15] LABS: Glucose Point of Care 179 mg/dL (70-110)
[2022-04-26] MEDS: budesonide 0.5 mg/2 mL Neb INHALATION (20:27)
[2022-04-27] VITALS (12 sets, daily range): BP systolic 129–182; BP diastolic 67–94; PULSE 67–85; RESP 18–23; TEMP 36.2–37.1; O2SAT 91–96
[2022-04-27] MEDS: ipratropium-albuterol 3 mL Neb INHALATION ×4 (02:58→20:03)
[2022-04-27] MEDS: guaiFENesin-dextromethorphan UDC 10 mL 5 ML PO ×4 (04:47→21:37)
[2022-04-27] MEDS: enoxaparin 40 mg/0.4 mL Syringe SUBCUT (04:48)
[2022-04-27] MEDS: pantoprazole DR 40 mg Tablet PO (05:29)
[2022-04-27] MEDS: amlodipine 10 mg Tablet PO (08:24)
--- NOTE | 2022-04-27 08:24 | PC.NURSE ---
patient refused finger stick do to eating and no history of DM
[2022-04-27] MEDS: budesonide 0.5 mg/2 mL Neb INHALATION ×2 (08:27→20:03)
[2022-04-27] MEDS: aspirin 81 mg EC Tablet PO (08:30)
[2022-04-27 08:51] LABS: Basophils % 0.1 %; Hemoglobin 15.6 g/dL (11.7-16.6); Lymphocytes # 0.5 10^3/uL (0.8-4.8); Lymphocytes % 3.9 %; Mean Corpuscular HGB Conc 33.9 g/dL (30.0-36.0); Mean Corpuscular Hemoglobin 29.9 pg (28.0-34.0); Mean Corpuscular Volume 88.3 fl (80-94); Mean Platelet Volume 10.8 fL (7.4-10.4); Monocytes # 0.5 10^3/uL (0.2-0.9); Monocytes % 3.7 %; Neutrophils # 12.31 10^3/uL (1.8-7.7); Neutrophils % 89.5 %; Nucleated Red Blood Cells % 0 %; Platelet Count 270 10^3/cmm (130-400); Red Blood Count 5.21 10^6/uL (4.1-5.3); Red Cell Distribution Width 13.3 % (12.1-15.1); White Blood Count 13.8 10^3/uL (4.0-10.0)
[2022-04-27 09:08] LABS: Chol HDL Ratio 2.97 mg/dL (1.0-5.00); Cholesterol 202 mg/dL (0-200); HDL Cholesterol 68 mg/dL (60-100); LDL Cholesterol Calculated 111 mg/dL (50-129); Triglycerides 117 mg/dL (0-150); VLDL Cholestrol Calculation 23 mg/dL (0-30)
[2022-04-27 09:10] LABS: Estmated Average Glucose 157; Hemoglobin A1C 7.1 % (4.0-6.0)
[2022-04-27 09:15] LABS: Alanine Aminotransferase 112 U/L (0-41); Albumin Level 3.8 g/dL (3.5-5.2); Alkaline Phosphatase 75 IU/L (40-130); Aspartate Amino Transferase 44 U/L (0-40); Blood Urea Nitrogen 39 mg/dL (8-23); Carbon Dioxide 24 mmol/L (22-29); Chloride 95 mmol/L (98-107); Globulin 2.5 g/dL (1.3-4.6); Glomerular Filtration Rate 67.8 mL/min (90-130); Glucose 170 mg/dL (65-115); Osmolality Calculated 287 mOsm/kg (285-295); Sodium 132 mmol/L (136-145); Total Bilirubin 0.7 mg/dL (0.15-1.2); Total Protein 6.3 g/dL (6.6-8.7)
--- NOTE | 2022-04-27 09:19 | PC.SOCIAL ---
IMM Update Imm updated with patient, copy of page 2 provided. Patient verbalized understanding. Copy initialed, dated and timed, placed in chart.
[2022-04-27] MEDS: FUROsemide 40 mg Tablet PO ×2 (11:01→16:17)
[2022-04-27] MEDS: hyDRALAzine 25 mg Tablet PO ×3 (11:02→21:37)
[2022-04-27] MEDS: cefTRIAXone 1,000 MG in sodium chloride 0.9% (plus) 50 ML 100 MG IV (12:51)
[2022-04-27] MEDS: insulin lispro 100 unit/1 mL SUBCUT ×2 (12:55→21:37)
--- NOTE | 2022-04-27 14:52 | PM.PN ---
Subjective Subjective: No events overnight. Overnight patient was compliant with his BiPAP. Today morning states he is feeling a lot better. He states he is breathing better. Thinks his legs are less swollen. Denies any nausea, vomiting, headache. Vitals/I&O/Wt Last Vital Signs Temp 98.4 F 04/27/22 07:29 Pulse 68 04/27/22 14:48 Resp 18 04/27/22 14:00 BP 143/69 04/27/22 11:19 Pulse Ox 92 04/27/22 14:00 04/26/22 04/27/22 04/27/22 22:59 06:59 14:59 Intake Total 500 / 730 360 / 1090 1010 / 1010 Output Total 425 / 1275 850 / 2125 600 / 600 Balance 75 / -545 -490 / -1035 410 / 410 Weight last 48 hrs Weight 167.376 kg Weight 175.45 kg Physical Exam Narrative: General: No acute distress, AO x3, morbidly obese, currently on 5 L HEENT: PERRLA, pupils bilaterally equal and reactive Chest: Bilateral bronchial breath sounds, bilaterally decreased air entry most likely secondary to body habitus, CVS: S1-S2 regular, no murmurs, no tachycardia, no gallops, no rubs Abdomen: Soft, nontender, no organomegaly, bowel sounds present Neuro: No focal deficits, no facial deformity, AO x3, power 5/5 in all limbs Data : 04/27/22 08:00 04/27/22 08:00 A&P Assessment and plan (1) Acute respiratory failure with hypoxia: Most likely secondary to combination of COPD exacerbation in a patient with obstructive sleep apnea. Patient tested positive for COVID-19 recently around 3 weeks ago at home COVID testing. Cannot rule out post viral bacterial pneumonia. CT head on admission consistent with possible bilateral basilar atelectasis. MRSA negative. Patient has been on IV ceftriaxone since admission. Oxygen supplementation keeping saturation over 90%. DuoNebs every 6 hour, desonide twice daily. Solu-Medrol 40 mg every 12 hourly. For possible bacterial pneumonia: Sputum culture pending. MRSA negative. Continue ceftriaxone to finish 5-day course. Day 2/5 BiPAP overnight or when resting. Overnight pulse oximetry study to see if patient can be qualified for BiPAP. Echocardiogram done shows an EF of 55 to 60%, grade 1 diastolic dysfunction, mild MR, trace TR. Strict input output charting, daily weights. Fluid restriction up to 2 L. Start on Lasix 40 mg oral twice daily. Rapid COVID-19 negative on admission. No isolation required. Status: Acute (2) Chest pressure: No previous history of cardiac evaluation. Echocardiogram negative for regional wall motion abnormality. Most likely patient will benefit from outpatient cardiac stress test once stable respiratory status. Status: Acute (3) Orthopnea: As above. Status: Acute (4) Leg edema: As above. Lower extremity duplex, assess for DVT. Status: Acute (5) Transaminitis: Appears to have some chronicity to transaminitis, will need additional follow-up on this. Status: Acute (6) Sleep apnea: Reports having had a sleep study but it has been a while, no recent study. He is not on CPAP. Concerned that he may be triggering a degree of pulmonary edema with untreated sleep apnea. Reported intolerant of CPAP, but is tolerating BiPAP currently. Would consider referral again for sleep study to see if can be set up with the device he can tolerate. Overnight pulse oximetry study as above. Status: Chronic Qualifiers: Sleep apnea type: obstructive Qualified Code(s): G47.33 - Obstructive sleep apnea (adult) (pediatric) (7) JESUS (acute kidney injury): Baseline creatinine 1.1. Resolved. Creatinine back to baseline. Continue to hold lisinopril, chlorthalidone, hydrochlorothiazide Status: Acute Plan Hypertension: Goal blood pressure less than 140/90 mmHg. Continue with home dose of amlodipine 10 mg daily. Add hydralazine 25 mg 3 times daily. Continue with Lasix. Will hold off on chlorthalidone and hydrochlorothiazide given JESUS. Patient needs diuretic effect more than blood pressure effect of medications. If needed can add Coreg. If creatinine remains stable can add DONNELL inhibitor back. Algesia: Tylenol as needed Glycemic control: Blood sugars trending up since admission. Start on insulin sliding scale low-dose protocol. Check A1c. Nutrition: Regular diet. A1c 7.1. CODE STATUS: Full code PUD prophylaxis: Protonix DVT prophylaxis: Lovenox Discharge planning: Home with caregiver once medically cleared. Most likely patient will need a fresh sleep study on discharge. Continue with care at [facility]. Attestations Medical Necessity Statement*: Requires further hospitalization for management of hypoxic respiratory failure secondary to COPD exacerbation, obstructive sleep apnea, uncontrolled hypertension Time Spent in Patient Care: Greater than 35 minutes Coding Level of Care Code Acute Environmental Web Crawler for Chg Fwd Diagnoses Acute respiratory failure with hypoxia J96.01 Chest pressure R07.89 Orthopnea R06.01 Leg edema R60.0 Transaminitis R74.01 Sleep apnea G47.33 Sleep apnea type: obstructive JESUS (acute kidney injury) N17.9
[2022-04-28] VITALS (15 sets, daily range): BP systolic 142–159; BP diastolic 66–76; PULSE 57–81; RESP 12–20; TEMP 36.6–37; O2SAT 89–96
[2022-04-28] MEDS: ipratropium-albuterol 3 mL Neb INHALATION ×4 (02:23→20:04)
[2022-04-28] MEDS: pantoprazole DR 40 mg Tablet PO (06:02)
[2022-04-28] MEDS: guaiFENesin-dextromethorphan UDC 10 mL 5 ML PO ×4 (06:03→21:33)
[2022-04-28] MEDS: enoxaparin 40 mg/0.4 mL Syringe SUBCUT (06:04)
--- NOTE | 2022-04-28 07:11 | PC.NURSE ---
Bedside report received from ERIKA Zaldivar.
[2022-04-28 07:16] LABS: Glucose Point of Care 166 mg/dL (70-110)
[2022-04-28 07:16] LABS: Glucose Point of Care 157 mg/dL (70-110)
[2022-04-28 07:16] LABS: Glucose Point of Care 177 mg/dL (70-110)
[2022-04-28 07:16] LABS: Glucose Point of Care 220 mg/dL (70-110)
[2022-04-28] MEDS: budesonide 0.5 mg/2 mL Neb INHALATION ×2 (08:07→20:04)
[2022-04-28] MEDS: aspirin 81 mg EC Tablet PO (08:46)
[2022-04-28] MEDS: amlodipine 10 mg Tablet PO (08:46)
[2022-04-28] MEDS: hyDRALAzine 25 mg Tablet PO (08:46)
[2022-04-28] MEDS: insulin lispro 100 unit/1 mL SUBCUT ×4 (08:47→21:33)
[2022-04-28] MEDS: FUROsemide 40 mg Tablet PO ×2 (08:50→15:54)
[2022-04-28 09:22] LABS: Alanine Aminotransferase 121 U/L (0-41); Albumin Level 3.6 g/dL (3.5-5.2); Alkaline Phosphatase 72 IU/L (40-130); Blood Urea Nitrogen 34 mg/dL (8-23); Calcium 8.2 mg/dL (8.5-10.5); Carbon Dioxide 25 mmol/L (22-29); Chloride 92 mmol/L (98-107); Globulin 2.8 g/dL (1.3-4.6); Glomerular Filtration Rate 67.8 mL/min (90-130); Glucose 168 mg/dL (65-115); Osmolality Calculated 283 mOsm/kg (285-295); Sodium 131 mmol/L (136-145); Total Bilirubin 0.9 mg/dL (0.15-1.2); Total Protein 6.4 g/dL (6.6-8.7)
[2022-04-28 09:54] LABS: Aspartate Amino Transferase 51 U/L (0-40)
[2022-04-28 11:25] LABS: Glucose Point of Care 213 mg/dL (70-110)
[2022-04-28] MEDS: cefTRIAXone 1,000 MG in sodium chloride 0.9% (plus) 50 ML 100 MG IV (13:22)
[2022-04-28] MEDS: hyDRALAzine 25 mg Tablet 50 MG PO ×2 (15:54→21:33)
--- NOTE | 2022-04-28 16:17 | PM.PN ---
Subjective Subjective: No acute vents overnight. Has remained hemodynamically stable and afebrile. States he is feeling the same. States he thinks he is ready to go home. Denies any nausea vomiting, headache. Blood pressure is better controlled. Saturating more than 90% on 4 L. Vitals/I&O/Wt Last Vital Signs Temp 98.1 F 04/28/22 15:47 Pulse 72 04/28/22 15:47 Resp 18 04/28/22 15:47 BP 142/75 04/28/22 15:47 Pulse Ox 94 04/28/22 15:47 O2 Del Method 04/28/22 15:47 O2 Flow Rate 4 04/28/22 15:47 FiO2 40 04/27/22 02:59 04/28/22 04/28/22 04/28/22 06:59 14:59 22:59 Intake Total 240 / 1850 410 / 410 Output Total 1175 / 1175 250 / 1425 Balance 240 / 450 -765 / -765 -250 / -1015 Weight last 48 hrs Weight 177.014 kg Weight 167.376 kg Physical Exam Narrative: General: No acute distress, AO x3, morbidly obese, currently on 4L HEENT: PERRLA, pupils bilaterally equal and reactive Chest: Bilateral bronchial breath sounds, bilaterally decreased air entry most likely secondary to body habitus, CVS: S1-S2 regular, no murmurs, no tachycardia, no gallops, no rubs Abdomen: Soft, nontender, no organomegaly, bowel sounds present Neuro: No focal deficits, no facial deformity, AO x3, power 5/5 in all limbs Data : 04/27/22 08:00 04/28/22 08:45 Micro: Microbiology 04/27/22 08:37 Gram Stain - Final Sputum - Expectorated Sputum Sputum Culture - Preliminary A&P Assessment and plan (1) Acute respiratory failure with hypoxia: Most likely secondary to combination of COPD exacerbation in a patient with obstructive sleep apnea. Patient tested positive for COVID-19 recently around 3 weeks ago at home COVID testing. Cannot rule out post viral bacterial pneumonia. CT head on admission consistent with possible bilateral basilar atelectasis. MRSA negative. Oxygen supplementation keeping saturation over 90%. DuoNebs every 6 hour, desonide twice daily. Wean Solu-Medrol 40 mg daily. For possible bacterial pneumonia: Sputum culture pending. MRSA negative. Continue ceftriaxone to finish 5-day course. Day 3/5 BiPAP overnight or when resting. Overnight pulse oximetry study appreciated. Will defer to case management for possibility of BiPAP arrangement for outpatient home use. Echocardiogram done shows an EF of 55 to 60%, grade 1 diastolic dysfunction, mild MR, trace TR. Strict input output charting, daily weights. Fluid restriction up to 2 L. Start on Lasix 40 mg oral twice daily. Rapid COVID-19 negative on admission. No isolation required. Status: Acute (2) Chest pressure: No previous history of cardiac evaluation. Echocardiogram negative for regional wall motion abnormality. Most likely patient will benefit from outpatient cardiac stress test once stable respiratory status. Status: Acute (3) Orthopnea: As above. Status: Acute (4) Leg edema: As above. Lower extremity duplex, assess for DVT. Status: Acute (5) Transaminitis: Appears to have some chronicity to transaminitis, will need additional follow-up on this. Status: Acute (6) Sleep apnea: Reports having had a sleep study but it has been a while, no recent study. He is not on CPAP. Concerned that he may be triggering a degree of pulmonary edema with untreated sleep apnea. Reported intolerant of CPAP, but is tolerating BiPAP currently. Would consider referral again for sleep study to see if can be set up with the device he can tolerate. Overnight pulse oximetry study as above. Status: Chronic Qualifiers: Sleep apnea type: obstructive Qualified Code(s): G47.33 - Obstructive sleep apnea (adult) (pediatric) (7) JESUS (acute kidney injury): Baseline creatinine 1.1. Resolved. Creatinine back to baseline. Continue to hold lisinopril, chlorthalidone, hydrochlorothiazide Status: Acute Plan Hypertension: Goal blood pressure less than 140/90 mmHg. Continue with home dose of amlodipine 10 mg daily. Increase hydralazine to 50 mg 3 times a day. Continue with Lasix. Will hold off on chlorthalidone and hydrochlorothiazide given JESUS. Patient needs diuretic effect more than blood pressure effect of medications. If needed can add Coreg. If creatinine remains stable can add DONNELL inhibitor back. Algesia: Tylenol as needed Glycemic control: Blood sugars trending up since admission. Start on insulin sliding scale low-dose protocol. Check A1c. Nutrition: Regular diet. A1c 7.1. CODE STATUS: Full code PUD prophylaxis: Protonix DVT prophylaxis: Lovenox Discharge planning: Home with caregiver once medically cleared. Most likely patient will need a fresh sleep study on discharge. Continue with care at [facility]. Attestations Medical Necessity Statement*: Requires further hospitalization for management of hypoxia secondary to COPD exacerbation, obstructive sleep apnea, uncontrolled hypertension while antihypertensives were adjusted and BiPAP was arranged for outpatient use Time Spent in Patient Care: Greater than 35 minutes Coding Level of Care Code Acute Nurse Supervisor for [facility] Fwd Diagnoses Acute respiratory failure with hypoxia J96.01 Chest pressure R07.89 Orthopnea R06.01 Leg edema R60.0 Transaminitis R74.01 Sleep apnea G47.33 Sleep apnea type: obstructive JESUS (acute kidney injury) N17.9
[2022-04-28 17:09] LABS: Glucose Point of Care 180 mg/dL (70-110)
[2022-04-28 20:58] LABS: Glucose Point of Care 239 mg/dL (70-110)
--- NOTE | 2022-04-28 23:54 | PC.NURSE ---
i reported low pulse 57 to nurse
[2022-04-29] VITALS (11 sets, daily range): BP systolic 143–173; BP diastolic 71–85; PULSE 56–96; RESP 17–30; TEMP 36.4–37.1; O2SAT 85–99
[2022-04-29] MEDS: ipratropium-albuterol 3 mL Neb INHALATION ×3 (02:50→14:55)
[2022-04-29] MEDS: guaiFENesin-dextromethorphan UDC 10 mL 5 ML PO ×2 (04:01→10:49)
[2022-04-29] MEDS: enoxaparin 40 mg/0.4 mL Syringe SUBCUT (04:01)
--- NOTE | 2022-04-29 04:17 | PC.NURSE ---
i reported low pulse 58 to nurse
[2022-04-29] MEDS: pantoprazole DR 40 mg Tablet PO (05:37)
[2022-04-29 07:06] LABS: Basophils % 0.1 %; Hematocrit 47.3 % (42.0-52.0); Hemoglobin 15.6 g/dL (11.7-16.6); Lymphocytes # 1.2 10^3/uL (0.8-4.8); Lymphocytes % 9.2 %; Mean Corpuscular Hemoglobin 30.2 pg (28.0-34.0); Mean Corpuscular Volume 91.5 fl (80-94); Mean Platelet Volume 10.2 fL (7.4-10.4); Monocytes # 0.9 10^3/uL (0.2-0.9); Monocytes % 6.7 %; Neutrophils # 10.83 10^3/uL (1.8-7.7); Neutrophils % 81.3 %; Nucleated Red Blood Cells % 0 %; Platelet Count 235 10^3/cmm (130-400); Red Blood Count 5.17 10^6/uL (4.1-5.3); Red Cell Distribution Width 13.2 % (12.1-15.1); White Blood Count 13.3 10^3/uL (4.0-10.0)
[2022-04-29 07:23] LABS: Alanine Aminotransferase 116 U/L (0-41); Albumin Level 3.6 g/dL (3.5-5.2); Alkaline Phosphatase 68 IU/L (40-130); Blood Urea Nitrogen 31 mg/dL (8-23); Calcium 8.4 mg/dL (8.5-10.5); Carbon Dioxide 26 mmol/L (22-29); Chloride 91 mmol/L (98-107); Globulin 2.5 g/dL (1.3-4.6); Glomerular Filtration Rate 85.5 mL/min (90-130); Glucose 140 mg/dL (65-115); Osmolality Calculated 279 mOsm/kg (285-295); Sodium 130 mmol/L (136-145); Total Bilirubin 0.9 mg/dL (0.15-1.2); Total Protein 6.1 g/dL (6.6-8.7)
[2022-04-29 07:43] LABS: Anion Gap 16.8 (5-19); Aspartate Amino Transferase 48 U/L (0-40); Potassium 3.8 mmol/L (3.5-5.1)
[2022-04-29] MEDS: FUROsemide 40 mg Tablet PO (08:23)
[2022-04-29] MEDS: amlodipine 10 mg Tablet PO (08:23)
[2022-04-29] MEDS: aspirin 81 mg EC Tablet PO (08:23)
[2022-04-29] MEDS: hyDRALAzine 25 mg Tablet 50 MG PO (08:24)
[2022-04-29] MEDS: budesonide 0.5 mg/2 mL Neb INHALATION (08:43)
--- NOTE | 2022-04-29 10:03 | PC.SOCIAL ---
IMM Update Imm updated with patient, copy of page 2 provided. Patient verbalized understanding. Copy initialed, dated and timed, placed in chart.
[2022-04-29 10:31] LABS: ABG PCO2 36.4 mmHg (35-45); Arterial Blood Gas Hematocrit 48.3 % (42-52); Blood Gas Allen Test Pos; Blood Gas Sample Type Arterial; Carboxyhemoglobin 0.4 %THgb (0.4-20.1); HCO3 ABG 28.3 mmol/L (22-26); HGB O2 Sat 95.8 % (95-100); Ionized Calcium Level - ABG 1.1 mmol/L (1.1-1.4); Methemoglobin 1.1 % (0.4-1.5); Oxygen Saturation ABG 97.3; PO2 ABG 80.8 mmHg (80.0-100.0); Potassium Level - ABG 3.6 mmol/L (3.5-5.0); Total Hemoglobin 15.7 g/dL (14-18)
[2022-04-29 10:33] LABS: Alveolar-Arterial Oxygen Gradi 16.8 mmHg (5-10); Blood Gas Operator Identificat ED; Blood Gas Sample Site Radial, right; Oxygen Device NC
[2022-04-29 11:34] LABS: Glucose Point of Care 156 mg/dL (70-110)
--- NOTE | 2022-04-29 12:06 | P.DS_ITS ---
Discharge Providers Date of Admission: 04/22/22 04:15 Date of Discharge: April 29, 2022 Attending Provider at Admission: Eric Mcbride Attending Provider at Discharge: Gerardo Penny MD Primary Care Provider: Jono Arrington MD Diagnoses at Discharge Discharge Diagnosis (1) Acute respiratory failure with hypoxia: Status: Acute (2) Chest pressure: Status: Acute (3) Orthopnea: Status: Acute (4) Leg edema: Status: Acute (5) Transaminitis: Status: Acute (6) Sleep apnea: Status: Chronic Qualifiers: Sleep apnea type: obstructive Qualified Code(s): G47.33 - Obstructive sleep apnea (adult) (pediatric) Permanent problem details: Intolerant of noninvasive positive pressure ventilation (7) JESUS (acute kidney injury): Status: Acute Reason for Visit Reason for Visit: cough, SOB Brief History: History as per HPI: Pleasant 61-year-old gentleman with a number of comorbidities, reports including history of sleep apnea diagnosed in the past, but not on CPAP, and has not had a sleep study in a while, states feels he has gotten over it, with history of COVID-19 in October, with morbid obesity, other chronic comorbidities returns to the hospital after discharge on after hospitalization for treatment of acute bronchitis, suspected COPD exacerbation, at that time with negative D-dimer, negative viral PCR studies including COVID-19, no acute infiltrates on chest CT, slight basilar atelectasis, coronary calcification, prior wire fixation of her left rib fractures. He states that he had had partial improvement, at discharge required 304 L nasal cannula oxygen.? States that he felt all right until about yesterday when he started feeling more short of breath again.? Reports he has cough, but it is dry, he feels his chest is congested, he is not bringing anything up.? He is having some chest pressure.? He is also reporting some orthopnea.? Leg swelling reports is now worse as well. He was found to be quite hypoxic by EMS, requiring up to 8 L of oxygen, in ER he is started on BiPAP support 60% FiO2, saturation currently 96%.? Chest x-ray without obvious opacities, chronic changes Basis, difficult exclude small left-sided pleural effusion.? ABG 7.37/39.7/50.4 on 6 L nasal cannula. He has received breathing treatment, Solu-Medrol, morphine. He is currently tolerating BiPAP well.? Reports left-sided chest wall tenderness/pain with palpation, inspiration which she states got worse with cough. Hospital Course Hospital Course Patient admitted to hospital further evaluation and management of acute on chronic hypoxic/hypercapnic respiratory failure secondary to COPD exacerbation and obstructive sleep apnea along with congestive heart failure with preserved ejection fraction. Patient did give history of recent infection of COVID-19 after which his symptoms got worse for which there was a concern of superadded bacterial infection hence he was started on IV ceftriaxone. His blood cultures during hospitalization remain negative. He was treated with IV diuresis. His hospitalization was complicated by him developing acute kidney injury for which his multiple antihypertensives including hydrochlorothiazide and chlorthalidone were discontinued. He was started on treatment with steroids, inhalation treatment. Echocardiogram was done which showed an EF 55 to 60% with grade 1 diastolic dysfunction and mild MR. Patient has been saturating well and feeling better on 4 L during the day and BiPAP overnight. Overnight pulse oximetry was done which showed patient to be hypoxic down to 60s on nasal cannula but ABG did not show hypercapnia and BiPAP could not be arranged. Patient has been discharged in hemodynamically stable condition on oral Augmentin and Levaquin for next 3 days, continuation of inhalation treatment, steroid taper which has been discussed in detail with the patient. He is advised to follow-up with his primary care provider within next 1 week for a possible sleep study. Patient was interested in buying his own BiPAP machine. Current hospital BiPAP settings have been faxed over. He is not to take chlorthalidone and hydrochlorothiazide anymore. Instead he will be taking hydralazine 25 mg 3 times daily along with Lasix 40 mg twice daily. Physical Exam Narrative: General: No acute distress, AO x3, morbidly obese, currently on 4L HEENT: PERRLA, pupils bilaterally equal and reactive Chest: Bilateral bronchial breath sounds, bilaterally decreased air entry most likely secondary to body habitus, CVS: S1-S2 regular, no murmurs, no tachycardia, no gallops, no rubs Abdomen: Soft, nontender, no organomegaly, bowel sounds present Neuro: No focal deficits, no facial deformity, AO x3, power 5/5 in all limbs Discharge Data Studies Completed and Pending Completed Studies During Hospitalization Category Date Time Status CTA chest [CT angio chest PE protcl [id number]] Stat Cat Scan 04/22/22 04:51 Completed XR chest 1V portable [id number] Stat Exams 04/22/22 01:53 Completed CV. echo wo/w contrast [id number] Routine Ultrasound 04/22/22 04:30 Completed US venous duplex lower extremity bilat [CV venous Ultrasound 04/22/22 04:59 [place] [id number]] Routine Radiology Impressions Chest X-Ray 04/22/22 01:53 IMPRESSION: 1. No dense confluent lobar opacities concerning for significant pneumonia identified. 2. Chronic changes in the lung bases. Difficult to exclude small left-side pleural effusion. Chest CTA 04/22/22 04:51 IMPRESSION: 1. No pulmonary embolism identified. 2. Bibasilar atelectasis. 3. No pleural effusions. 4. Stable cardiomegaly. 5. Cholelithiasis identified in partially visualized gallbladder. COMMENTS: Consistent with the [employer]'s Incidental Findings Committee white paper (J Am Aspen Radiol 2017): Any incidental adrenal lesion less than 1 cm is likely benign. No follow-up imaging is recommended for these lesions per consensus recommendations based on imaging criteria. Further lab evaluation could be pursued if warranted based on clinical findings. Laboratory Results WBC 13.3 10^3/uL (4.0-10.0) H 04/29/22 06:15 RBC 5.17 10^6/uL (4.1-5.3) 04/29/22 06:15 Hgb 15.6 g/dL (11.7-16.6) 04/29/22 06:15 Hct 47.3 % (42.0-52.0) 04/29/22 06:15 MCV 91.5 fl (80-94) 04/29/22 06:15 MCH 30.2 pg (28.0-34.0) 04/29/22 06:15 MCHC 33.0 g/dL (30.0-36.0) 04/29/22 06:15 RDW 13.2 % (12.1-15.1) 04/29/22 06:15 Plt Count 235 10^3/cmm (130-400) 04/29/22 06:15 MPV 10.2 fL (7.4-10.4) 04/29/22 06:15 Neut % (Auto) 81.3 % 04/29/22 06:15 Lymph % (Auto) 9.2 % 04/29/22 06:15 [place] % (Auto) 6.7 % 04/29/22 06:15 Eos % (Auto) 0.0 % 04/29/22 06:15 Baso % (Auto) 0.1 % 04/29/22 06:15 Neut # (Auto) 10.83 10^3/uL (1.8-7.7) H 04/29/22 06:15 Lymph # (Auto) 1.2 10^3/uL (0.8-4.8) 04/29/22 06:15 [place] # (Auto) 0.9 10^3/uL (0.2-0.9) 04/29/22 06:15 Eos # (Auto) 0.0 10^3/uL (0.0-0.8) 04/29/22 06:15 Baso # (Auto) 0.0 10^3/uL (0.0-0.1) 04/29/22 06:15 Nucleated RBC % (auto) 0 % 04/29/22 06:15 Nucleated RBCs # 0.0 /100WBC 04/29/22 06:15 D-Dimer 2.07 ug/mIFEU (0-0.59) H 04/22/22 04:20 Specimen Type Arterial 04/29/22 10:22 Sample Site Radial, right 04/29/22 10:22 ABG pH 7.50 (7.35-7.45) H 04/29/22 10:22 ABG pCO2 36.4 mmHg (35-45) 04/29/22 10:22 ABG pO2 80.8 mmHg (80.0-100.0) 04/29/22 10:22 ABG HCO3 28.3 mmol/L (22-26) H 04/29/22 10:22 ABG O2 Saturation 97.3 04/29/22 10:22 ABG Base Excess 5.0 mmol/L (-2.0-2.0) H 04/29/22 10:22 Ron Test Pos 04/29/22 10:22 A-a O2 Gradient 16.8 mmHg (5-10) H 04/29/22 10:22 Hematocrit 48.3 % (42-52) 04/29/22 10:22 Hgb O2 Saturation 95.8 % (95-100) 04/29/22 10:22 Carboxyhemoglobin 0.4 %THgb (0.4-20.1) 04/29/22 10:22 Methemoglobin 1.1 % (0.4-1.5) 04/29/22 10:22 Total Hemoglobin 15.7 g/dL (14-18) 04/29/22 10:22 Sodium 130.0 mmol/L (131-143) L 04/29/22 10:22 Potassium 3.6 mmol/L (3.5-5.0) 04/29/22 10:22 Glucose 170.0 mg/dL (70-115) H 04/29/22 10:22 Ionized Calcium 1.1 mmol/L (1.1-1.4) 04/29/22 10:22 O2 Delivery Device Nc 04/29/22 10:22 O2 Liters/Min 4.0 % 04/29/22 10:22 FiO2 36.0 % 04/29/22 10:22 Cable Installer Repairer Helper ID Ed 04/29/22 10:22 Sodium 130 mmol/L (136-145) L 04/29/22 06:15 Potassium 3.8 mmol/L (3.5-5.1) 04/29/22 06:15 Chloride 91 mmol/L (98-107) L 04/29/22 06:15 Carbon Dioxide 26 mmol/L (22-29) 04/29/22 06:15 Anion Gap 16.8 (5-19) 04/29/22 06:15 BUN 31 mg/dL (8-23) H 04/29/22 06:15 Creatinine 0.9 mg/dL (0.7-1.2) 04/29/22 06:15 GFR Calculation 85.5 mL/min (90-130) L 04/29/22 06:15 Glucose 140 mg/dL (65-115) H 04/29/22 06:15 POC Glucose 156 mg/dL (70-110) H 04/29/22 11:22 Estimat Average Glucose 157 04/27/22 08:00 Hemoglobin A1c 7.1 % (4.0-6.0) H 04/27/22 08:00 Calculated Osmolality 279 mOsm/kg (285-295) L 04/29/22 06:15 Calcium 8.4 mg/dL (8.5-10.5) L 04/29/22 06:15 Total Bilirubin 0.9 mg/dL (0.15-1.2) 04/29/22 06:15 AST 48 U/L (0-40) H 04/29/22 06:15 ALT 116 U/L (0-41) H 04/29/22 06:15 Alkaline Phosphatase 68 IU/L (40-130) 04/29/22 06:15 Troponin T Baseline 36 ng/L (0-15) H 04/22/22 02:38 Troponin T 120 Minute 20.87 ng/L (0-15) H 04/22/22 04:20 Delta Troponin T -15.13 ABS# (0-10) L 04/22/22 04:20 Troponin T Hi Sens 6Hr 17.85 ng/L (0-15) H 04/22/22 08:55 Troponin T Hi Sens 6Hr Delta -18.15 ng/L (0-12) L 04/22/22 08:55 NT-Pro-B Natriuret Pep 156 pg/mL (0-125) H 04/22/22 02:38 Total Protein 6.1 g/dL (6.6-8.7) L 04/29/22 06:15 Albumin 3.6 g/dL (3.5-5.2) 04/29/22 06:15 Globulin 2.5 g/dL (1.3-4.6) 04/29/22 06:15 Triglycerides 117 mg/dL (0-150) 04/27/22 08:00 Cholesterol 202 mg/dL (0-200) H 04/27/22 08:00 LDL Cholesterol, Calc 111 mg/dL (50-129) 04/27/22 08:00 Total VLDL Cholesterol 23 mg/dL (0-30) 04/27/22 08:00 HDL Cholesterol 68 mg/dL (60-100) 04/27/22 08:00 Cholesterol/HDL Ratio 2.97 mg/dL (1.0-5.00) 04/27/22 08:00 Procalcitonin 0.07 ng/mL (0-0.5) 04/26/22 13:42 TSH 0.99 uIU/mL (0.27-4.20) 04/26/22 13:42 Urine Color Yellow (Yellow) 04/22/22 06:09 Urine Appearance Clear (CLEAR) 04/22/22 06:09 Urine pH 5 (5-7) 04/22/22 06:09 Ur Specific [place] 1.020 (1.005-1.030) 04/22/22 06:09 Urine Protein Neg (Negative) 04/22/22 06:09 Urine Glucose (UA) Norm (Normal) 04/22/22 06:09 Urine Ketones Negative (Negative) 04/22/22 06:09 Urine Blood Neg (Negative) 04/22/22 06:09 Urine Nitrate Negative (Negative) 04/22/22 06:09 Urine Bilirubin Neg (Negative) 04/22/22 06:09 Urine Urobilinogen Norm mg/dL (Negative) 04/22/22 06:09 Ur Leukocyte Esterase Negative (Negative) 04/22/22 06:09 Ur Random Urea Nitrogn 128 mg/dL 04/22/22 06:09 Urine Creatinine 94 mg/dL (39-259) 04/22/22 06:09 SARS-CoV-2 Ag (Rapid) Negative (Negative) 04/22/22 02:25 Vitals Last Vital Signs Temp 98.3 F 04/29/22 11:16 Pulse 75 04/29/22 11:16 Resp 17 04/29/22 11:16 BP 143/85 04/29/22 11:16 Pulse Ox 99 04/29/22 11:16 O2 Del Method 04/29/22 11:16 O2 Flow Rate 4 04/29/22 08:43 FiO2 40 04/29/22 02:49 Discharge Plan Discharge Patient Disposition: Home Condition: Stable Prescriptions: New furosemide 40 mg Tablet 40 mg PO BID@,16 Qty: 60 0RF hydralazine 25 mg Tablet 25 mg PO TID Qty: 90 0RF prednisone 10 mg tablet See Taper PO DAILY Qty: 45 0RF Taper: predniSONE 60-10 60 mg Daily for 2 Days and 0 Hour 50 mg Daily for 2 Days and 0 Hour 40 mg Daily for 2 Days and 0 Hour 30 mg Daily for 2 Days and 0 Hour 20 mg Daily for 2 Days and 0 Hour 10 mg Daily for 2 Days and 0 Hour Augmentin 500-125 mg tablet 1 tab PO Q12H Qty: 6 0RF Continued amlodipine 10 mg tablet 10 mg PO QAM Qty: 60 3RF ropinirole 0.5 mg tablet 0.5 mg PO DAILY PRN (Reason: Restless Leg(S)) Qty: 30 3RF lisinopril 20 mg tablet 20 mg PO DAILY Qty: 90 3RF albuterol sulfate 90 mcg/actuation HFA aerosol inhaler 2 inh INHALATION Q4H PRN (Reason: shortness of breath or wheezing) Qty: 18 0RF pantoprazole 40 mg tablet,delayed release (DR/EC) 40 mg PO DAILY PRN (Reason: Acid Reflux) hydrocodone-acetaminophen 5-325 mg Tablet 1 tab PO Q4H PRN (Reason: Moderate Pain) 5 Days Qty: 10 0RF budesonide-formoterol [Symbicort] 160-4.5 mcg/actuation HFA aerosol inhaler 2 inh inhalation BID 30 Days Qty: 10.2 0RF Spiriva Respimat 2.5 mcg/actuation mist 2 inh inhalation DAILY 30 Days Qty: 4 0RF ipratropium-albuterol 0.5 mg-3 mg(2.5 mg base)/3 mL solution for nebulization 3 ml inhalation Q8H PRN (Reason: shortness of breath or wheezing) 7 Days Qty: 15 0RF levofloxacin 750 mg Tablet 750 mg PO DAILY 3 Days Qty: 3 0RF Discontinued prednisone 20 mg tablet See Rx Instructions .ROUTE .COMPLEX Qty: 11 0RF Rx Instructions: 40 mg x 3 days 20 mg x 3 days 10 mg x 3 days 5 mg x 3 days chlorthalidone 25 mg Tablet 25 mg PO DAILY hydrochlorothiazide 50 mg tablet 50 mg PO DAILY Discharge Orders: Discharge Order (Routine); Ordered 04/29/22 Ordered By: Gerardo Penny Other Ambulatory Orders: DME: BIPAP (Order) Location: None Selected Ordered By: Gerardo Penny Referrals: Jono Arrington MD [Primary Care Provider] - 05/12/22 10:45 am Discharge Diet: Cardiac and Diabetic Discharge Activity: Resume usual activity and Increase activity as tolerated Patient Instructions: Furosemide (By mouth), Prednisone (By mouth), Amoxicillin/Clavulanate Potassium (By mouth), Hydralazine (By mouth), Acute Kidney Injury (DC), Acute Respiratory Failure (GEN), Opioid Safety Activity Restrictions/Additional Instructions: Please recheck BMP with a primary care provider within next 1 week. You will be on steroid taper as described to you in detail. Try to use BiPAP as discussed in detail. Please try to get a sleep study with a primary care provider as soon as possible. Discharge Attestations Time Spent in Discharge Care*: greater than 30 min Specific Discharge Activities: educating patient, discussing with pcp/other providers, discussing with bottle caser/social workers/dc planners, documenting/other paperwork and evaluating patient/reviewing data Status at Discharge: Cognitive status at discharge: cognitively intact , Behavioral status at discharge: cooperative , Functional status at discharge: independent ambulation , Overall status at discharge: patient is progressing back to baseline Quality Metrics Clinical Quality Measures [ No reported AMI, CVA or VTE this stay] Coding Level of Care Code Acute Chg FW DC note Diagnoses Acute respiratory failure with hypoxia J96.01 Chest pressure R07.89 Orthopnea R06.01 Leg edema R60.0 Transaminitis R74.01 Sleep apnea G47.33 Sleep apnea type: obstructive JESUS (acute kidney injury) N17.9
== END 2022-04-29 15:04 | disposition home or self-care (01) | DRG 189 ==
LOC: ER 04:14 → ER IP 04:35 → MEDSURG 14:23
PROVIDERS: Internal Medicine; Admitting Provider Internal Medicine; Emergency Provider Emergency Medicine; PCP Internal Medicine; Visit Provider Student in an Organized Health Care Education/Training Program
DX: J96.21 Acute and chronic respiratory failure with hypoxia (principal); I50.31 Acute diastolic (congestive) heart failure; J15.9 Unspecified bacterial pneumonia; J44.1 Chronic obstructive pulmonary disease with (acute) exacerbation; N17.9 Acute kidney failure, unspecified; Z68.42 Body mass index [BMI] 45.0-49.9, adult; E66.2 Morbid (severe) obesity with alveolar hypoventilation; J96.22 Acute and chronic respiratory failure with hypercapnia; I11.0 Hypertensive heart disease with heart failure; U09.9 Post COVID-19 condition, unspecified; R07.89 Other chest pain; R74.01 Elevation of levels of liver transaminase levels; E78.5 Hyperlipidemia, unspecified; G25.81 Restless legs syndrome; Z20.822 Contact with and (suspected) exposure to COVID-19; Z87.442 Personal history of urinary calculi
CPT/HCPCS: 36415; 36416; 36600; 71045; 71275; 80051; 80053; 80061; 81003; 82330; 82570; 82803; 82805; 82962; 83036; 83880; 84145; 84443; 84484; 84540; 85025; 85378; 87070; 87205; 87426; 87641; 93005; 93970; 94640; 94660; 94664; 94760; 94762; 96372; 96374; 96375; 96376; 99291; C8929; C9113; J0696; J1650; J1815; J1940; J1956; J2270; J2920; J2930; J7626; Q9956

== ENCOUNTER → 2022-06-22 08:18 | Outpatient (BNVA) | payer OTHER, SELFPAY | PROVIDERS: PCP Internal Medicine; Visit Provider Orthopaedic Surgery | DX: M17.0 Bilateral primary osteoarthritis of knee (principal) | CPT/HCPCS: 73560; 73565 ==

== ENCOUNTER → 2022-12-08 13:51 | Outpatient (BNVA) | payer OTHER, SELFPAY | PROVIDERS: PCP Internal Medicine; Visit Provider Nurse Practitioner Family | DX: M17.12 Unilateral primary osteoarthritis, left knee (principal); E66.01 Morbid (severe) obesity due to excess calories; Z68.43 Body mass index [BMI] 50.0-59.9, adult | CPT/HCPCS: 73562 ==

== ENCOUNTER 2022-12-08 15:04 | Outpatient (CLI) | payer OTHER, SELFPAY | END 2022-12-08 15:05 | disposition home or self-care (01) | LOC: SPT 15:04 | PROVIDERS: PCP Internal Medicine; Visit Provider Nurse Practitioner Family | DX: Z46.89 Encounter for fitting and adjustment of other specified devices (principal); M25.562 Pain in left knee | CPT/HCPCS: 97760; L1812 ==

== ENCOUNTER 2023-05-30 10:46 | Outpatient (CLI) | payer OTHER, SELFPAY | END 2023-05-30 10:47 | disposition home or self-care (01) | LOC: SPT 10:48 | PROVIDERS: PCP Internal Medicine; Visit Provider Student in an Organized Health Care Education/Training Program | DX: Z46.89 Encounter for fitting and adjustment of other specified devices (principal); M17.12 Unilateral primary osteoarthritis, left knee | CPT/HCPCS: L1812 ==

== ENCOUNTER 2023-06-16 13:46 | Emergency (ER) | payer OTHER, SELFPAY ==
[2023-06-16 14:01] VITALS: BP 151/100; PULSE 99; TEMP 36.9; O2SAT 95; BMI 47.5
[2023-06-16 14:33] LABS: Basophils % 0.3 %; Eosinophils # 0.2 10^3/uL (0.0-0.8); Eosinophils % 1.7 %; Hematocrit 55.7 % (37-53); Lymphocytes # 1.8 10^3/uL (0.8-4.8); Lymphocytes % 15.7 %; Mean Corpuscular HGB Conc 31.2 g/dL (30-55); Mean Corpuscular Hemoglobin 30.7 pg (27-33); Mean Corpuscular Volume 98.4 fl (82-101); Mean Platelet Volume 10.4 fL (7.4-10.4); Monocytes # 0.7 10^3/uL (0.2-0.9); Monocytes % 6.1 %; Neutrophils # 8.53 10^3/uL (1.8-7.7); Neutrophils % 75.9 %; Nucleated Red Blood Cells % 0 %; Platelet Count 239 10^3/cmm (157-399); Red Blood Count 5.66 10^6/uL (3.85-5.65); Red Cell Distribution Width 13.1 % (12.1-15.1); White Blood Count 11.23 10^3/uL (3.29-11.43)
[2023-06-16 15:03] LABS: Alanine Aminotransferase 40 U/L (0-41); Albumin Level 4.6 g/dL (3.5-5.2); Alkaline Phosphatase 68 U/L (40-130); Anion Gap 18.4 (5-19); Aspartate Amino Transferase 26 U/L (0-40); Blood Urea Nitrogen 23 mg/dL (8-23); Carbon Dioxide 16 mmol/L (22-29); Chloride 105 mmol/L (98-107); Glomerular Filtration Rate 61.1 mL/min (90-130); Glucose 102 mg/dL (65-115); Lipase 35 U/L (13-60); Osmolality Calculated 284 mOsm/kg (285-295); Potassium 4.4 mmol/L (3.5-5.1); Sodium 135 mmol/L (136-145); Total Bilirubin 0.6 mg/dL (0.15-1.2); Total Protein 7.6 g/dL (6.6-8.7)
[2023-06-16 15:45] VITALS: BP 167/105; PULSE 80; O2SAT 97
--- NOTE | 2023-06-16 16:24 | CTR_ITS ---
PROCEDURE INFORMATION: Exam: CT Abdomen And Pelvis With Contrast Exam date and time: 06/16/2023 5:06 PM Age: 62 years old Clinical indication: Abdominal pain; Generalized; Additional info: Abd pain TECHNIQUE: Imaging protocol: Computed tomography of the abdomen and pelvis with contrast. Radiation optimization: All CT scans at this facility use at least one of these dose optimization techniques: automated exposure control; mA and/or kV adjustment per patient size (includes targeted exams where dose is matched to clinical indication); or iterative reconstruction. Contrast material: OMNI 350; Contrast volume: 100 ml; Contrast route: INTRAVENOUS (IV); REPORTING DATA: Count of CT and Cardiac NM exams in prior 12 months: This patient has received 0 known CTs and 0 known cardiac nuclear medicine studies in the 12 months prior to the current study. COMPARISON: CT kidney stone [id number] 12/28/2019 4:43 PM RADIATION DOSE METRICS: Total DLP (mGy-cm): 1347 FINDINGS: Lungs: There is some scarring at the left lung base. Liver: There is no focal abnormality within the liver. Gallbladder and bile ducts: There are 3 calcified gallstones within the gallbladder unchanged. There is no gallbladder wall thickening or pericholecystic fluid. Pancreas: The pancreas is normal. Spleen: The spleen is normal. Adrenal glands: There is a 10 mm benign fatty nodule in the left adrenal gland consistent with benign myelolipoma. Small nodules both adrenal glands not significantly changed. No further follow-up necessary. Kidneys and ureters: 2 cm benign simple cyst mid right kidney not significantly changed. Tiny cortical hypodensities both kidneys most likely cysts but too small to definitively characterize by CT scanning. There is no evidence of hydronephrosis. Stomach and bowel: There is no evidence of colitis/diverticulitis. There is no evidence of intestinal obstruction. Appendix: A normal appendix is identified. Intraperitoneal space: There is no evidence of free intraperitoneal fluid. Vasculature: The aorta demonstrates mild atherosclerotic calcification. There is no evidence of an abdominal aortic aneurysm. 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 Lymph nodes: There is no evidence of lymphadenopathy. Urinary bladder: Unremarkable as visualized. Reproductive: The prostate demonstrates mild nonspecific enlargement. The seminal vesicles are normal. Bones/joints: Postsurgical changes in the lower left ribs are again identified unchanged. The lumbar spine demonstrates mild degenerative changes at multiple levels. Soft tissues: There is a prominent umbilical hernia containing only fat. This measures 77 mm and is larger than on 12/28/2019 when it measured 56 mm. There are bilateral inguinal hernias containing only fat. CT/CT abdomen pelvis w con* [id number] IMPRESSION: 1. Cholelithiasis without evidence of cholecystitis 2. No acute finding 3. Various chronic findings as described above. COMMENTS: Consistent with the [employer]'s Incidental Findings Committee white paper (J Am Aspen Radiol 2018): Any incidental renal lesion less than 1 cm or classified as too small to characterize, or any incidental cystic renal lesion characterized as simple-appearing, is likely benign. No follow-up imaging is recommended for these lesions per consensus recommendations based on imaging criteria.
[2023-06-16 16:43] VITALS: RESP 19
[2023-06-16] MEDS: morphine 4 mg/mL SDV 1 mL IVP (16:43)
[2023-06-16] MEDS: pantoprazole 40 mg SDV IVP (16:43)
[2023-06-16] MEDS: ondansetron 2 mg/ML SDV 2 mL 4 MG IVP (16:43)
[2023-06-16 16:57] LABS: Add Urine Microscopic? NO; Charge for UA Resulting for Rev
[2023-06-16 17:00] VITALS: PULSE 75; O2SAT 94
[2023-06-16 17:04] LABS: Bilirubin Urine Neg (Negative); Blood Urine Neg (Negative); Glucose Urine UA Norm (Normal); Ketones Urine 1+ (Negative); Leukocyte Esterase Urine Negative (Negative); Nitrate Urine Negative (Negative); Protein Urine Neg (Negative); Urine Appearance Clear (CLEAR); Urine Color Yellow (Yellow); Urobilinogen Urine Norm (Negative); pH Urine 5 (5-7)
[2023-06-16] MEDS: iohexol 350 mg/mL 500 mL Btl (per mL) IV (17:26)
[2023-06-16 18:00] VITALS: BP 172/105; PULSE 67; O2SAT 96
--- NOTE | 2023-06-16 18:51 | ED_ITS ---
HPI - Abdominal Pain General: Chief Complaint: Abdominal Pain Stated Complaint: upper abd pain Time Seen by Provider: 06/16/23 15:28 History of Present Illness: 62-year-old male with history of hypertension, gout, RLS, kidney stone and morbid obesity. Patient presents emergency room with abdominal pain and bloating for the past 3 weeks. Patient describes the abdominal pain as sharp sensation mostly around the right lower quadrant with severity of 7 out of 10. Patient also reveals some epigastric discomfort and described the sensation as a bloating sensation but denies any vomiting, diarrhea, bloody stool or dark stool. Denies vomiting blood or coughing up blood. No chest pain, shortness of breath, leg swelling or calf tenderness. No known sick contacts or recent foreign travel. Associated Symptoms: Reports belching and nausea; Denies change in bowel habits, change in stool character, chills, coffee ground emesis, constipation, diarrhea, fever(s), heartburn, hematemesis, fecal incontinence and vomiting Review of Systems General: Reports: 10 or more systems reviewed and unremarkable except in HPI and below Const: Denies: fever(s), chills, body aches or change in appetite Eyes: Denies: change in vision or blind spots Card: Denies: chest pain, palpitations, irregular heart rhythm or edema Resp: Denies: dyspnea or productive cough GI: Reports: abdominal pain, nausea and belching; Denies: vomiting, hematemesis, coffee ground emesis, dysphagia, heartburn, early satiety, diarrhea, constipation, fecal incontinence, change in bowel habits, pain on defecation, rectal pain, rectal swelling, rectal itching or change in stool character Psych: Denies: anxiety or mood swings [facility] ED PFSH: Medical History COVID-19 Essential (primary) hypertension Gout Hernia Intervertebral disc disorders with radiculopathy, lumbosacral region Morbid obesity Retained ureteral stent RLS (restless legs syndrome) Sacroiliitis Sleep apnea Intolerant of noninvasive positive pressure ventilation Thoracic neuralgia Ureteral stone with hydronephrosis 7+ millimeters right proximal ureteral stone with high-grade obstruction and severe refractory renal colic. Required inpatient admission December 2019 and treated with endoscopy with laser lithotripsy and stent. 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: [employer]IL[employer] Current gender identity: Male Physical Exam Const: COMMON NORMALS: no acute distress, average body habitus, patient oriented x3, no limitations, healthy appearing, alert and well nourished HENMT: COMMON NORMALS: normocephalic HEAD & SCALP: normal to inspection and normocephalic Lymph: LYMPHATIC: no lymphadenopathy noted Chest: COMMONS NORMALS: normal inspection of the chest, normal palpation of entire chest wall, normal inspection of the breasts and normal palpation of the breasts Breast/axilla inspection: Yes normal inspection of the breasts BREAST/AXILLA PALPATION: Yes normal palpation of the breasts Resp: COMMON NORMALS: normal respiratory effort, No retractions, No use of accessory muscles, clear to auscultation bilaterally and percussion normal AUSCULTATION: clear to auscultation bilaterally PERCUSSION: percussion normal GI: PALPATION: Yes Tenderness to palpation present (GI) (Some tenderness with deep palpation around the right lower quadrant) OTHER: Patient with reducible umbilical hernia. : COMMON NORMALS: Yes no CVA tenderness BLADDER/KIDNEY EXAM: Yes no CVA tenderness Back/Pelvis: COMMON NORMALS: no CVA tenderness, thoracic and lumbar spine normal to inspection, no thoracic nor lumbar tenderness, thoraco-lumbar ROM normal and straight leg raise negative bilaterally Extremity: COMMON NORMALS: normal to inspection, full ROM, capillary refill normal, no joint enlargement, no clubbing, cyanosis or edema, no calf tenderness and no pedal edema Neuro: COMMON NORMALS: patient oriented x3 SENSORIUM/ORIENTATION: Yes alert Course Reevaluation(s): Reevaluation #1: Upon assessment patient appeared to be comfortable without any acute distress. Discussed the lab finding and CT finding with the patient. Vital Signs: Vital signs: Vital Signs Temperature 98.5 F 06/16/23 14:01 Pulse Rate 67 06/16/23 18:00 Respiratory Rate 19 H 06/16/23 16:43 Blood Pressure 172/105 06/16/23 18:00 Pulse Oximetry 96 06/16/23 18:00 Oxygen Delivery Me thod Room Air 06/16/23 18:00 MDM - Abdominal Pain Medical Decision Making Patient made comfortable emergency room and had extensive work-up including CBC, CMP, lipase and CT scan. Discussed the CT scan finding with the patient. Patient was reassured and close follow-up with local surgeon recommended for further evaluation and treatment. Differential Diagnosis Likely abdominal pain, acute appendicitis, calculus of kidney, constipation, diverticulitis, endometriosis, gastroenteritis, pancreatitis and small bowel obstruction Lab Data 06/16/23 14:13 06/16/23 14:13 Labs/Radiology: Radiology Impressions Abdomen/Pelvis CT 06/16/23 16:24 IMPRESSION: 1. Cholelithiasis without evidence of cholecystitis 2. No acute finding 3. Various chronic findings as described above. COMMENTS: Consistent with the [employer] [place]'s Incidental Findings Committee white paper (J Am Aspen Radiol 2018): Any incidental renal lesion less than 1 cm or classified as too small to characterize, or any incidental cystic renal lesion characterized as simple-appearing, is likely benign. No follow-up imaging is recommended for these lesions per consensus recommendations based on imaging criteria. Laboratory Results WBC 11.23 10^3/uL (3.29-11.43) 06/16/23 14:13 RBC 5.66 10^6/uL (3.85-5.65) H 06/16/23 14:13 Hgb 17.40 g/dL (11.27-16.99) H 06/16/23 14:13 Hct 55.7 % (37-53) H 06/16/23 14:13 MCV 98.4 fl (82-101) 06/16/23 14:13 MCH 30.7 pg (27-33) 06/16/23 14:13 MCHC 31.2 g/dL (30-55) 06/16/23 14:13 RDW 13.1 % (12.1-15.1) 06/16/23 14:13 Plt Count 239 10^3/cmm (157-399) 06/16/23 14:13 MPV 10.4 fL (7.4-10.4) 06/16/23 14:13 Neut % (Auto) 75.9 % 06/16/23 14:13 Lymph % (Auto) 15.7 % 06/16/23 14:13 [place] % (Auto) 6.1 % 06/16/23 14:13 Eos % (Auto) 1.7 % 06/16/23 14:13 Baso % (Auto) 0.3 % 06/16/23 14:13 Neut # (Auto) 8.53 10^3/uL (1.8-7.7) H 06/16/23 14:13 Lymph # (Auto) 1.8 10^3/uL (0.8-4.8) 06/16/23 14:13 [place] # (Auto) 0.7 10^3/uL (0.2-0.9) 06/16/23 14:13 Eos # (Auto) 0.2 10^3/uL (0.0-0.8) 06/16/23 14:13 Baso # (Auto) 0.0 10^3/uL (0.0-0.1) 06/16/23 14:13 Nucleated RBC % (auto) 0 % 06/16/23 14:13 Nucleated RBCs # 0.0 /100WBC 06/16/23 14:13 Sodium 135 mmol/L (136-145) L 06/16/23 14:13 Potassium 4.4 mmol/L (3.5-5.1) 06/16/23 14:13 Chloride 105 mmol/L (98-107) 06/16/23 14:13 Carbon Dioxide 16 mmol/L (22-29) L 06/16/23 14:13 Anion Gap 18.4 (5-19) 06/16/23 14:13 BUN 23 mg/dL (8-23) 06/16/23 14:13 Creatinine 1.2 mg/dL (0.7-1.2) 06/16/23 14:13 GFR Calculation 61.1 mL/min (90-130) L 06/16/23 14:13 Glucose 102 mg/dL (65-115) 06/16/23 14:13 Calculated Osmolality 284 mOsm/kg (285-295) L 06/16/23 14:13 Calcium 11.0 mg/dL (8.5-10.5) H 06/16/23 14:13 Total Bilirubin 0.6 mg/dL (0.15-1.2) 06/16/23 14:13 AST 26 U/L (0-40) 06/16/23 14:13 ALT 40 U/L (0-41) 06/16/23 14:13 Alkaline Phosphatase 68 U/L (40-130) 06/16/23 14:13 Total Protein 7.6 g/dL (6.6-8.7) 06/16/23 14:13 Albumin 4.6 g/dL (3.5-5.2) 06/16/23 14:13 Globulin 3.0 g/dL (1.3-4.6) 06/16/23 14:13 Lipase 35 U/L (13-60) 06/16/23 14:13 Urine Color Yellow (Yellow) 06/16/23 16:51 Urine Appearance Clear (CLEAR) 06/16/23 16:51 Urine pH 5 (5-7) 06/16/23 16:51 Ur Specific [place] 1.020 (1.005-1.030) 06/16/23 16:51 Urine Protein Neg (Negative) 06/16/23 16:51 Urine Glucose (UA) Norm (Normal) 06/16/23 16:51 Urine Ketones 1+ (Negative) H 06/16/23 16:51 Urine Blood Neg (Negative) 06/16/23 16:51 Urine Nitrate Negative (Negative) 06/16/23 16:51 Urine Bilirubin Neg (Negative) 06/16/23 16:51 Urine Urobilinogen Norm mg/dL (Negative) 06/16/23 16:51 Ur Leukocyte Esterase Negative (Negative) 06/16/23 16:51 All radiology interpretation(s) finalized by discharge Discharge Plan Discharge Patient Disposition: Home Clinical Impression: Abdominal pain, Cholelithiasis, Hernia, umbilical Condition: Stable Prescriptions: New Protonix 20 mg tablet,delayed release (DR/EC) 20 mg PO QAM 28 Days Qty: 28 0RF dicyclomine 20 mg tablet 20 mg PO BID PRN (Reason: abd pain ) Qty: 30 0RF promethazine 25 mg tablet 25 mg PO TID PRN (Reason: nausea and vomiting) Qty: 14 0RF No Action (DME) CUSTOM HINGED BRACE See Rx Instructions .Route .MEDSUPPLY Qty: 1 0RF Rx Instructions: As directed albuterol sulfate 90 mcg/actuation HFA aerosol inhaler 2 inh INHALATION Q4H PRN (Reason: shortness of breath or wheezing) Qty: 18 3RF (DME) Hinged Knee Brace See Rx Instructions .Route .MEDSUPPLY Qty: 1 0RF Rx Instructions: As directed ropinirole 1 mg tablet 1 mg PO BID tramadol 50 mg Tablet 50 - 100 mg PO Q6H PRN (Reason: Pain) lisinopril 40 mg tablet 10 mg PO DAILY celecoxib 400 mg capsule 400 mg PO DAILY Discharge Orders: Discharge ED (Routine); Ordered 06/16/23 Ordered By: Deja Aguilar Referrals: Jarrod Argueta MD [Physician] - 4-7 days Jono Arrington MD [Primary Care Provider] - Discharge Diet: Advance as tolerated Discharge Activity: Resume usual activity Patient Instructions: Abdominal Pain (ED), Opioid Safety, Pain Management Coding Level of Care Code ED Entry Level Financial Analyst for Delano Delarosa
[2023-06-16 18:59] VITALS: BP 180/88; PULSE 65; O2SAT 97
== END 2023-06-16 19:01 | disposition home or self-care (01) ==
PROVIDERS: Emergency Medicine; Emergency Provider Family Medicine; PCP Internal Medicine
DX: K80.20 Calculus of gallbladder without cholecystitis without obstruction (principal); K42.9 Umbilical hernia without obstruction or gangrene; I10 Essential (primary) hypertension
CPT/HCPCS: 36415; 74177; 80053; 81003; 83690; 85025; 96374; 96375; 99285; C9113; J2270; J2405; Q9967

== ENCOUNTER 2024-09-21 10:51 | Emergency (ER) | payer OTHER, SELFPAY ==
[2024-09-21 12:35] VITALS: BP 186/94; PULSE 63; RESP 18; TEMP 36.7; O2SAT 99; BMI 33.7
--- NOTE | 2024-09-21 13:57 | XRR_ITS ---
PROCEDURE INFORMATION: Exam: XR Right Ankle Exam date and time: 09/21/2024 2:42 PM Age: 63 years old Clinical indication: Right; Patient HX: RT ankle pain-no known injury; HX gout; Additional info: Pain swelling TECHNIQUE: Imaging protocol: Radiologic exam of the right ankle. Views: 3 or more views. COMPARISON: CR XR knee RT 3V* [id number] 09/21/2024 2:37 PM FINDINGS: Bones/joints: Normal anatomic alignment. The bone density is normal for this patient's age. Moderate osteoarthritis of the tibiotalar joint. Large plantar calcaneal spur. Small posterior calcaneal enthesophyte. No acutely displaced fractures. No joint dislocation. No aggressive osseous lesions. Soft tissues: Severe ankle swelling. XR/XR ankle RT min 3V* [id number] IMPRESSION: 1. No acute fracture or dislocation. 2. Severe ankle swelling. 3. Mild degenerative changes.
--- NOTE | 2024-09-21 13:57 | XRR_ITS ---
PROCEDURE INFORMATION: Exam: XR Right Knee Exam date and time: 09/21/2024 2:37 PM Age: 63 years old Clinical indication: Pain; Knee; Right; Additional info: Pain swelling TECHNIQUE: Imaging protocol: Radiologic exam of the right knee. Views: 3 views. COMPARISON: CR XR knees AP WB w BI lmt ORTH 06/22/2022 8:33 AM FINDINGS: Bones/joints: Moderate osteoarthritis of the lateral tibiofemoral compartment. Moderate osteoarthritis of the medial tibiofemoral compartment. Severe osteoarthritis of the patellofemoral joint. There is no evidence of a joint effusion. Normal anatomic alignment. The bone density is normal for this patient's age. No acutely displaced fractures. No joint dislocation. No aggressive osseous lesions. Soft tissues: There is no significant soft tissue swelling. XR/XR knee RT 3V* [id number] IMPRESSION: 1. No acute fracture or dislocation. 2. Moderate to severe osteoarthritis. Note there are very large tricompartmental marginal osteophytes.
--- NOTE | 2024-09-21 13:57 | ECG_ITS ---
[facility] [place] [facility] Date: 2024-09-21 Pat Name: Yuriy Moncada Department: Room: Gender: Male Associate Curator: : 1960 Requested By: Earl Mcclure Order Number: [id number] Dago MD: Betty Turner M.D. Measurements Intervals [place] Rate: 61 P: 13 ME: 196 QRS: -52 QRSD: 112 T: 26 QT: 410 QTc: 415 Interpretive Statements SINUS RHYTHM LEFT ANTERIOR FASCICULAR BLOCK [QRS AXIS <= -45, QR IN I, RS IN II] Compared to ECG 04/22/2022 08:47:56 Left anterior fascicular block now present Intraventricular conduction delay no longer present Electronically Signed On 09-21-2024 19:44:25 LUMBER MATERIAL HANDLER by Betty Turner M.D. [email or web address]
[2024-09-21 15:20] LABS: Basophils % 0.3 %; Eosinophils # 0.2 10^3/uL (0.0-0.8); Hematocrit 49.2 % (37-53); Lymphocytes # 1.6 10^3/uL (0.8-4.8); Lymphocytes % 14.7 %; Mean Corpuscular HGB Conc 31.3 g/dL (30-55); Mean Corpuscular Hemoglobin 30.9 pg (27-33); Mean Corpuscular Volume 98.6 fl (82-101); Mean Platelet Volume 10.6 fL (7.4-10.4); Monocytes # 0.9 10^3/uL (0.2-0.9); Neutrophils # 7.99 10^3/uL (1.8-7.7); Neutrophils % 74.4 %; Nucleated Red Blood Cells % 0 %; Platelet Count 247 10^3/cmm (157-399); Red Blood Count 4.99 10^6/uL (3.85-5.65); Red Cell Distribution Width 12.9 % (12.1-15.1); White Blood Count 10.73 10^3/uL (3.29-11.43)
[2024-09-21 15:48] LABS: Alanine Aminotransferase 12 U/L (0-41); Albumin Level 4.5 g/dL (3.5-5.2); Alkaline Phosphatase 104 U/L (40-130); Anion Gap 19.4 (5-19); Aspartate Amino Transferase 16 U/L (0-40); Blood Urea Nitrogen 17 mg/dL (8-23); Calcium 10.2 mg/dL (8.5-10.5); Carbon Dioxide 26 mmol/L (22-29); Chloride 99 mmol/L (98-107); Creatinine Clr Calc Pharmacy 95.6602; Globulin 3.1 g/dL (1.3-4.6); Glomerular Filtration Rate 67.4 mL/min (90-130); Glucose 92 mg/dL (65-115); Osmolality Calculated 291 mOsm/kg (285-295); Potassium 4.4 mmol/L (3.5-5.1); Sodium 140 mmol/L (136-145); Total Bilirubin 0.9 mg/dL (0.15-1.2); Total Protein 7.6 g/dL (6.6-8.7)
[2024-09-21 16:00] VITALS: BP 221/108; PULSE 57; RESP 16; O2SAT 99
--- NOTE | 2024-09-21 16:14 | ED_ITS ---
HPI - General Adult 2 General: Chief complaint: General Medical Stated complaint: rt knee, sergey, foot swollen Time Seen by Provider: 09/21/24 16:02 History of Present Illness: 63-year-old male presents to the emergen cy room with complaints of elevated blood pressure pain in his right knee and right ankle. He said some swelling and he has had gout issues in the past feels similar to gout he denies any chest pain or shortness of breath no recent change in medications. Associated symptoms: Deny chest pain, dyspnea or rash Related Data Home Medications Medication Instructions Recorded Confirmed celecoxib 400 mg capsule 400 mg PO DAILY 06/16/23 09/21/24 lisinopril 40 mg tablet 10 mg PO DAILY 06/16/23 09/21/24 ropinirole 1 mg tablet 1 mg PO BID 06/16/23 09/21/24 tramadol 50 mg tablet 50 - 100 mg PO Q6H PRN Pain 06/16/23 09/21/24 naltrexone 8 mg-bupropion 90 mg 1 tab PO DAILY 12/15/23 09/21/24 tablet,extended release (Contrave) Previous Rx's Medication Instructions Recorded albuterol sulfate 90 mcg/actuation 2 inh inhalation Q4H PRN shortness 05/12/22 aerosol inhaler of breath or wheezing #18 grams Hinged Knee Brace #1 ea 12/08/22 CUSTOM HINGED BRACE #1 ea 05/24/23 amlodipine 5 mg tablet 5 mg PO DAILY #30 tabs 09/21/24 prednisone 20 mg tablet 20 mg PO TID #15 tabs 09/21/24 Allergies Allergy/AdvReac Type Severity Reaction Status Date / Time No Known Allergies Allergy Verified 07/06/24 07:59 Review of Systems 2 Const: Denies: fever(s) or chills Card: Denies: chest pain Resp: Denies: dyspnea GI: Denies: abdominal pain : Denies: dysuria, urinary frequency or urinary urgency Musc: Reports: joint pain; Denies: neck pain or back pain Skin/Breast: Denies: rash PFSH ED 2 PFSH: Medical History Gout Sleep apnea Intolerant of noninvasive positive pressure ventilation COVID-19 RLS (restless legs syndrome) Retained ureteral stent Morbid obesity Ureteral stone with hydronephrosis 7+ millimeters right proximal ureteral stone with high-grade obstruction and severe refractory renal colic. Required inpatient admission December 2019 and treated with endoscopy with laser lithotripsy and stent. Intervertebral disc disorders with radiculopathy, lumbosacral region Thoracic neuralgia Sacroiliitis Hernia Essential (primary) hypertension Surgical History S/P carpal tunnel release S/P thoracotomy History of esophagogastroduodenoscopy (EGD) 02/22/2013- NORMAL S/P colonoscopy 06/13/2012- POLYPS Family History Other Cancer Heart disease Social History Smoking and tobacco/nicotine status: never used tobacco/nicotine Alcohol intake: current Alcohol intake frequency: holidays/special occasions only Substance/Drug Use: unknown Adopted: No Caregiver/support person: No Lives independently: No Household members: spouse Housing: House Marital status: Current occupational status: employed Current occupation: [employer] Current gender identity: Male Physical Exam 2 Const: GENERAL APPEARANCE: cooperative ORIENTATION/CONSCIOUSNESS: Yes awake, Yes oriented to person, Yes oriented to place and Yes oriented to time HENMT: COMMON NORMALS: normocephalic, atraumatic and hearing grossly normal bilaterally HEAD & SCALP: normocephalic and atraumatic Resp: COMMON NORMALS: normal respiratory effort, No retractions, No use of accessory muscles and clear to auscultation bilaterally AUSCULTATION: clear to auscultation bilaterally Cardio: COMMON NORMALS: regular rate, regular rhythm and No murmurs present (Cardio) RATE: regular rate RHYTHM: regular rhythm GI: COMMON NORMALS: Soft to palpation and No hepatosplenomegaly present A USCULTATION: Yes normoactive bowel sounds PALPATION: Yes Soft to palpation, No Tenderness to palpation present (GI), No Guarding due to palpation present (GI) and Yes No hepatosplenomegaly present Extremity: COMMON NORMALS: normal to inspection, capillary refill normal and no calf tenderness GENERAL: Yes edema (Chronic lower extremity edema no erythema no redness) OTHER: Examination of the right ankle and the right knee mildly warm to the touch mild swelling. Tender with any range of motion Homans negative. Neuro: SENSORIUM/ORIENTATION: Yes oriented to person, Yes oriented to place and Yes oriented to time Skin: COMMON NORMALS: no rashes or lesions noted GENERAL SKIN EXAM: no rashes or lesions noted Course 2 Vital Signs: Vital signs: Vital Signs Temperature 98.1 F 09/21/24 12:35 Pulse Rate 83 09/21/24 17:07 Respiratory Rate 16 09/21/24 16:00 Blood Pressure 161/83 09/21/24 17:07 Pulse Oximetry 99 09/21/24 17:07 Oxygen Delivery Me thod Room Air 09/21/24 16:00 MDM - General Adult Medical Decision Making Labs and imaging reviewed. Blood pressure improved with medication given will discharge patient home with amlodipine 5 mg daily. Additionally we will put him on a steroid taper. Follow-up with his primary care doctor within the next 7 to 10 days to recheck blood pressure management. Medical Records I reviewed the patient's medical records. Lab Data I reviewed the patient's lab results. 09/21/24 14:36 09/21/24 14:36 Radiology Impressions Ankle X-Ray 09/21/24 13:57 IMPRESSION: 1. No acute fracture or dislocation. 2. Severe ankle swelling. 3. Mild degenerative changes. Knee X-Ray 09/21/24 13:57 IMPRESSION: 1. No acute fracture or dislocation. 2. Moderate to severe osteoarthritis. Note there are very large tricompartmental marginal osteophytes. Laboratory Results WBC 10.73 10^3/uL (3.29-11.43) 09/21/24 14:36 RBC 4.99 10^6/uL (3.85-5.65) 09/21/24 14:36 Hgb 15.40 g/dL (11.27-16.99) 09/21/24 14:36 Hct 49.2 % (37-53) 09/21/24 14:36 MCV 98.6 fl (82-101) 09/21/24 14:36 MCH 30.9 pg (27-33) 09/21/24 14:36 MCHC 31.3 g/dL (30-55) 09/21/24 14:36 RDW 12.9 % (12.1-15.1) 09/21/24 14:36 Plt Count 247 10^3/cmm (157-399) 09/21/24 14:36 MPV 10.6 fL (7.4-10.4) H 09/21/24 14:36 Neut % (Auto) 74.4 % 09/21/24 14:36 Lymph % (Auto) 14.7 % 09/21/24 14:36 [place] % (Auto) 8.0 % 09/21/24 14:36 Eos % (Auto) 2.0 % 09/21/24 14:36 Baso % (Auto) 0.3 % 09/21/24 14:36 Neut # (Auto) 7.99 10^3/uL (1.8-7.7) H 09/21/24 14:36 Lymph # (Auto) 1.6 10^3/uL (0.8-4.8) 09/21/24 14:36 [place] # (Auto) 0.9 10^3/uL (0.2-0.9) 09/21/24 14:36 Eos # (Auto) 0.2 10^3/uL (0.0-0.8) 09/21/24 14:36 Baso # (Auto) 0.0 10^3/uL (0.0-0.1) 09/21/24 14:36 Nucleated RBC % (auto) 0 % 09/21/24 14:36 Nucleated RBCs # 0.0 /100WBC 09/21/24 14:36 Sodium 140 mmol/L (136-145) 09/21/24 14:36 Potassium 4.4 mmol/L (3.5-5.1) 09/21/24 14:36 Chloride 99 mmol/L (98-107) 09/21/24 14:36 Carbon Dioxide 26 mmol/L (22-29) 09/21/24 14:36 Anion Gap 19.4 (5-19) H 09/21/24 14:36 BUN 17 mg/dL (8-23) 09/21/24 14:36 Creatinine 1.1 mg/dL (0.7-1.2) 09/21/24 14:36 GFR Calculation 67.4 mL/min (90-130) L 09/21/24 14:36 Glucose 92 mg/dL (65-115) 09/21/24 14:36 Calculated Osmolality 291 mOsm/kg (285-295) 09/21/24 14:36 Calcium 10.2 mg/dL (8.5-10.5) 09/21/24 14:36 Total Bilirubin 0.9 mg/dL (0.15-1.2) 09/21/24 14:36 AST 16 U/L (0-40) 09/21/24 14:36 ALT 12 U/L (0-41) 09/21/24 14:36 Alkaline Phosphatase 104 U/L (40-130) 09/21/24 14:36 Total Protein 7.6 g/dL (6.6-8.7) 09/21/24 14:36 Albumin 4.5 g/dL (3.5-5.2) 09/21/24 14:36 Globulin 3.1 g/dL (1.3-4.6) 09/21/24 14:36 All radiology interpretation(s) finalized by discharge Discharge Plan Discharge Patient Disposition: Home Clinical Impression: Gouty arthritis, Essential (primary) hypertension Condition: Stable Prescriptions: New amlodipine 5 mg tablet 5 mg PO DAILY Qty: 30 0RF prednisone 20 mg tablet 20 mg PO TID Qty: 15 0RF Rx Instructions: 1 p.o. 3 times daily x3 days, 1 p.o. twice daily x2 days, 1 p.o. daily x2 days No Action (DME) CUSTOM HINGED BRACE See Rx Instructions .Route .MEDSUPPLY Qty: 1 0RF Rx Instructions: As directed albuterol sulfate 90 mcg/actuation HFA aerosol inhaler 2 inh INHALATION Q4H PRN (Reason: shortness of breath or wheezing) Qty: 18 3RF (DME) Hinged Knee Brace See Rx Instructions .Route .MEDSUPPLY Qty: 1 0RF Rx Instructions: As directed Contrave 8-90 mg tablet extended release 1 tab PO DAILY ropinirole 1 mg tablet 1 mg PO BID tramadol 50 mg Tablet 50 - 100 mg PO Q6H PRN (Reason: Pain) lisinopril 40 mg tablet 10 mg PO DAILY celecoxib 400 mg capsule 400 mg PO DAILY Discharge Orders: Discharge ED (Routine); Ordered 09/21/24 Ordered By: Earl Lima Referrals: Jono Arrington MD [Primary Care Provider] - Discharge Diet: Usual diet Discharge Activity: Increase activity as tolerated Patient Instructions: Gout (ED), Hypertension (ED), Opioid Safety, Pain Management Activity Restrictions/Additional Instructions: Thank you for choosing [facility] for your healthcare needs today. It is very important that you follow up as instructed or that you return to the Emergency Department should you have concerns or if your condition changes or worsens in any way. You are seen in the emergency room with pain in the right knee and ankle. X- rays show significant osteoarthritis on exam joint is somewhat swollen and warm to the touch we will treat you for gout you were given steroids in the emergency room start the oral steroid taper you are prescribed tomorrow. Additionally your blood pressure was elevated in the emergency room. Recommend just add amlodipine 5 mg daily to your current regimen and follow-up with your doctor to reevaluate your blood pressure within the next 7 to 10 days Coding Level of Care Code ED Patrol Captain for Delano Delarosa
[2024-09-21] MEDS: hyDRALAzine 20 mg/mL INJ 1 mL 10 MG IVP (16:43)
[2024-09-21 16:46] VITALS: BP 173/94
[2024-09-21] MEDS: methylPREDNISolone sod succ 125 mg/2 mL INJ IVP (17:05)
[2024-09-21] MEDS: ketorolac 30 mg/mL INJ IVP (17:05)
[2024-09-21 17:07] VITALS: BP 161/83; PULSE 83; O2SAT 99
== END 2024-09-21 17:08 | disposition home or self-care (01) ==
PROVIDERS: Emergency Provider Family Medicine; PCP Internal Medicine
DX: M10.9 Gout, unspecified (principal); I10 Essential (primary) hypertension
CPT/HCPCS: 36415; 73562; 73610; 80053; 85025; 93005; 96374; 96375; 99285; J0360; J1885; J2919

== ENCOUNTER → 2024-10-16 11:14 | Outpatient (BNVA) | payer OTHER, SELFPAY | PROVIDERS: PCP Internal Medicine; Visit Provider Physician Assistant | DX: M25.562 Pain in left knee (principal); M17.0 Bilateral primary osteoarthritis of knee | CPT/HCPCS: 73560; 73565 ==

== ENCOUNTER 2025-01-05 02:33 | Emergency (ER) | payer OTHER, SELFPAY ==
[2025-01-05 02:48] VITALS: BP 160/83; PULSE 84; RESP 20; TEMP 36.8; O2SAT 94; BMI 33.5
--- NOTE | 2025-01-05 02:58 | W.ED.EXTPRO ---
HPI - Extremity Problem General: Chief complaint: Extremity Problem,Nontraumatic Stated complaint: R arm Pain can't move hand Time Seen by Provider: 01/05/25 02:39 History of Present Illness: Patient presents to the ER with right hand pain started rating up his wrist. He has a reddened area near the base of his thumb right wrist area. Is very tender to touch warm erythematous, patient does have a history of gout but is never had in his hand usually has this in his right foot and ankle. Patient denies any trauma abrasion laceration puncture wound etc. Has been going on for about 2 days getting worse. Related Data Home Medications ?Medication ?Instructions ?Recorded ?Confirmed celecoxib 400 mg capsule 400 mg PO DAILY 06/16/23 10/16/24 lisinopril 40 mg tablet 10 mg PO DAILY 06/16/23 10/16/24 ropinirole 1 mg tablet 1 mg PO BID 06/16/23 10/16/24 tramadol 50 mg tablet 50 - 100 mg PO Q6H PRN Pain 06/16/23 10/16/24 naltrexone 8 mg-bupropion 90 mg 1 tab PO DAILY 12/15/23 10/16/24 tablet,extended release (Contrave) Previous Rx's ?Medication ?Instructions ?Recorded albuterol sulfate 90 mcg/actuation 2 inh inhalation Q4H PRN shortness 05/12/22 aerosol inhaler of breath or wheezing #18 grams Hinged Knee Brace #1 ea 12/08/22 CUSTOM HINGED BRACE #1 ea 05/24/23 amlodipine 5 mg tablet 5 mg PO DAILY #30 tabs 09/21/24 prednisone 20 mg tablet 20 mg PO TID #15 tabs 09/21/24 prednisone 50 mg tablet 50 mg PO DAILY #5 tabs 01/05/25 sulfamethoxazole 800 1 tab PO BID #14 tabs 01/05/25 mg-trimethoprim 160 mg tablet (Bactrim DS) Allergies Allergy/AdvReac Type Severity Reaction Status Date / Time No Known Allergies Allergy Verified 10/16/24 11:22 Review of Systems General: Reports: 10 or more systems reviewed and unremarkable except in HPI and below PFSH ED PFSH: Medical History Gout Sleep apnea Intolerant of noninvasive positive pressure ventilation COVID-19 RLS (restless legs syndrome) Retained ureteral stent Morbid obesity Ureteral stone with hydronephrosis 7+ millimeters right proximal ureteral stone with high-grade obstruction and severe refractory renal colic. Required inpatient admission December 2019 and treated with endoscopy with laser lithotripsy and stent. Intervertebral disc disorders with radiculopathy, lumbosacral region Thoracic neuralgia Sacroiliitis Hernia Essential (primary) hypertension Surgical History S/P carpal tunnel release S/P thoracotomy History of esophagogastroduodenoscopy (EGD) 02/22/2013- NORMAL S/P colonoscopy 06/13/2012- POLYPS Family History Other Cancer Heart disease Social History Smoking and tobacco/nicotine status: never used tobacco/nicotine Alcohol intake: current Alcohol intake frequency: holidays/special occasions only Substance/Drug Use: unknown Adopted: No Caregiver/support person: No Lives independently: No Household members: spouse Housing: House Marital status: Current occupational status: employed Current occupation: [employer] Current gender identity: Male Physical Exam Const: COMMON NORMALS: no acute distress, average body habitus, patient oriented x3, no limitations, healthy appearing, alert and well nourished HENMT: COMMON NORMALS: normocephalic, atraumatic, hearing grossly normal bilaterally, external ears normal, Normal external nose present, moist oral mucous membranes and oropharynx normal HEAD & SCALP: normocephalic and atraumatic NOSE: Normal external nose present EXTERNAL EAR: Yes external ears normal Neck/C-Spine: COMMON NORMALS: no JVD Chest: COMMONS NORMALS: normal inspection of the chest and normal palpation of entire chest wall Resp: COMMON NORMALS: normal respiratory effort, No retractions, No use of accessory muscles and clear to auscultation bilaterally AUSCULTATION: clear to auscultation bilaterally Cardio: COMMON NORMALS: no JVD, regular rate, regular rhythm, S1 normal heart sound present, S2 normal heart sound present, No gallops present (Cardio), No clicks present (Cardio), No murmurs present (Cardio) and No rub (Cardio) RATE: regular rate RHYTHM: regular rhythm HEART SOUNDS: S1 normal heart sound present and S2 normal heart sound present GI: COMMON NORMALS: Normal to inspection, nondistended, normoactive bowel sounds present, Soft to palpation, non-tender, No hepatosplenomegaly present and no masses PALPATION: Yes Soft to palpation and Yes No hepatosplenomegaly present Extremity: NARRATIVE EXTREMITY EXAM: Right hand there base of thumb wrist area red swollen painful, no obvious wound deformity crepitus noted Neuro: COMMON NORMALS: patient oriented x3 SENSORIUM/ORIENTATION: Yes alert Course Vital Signs: Vital signs: Vital Signs Temperature 98.2 F 01/05/25 02:48 Pulse Rate 84 01/05/25 02:48 Respiratory Rate 20 H 01/05/25 02:48 Blood Pressure 160/83 01/05/25 02:48 Pulse Oximetry 94 01/05/25 02:48 MDM - Extremity (Nontraumatic) Medical Decision Making Lab work was reviewed white count was normal uric acid is normal however this may be deep because is not a systemic infection and the uric acid crystals may have settled out into the redness. We will go ahead and treat him for both. Medical Records I reviewed the patient's medical records. Lab Data I reviewed the patient's lab results. 01/05/25 03:38 01/05/25 03:38 Laboratory Results WBC 8.73 10^3/uL (3.29-11.43) 01/05/25 03:38 RBC 4.61 10^6/uL (3.85-5.65) 01/05/25 03:38 Hgb 14.00 g/dL (11.27-16.99) 01/05/25 03:38 Hct 43.0 % (37-53) 01/05/25 03:38 MCV 93.3 fl (82-101) 01/05/25 03:38 MCH 30.4 pg (27-33) 01/05/25 03:38 MCHC 32.6 g/dL (30-55) 01/05/25 03:38 RDW 12.8 % (12.1-15.1) 01/05/25 03:38 Plt Count 257 10^3/cmm (157-399) 01/05/25 03:38 MPV 10.0 fL (7.4-10.4) 01/05/25 03:38 Neut % (Auto) 72.6 % 01/05/25 03:38 Lymph % (Auto) 12.6 % 01/05/25 03:38 [place] % (Auto) 10.2 % 01/05/25 03:38 Eos % (Auto) 3.8 % 01/05/25 03:38 Baso % (Auto) 0.6 % 01/05/25 03:38 Neut # (Auto) 6.34 10^3/uL (1.8-7.7) 01/05/25 03:38 Lymph # (Auto) 1.1 10^3/uL (0.8-4.8) 01/05/25 03:38 [place] # (Auto) 0.9 10^3/uL (0.2-0.9) 01/05/25 03:38 Eos # (Auto) 0.3 10^3/uL (0.0-0.8) 01/05/25 03:38 Baso # (Auto) 0.1 10^3/uL (0.0-0.1) 01/05/25 03:38 Nucleated RBC % (auto) 0 % 01/05/25 03:38 Nucleated RBCs # 0.0 /100WBC 01/05/25 03:38 Sodium 136 mmol/L (136-145) 01/05/25 03:38 Potassium 4.5 mmol/L (3.5-5.1) 01/05/25 03:38 Chloride 104 mmol/L (98-107) 01/05/25 03:38 Carbon Dioxide 24 mmol/L (22-29) 01/05/25 03:38 Anion Gap 12.5 (5-19) 01/05/25 03:38 BUN 18 mg/dL (8-23) 01/05/25 03:38 Creatinine 1.0 mg/dL (0.7-1.2) 01/05/25 03:38 GFR Calculation 75.0 mL/min (90-130) L 01/05/25 03:38 Glucose 128 mg/dL (65-115) H 01/05/25 03:38 Calculated Osmolality 286 mOsm/kg (285-295) 01/05/25 03:38 Uric Acid 6.3 mg/dL (3.4-7.0) 01/05/25 03:38 Calcium 9.4 mg/dL (8.5-10.5) 01/05/25 03:38 Total Bilirubin 0.4 mg/dL (0.15-1.2) 01/05/25 03:38 AST 12 U/L (0-40) 01/05/25 03:38 ALT 10 U/L (0-41) 01/05/25 03:38 Alkaline Phosphatase 98 U/L (40-130) 01/05/25 03:38 Total Protein 7.0 g/dL (6.6-8.7) 01/05/25 03:38 Albumin 3.9 g/dL (3.5-5.2) 01/05/25 03:38 Globulin 3.1 g/dL (1.3-4.6) 01/05/25 03:38 All radiology interpretation(s) finalized by discharge Discharge Plan Discharge Patient Disposition: Home Clinical Impression: Gout Qualifiers: Gout site: wrist Encounter type: initial encounter Chronicity: acute Laterality: right Cellulitis Qualifiers: Site of cellulitis: extremity Site of cellulitis of extremity: upper extremity Laterality: right Qualified Code(s): L03.113 - Cellulitis of right upper limb Condition: Stable Prescriptions: New sulfamethoxazole-trimethoprim [Bactrim DS] 800-160 mg tablet 1 tab PO BID Qty: 14 0RF prednisone 50 mg tablet 50 mg PO DAILY Qty: 5 0RF No Action (DME) CUSTOM HINGED BRACE See Rx Instructions .Route .MEDSUPPLY Qty: 1 0RF Rx Instructions: As directed albuterol sulfate 90 mcg/actuation HFA aerosol inhaler 2 inh INHALATION Q4H PRN (Reason: shortness of breath or wheezing) Qty: 18 3RF (DME) Hinged Knee Brace See Rx Instructions .Route .MEDSUPPLY Qty: 1 0RF Rx Instructions: As directed Contrave 8-90 mg tablet extended release 1 tab PO DAILY ropinirole 1 mg tablet 1 mg PO BID tramadol 50 mg Tablet 50 - 100 mg PO Q6H PRN (Reason: Pain) lisinopril 40 mg tablet 10 mg PO DAILY celecoxib 400 mg capsule 400 mg PO DAILY amlodipine 5 mg tablet 5 mg PO DAILY Qty: 30 0RF prednisone 20 mg tablet 20 mg PO TID Qty: 15 0RF Rx Instructions: 1 p.o. 3 times daily x3 days, 1 p.o. twice daily x2 days, 1 p.o. daily x2 days Discharge Orders: Discharge ED (Routine); Ordered 01/05/25 Ordered By: Jacky Wooten Referrals: Jono Arrington MD [Primary Care Provider] - 1 week Patient Instructions: Gout (ED), Cellulitis (ED) Activity Restrictions/Additional Instructions: Thank you for choosing [facility] for your healthcare needs today. Please realize that you were seen in the emergency department and that we are providing you with an emergency medical screening exam and this may not be a complete and all exclusive of all testing and/or medical workup we may need to determine your element or severity of your illness. It is very important that you follow-up as instructed with your primary care provider or specialist for the additional evaluation and to discuss your medical treatment plan. You may return to the emergency department should you have concerns or if your condition changes or worsens in any way. Print Language: Liberian Coding Level of Care Code ED Acid Extractor for Delano Delarosa
[2025-01-05] MEDS: dexamethasone 10 mg/mL INJ IM (03:36)
[2025-01-05] MEDS: ketorolac 60 mg/2 mL INJ IM (03:37)
[2025-01-05 03:59] LABS: Basophils # 0.1 10^3/uL (0.0-0.1); Basophils % 0.6 %; Eosinophils # 0.3 10^3/uL (0.0-0.8); Eosinophils % 3.8 %; Lymphocytes # 1.1 10^3/uL (0.8-4.8); Lymphocytes % 12.6 %; Mean Corpuscular HGB Conc 32.6 g/dL (30-55); Mean Corpuscular Hemoglobin 30.4 pg (27-33); Mean Corpuscular Volume 93.3 fl (82-101); Monocytes # 0.9 10^3/uL (0.2-0.9); Monocytes % 10.2 %; Neutrophils # 6.34 10^3/uL (1.8-7.7); Neutrophils % 72.6 %; Nucleated Red Blood Cells % 0 %; Platelet Count 257 10^3/cmm (157-399); Red Blood Count 4.61 10^6/uL (3.85-5.65); Red Cell Distribution Width 12.8 % (12.1-15.1); White Blood Count 8.73 10^3/uL (3.29-11.43)
[2025-01-05 04:22] LABS: Alanine Aminotransferase 10 U/L (0-41); Albumin Level 3.9 g/dL (3.5-5.2); Alkaline Phosphatase 98 U/L (40-130); Anion Gap 12.5 (5-19); Aspartate Amino Transferase 12 U/L (0-40); Blood Urea Nitrogen 18 mg/dL (8-23); Calcium 9.4 mg/dL (8.5-10.5); Carbon Dioxide 24 mmol/L (22-29); Chloride 104 mmol/L (98-107); Creatinine Clr Calc Pharmacy 103.4638; Globulin 3.1 g/dL (1.3-4.6); Glucose 128 mg/dL (65-115); Osmolality Calculated 286 mOsm/kg (285-295); Potassium 4.5 mmol/L (3.5-5.1); Sodium 136 mmol/L (136-145); Total Bilirubin 0.4 mg/dL (0.15-1.2); Uric Acid 6.3 mg/dL (3.4-7.0)
[2025-01-05 05:23] VITALS: BP 149/80; PULSE 69; O2SAT 91
[2025-01-05 05:24] VITALS: BP 149/80; PULSE 69; O2SAT 91
== END 2025-01-05 05:25 | disposition home or self-care (01) ==
PROVIDERS: Emergency Provider Emergency Medicine; PCP Internal Medicine
DX: M10.071 Idiopathic gout, right ankle and foot (principal); L03.113 Cellulitis of right upper limb; I10 Essential (primary) hypertension
CPT/HCPCS: 80053; 84550; 85025; 99284; J1100; J1885

== ENCOUNTER → 2025-04-26 07:59 | Outpatient (BNVA) | payer SELFPAY | PROVIDERS: PCP Internal Medicine; Visit Provider Physician Assistant | DX: M17.0 Bilateral primary osteoarthritis of knee (principal); Z71.89 Other specified counseling | CPT/HCPCS: 73560; 73565 ==